=== PATIENT | female | born 1990 | race Hispanic/Latino ===

== ENCOUNTER 2020-06-07 07:26 | Emergency (ER) | payer BC ==
[2020-06-07 08:43] LABS: Urine Blood Trace-intact (Negative); Urine Glucose Negative (Negative); Urine Protein 1+ (Negative); Urine Specific Gravity >=1.030 (1.005-1.030)
[2020-06-07] MEDS ORDERED: FAMOTIDINE 20 MG/2 ML VIAL IV ONE (08:53)
[2020-06-07] MEDS ORDERED: NA CHLORIDE 0.9% 1,000 ML ONE (08:53)
[2020-06-07 08:54] LABS: Absolute Lymphocytes (CBC) 1.7 K/uL (0.7-4.9); Basophils % 1.3 % (0-1.3); Hematocrit 36.7 % (36.0-45.0); RBC Red Blood Cell Count 4.32 M/uL (3.86-4.86)
[2020-06-07 09:00] LABS: ALT/SGPT 22 U/L (12-78); AST/SGOT 16 U/L (15-37); Albumin 3.8 g/dL (3.4-5.0); Alkaline Phosphatase 95 U/L (45-117); BUN Blood Urea Nitrogen 11 mg/dL (7-18); Bicarbonate 26 mmol/L (21-32); Bilirubin Direct 0.1 mg/dL (0-0.2); Bilirubin Total 0.5 mg/dL (0.2-1.0); Glucose Level 87 mg/dL (74-106); Lipase 97 U/L (73-393); Potassium 3.6 mmol/L (3.5-5.1); Protein, Total 8.9 g/dL (6.4-8.2); Sodium Level 137 mmol/L (136-145)
[2020-06-07] MEDS ORDERED: KETOROLAC 30 MG/ML INJ ONE (10:02)
[2020-06-07] MEDS ORDERED: ONDANSETRON 4 MG/2 ML VIAL ONE (10:02)
[2020-06-07 10:23] LABS: Urine Specific Gravity/Preg >1.030 (1.005-1.030)
--- NOTE | 2020-06-07 10:24 | RAD REPORT ---
EXAM DESCRIPTION: CT - Abdomen Pelvis W Contrast - 06/07/2020 9:34 am CLINICAL HISTORY: Abd pain;GI bleed COMPARISON: Abdomen Pelvis W Contrast dated 03/01/2017; Abdomen Pelvis W Contrast dated 02/26/2017; Transvaginal Study Probe dated 02/28/2017 TECHNIQUE: Biphasic, helical CT imaging of the abdomen and pelvis was performed following 100 ml non -ionic IV contrast. No oral contrast administered. All CT scans are performed using dose optimization technique as appropriate and may include automated exposure control or mA/KV adjustment according to patient size. FINDINGS: No suspicious findings in the lung bases. The liver, spleen, and pancreas show no suspicious findings. Gallbladder and biliary tree are also wi thout suspicious finding. Symmetric renal function is seen with no hydronephrosis or suspicious renal mass. No pyelonephritis o r acute parenchymal process. No bladder abnormalities. No adrenal abnormalities. No gastric dilatation or gastric wall thickening. No dilated small bowel loops. The appendix is not w ell defined. A primary appendix process is not suspected. No colon wall thickening or mass identifiab le. Mild to moderate stool volume is present in the rectum. Perianal region of the rectum is less wel l visualized on this study but without a clearly definable mass. No uterine abnormality seen. There is been a significant change in the patient's complex ovarian cyst ic masses since prior imaging. Patient now has multiple bilateral ovarian cystic and solid mass compo nents. The largest cystic mass component on the left is 6 cm with a solid enhancing mass component of at least 5 cm. Calcifications are present. Right ovarian solid and cystic mass complex is collective ly 7-8 cm in size. Multiple small cystic and solid masses are present as well indistinguishable as to whether these are part of either ovary or adjacent masses. Patient also has nodularity, enhancement and mineralization of the omentum. Small amount of free intraperitoneal fluid is present. No free air or pneumatosis. No bulky lymphadenopathy. No suspicious bony findings. IMPRESSION: Multiple enlarged, enhancing and partially mineralized solid and cystic ovarian masses. These represent a substantial change from the 2018 imaging. Minimal amount of free intraperitoneal fluid is present along with nodularity, enhancement and scatte red mineralization of the omentum. Ovarian and peritoneal findings are suspicious for ovarian malignancy and carcinomatosis. No abnormality that would explain the patient's rectal bleeding pain. Ovarian complex masses are not seen as invasive into the colon.
[2020-06-07] MEDS ORDERED: MORPHINE 4 MG/ML SYR ONE ×3 (10:53→19:19)
--- NOTE | 2020-06-07 14:35 | RAD REPORT ---
EXAM DESCRIPTION: US - Pelvis Complete - 06/07/2020 2:21 pm CLINICAL HISTORY: Abdominal pain COMPARISON: June 07, 2020 cat scan FINDINGS: 8 centimeter mass is present within the right adnexa. It contains cystic and solid element s. Portions are calcified. A 9 centimeter mass is present within the left adnexae containing cystic and solid elements as well c alcification. Blood flow seen within the solid elements Small amount of ascites The uterus was not imaged on this examination. CT scan on the same date demonstrates the uterus to be present. The patient declined vaginal ultrasound due to severe pain IMPRESSION: Bilateral adnexal masses probably ovarian carcinomas
[2020-06-07] MEDS ORDERED: NA CHLORIDE 0.9% 100 ML ONE (15:10)
[2020-06-07] MEDS ORDERED: METOCLOPRAMIDE 10 MG/2mL INJ ONE (15:10)
--- NOTE | 2020-06-07 17:42 | ER ---
Nurse's Notes [facility] Name: Thea Briceño Age: 30 yrs Sex: Female : 1990 Arrival Date: 06/07/2020 Time: 07:33 Bed 14 Private MD: Diagnosis: Ovarian Carcinomas Presentation: 06/07 07:47 Chief complaint: Patient states: rectal bleeding for 3 weeks, described as bright red em and coffee ground, pt also reports abdominal/pelvic pain. Coronavirus screen: Client denies travel out of the [place] in the last 14 days. Ebola Screen: Patient negative for fever greater than or equal to 101.5 degrees Fahrenheit, and additional compatible Ebola Virus Disease symptoms Patient denies exposure to infectious person. Patient denies travel to an Ebola-affected area in the 21 days before illness onset. No symptoms or risks identified at this time. Initial Sepsis Screen: Does the patient meet any 2 criteria? HR > 90 bpm. No. Patient's initial sepsis screen is negative. Does the patient have a suspected source of infection? No. Patient's initial sepsis screen is negative. Risk Assessment: Do you want to hurt yourself or someone else? Patient reports no desire to harm self or others. Onset of symptoms was June 07, 2020. 07:47 Method Of Arrival: Ambulatory em 07:47 Acuity: YUMIKO 3 em Triage Assessment: 18:56 General: Appears in no apparent distress. uncomfortable, Behavior is cooperative, bw appropriate for age, anxious. 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 - Social history:: Smoking status: Patient denies any tobacco usage or history of. Screenin:16 Abuse screen: Denies threats or abuse. Nutritional screening: No deficits noted. bw Tuberculosis screening: No symptoms or risk factors identified. Fall Risk None identified. Assessment: 08:16 Pain: Complains of pain in abdomen. Neuro: No deficits noted. Cardiovascular: No bw deficits noted. Respiratory: No deficits noted. GI: Reports lower abdominal pain, rectal bleeding, bloody stool, nausea. 08:39 Reassessment: Patient appears in no apparent distress at this time. Patient and/or bw family updated on plan of care and expected duration. Pain level reassessed. Patient is alert, oriented x 3, equal unlabored respirations, skin warm/dry/pink. 09:40 Reassessment: Patient appears in no apparent distress at this time. Patient and/or bw family updated on plan of care and expected duration. Pain level reassessed. Patient is alert, oriented x 3, equal unlabored respirations, skin warm/dry/pink. 10:42 Reassessment: Patient appears in no apparent distress at this time. Patient and/or bw family updated on plan of care and expected duration. Pain level reassessed. Patient is alert, oriented x 3, equal unlabored respirations, skin warm/dry/pink. 11:48 Reassessment: Patient appears in no apparent distress at this time. Patient and/or bw family updated on plan of care and expected duration. Pain level reassessed. Patient is alert, oriented x 3, equal unlabored respirations, skin warm/dry/pink. 12:52 Reassessment: Patient appears in no apparent distress at this time. Patient and/or bw family updated on plan of care and expected duration. Pain level reassessed. Patient is alert, oriented x 3, equal unlabored respirations, skin warm/dry/pink. 13:18 Reassessment: Dr. Ortega consulting with Dr. Church over the phone at this time. ss 14:01 Reassessment: Patient appears in no apparent distress at this time. Patient and/or bw family updated on plan of care and expected duration. Pain level reassessed. Patient is alert, oriented x 3, equal unlabored respirations, skin warm/dry/pink. 15:04 Reassessment: Patient appears in no apparent distress at this time. Patient and/or bw family updated on plan of care and expected duration. Pain level reassessed. Patient is alert, oriented x 3, equal unlabored respirations, skin warm/dry/pink. 18:34 Reassessment: Report called to CHANDAN Li at [facility]. Awaiting EMS transportation.ss 18:56 Reassessment: Patient appears in no apparent distress at this time. Patient and/or bw family updated on plan of care and expected duration. Pain level reassessed. Patient is alert, oriented x 3, equal unlabored respirations, skin warm/dry/pink. Vital Signs: 07:47 BP 126 / 78; Pulse 92; Resp 18; Temp 97.8; Pulse Ox 99% on R/A; Weight 86.18 kg; Height em 4 ft. 11 in. (149.86 cm); Pain 6/10; 08:39 BP 120 / 79; Pulse 84; Resp 20; Pulse Ox 98% on R/A; bw 09:40 BP 122 / 87; Pulse 87; Resp 20; Pulse Ox 98% on R/A; bw 10:42 BP 124 / 87; Pulse 78; Resp 18; Pulse Ox 100% ; bw 11:48 BP 115 / 74; Pulse 74; Resp 18; Pulse Ox 100% ; bw 12:52 BP 104 / 56; Pulse 83; Resp 18; Pulse Ox 99% on R/A; bw 13:58 BP 113 / 56; Pulse 87; Resp 17; Pulse Ox 100% on R/A; mh5 15:07 BP 110 / 80; Pulse 87; Resp 17; Temp 98.0(O); Pulse Ox 100% on R/A; mh5 16:01 BP 100 / 69; Pulse 90; Resp 17; Pulse Ox 100% on R/A; mh5 17:37 BP 115 / 91; Pulse 91; Resp 16; Temp 98.4(TE); Pulse Ox 100% on R/A; mh5 07:47 Body Mass Index 38.37 (86.18 kg, 149.86 cm) em ED Course: 07:33 Patient arrived in ED. mr 07:40 Rory Ortega MD is Attending Physician. kdr 07:52 Triage completed. em 07:52 Arm band placed on. em 08:00 Tiara Sky, CHANDAN is Primary Nurse. bw 08:16 Patient has correct armband on for positive identification. bw 09:34 CT Abd/Pelvis - IV Contrast Only In Process Unspecified. EDMS 14:59 COVID swab sent to lab. 5 17:00 Assist provider with pelvic exam: Set up pelvic tray. Performed by Rory Ortega MD ss Patient tolerated well. 17:56 initiated transfer to [facility] pt accepted by dr Dickinson, admin approval given bd by Jamal Garibay. 18:34 Patient transferred, IV remains in place. ss Administered Medications: 08:40 Drug: Pepcid (famotidine) 20 mg Route: IVP; Site: left antecubital; bw 15:56 Follow up: Response: No adverse reaction bw 08:41 Drug: NS 0.9% 1000 ml Route: IV; Rate: 1 bolus; Site: left antecubital; bw 09:48 Drug: Zofran (Ondansetron) 4 mg Route: IVP; Site: left antecubital; bw 15:57 Follow up: Response: No adverse reaction bw 09:49 Drug: TORadol - (ketorolac) 15 mg Route: IVP; Site: left antecubital; bw 15:57 Follow up: Response: No adverse reaction bw 10:40 Drug: morphine 4 mg Route: IVP; Site: left antecubital; bw 15:57 Follow up: Response: No adverse reaction bw 13:54 Drug: morphine 4 mg Route: IVP; Site: left antecubital; bw 15:57 Follow up: Response: No adverse reaction bw 14:56 Drug: Reglan (metoCLOPramide) 10 mg Route: IVP; Site: right antecubital; ca1 15:57 Follow up: Response: No adverse reaction bw 18:03 Drug: Phenergan 12.5 mg Route: IVP; Site: left antecubital; bw 19:04 Follow up: Response: No adverse reaction bw 19:07 Drug: morphine 4 mg Route: IVP; Site: left antecubital; bw 19:07 Follow up: Response: No adverse reaction bw Point of Care Testing: Guaiac: 16:35 Stool Guaiac: Positive; Stool Hemoccult Control: Pass; bw Outcome: 17:41 ER care complete, transfer ordered by . kdr 18:34 Instructed on the need for transfer. ss 18:57 Transferred by ground EMS to [facility]. bw 18:57 Condition: stable 19:08 Patient left the ED. bw Signatures: Dispatcher [employer] Hannah Izaguirre Kevin, MD MD kdr Rivera, Mary mr MillerRambo, RN Jovana Carlisle RN RN Rosanna Doan [facility] Lena Mcintyre RN RN [facility] Tiara Sky RN RN
--- NOTE | 2020-06-07 17:42 | EDPHYS ---
Physician Documentation [facility] Name: Thea Briceño Age: 30 yrs Sex: Female : 1990 Arrival Date: 06/07/2020 Time: 07:33 Bed 14 Private MD: ED Physician Rory Ortega HPI: 06/07 17:42 This 30 yrs old Female presents to ER via Ambulatory with complaints of Rectal kdr Bleeding. 17:42 The patient presents to the emergency department with bleeding from the rectum/anus, kdr that is mild. Onset: The symptoms/episode began/occurred yesterday. Context: the patient has a known history of hemorrhoids. Modifying factors: The symptoms are alleviated by nothing, The symptoms are aggravated by bowel movement. Associate signs and symptoms: Pertinent positives: abdominal pain in the suprapubic area, right lower quadrant and left lower quadrant, lower GI bleeding. The patient has not experienced similar symptoms in the past. The patient has not recently seen a physician. 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 - Social history:: Smoking status: Patient denies any tobacco usage or history of. ROS: 17:42 Constitutional: Negative for fever, chills, and weight loss, Eyes: Negative for injury, kdr pain, redness, and discharge, ENT: Negative for injury, pain, and discharge, Neck: Negative for injury, pain, and swelling, Cardiovascular: Negative for chest pain, palpitations, and edema, Respiratory: Negative for shortness of breath, cough, wheezing, and pleuritic chest pain, Back: Negative for injury and pain, : Negative for injury, bleeding, discharge, and swelling, MS/Extremity: Negative for injury and deformity, Skin: Negative for injury, rash, and discoloration, Neuro: Negative for headache, weakness, numbness, tingling, and seizure activity. Psych: Negative for depression, anxiety, suicide ideation, homicidal ideation, and hallucinations, Allergy/Immunology: Negative for hives, rash, and allergies, Endocrine: Negative for neck swelling, polydipsia, polyuria, polyphagia, and marked weight changes, Hematologic/Lymphatic: Negative for swollen nodes, abnormal bleeding, and unusual bruising. 17:42 Abdomen/GI: Positive for abdominal pain, nausea, rectal bleeding, Expressed a large clot this morning. Exam: 17:42 Constitutional: This is a well developed, well nourished patient who is awake, alert, kdr and in no acute distress. Head/Face: Normocephalic, atraumatic. Eyes: Pupils equal round and reactive to light, extra-ocular motions intact. Lids and lashes normal. Conjunctiva and sclera are non-icteric and not injected. Cornea within normal limits. Periorbital areas with no swelling, redness, or edema. Neck: Trachea midline, no thyromegaly or masses palpated, and no cervical lymphadenopathy. Supple, full range of motion without nuchal rigidity, or vertebral point tenderness. No Meningismus. Chest/axilla: Normal chest wall appearance and motion. Nontender with no deformity. No lesions are appreciated. Cardiovascular: Regular rate and rhythm with a normal S1 and S2. No gallops, murmurs, or rubs. Normal PMI, no JVD. No pulse deficits. Respiratory: Lungs have equal breath sounds bilaterally, clear to auscultation and percussion. No rales, rhonchi or wheezes noted. No increased work of breathing, no retractions or nasal flaring. Back: No spinal tenderness. No costovertebral tenderness. Full range of motion. Skin: Warm, dry with normal turgor. Normal color with no rashes, no lesions, and no evidence of cellulitis. MS/ Extremity: Pulses equal, no cyanosis. Neurovascular intact. Full, normal range of motion. Neuro: Awake and alert, GCS 15, oriented to person, place, time, and situation. Cranial nerves II-XII grossly intact. Motor strength 5/5 in all extremities. Sensory grossly intact. Cerebellar exam normal. Normal gait. Psych: Awake, alert, with orientation to person, place and time. Behavior, mood, and affect are within normal limits. 17:42 Abdomen/GI: Inspection: abdomen appears normal, Bowel sounds: active, Palpation: soft, moderate abdominal tenderness, in the suprapubic area, right lower quadrant and left lower quadrant, mass, is not appreciated, rebound tenderness, is not appreciated, Rectal exam: rectal tone normal, Stool: normal. 17:42 : Pelvic Exam: External exam: is normal, Speculum exam: normal findings, no bleeding is noted, discharge, is not appreciated, a female etl architect was present for the exam. Vital Signs: 07:47 BP 126 / 78; Pulse 92; Resp 18; Temp 97.8; Pulse Ox 99% on R/A; Weight 86.18 kg; Height em 4 ft. 11 in. (149.86 cm); Pain 6/10; 08:39 BP 120 / 79; Pulse 84; Resp 20; Pulse Ox 98% on R/A; bw 09:40 BP 122 / 87; Pulse 87; Resp 20; Pulse Ox 98% on R/A; bw 10:42 BP 124 / 87; Pulse 78; Resp 18; Pulse Ox 100% ; bw 11:48 BP 115 / 74; Pulse 74; Resp 18; Pulse Ox 100% ; bw 12:52 BP 104 / 56; Pulse 83; Resp 18; Pulse Ox 99% on R/A; bw 13:58 BP 113 / 56; Pulse 87; Resp 17; Pulse Ox 100% on R/A; mh5 15:07 BP 110 / 80; Pulse 87; Resp 17; Temp 98.0(O); Pulse Ox 100% on R/A; mh5 16:01 BP 100 / 69; Pulse 90; Resp 17; Pulse Ox 100% on R/A; mh5 17:37 BP 115 / 91; Pulse 91; Resp 16; Temp 98.4(TE); Pulse Ox 100% on R/A; mh5 07:47 Body Mass Index 38.37 (86.18 kg, 149.86 cm) em MDM: 17:41 Patient medically screened. kdr 17:42 Data reviewed: vital signs, nurses notes, lab test result(s), radiologic studies. kdr Counseling: I had a detailed discussion with the patient and/or guardian regarding: the historical points, exam findings, and any diagnostic results supporting the discharge/admit diagnosis, lab results, radiology results, the need for outpatient follow up. Physician consultation: Mya Church MD was called at 10:46, was contacted at 12:00, regarding consult, patient's condition, and will see patient in ED, after a discussion of the case, a recommendation for transfer for higher level of care is made. 06/07 07:40 Order name: Basic Metabolic Panel; Complete Time: 09:38 kdr 06/07 07:40 Order name: CBC with Diff; Complete Time: 09:38 kdr 06/07 07:40 Order name: Hepatic Function; Complete Time: 09:38 kdr 06/07 07:40 Order name: Lipase; Complete Time: 09:38 kdr 06/07 07:40 Order name: Type And Screen; Complete Time: 10:31 kdr 06/07 08:42 Order name: Urine Dipstick-Ancillary; Complete Time: 09:38 EDMS 06/07 08:07 Order name: CT Abd/Pelvis - IV Contrast Only; Complete Time: 10:31 kdr 06/07 08:47 Order name: Urine --Ancillary (enter results); Complete Time: 10:31 bd 06/07 10:14 Order name: ABO/RH no charge; Complete Time: 10:31 EDMS 06/07 14:35 Order name: US; Complete Time: 14:51 EDMS 06/07 17:17 Order name: SARS-COV-2 RT PCR; Complete Time: 17:22 EDMS 06/07 17:35 Order name: Occult Blood--Ancillary bd 06/07 07:40 Order name: IV Saline Lock; Complete Time: 08:26 kdr 06/07 07:40 Order name: Labs collected and sent; Complete Time: 08:26 kdr 06/07 08:40 Order name: Labs - recollect needed: recollect t\T\s, reband pt.; Complete Time: 09:13 bd Administered Medications: 08:40 Drug: Pepcid (famotidine) 20 mg Route: IVP; Site: left antecubital; bw 15:56 Follow up: Response: No adverse reaction bw 08:41 Drug: NS 0.9% 1000 ml Route: IV; Rate: 1 bolus; Site: left antecubital; bw 09:48 Drug: Zofran (Ondansetron) 4 mg Route: IVP; Site: left antecubital; bw 15:57 Follow up: Response: No adverse reaction bw 09:49 Drug: TORadol - (ketorolac) 15 mg Route: IVP; Site: left antecubital; bw 15:57 Follow up: Response: No adverse reaction bw 10:40 Drug: morphine 4 mg Route: IVP; Site: left antecubital; bw 15:57 Follow up: Response: No adverse reaction bw 13:54 Drug: morphine 4 mg Route: IVP; Site: left antecubital; bw 15:57 Follow up: Response: No adverse reaction bw 14:56 Drug: Reglan (metoCLOPramide) 10 mg Route: IVP; Site: right antecubital; ca1 15:57 Follow up: Response: No adverse reaction bw 18:03 Drug: Phenergan 12.5 mg Route: IVP; Site: left antecubital; bw 19:04 Follow up: Response: No adverse reaction bw 19:07 Drug: morphine 4 mg Route: IVP; Site: left antecubital; bw 19:07 Follow up: Response: No adverse reaction bw Point of Care Testing: Guaiac: 16:35 Stool Guaiac: Positive; Stool Hemoccult Control: Pass; bw Disposition: 06/07/20 17:41 Transfer ordered to [facility]. Diagnosis is Ovarian Carcinomas. - Reason for transfer: Higher level of care. - Accepting physician is Ibe. Alcantar (SUPA), Kylah (Inspector Of Dredging/Onc). - Condition is Fair. - Problem is new. - Symptoms have improved. Signatures: Dispatcher [employer] EDMS Hannah Ontiveros Kevin, MD MD kdr Rambo Miller, CHANDAN HAWLEY em Lena Mcintyre RN RN [facility] Tiara Sky RN RN Corrections: (The following items were deleted from the chart) 17:03 13:59 Transvaginal Study (Probe)+[id number].RAD.BRZ ordered. EDNH EDMS 19:08 17:41 06/07/2020 17:41 Transfer ordered to [facility]. bw Diagnosis is Ovarian Carcinomas. Reason for transfer: Higher level of care. Accepting physician is Ibe. Alcantar (HM), Kylah (Inspector Of Dredging/Onc). Condition is Fair. Problem is new. Symptoms have improved. kdr
[2020-06-07] MEDS ORDERED: PROMETHAZINE INJ 25 MG/ML AMP ONE (18:08)
[2020-06-07 19:45] VITALS: O2SAT 100
[2020-06-07 19:50] VITALS: BP 115/91; TEMP 98.4
--- NOTE | 2020-06-08 21:20 | P.CNS ---
Date of Consult: 06/07/20 Reason for Consult: Pelvic Pain Requesting Physician: Rory Ortega Chief Complaint: Pelvic Pain History of Present Illness: 30 year old female patient, , (4 SAB), reported to ED with complaints of chronic and worsening pelvic pain with recent onset rectal bleeding. She denies any constipation, hard stool, straining, or use of laxatives. Menarche age 11 and history of irregular periods since then. She used COCs as a teenager, then stopped these in her early 20s. She reports a long history of very irregular, heavy and painful periods. In 2018 she reported to the ED with pelvic pain and heavy menstrual bleeding. A CT scan was done at that time, was found to have cystic adnexal mass, and was referred to founder and chief technical officer in [place]. She was seen at that time by a provider in [place] (name unknown) and recommended to have fertility work up to include HSG. She was unable to complete the recommended testing since she was without insurance, and did not return for follow up. She has had no consistent gynecology care since that time. Allergies Doxycycline Allergy (Uncoded 02/26/17 01:34) Unknown Home medications list reviewed: Yes - Past Medical/Surgical History Diabetic: No Past Medical History: Reviewed- Non-Contributory Review of Systems Respiratory: Unremarkable Cardiovascular: Unremarkable Gastrointestinal: Abdominal Pain, Hematochezia Genitourinary: As per HPI, Unremarkable Musculoskeletal: Unremarkable Physical Examination Temp Pulse Resp BP Pulse Ox 98.4 F 91 H 16 115/91 H 06/07/20 17:37 06/07/20 17:37 06/07/20 17:37 06/07/20 17:37 General: Mild distress HEENT: Atraumatic, PERRLA, Mucous membr. moist/pink, EOMI, Sclerae nonicteric Respiratory: Clear to auscultation bilaterally, Normal air movement Gastrointestinal: Non-distended, No ascites, Tenderness External genitalia: Deferred Rectal: Deferred - Problems (1) Pelvic pain Status: Acute Plan: Continue current pain management, improved but not resolved on Morphine IV. PO pain management if tolerated. Needs surgical evaluation of adnexal mass. (2) Intra-abdominal and pelvic swelling, mass and lump, unspecified site Status: Acute Plan: Recommend TVUS now and CA 125. If pain well controlled on PO medication, recommend discharge and f/u in office for surgical management outpatient. If pain unable to be controlled, then recommend surgical management now rather than as outpatient. Dr Church to view US images then make surgical plan. Ovarian carcinoma with metastasis vs endometriosis vs teratoma/dermoid as DD. CT scan w/o free fluid or ascites. Conclusions/Impression: DD to include bilateral teratoma or dermoid, severe endometriosis/endometrioma, ovarian torsion, ovarian carcinoma with metastasis. Needs TVUS and CA 125 pain management. If pain uncontrolled needs immediate surgical management and diagnos is. If pain can be improved then recommend outpatient management. Critical Care: No Time Spent Managing Pts care (In Minutes): 30
== END 2020-06-07 19:08 | disposition short-term general hospital (02) ==
LOC: ER 07:26
DX: C56.9 Malignant neoplasm of unspecified ovary (principal); K62.5 Hemorrhage of anus and rectum; Z20.822 Contact with and (suspected) exposure to COVID-19; Z88.1 Allergy status to other antibiotic agents
CPT/HCPCS: 85025; 80048; 36415; 86900; 86850; 81025; 86901; 80076; 81003; 83690; 74177; 76856; U0003; Q9967; J2765; J2550; J7030; J2405; 99285

== ENCOUNTER 2020-08-16 17:32 | Emergency (ER) | payer BC ==
--- OUTSIDE RECORDS SUMMARY | 2020-08-16 17:35 | XMS REPORT | Continuity of Care Document ---
:1990 Author Organization [facility] t Address [address] [place] [address] Care Team Providers Name Role Phone Pcp MD Primary Care Physician Unavailable Almaz Ghotra MD Attending Clinician ALMAZ GHOTRA Attending Clinician Unavailable Anurag MARTELL Attending Clinician Rossi ORDONEZ Attending Clinician Jane Dickinson MD Attending Clinician Maggie Soto MD Attending Clinician Letty MARTELL Attending Clinician Hernan Galarza MD Attending Clinician Unavailable Matheus Hawley MD Attending Clinician JANE DICKINSON Attending Clinician Unavailable ALMAZ GHOTRA Admitting Clinician Unavailable MAGGIE SOTO Admitting Clinician Unavailable Payers Payer Name Policy Type Policy Effective Date Expiration Date Sour ce Number BLUE CROSS/BLUE [id number] [address] [facility] SHIELDBCBS ADV 00:00:00 - [facility] [id number] 2020-Tammy [id number], [place] [address] Problems Condition Condition Condition Status Onset Resolution Last Treating Co mments Source Name Details Category Date Date Treatment Clinician Date Adnexal Adnexal Disease Active [facility] - 00:[facility]: Medical 00 Center At risk At risk Disease Active [facility] - fertility fertility 00:00: [facility] angelica problems problems 00 Center Elevated Elevated Disease Active [facility] tumor tumor 07[facility]18 [facility] - markers markers 00:00: Medical 00 [place] Pelvic Pelvic Disease Active [facility] pain pain -25 [facility] - 00:00: Medical 00 [place] Ovarian Ovarian Disease Active [facility] 4[facility]14 [facility] - 00:00: Medical 00 [place] Generalize Generalize Disease Active [facility] 4-14 [facility] - abdominal abdominal 00:00: Medi [place] pain pain 00 Center Allergies, Adverse Reactions, Alerts Allergy Allergy Status Severity Reaction(s) Onset Inactive Treating Comm ents Source Name Type Date Date Clinician Doxycycl Drug Active Nausea And [facility] ine Allergy Vomiting 03-18 [facility] - 00:00: Medical 00 [place] Social History Social Habit Start Date Stop Date Quantity Comments Source Sex Assigned At [facility] Exposure to Not sure [facility] - SARS-CoV-2 (event) [facility] Cigarettes smoked 2020-08-11 2020-08-11 [facility] - current (pack per 00:00:00 00:00:00 [facility] day) - Reported Tobacco use and 2020-08-11 2020-08-11 Never used [facility] - exposure 00:00:00 00:00:00 [facility] Alcohol intake 2020-08-11 2020-08-11 Ex-drinker [facility] 00:00:00 00:00:00 (finding) [facility] Smoking Status Start Date Stop Date Source Current some day smoker 2020-08-11 00:00:00 [facility] Medications Ordered Filled Start Stop Current Ordering Indication Dosage Frequency Signature Comments Components Source Medication Medication Date Date Medication? Clinician (SIG) Name Name acetaminoph Yes 1{tbl} Take [address] en-codeine 5-26 tablet by John aMrcelo (TYLENOL 18:18: mouth Medical #3) 300-30 47 every 4 Center mg per (four) tablet hours as needed for Pain. HYDROcodone Yes 1{tbl} Take [address] -acetaminop 5-26 tablet by Archana cheatham (NORCO 18:18: mouth Medica l 5-325) 47 every 6 Center 5-325 mg (six) per tablet hours as needed for Pain. lamoTRIgine Yes 25mg QD Take [address] (LaMICtal) 5-26 by mouth [facility] - 25 MG 18:18: daily. Medical tablet 47 Center sertraline 2021- Yes 25mg QD Take [address] (ZOLOFT) 25 06-10-17 tablet (25 L ukes - MG tablet 00:00: 23:59 mg total) Me dical 00 :00 by mouth Center daily. acetaminoph No 650mg Take [address] en 06-10-26 tablets [facility] - (TYLENOL) 00:00: 00:00 (650 mg Medi angelica 325 MG 00 :00 total) by Center tablet mouth every 6 (six) hours as needed for up to 360 days. HYDROcodone No 1{tbl} Take [address] -acetaminop 06-10 tablet by Sherri cheatham (NORCO 00:00: 23:59 mouth Medic al 5-325) 00 :00 every 6 Center 5-325 mg (six) per tablet hours as needed for up to 10 days. Max Daily Amount: 4 tablets ondansetron No 4mg Take [address] (ZOFRAN-ODT 06-1024 tablet (4 Sherri kes - ) 4 MG 00:00: 23:59 mg total) Medic al disintegrat 00 :00 by mouth Cent er ing tablet every 8 (eight) hours as needed for Nausea for up to 7 days. polyethylen No 17g Take [address] e glycol - 04-20 by mouth [facility]ukes - (GLYCOLAX) 00:00: 23:59 daily as Me dical 17 gram 00 :00 needed Center packet (Constipat ion) for up to 3 days. Vital Signs Vital Name Observation Time Observation Value Comments Source Systolic blood 2020-08-11 11:30:00 119 mm[Hg] [facility] pressure Medical Center Diastolic blood 2020-08-11 11:30:00 81 mm[Hg] [facility] pressure [facility] Heart rate 2020-08-11 11:30:00 87 /min [facility] Body temperature 2020-08-11 11:30:00 36.67 Julianne [facility] Respiratory rate 2020-08-11 11:30:00 18 /min [facility] Oxygen saturation in 2020-08-11 11:30:00 100 /min [facility] - Arterial blood by Medical Ce nter Pulse oximetry Body height 2020-07-18 07:00:00 149.9 cm [facility] Body weight 2020-07-18 07:00:00 86.7 kg [facility] BMI 2020-07-18 07:00:00 38.61 kg/m2 [facility] Procedures Procedure Date / Time Performing Clinician Source Performed IR CV ACCESS FLUORO 2020-08-11 09:54:00 Zay Ghotra [facility] CBC W/PLT COUNT & AUTO 2020-08-11 07:03:00 Dinorah [facility] PROTHROMBIN TIME/INR 2020-08-11 07:03:00 [facility] 2020-08-11 07:03:[address] [facility] VENOUS DOPPLER LEGS 2020-07-19 12:50:00 Shaye Reno [facility] CT CHEST WITH IV CONTRAST 2020-07-19 06:50:00 Zay Ghotra I [facility] PROTHROMBIN TIME/INR 2020-07-19 04:22:00 Shaye Reno [facility] COMPREHENSIVE METABOLIC 2020-07-19 04:22:00 Shaye Reno [facility] CBC (HEMOGRAM ONLY) 2020-07-19 04:22:00 Shaye Reno [facility] APTT 2020-07-19 04:22:00 Shaye Reno [facility] CBC W/PLT COUNT & AUTO 2020-07-18 17:06:00 Shaye Reno [facility] TISSUE EXAM 2020-07-18 12:15:46 [facility] 2020-07-18 11:41:09 [facility] CYTOLOGY 2020-07-18 11:41:00 Ghotra [facility] LAPAROSCOPY,CYSTECTOMY/SALP 2020-07-18 10:18:00 [facility] enter POCT , URINE 2020-07-18 08:21:00 [facility] HEMOGLOBIN 2020-07-18 07:57:00 [facility] TYPE AND SCREEN, AUTOMATED 2020-07-18 07:56:00 Zay Ghotra [facility] CBC (HEMOGRAM ONLY) 2020-06-10 03:06:00 [facility] BASIC METABOLIC PANEL (7) 2020-06-10 03:06:00 [facility] PHOSPHORUS 2020-06-10 03:06:00 [facility] MAGNESIUM 2020-06-10 03:06:00 [facility] MR PELVIS WITH & WITHOUT IV 2020-06-09 18:04:00 Ada Fairchild [facility] REPORT OF PROCEDURE - 2020-06-09 09:39:[address] [facility] COLONOSCOPY 2020-06-09 09:10:00 Shayla Galarza [facility] CBC (HEMOGRAM ONLY) 2020-06-09 04:23:00 [facility] BASIC METABOLIC PANEL (7) 2020-06-09 04:23:00 [facility] 2020-06-09 04:23:00 Charles [facility] MAGNESIUM 2020-06-09 04:23[facility] FET[facility] (AFP), 2020-06-08 15:41:00 Ada Fairchild [facility] TUMOR MARKER [facility] HCG, QUANTITATIVE, 2020-06-08 15:41:00 Ada Fairchild [facility] FERRITIN 2020-06-08 15:41:00 Guido Brauns [facility] IRON, TIBC, % SAT. (WITHOUT 2020-06-08 15:41:00 Lora Villagomez [facility] - FERRITIN) [facility] HEMOGLOBIN AND HEMATOCRIT 2020-06-08 15:26:00 Magnolia Saenz [facility] CBC (HEMOGRAM ONLY) 2020-06-08 04:22:00 Davilla [facility] BASIC METABOLIC PANEL (7) 2020-06-08 04:22:00 Malia Soto [facility] PHOSPHORUS 2020-06-08 04:22:[address] [facility] MAGNESIUM 2020-06-08 04:22:00 Charles [facility] PROTHROMBIN TIME/INR 2020-06-08 04:22:00 Charles Malia [facility] S t [facility] LACTATE DEHYDROGENASE (LDH) 2020-06-08 04:22:00 Ada Fairchild [facility] ABORH, MANUAL 2020-06-08 04:22:00 Anna Kwan [facility] CANCER ANTIGEN 125 (CA 125) 2020-06-07 20:59:00 Peyton Soto [facility] COMPREHENSIVE METABOLIC 2020-06-07 20:59:00 [facility]ia [facility]oto [facility] PANEL [facility] CBC W/PLT COUNT & AUTO 2020-06-07 20:59:00 Malia Soto [facility] - DIFFERENTIAL [facility] MAGNESIUM 2020-06-07 20:59:[address] [facility] PHOSPHORUS 2020-06-07 20:59:[address] [facility] PROTHROMBIN TIME/INR 2020-06-07 20:59:00 CharlesMalia [facility] S t [facility] TYPE AND SCREEN, AUTOMATED 2020-06-07 20:59:00 DavillaMalia [facility] CARCINOEMBRYONIC ANTIGEN 2020-06-07 20:59:00 Malia Soto [facility] (CEA) [facility] CARBOHYDRATE ANTIGEN 19-9 2020-06-07 20:59:00 DavillaMalia [facility] (CA 19-9) [facility] Plan of Care Planned Activity Planned Date Details Comments Source Future Scheduled 2020-10-[address] [facility] - Test 00:00:00 (Season Ended) [code = [facility] INFLUENZA VACCINE (Season Ended)] Future Scheduled 2020-02-[address] [facility] - Test 00:00:00 (12+) [code = [facility] DEPRESSION SCREENING (12+)] Future Scheduled [address] [facility] es - Test 00:00:00 [facility] cervix (procedure) [code = 719454842] Future Scheduled [address] [facility] - Test 00:00:00 (procedure) [code = Medical Center 77826956] Future Scheduled 2008 DTAP/TDAP/TD VACCINES [facility] - Test 00:00:00 (1 - Tdap) [code = Medical C enter DTAP/TDAP/TD VACCINES (1 - Tdap)] Future Scheduled 2007-05-02 HEPATITIS C SCREENING [facility] - Test 00:00:00 [code = HEPATITIS C Medical Center SCREENING] Future Scheduled 2001 COVID-19 VACCINE (1) [facility] - Test 00:00:00 [code = COVID-[address] VACCINE (1)] Future Scheduled 1995-05-02 PNEUMOCOCCAL VACCINE [facility] - Test 00:00:00 0-64 YRS (1 of 1 - Medical C enter PPSV23) [code = PNEUMOCOCCAL VACCINE 0-64 YRS (1 of 1 - PPSV23)] Results Test Description Test Time Test Comments Results Result Sourc e Comments ANG, CV ACCESS, 2020-08-11 Reason for FLUORO 15:02:00 Exam:->MALIGNA NT [facility] 1990 Sex: F FINAL REPORT Right internal jugular chest port insertion History: MALIGNANT NEOPLASM OF BOTH OVARIES Modality: Sonography and fluoroscopy. Sedation: Moderate sedation was administered. 2 mg of Versed and 100 mcg of fentanyl IV was used for moderate sedation monitored under my direction. Total intra-service time of sedation was 45 minutes. The patient's vital signs were monitored throughout the procedure and recorded in the patient's medical record by the nurse. Nurse Assistant: Jorge A Ryder MD Social Services: None. Approach: Right internal jugular vein Estimated blood loss: < 5 cc. Specimen: None. Fluoroscopy Time: 0.5 min.Reference Air Kerma (Ka, r): 3.8 mGy. Technique: Informed written consent was obtained. Discussion of risks, benefits, and alternatives were made with the patient. The patient expressed understanding and agreed to proceed. A universal timeout was performed prior to starting the procedure. All elements maximal sterile barrier technique was utilized for this procedure, including utilization of sterile scrub solution for skin prep, a large sterile sheet to cover the areas of the patient that were not prepped, and hand hygiene, mask, head covering, and sterile gown for performing radiologist and scrub technologist. The skin was anesthetized with 2% lidocaine. Ultrasound evaluation showed a patent and compressible right internal jugular vein, which was punctured under direct real-time ultrasound guidance with a micropuncture needle. An ultrasound image was saved to PACS. A 0.018 inch wire was placed through the needle into the right atrium. A 4 Belarusian micropuncture sheath was placed and a 0.035 wire was advanced into the IVC. A subcutaneous tunnel and pocket were created in the right anterior chest wall by blunt dissection. The pocket was flushed with saline. A 6F Deltech port was placed within the pocket and the catheter brought through the tunnel. The catheter was trimmed to length. A peel-away sheath was placed in the right IJ vein and the catheter was advanced through the sheath, with its distal tip terminating in the cavoatrial junction. The peel-away sheath was removed. The port was flushed and aspirated easily following placement. The skin incision was closed with 3-0 Monocryl and Dermabond. The small jugular incision site was closed using Dermabond. The patient tolerated the procedure well and left the department in the same condition. Results: Spot radiograph of the chest demonstrates the new right IJ Port-A-Cath to lie in the expected position with its tip overlying the cavoatrial junction. Small redundancy in the catheter tubing overlying the clavicle is noted and is intentional as the port will migrate inferiorly when patient is standing. Impression: Successful, uncomplicated placement of a right internal jugular chest port using sonographic and fluoroscopic guidance and conscious sedation. The port is ready for immediate use. Signed: Jorge A Ryder MDReport Verified Date/Time: 08/11/2020 15:02:41 Reading Location: [facility] B1 P048 Angio Body Reading Room CV Access 2020-08-11 Interface, External [facility] Fluoro 15:02:00 Ris In - 08/11/2020 - Med ical 3:04 PM CDTFINAL Center REPORT Right internal jugular chest port insertion History: MALIGNANT NEOPLASM OF BOTH OVARIES Modality: Sonography and fluoroscopy. Sedation: Moderate sedation was administered. 2 mg of Versed and 100 mcg of fentanyl IV was used for moderate sedation monitored under my direction. Total intra-service time of sedation was 45 minutes. The patient's vital signs were monitored throughout the procedure and recorded in the patient's medical record by the nurse. Nurse Assistant: Jorge A Ryder MD Social Services: None. Approach: Right internal jugular vein Estimated blood loss: < 5 cc. Specimen: None. Fluoroscopy Time: 0.5 min.Reference Air Kerma (Ka, r): 3.8 mGy. Technique: Informed written consent was obtained. Discussion of risks, benefits, and alternatives were made with the patient. The patient expressed understanding and agreed to proceed. A universal timeout was performed prior to starting the procedure. All elements maximal sterile barrier technique was utilized for this procedure, including utilization of sterile scrub solution for skin prep, a large sterile sheet to cover the areas of the patient that were not prepped, and hand hygiene, mask, head covering, and sterile gown for performing radiologist and scrub technologist. The skin was anesthetized with 2% lidocaine. Ultrasound evaluation showed a patent and compressible right internal jugular vein, which was punctured under direct real-time ultrasound guidance with a micropuncture needle. An ultrasound image was saved to PACS. A 0.018 inch wire was placed through the needle into the right atrium. A 4 Belarusian micropuncture sheath was placed and a 0.035 wire was advanced into the IVC. A subcutaneous tunnel and pocket were created in the right anterior chest wall by blunt dissection. The pocket was flushed with saline. A 6F Deltech port was placed within the pocket and the catheter brought through the tunnel. The catheter was trimmed to length. A peel-away sheath was placed in the right IJ vein and the catheter was advanced through the sheath, with its distal tip terminating in the cavoatrial junction. The peel-away sheath was removed. The port was flushed and aspirated easily following placement. The skin incision was closed with 3-0 Monocryl and Dermabond. The small jugular incision site was closed using Dermabond. The patient tolerated the procedure well and left the department in the same condition. Results: Spot radiograph of the chest demonstrates the new right IJ Port-A-Cath to lie in the expected position with its tip overlying the cavoatrial junction. Small redundancy in the catheter tubing overlying the clavicle is noted and is intentional as the port will migrate inferiorly when patient is standing. Impression: Successful, uncomplicated placement of a right internal jugular chest port using sonographic and fluoroscopic guidance and conscious sedation. The port is ready for immediate use. Signed: Jorge A Ryder MDReport Verified Date/Time: 08/11/2020 15:02:41 Reading Location: [facility] P048 Angio Body Reading Room Prothrombin time/INR 2020-08-11 07:31:00 Test Item Value Reference Range Interpretation Comme nts Protime (test code = 13.4 See_Comment [Autom ated message] The 5902-2) system which [employer] nerated this result tra nsmitted reference range : 11.9 - 14.2 seconds. T he reference range was not used to interpr et this result as normal/abnormal . INR (test code = 1.03 See_Comment [Automated message] The 6301-6) system which [employer] nerated this result tra nsmitted reference range : <=5.90. The reference r gregory was not used to int erpret this result as normal/abnormal . JOHNNA (test code = JOHNNA) RECOMMENDED COUMADIN/WARFARIN INR THERAPY RANGESSTANDARD DOSE: 2.0 - 3.0 Includes: PROPHYLAXIS for venous thrombosis, systemic embolization; TREATMENT for venous thrombosis and/or pulmonary embolus.HIGH RISK: Target INR is 2.5-3.5 for patients with mechanical heart valves. Lab Interpretation Normal (test code = 70257-1) [facility] Test Item Value Reference Range Interpretation Comments PTT (test code = 48305-4) 31.3 See_Comment [ Automated message] The system [employer] generated this result transmitted ref erence range: 22.5 - 3 6.0 seconds. The re ference range was not u sed to interpret this result as normal/abnor mal. Lab Interpretation (test Normal code = 00273-3) [id number] 07:31:00 Test Item Value Reference Range Interpretation Comments PROTIME (BEAKER) 13.4 seconds 11.9-14.2 (test code = 759) INR (BEAKER) (test 1.03 See_Comment [Automat ed message] code = 370) The system [employer] generated this result transmitted ref erence range: <=5.90. The reference range was not used to int erpret this result as normal/abnormal . RECOMMENDED COUMADIN/WARFARIN INR THERAPY RANGESSTANDARD DOSE: 2.0 - 3.0 Includes: PROPHYLAXIS forvenous thrombosis, systemic embolization; TREATMENT for venous thrombosis and/or pulmonary embolus.HIGH RISK: Target INR is 2.5-3.5 for patients with mechanical heart valves.[id number] 07:31:00 Test Item Value Reference Range Interpretation Comments PARTIAL THROMBOPLASTIN TIME 31.3 seconds 22.5-36.0 (BEAKER) (test code = 760) CBC with platelet count + automated [id number] 07:13:00 Test Item Value Reference Range Interpretation Comments WBC (test code = 6690-2) 7.9 See_Comment [A utomated message] The system [employer] generated this result transmitted ref erence range: 3.5 - 10 .5 K/L. The refe rence range was not u sed to interpret this result as normal/abnor mal. RBC (test code = 789-8) 4.22 See_Comment [Au tomated message] The system [employer] generated this result transmitted ref erence range: 3.93 - 5 .22 M/L. The refe rence range was not u sed to interpret this result as normal/abnor mal. MCHC (test code = 786-4) 31.1 See_Comment L [A utomated message] The system [employer] generated this result transmitted ref erence range: 32.2 - 3 5.5 GM/DL. The refe rence range was not u sed to interpret this result as normal/abnor mal. Hematocrit (test code = 37.9 % 34.1-44.9 4544-3) MCV (test code = 787-2) 89.8 fL 79.4-94.8 MCH (test code = 785-6) 28.0 pg 25.6-32.2 RDW (test code = 788-0) 13.6 % 11.7-14.4 Platelets (test code = 409 See_Comment [Aut omated message] 677-3) The system [employer] generated this result transmitted ref erence range: 150 - 45 0 K/CU MM. The referen ce range was not u sed to interpret this result as normal/abnor mal. MPV (test code = 9.1 fL 9.4-12.3 L 03248-6) nRBC (test code = 413) 0 See_Comment [Aut omated message] The system [employer] generated this result transmitted ref erence range: 0 - 0 /1 00 WBC. The refere nce range was not u sed to interpret this result as normal/abnor mal. % Neutros (test code = 64 % 429) % Lymphs (test code = 25 % 430) % Monos (test code = 7 % 431) % Eos (test code = 432) 3 % % Baso (test code = 437) 0 % # Neutros (test code = 5.11 See_Comment [Aut omated message] 670) The system [employer] generated this result transmitted ref erence range: 1.56 - 6 .13 K/L. The refe rence range was not u sed to interpret this result as normal/abnor mal. # Lymphs (test code = 1.98 See_Comment [Auto mated message] 414) The system [employer] generated this result transmitted ref erence range: 1.18 - 3 .74 K/L. The refe rence range was not u sed to interpret this result as normal/abnor mal. # Monos (test code = 0.53 See_Comment H [Autom ated message] 415) The system [employer] generated this result transmitted ref erence range: 0.24 - 0 .36 K/L. The refe rence range was not u sed to interpret this result as normal/abnor mal. # Eos (test code = 416) 0.26 See_Comment [Au tomated message] The system [employer] generated this result transmitted ref erence range: 0.04 - 0 .36 K/L. The refe rence range was not u sed to interpret this result as normal/abnor mal. # Baso (test code = 417) 0.03 See_Comment [A utomated message] The system [employer] generated this result transmitted ref erence range: 0.01 - 0 .08 K/L. The refe rence range was not u sed to interpret this result as normal/abnor mal. Immature 0 % 0-1 Granulocytes-Relative (test code = 2801) Lab Interpretation (test Abnormal code = 44904-8) [facility] W/PLT COUNT & AUTO [id number] 07:13:00 Test Item Value Reference Range Interpretation Comments WHITE BLOOD CELL COUNT (BEAKER) 7.9 K/ L 3.5-10.5 (test code = 775) RED BLOOD CELL COUNT (BEAKER) 4.22 M/ L 3.93-5.22 (test code = 761) HEMOGLOBIN (BEAKER) (test code = 11.8 GM/DL 11.2-15.7 410) HEMATOCRIT (BEAKER) (test code = 37.9 % 34.1-44.9 411) MEAN CORPUSCULAR VOLUME (BEAKER) 89.8 fL 79.4-94.8 (test code = 753) MEAN CORPUSCULAR HEMOGLOBIN 28.0 pg 25.6-32.2 (BEAKER) (test code = 751) MEAN CORPUSCULAR HEMOGLOBIN CONC 31.1 GM/DL 32.2-35.5 L (BEAKER) (test code = 752) RED CELL DISTRIBUTION WIDTH 13.6 % 11.7-14.4 (BEAKER) (test code = 412) PLATELET COUNT (BEAKER) (test 409 K/CU MM 150-450 code = 756) MEAN PLATELET VOLUME (BEAKER) 9.1 fL 9.4-12.3 L (test code = 754) NUCLEATED RED BLOOD CELLS 0 /100 WBC 0-0 (BEAKER) (test code = 413) NEUTROPHILS RELATIVE PERCENT 64 % (BEAKER) (test code = 429) LYMPHOCYTES RELATIVE PERCENT 25 % (BEAKER) (test code = 430) MONOCYTES RELATIVE PERCENT 7 % (BEAKER) (test code = 431) EOSINOPHILS RELATIVE PERCENT 3 % (BEAKER) (test code = 432) BASOPHILS RELATIVE PERCENT 0 % (BEAKER) (test code = 437) NEUTROPHILS ABSOLUTE COUNT 5.11 K/ L 1.56-6.13 (BEAKER) (test code = 670) LYMPHOCYTES ABSOLUTE COUNT 1.98 K/ L 1.18-3.74 (BEAKER) (test code = 414) MONOCYTES ABSOLUTE COUNT (BEAKER) 0.53 K/ L 0.24-0.36 H (test code = 415) EOSINOPHILS ABSOLUTE COUNT 0.26 K/ L 0.04-0.36 (BEAKER) (test code = 416) BASOPHILS ABSOLUTE COUNT (BEAKER) 0.03 K/ L 0.01-0.08 (test code = 417) IMMATURE GRANULOCYTES-RELATIVE 0 % 0-1 PERCENT (BEAKER) (test code = 2801) Grnkuzik4600-22-45 13:47:00 Test Item Value Reference Range Interpretation Comments Case Report (test code Medical Cytology Report = 104) Case: [id number] Authorizing Provider: Zay Ghotra, Collected: 07/18/2020 11:41 AM Ordering Location: [facility] Received: 07/18/2020 03:26 PM SERVICES Pathologist: Marcella Galeas MD Specimen: Peritoneal Fluid DIAGNOSIS (test code = b7rrjYEqVRCvk4kgWXFswPG 3220) uZzEwMzNcZnRuYmpcdWMxIH tccnRmMVxlcGljOTIwMlxhb bKeMSYbeIWdQ1QtiaqnJChh VW8gCH4axYnpsNCqjVOyDPI vUtIof0xhx433tCJgo7ecIB DZxvqegTn8jLlkF90cp8V8V iryT44mzZZaDTycyTWxifai bgNlFOFTNcpMI38LZGzsWds NDHPvRTFTSP6USZbOKoFNNb AgF2IYIJXEGS6MFoa3OKjwp yHwDFCzLBGBK8HKICeGYSZY Y0SyTXBMRBrGEW3BAItiCOX uQROpEDEQD1ocC4VCFXFdX8 CJE1FEGUKVOgEGOw8DCYIkM 4KTXQYOSY9YLgTuGRRptx96 NJB5JyBnn2U0GTY5MEJfIOL mx9seIRNgcJDuPoYrEaOkAa UjXtcusOVgCBDxKzZuv9rpn 107hNIvj3kpLYPgBeW1jCOe BWZvoUCjL182LLOcAAabf8h vi9GiAORzlHBgj2C3TFZBfx rysDd3hZqoJ97qf7W4SshrT 3zuFVHqUFAbT2RzUB7tUHCu Bdd0TQD2SGP9DNAoRCNuF8M sOT7uAWFvnTKbLXj0v3xjsW yeRKHqCFV2g5jbKIeyvpNsP A4xsk7sbHe0m2ttweRcBUXd MNUwyKCZQFLdL2DoiXfjZc9 emSy7eGglYbfxTOQ9Oiq2JJ 1zzl85yen5dLbqFUOejbjcL eG3DMfkYZNgkqayHNg5NChc APQlyDK4BCPogZYxZ0XdZXC lSJ8dnrn5NQD3WSqjMBXiIp S5DEHdwFCvYZYlcIsrYXuhb 163RVT3CkJkMO0gD5Rrl6O4 xE7kmXExSNFqsQGrUbScRLO ubz1eyFMrZOshh6OrGOQ7hp T1wZWlnZTrRHZyUaD0ROduR Z8jvf73RVZrFFD1gd5uyWTg hOvbmmBdgHVgYMbqP3QgTEA ce574TKVjH7ZxOOFkm3H0hf BrBwGeIAGjqZK8xfT8RWIoI Z4wxlwwa1saDUzjKDfeEHYn syM1igP8SJXddKAgB4LokG8 oDMAlIQ5liqort3lwGIT6NU zvTQTlCVP3KiYvKDRpb9Vrj ji0OoNqx6YaeVEbAXzhR20l t403BOYpucHlK2iypQTolta mrFKlblpvETubgbP9TOPfID cicolyXFIvDHdhA4alEzKhG BCqyTpsZOsur6RwRYPkXMFf LoZxeKTdDAKxXze1VSEvqWC fYZVtLaUzD2kvgayfTxVYSY Egy9gnP6asrVTJtXVdK5YuQ GhvbmUgTGluZTogODMyLTM1 AV64XVA7XxrcCRQ9iB== COMMENT (test code = z3ybrLAuMWAbjOS2OtWvPTX 3359) dc4ubd8NyxWHbnTLaPMamuB HofyHhyc73dBZ9sY55GE6wC EEoFfO5YUTsrwY9Eyx6WQPx UMDfnABgM659l8fls2neigT kaBO6qZgeNUVnEDQbYSesYZ YiIfIlOGbvKSS0cQ2jLFPrt OzgNTH3MBokFVUwu1s0cZQt IGZvciBQQVgtODsgRVIsIFB WZQPeQYRRGH0sHiVLfUMdtX 2owLqifV3tyNKmgoNnfV5la F2tuTKsXjpuDZLmcFCvw7W7 XEAlRHPyjGTguk5oiPOcy8G xtL75NKstCJCrCLApiw94to OkHUJnsQ0kcMVfNZsmGRV6 CPT Code(s) (test code c0hdcNRfEMAqzGN8NlIjYBI = 3357) vk1sgw6ChoKFufAByRHuwiC PereGivy05fYN1gF24IR2yV ZJjTfT3UJJqegM8Vfx1BMDh KBUuuSIuD370r1uir6etlbY ndTX1wUeqZDKiKELbQEniJZ DtQmGjBWlbQIyvDOf4JzU4T gO5UJX2TxmgAMlaGFPsiCQx XHBhcn0= CLINICAL DATA (test x5pmzWKtUFExuLZ0FhJyWMJ code = 3355) tm8bcx3CscMSynKMyVMenhI HiewYyzc75wFT9fL94PN3cA QTiYgQ9ZVRmgzF8Hfz1LBUr HBKeqMLnR271d0bbi8mluuZ neML6bLxrATDhTKMvICxfQF JxUzBtWULvcZYukdgvd0Svh POdLXAsu2KvbPDxMFFfg6Xm cCbeLWASWWYui22jY1OMQSl pdGggbXVsdGlwbGUsIGJpbG Q5ZNHveGXhkxDrhIVqTJG9l 3AdOnIvigBwy46oxSJmuNRs l8GqSAZgCSEmSLW6KUu+NmN wBE6pRDtiCnOrRJ0qTHybZZ GadIJawnSrxYdoiFniz2c4c CEtIMvmmHBaK1J4qA9hHVnb EXldmoI5qPGcTM9jAB82sJ3 azs7ukOcprwk3bDWhnlKst9 6jiLyjKV4xmX61UP6hZPalh HJhcGVyaXRvbmVhbCBmbHVp LN7hcrslRMW9 SPECIMEN SOURCE (test h0sumECjOBPktNG0JoVrWFT code = 3377) az3mws6TmbYZycZWgWMifwF NmqdUilz96sOH7wY59XN9iY JSpZkH9MYOhckG5Ayz9NVBf XSBlkGFvP712t4mcd7ufscT qoPK0qKgkXPNsVYNvQIfhZS ZzMjAgUEVSSVRPTkVBTCBGT FVJRCBccGFyfQ== GROSS DESCRIPTION w9wlrLLfAKGvhBQ4IvMpHQH (test code = 3366) gp0etp0YdxSPbzKNcNBsdiQ CkkoQmuh41qZK5nB20SW9uR ERsMcO5ISGmtuG8Alo7FNDv QJLjlSEqX916l5rht9ezcuM zjWL5hAfyZSMyBEOuMNkfEW FfZoUeAyDsBGz1FQTtXGBas WxzIGFtYmVyIGZsdWlkOyBw gyDdABMwESF8PLX8tR0abBm vsdQvolFgK5YgeAPpsT9zyy bZZjtySLSno5WneRfePDNyp HmgEsreZ3ttp0DekDEsFKFy mWLqnfbbbHLjEASrYgr6WWW yncYmgU3fkYgdLEH4qBKwwx DwDMWrg37fFRKffRjaTGJsP XOyxOJ3JFSxGjh4MEBbuI7r Mg4kzKYmoD0wRDXqMEX4XRe jTN4hs39tGSCiJjCyHbFxtG FyXHBhcn0= MICROSCOPIC x1psdUNiDWHhwKO7PdNkXHT DESCRIPTION (test code ov9qyw1YlmVKhhXLrRHjzkB = 3371) VhwnPveu78lYY8hF44KX0nS RFpJoW5LVKjqiV9Zrz1XCVj UWVhrTYkH997a2jah4gbesQ wsJH1eWzaZNGjDLWfRTmsWS UwQvYhODKiTn9vfWOmMyUmt GFyfQ== STATEMENT OF ADEQUACY Satisfactory (test code = 2757) SPECIAL STUDIES (test y0tgiMSpAJZxdZA5McEuXHC code = 3376) pv9vfy3RfqPJyoHWdSLewcY IeebBxqj09rGR7bH71PJ7jP YQpOpA8VGMpdwV7Uou2XLBi DALapXKmN185UWEvXFZpgXp zxmr2wF69HTUumP4oaXApME d5OCVntlUinGwsuZ6iIhGnR zXoJgNEoBYrcZ82GIXagqR1 TGBlb95xb9IdbNuzgfQhTEG lSPssK1w2HXIgNKTeUHA3c4 Zpw4TzuM0ifM9rcCqiqL9gl RCheIM9awgoe2Edx9NbY4vc bCBzdGFpbnMuXHBhciBQQVg vKMrqxDB1GeLzGPAfIY2vTI tGZBSxjFOsNKOcnzAfq5krP 2phJBUgIUC7CE3doqJsBdIm XZ3zwI51n3Hhq89wk47ayY8 heSIzjhMyP20xjFJfqAMam3 IbWECcslRtxDR1DXZdPZnqg yvdo0b2vEN6uBBztIAyyQF3 dXKewTSnQIOGpUJtVNIyo26 8wj6jHJRilXBaveWkxO1eUP vvfnbwlLUlVH4cKFZeZXFxF NTvUI99kmWvFL5vsBRrd1xq joDltVMtg5GqlSY1SUUbbQD xfgnkIn2jUC65MVXnRPsmoD 1jrMCbjuQnSF7uTK3gD7A1g PDfNXEfyuRlv1zoLVtkNY8b YXZhaWxhYmxlIGFyZSBldmF jpNI4VRZcrJHoYNTfyPNrQH zrgOZlq3lqb9UaO9ohhMqfm LU8XXVoU2zpdXIqjEH9DAE7 jK4oFZdegmBlWNXtl7IvORC jITDpWyN9sZ3oTKV3YoPSzB biMEL3QnX9OIiuCWDtKW4uB OdsVZmlF5VsqCQcUEPYUHWb w3heV8lyQFXnu1HyyP1dfAE 6sNBbQHRczFE0YKFgABG8MQ xvcGVkIGFuZCBpdHMgcGVyZ l6ljDSpW8NtQ7bsimVsoJRg vJP0gCYiQBebpyNhFGD8JRU ktT6sJF5tECHbcNTwXH3jhU TgKPMsDAKkOJLkEQZfq3BaX DViyg40TAPcJgbfpGddHJEx Zd5iHo0yLANovjLmLUM2OnS SNG0fxdfkwGMblWvnnf6sSX lcJEIUIBQjGPQsTQA1JBEei I8mMLW2mCC0FZH5Q4jgW9ge UIXygfQmHO0gKVEwsLAqcsL iCYxjMA2rdZYzQUJoz3Oeps rsOBHcSIR2GTA4NXuaURDlD LVnXr8kTAQorB2kW5KiSWQ9 eiRyy6BpYbMHiFIugW33sKG skk49SHTyJCZoT9VcRUFkLJ HdJDlknpIihXozBYGxi47we FFlfeUzz0SqsrDqRMIoM3na VFGjkAIzaUIed9TibT6lfRZ yzkAoBMN1jGMtSGMetE7lIR QabTlnKIHhyD8fH1OzCHjnD a9eXNHajqypBL7ztn24TN3s ffEmWI1iluRvWD89tjAvAqN vDRw7PQaOZItYJDh7GGUxac AjpPVgaBLfFVIpxC3aiCJyT q1lhZIiwNxeQROcjJIxJHdf pGokU2getpauSYfioBVdu4N sbC0ehRC6PBJ9tF0rHzwdPP J9 Gross assessment was [facility] performed at ([facility], code = 2777) Department of Pathology, [address] [place] [address], Technical component [facility] was performed at ([facility], code = 2778) Department of Pathology, [address] [place], [place] [id number], Professional component [facility] ke's was performed at ([facility], code = 2779) Department of Pathology, [address] [place] [address], [facility] 13:47:00Medical Cytology Report Case: [id number] Aut horizing Provider: Zay Ghotra, Collected: 07/18/2020 11:41 AM OrderingLocation: [facility] Received: 07/18/2020 03:26 PM SERVICES Pathologist: Marcella Galeas MD Specimen: Peritoneal Fluid PERITONEAL FLUID (CYTOSPINS AND CELL BLOCK): - POSITIVE FOR MALIGNANCY - LOW GRADE SEROUS CARCINOMA (SEE COMMENT) Signing Pathologist Direct Phone Line: [phone] signed by Marcella Galeas MD on 07/25/2020 at 1:47 PMThe tumor cells stain positive for PAX-8; ER, FL and WT-1. 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 47773, 69251; 44961; 27555 x 3Ascites, status post laparoscopy, CT from OS with multiple, bilateral ovarian cystic and solid masses, largest 6cm on left and 7-8 cm on right, with calcification ; also with omentum nodularity and small amount of intraperitoneal fluid. PERITONEAL FLUID Received 40 mls pavel fluid; prepared 4 cytospins and cell block(A2) - for the cell block we used cytorich red fixative to lyse the red blood cells and it was fixed in formalin at 10:18 am on 07/19/20Performed. SatisfactoryThe interpretation of this case included the use of immunohistochemistry or special stains.PAX-8; p16; p53 and WT-1Control Slides Examined: In-house known positive controls were evaluated along with the test tissue. These control slides run alongside of the patients sample show appropriate staining. Internal positive and negative controls when available are evaluated Immunohistochemistry technical testing was performed at [facility], Pathology Laboratory where it was developed and its performance characteristics were determined. It has not been cleared or approved by the U.S. Food and Drug Administration. The FDA has determined that such clearance or approval is not necessary. The test is used for clinical purposes. It should not be regarded as investigational or for research. This laboratory is certified under the Clinical Laboratory Improvement Amendments of 1988 (CLIA-88) as qualified to perform high complexity clinical laboratory testing.[facility], Department of Pathology, [address] [place] [address], [facility], [facility] of [facility], [address] [place] [address], [facility], Department of Pathology, [address] [place] [address], Kdlmnn Dxtv2625-22-96 12:45:00 Test Item Value Reference Range Interpretation Comments Case Report (test code Surgical Pathology = 104) Report Case: [id number] Authorizing Provider: Zay Ghotra, Collected: 07/18/2020 12:15 PM Ordering Location: [facility] Received: 07/18/2020 12:30 PM SERVICES Pathologist: Leighann Mathias MD Specimens: A) - Omentum B) - Omentum, Omentum C) - Soft Tissue, Other, Right Adnexa D) - Soft Tissue, Other, Left Adnexa DIAGNOSIS (test code = [id number] 3220) FuZzEwMzNcZnRuYmpcdWMx IHtccnRmMVxlcGljOTIwMl ogwbSeKPWbmAHsS8Wtziio QUpgYK4lME8gtGltaXEekA FyIQAsKeZlh3dnf405oWJv i5ydJBNJfzodgRy7bQmhF6 3ra4X8HimcI03onYDiVIsj bZMheewcblAfSTAaJR3OXC 4KQY0wCROJBhHNRSwvX93U UnPLC2BDPSg0UPXhfyw5PV RtZZREL4ibF7MKSMSkR7GZ K7YQUYLGXaJYOf5INZugBJ DcmWOnYCCmNV4QOT5RSD8o VU5GNU8MGEXRK27LHunyNB KdpDBaEH9sJG0QKIhRNXYK KAMJIf7WVrFBYVZSLG9EYM FccGFyXHBhciBDLiBPVkFS OLDTPoLdClAYNV3SEPGREJ RJOjBjLAVKM7bDIBIAUQPZ DczWXC5OYHzUGkGCVP2YQG nsTDBzpBKeRL3CFUJOUQJp gbc9UQTviDYyAT4sYM4JSU cILJXYSWPUZx0ZMlLKWUKJ HY9NWGMcaADyKGTuRrf1AD BqvUVaWL8BXD1TGnQSNSwZ VuE7GHsxQdUSKFEiVRrvYK IamZQpEKIgXof6OMNiZYRR CsKDZ5NfP2SFO1JWQXyiLX QezYJhLXCjJxq8QDXoWNPK VLBBGQAINFvNHt9COuBWHG 5UIFBSRVNFTlRccGFyXHRh LbMFQCzOQ3MBLV9wTAZRGJ xwYXJcdGFiXHRhYiAtIFRV CT5PMRHJDFPBXYGpQJ0sGT EPSQgaG4DZW8KTTShtWKZw ICAgICAgICAgICAgICAgIC AgICAgICAgICAtIEFESEVT HX2NNkFibYSbTRLolbNJFx EOQrUYAATIJeFbGuOLCO8A SUFOIFRVQkUsIExFRlQgU0 ZBDFyZL09sS30TMQ9DJYEO X73KKLTuryq6UWXsY5PPAi mhkPKaTPSwKzq2FMMiEPWC C3eyB2RMOGBzO9NKE0SQCO SGElXQQl8CZImwHZSrzLSq JNMbPsc5GCAbLNIXSG7KEV RZPmM9MUSdHVM8KMgcYx04 EVWxuqs6ZVExpAHqZUJlIj AtIElOVEFDVCBDQVBTVUxF TFAkwqg9CNDcrLPcWLPcHd CsJLMYNwSVQ9QiFT3RF4aN GP2OKhEtMQYPE6CUBARobL KvXDRbKpGUCOeLH8TAXA8v VFVCRVxwYXJcdGFiXHRhYi DeGEGMJZ6PDLZKMIPCNWJq LP7qWZBEJXlfP6TZW7NGBJ xwYXIgICAgICAgICAgICAg ICAgICAgICAgICAgICAtIE YULSRMEO6BLuSnsEMqZAId tk97EUQ3CbUwg9M4BZE2QO LnHQWue7esAMLirPPhYfNk MzNcZnRuYmpcdWMxXGRlZm Get9drs074rNQgc5quBJMd NwG9uIFyTXAjqUXuV784ON IxYCjuy0zgb0BbEBZrpTVn w7S7QARRcbrcnKv9fFyhC2 9hk7D8VhwpL4abUWEoYPOo T9QsFQ9gGPSfSsl4IEU8BA K3JOMpYSMnW6TwVP8kCRTr lXYcWQy8l6jzsDxzBELyFA E6g7hlPDtwavKgFT7vcw6s qXg2s0oqmmSxOCVuIMIbyI YYEHLoV5UbqJyeNb0haEp7 oRwtRqepGWF8Hup4GZ0kfp 57ova3xAwaXZNscqhkIoK2 DJvyZMBpmotdJZn0VWxjRN MhpWD5YVBuwPEmW7TcLLNc LS8kaou8RDZ0ONbrITCaXb J1LFXpmPQkNYDbvVrfGRce x343AWB2BpUcZW8nQ5Qoa4 P7oI0rzKRpZENyfWQwGiCb ZVQcqp4sfQXuBYweu7CuVC A1ybP7hMJteUZuOELrZmS8 KMjjHZ6nwq91PQNlHKG7zu 5ybGNccGdicmRyaGVhZFxw U4CpKZWlk451BOFhY0NhZD Rxw0D2mbLxFvCjXYAomKE2 sgK6CDPsGA7sgdnxz2geUC lmHDddURIfzfW8lgE8SILg gXOkA7HmxO6sSBSvDV6obc ena0ctFMA6SZsnBHKxLQK9 AeCdUUBbx3Ohdse8EcBsk6 CzmUQhQUfvZ35eq844CJHd zpUvY5wtlCJvvvnvlOPcmo qfUFmxiuE7CCLyQOgkirhq ZPBgZHudK8fqUiYrNJDyyI fzBEhij3GvTWHwFZJuRpQs wWSbEYAmHkr1QNCoeCMsSE MrPaWfD2sygkmwGcMLIGCb j1zbV9pkxGJHbJYlX3PoEK hvbmUgTGluZTogODMyLTM1 EE93VuM4TOHbjp69 SYNOPTIC REPORT (test OVARY or FALLOPIAN code = 71) TUBE or PRIMARY PERITONEUM (OVARY OR FALLOPIAN TUBE OR PRIMARY PERITONEUM - All Specimens) 8th Edition - Protocol posted: 04/21/2019 SPECIMEN Procedure: Bilateral salpingo-oophorectomy Procedure: Omentectomy Specimen Integrity of Right Ovary: Capsule intact Specimen Integrity of Left Ovary: Capsule intact TUMOR Tumor Site: Bilateral ovaries Histologic Type: Serous carcinoma Histologic Grade: Low grade Tumor Size: Cannot be determined: Multifocal Ovarian Surface Involvement: Present Laterality: Bilateral Fallopian Tube Surface Involvement: Present Laterality: Bilatera;l Other Tissue / Organ Involvement: Omentum Largest Extrapelvic Peritoneal Focus: Macroscopic (greater than 2 cm) Peritoneal / Ascitic Fluid: Not submitted / unknown Pleural Fluid: Not submitted / unknown LYMPH NODES Regional Lymph Nodes: No lymph nodes submitted or found PATHOLOGIC STAGE CLASSIFICATION (pTNM, AJCC 8th Edition) Primary Tumor (pT): pT3c Regional Lymph Nodes (pN): pNX FIGO STAGE FIGO Stage: IIIC CPT Code(s) (test code n6ywzCQtJEHfeHB1GbSuLC = 3357) Mso8qxl0EksTEwcQCyHOyv eGRjvoHwvp33oML3rY45PU 4wPEBeTsT2HQGoduZ8Kwz0 ZNWjTPNfpJKkL700j4efu1 abznVchHW3oPavJSYeTUKk KBdlJMUpVaZbZJ5oENidLW fzQSk7BwCzEAXnsgCVMuB2 FZRwH9nsKSYcIt1pBLleQL odmFObGPVaZOy6UxX8ALSr cn0= CLINICAL HISTORY (test e0uyyYHzJDIfcPY7NjRkVU code = 3356) Dvt0mtu9VscODqwNDoXXxe gOAypjEmlu97oFZ1wW49RV 8lNGYxZaA4SWPlvjE0Asy0 ZFUkSLNkdPTvV205j2rak0 qdhcIdaAQ6vZviCEXhQBEu YWluXGZzMjAgQmlsYXRlcm NfQKYeddU3QYpgxUWeu3Md XOZpCWl0cGTywMHmfhjjZE gqqrN1MNAumFGqn1OrjIXb e8ErveSjaFTjsVRwGKTncd KfPEU0dQdxgFxicFFmLxpv kSEpXSEvgr0oiMIqoDO3CN Bhcn0= SPECIMEN SOURCE (test n5hyoIIlOXWwdKM9IqMkDB code = 3377) Sce2hyd2BggYGmbLOnMOil dBCkkeZffp32wCF6iK27PM 6eCGBeXjY7LUVeeuC4Unf9 NUMmKXLlrAEvQ173l6odh2 qtgqZvyLS8nKzoSEMaOOOp GVlfFJUtUiTsP45wieZ8lU xwYXJ9 GROSS DESCRIPTION (test b6pknOGgBGAxyGG0IsLcKU code = 3366) Tzr9uhn7DrnZZfoOOkRNcy jJTgncOnts72uZW0qJ04UW 9uDEFaGnY3RJXvllG3Exu6 SCPpFAMzsFTbG813m6sib9 lnclRzkXX3vSfmGMYoZOMc NGcnKPZnPxWtAG4bQiZjZL h0YTLwXfGtt3eqIb4hGRqe jHXnr4ZwczY0yMFxFVTiw7 glyxPsr61gvIh9IUAgx97e LAygR89qn5qiZQbgTbUsIC Yln9s9jANhMEAyNI75L8Jy bmFtZSwgbWVkaWNhbCByZW NvcmQgbnVtYmVyIGFuZCBc aLGpLFAyN8Cyp6izrbFkyF 3uBQLaLg9mOI43sP2wMGcf UQOdj0ykB3gsWTLuivF3WR nim9tdsE2hlAReZJWofput WTDvhk2gvB5py80pvCJyx6 U9qZW8FJHoOuicbi8bYYJb kL7aGLZ1xDTghLYjPRcvaS O0CPlbLoJalRbmNZHkP7Jn e37vhuqudsE3GQKbwrU2HM 1ylYhcryFphFQiw0IjUU2z c4EqIABliZCdNRllPT57PE AzPO3zAZ93C7ziuDQquNKp aXMgbWFkZSBhbmQgcmVwcm CvSI37PMKwolZhmZdsi6My UZzcEPG3Ur2dzYAjZBUsii SEG8LaPslePCWrrFOlUHOo M0Rzc46zR35lZXvevIIpLA ECYFZ1FKXngEEdn3PsoYH5 aXZlLCBtYXNzXHBhciBBMi 7WITdsOPKzvAEld41auVZw XILyOSMfczVfcNb8AJmsfL Myo7rfCSDbcEBzLMQcNUMV WWEhrKPsLTGupyNms0VfSD xpbiBsYWJlbGVkIHdpdGgg mIV6qUFujYtaKL3gaIZlPT 6hBVcgAYspjqAbe9QmWV83 bWJlciBhbmQgYWNjZXNzaW 2yRY08zTMswcbiFw1dHK86 uY1hGXXkWPLhdRs5nSDpDU L5HZ6taBJsnP93TNmwYgIp YXRlZCBmaXJtIHRvIHNvZn FqkXqpU8WyIW5sUOMmTxUe AKWdpE4zROR0bEYsqHKsCV M9UStkMZX4JWDuYQEhpHOo F8sxNUrhdUUiNnJnDNCqzV lwbGUgdGFuLXllbGxvdyB0 weW1WS7vnLudbaFtsNReSA 0xZHSxWFFcupWpN3jhWrIq uq2zGGGkyY5zNRUwoQGilo EnwsFvfGOggZLfrK7uaqYb a32qTBIfIJQasRCctICmAW feMIBmAWRjVKnnk4EiLXPi j3V9MK1zMSKqlhnchOQxGY Q9gU3nxhPaPMIrUWxwkBCv AJckjCChTVBqFYCkhw41IN ybu9qrO1O8HYL8txMoQ2Xe NF4nASIuS6AqZGTuTOVjKy MkYnBjbhQjTK42IMNtmwBe z7RlyIpazrLxDXBlQKH0Uj 0nrIVbLPFqveNxMOFjJJC2 EHBPID4QGd0oAKUtyagdQM WbXa9qXYNhD5CfsgHqGTby XKXlye2mvOpsXZxsVrJjME Yxq6k1wOLoLFGxCK77Q3Dg bmFtZSwgbWVkaWNhbCByZW NvcmQgbnVtYmVyIGFuZCBh J3Mus0Kbe69jdiZtRlMyBA AicmlnaHQgYWRuZXhhIiBp dqFyTTBceofsYPC3OU9vrV jdqzD5hzW0OU1mXmEuh91i qX0paSxdzXXtDDUajQAgOS RvIHNvZnQgbWFzcyAoOCB4 OVshMGK8HXGxS81wIHkwdL blbu2cL9Krc7RbbXQgJZEs qUoikIEsxTXfa6Winjiij2 MaYeHtqI9toOFeFEB1MhWb MHIJuXXnb7QvT1ivKU6hrJ MvrP9iTTZqLlgrK1xkv33k pUzxOY01vVZwYVK4pyPwJ2 OeBX1rFSBwxkncaHq4NIWt I2Ehr74cESP9cbGjSTAaPK risGTzeTtib6S8yWJrSCIp sf17OXwkz6pkbC4ksOTbRL Fjlzhzk4lxcLGxVFQiRHTd SNAdXFToMBSdEBS8US3gKQ XiJATnxgV6BKeeQmT4OMGz UPMygI9tSXQccR2no8qsgI GiJfLwkG8edBMkUDN0XpJg aXMgaWRlbnRpZmllZCBvbi Nfgp6ilj9kADB1qR5romY5 ySUzQAGjdhOldDHvr9BdHG 5jACZuzcMiiV50TWm8cZFd TzAkZR8ea0vfvLAhL5Zmg0 Tps8LybGbtapYfn1UyaHcu PU67FKX7VDhcCBvtQY39iA ZpZWQgZGlzcGxheWluZyB0 NI3cnEomaq82BB8pZE2eXJ mrbC8nsieiQ3cmSMXdJIVm EBs9FTyxTm8rVYftEkHpcQ ltOCTBmIh2vX9nMWHtYSZo ePLzKKcpSLsybHHxz7XhWA XiIQWjlQ2vLJd4VTOizTP4 vM5cUCFeSTDkqNNuxyCcgW IaFQIyEE0gBQWwWMCrzpLw gPsxc8Y6xY61mwTixyDftJ ZxkDTjfWAyQsD5nTXen9Gt nwotgZVtrp46EKylIG50wK ZpZWQuICBSZXByZXNlbnRh iVj8BMTwPIW9sY0rlfCpyr Xtq6KbsOr2fFYhSBmbNFRd d4WkoSQlhwIUYO2LUCUvRI SlrzcvJFEiCV1qTPKeH9Mz cyMhYOjfASXjhh9gkDqaWR ywYbFtNZBxj6m6oSIpRPUz KZ70Z4OmqrNfZIrbtZYurP NhbCByZWNvcmQgbnVtYmVy SRPtPGTiS6Drx0Xog08lru AgOiXwRZAspHXrmWSeAP9a aWIrROvbIYLlOANwkJF6RF zrHwSczAWai0O1iDS5ONKx aRSfVXGttzpdSnywuRB4cc Ltw4S1HZ9kg4Dpz8t5hPTs joDahh9cm3f7UCivBN91zL ZpYWJsZSBvdmFyeSBvciBm OAwua9ZpIZ5fhTJvTM6dNS KmVYXguBKnkR8gbxTtvaIy bmtlZCBibGFjayBhbmQgc2 ZclDLqeCxqc6ClcQflniMd KGPyQBYwrlCzlFJgzEh5bW 5vZHVsYXIgdGFuLXllbGxv sbS9tvU8XY4awRgrurUflm QyibvctYzaOGiesmjjh5Vq hr9inPfaNOzdDUIarKI8KG jqMu11WXWoMsBcTQMgfZ0r z2hdgAZmA2Ioi8Pee0DwaR lvbiBvZiBvdmFyeSBpcyBp ZGVudGlmaWVkLCBkaXNwbG N7mD0aAZNfM5yggWTtcDie QGIed8f7aAR0zEMvCZqptV 6almftA2uoXXEreSwdHTe3 QUDjJUyhYUrrZKX7TPN3GJ YutCLqj7raqgwtTLTQhDo7 kE1lFDMeOMThnXWnNVeiPF veqDMce4IyUDQtSLCfKJQw QYWhqFM0uN2uFZFhXSWtmC G3zRPzj0ExnrjlHU0xLR9m erymkPXldL84r5f0QB0xbd Igj8DbkWytYB43VCW2FImk PZfsSZ62sSCyZKRlFUYAz3 XqbDZjYJUiZGybg1MmXD8i dHViZSBpcyBpZGVudGlmaW PzUL4nAVSst5VlUIOrB7Sb r72xp7i1uHR3HW7xtXIqe6 LbSRVbRLFllW2tm9pnrCYi pZ2bla9sNNIpjINzn2SkwK Y5qXLbGHTiM0Exz00mNVOf QQWhuMGkbKS9THIhpQ5bG0 Uic7V8gOKmMHPdFKSjRgyv YXJccGFyXHBhciBTaGFqaW RgRN7aVCEkBXTDWQgxSAH9 INTRAOPERATIVE g2xmmHYwHFHznEI2GbRsMI CONSULTATION (test code Qrr9ijd3TojTFcmNDvEBtk = 3369) tTQaokOtut43iYO0tB26TF 3iCUUrFvM1FADqvuE7Lkj1 VQIgNURfgZEqQ624y0qfg8 qljwSrbUI0eYmwLVTcVNHg YWluXGZzMjAgRlNBMTogT0 5GYgZZEDknSEhWLTAMQ810 GCPnruw5XUWqVPXHJ6LBZH vZXSVDH7GiA1KQX7oBI68R WBIGBg2DFKCUFRLHUHKQVQ PdV2IHH6mAB79NHNJektwb JFQaCuAxu9Z8EQSmCsbjRP VqAVSlmZgsEK9kNV5hFW6k vYMvKAXaIQYuTCQ2KOVuPx C1XTDEBJHeRY6CCcXyrWCq fQ== MICROSCOPIC DESCRIPTION l7zfcHJoDEOglJW2TbOoTA (test code = 3371) Jdr3sym8NjqEOcgKEaUPye qOVvibAllz86gEE8yY64PO 3eVYMtRrP8UYXdimX0Thy9 HIRqOGZscSEiT052z9lpj1 nqfjZhnNQ7xEbcXZZaKPMd BXihWDQxSqZoNPNpIe5brS VkLlxwYXJ9 [facility] [id number] 12:45:00Surgical Pathology Report Case: [id number] Authorizing Provider: Zay Ghotra, Collected: 07/18/2020 12:15 PM [facility]ing[facility] Received: 07/18/2020 12:30 PM SERVICES Pathologist: Leighann Mathias MD Specimens: A) - Omentum B) - Omentum, Omentum C) - Soft Tissue, Other, Right Adnexa D) - Soft Tissue, Other, Left Adnexa A. OMENTUM, PARTIAL OMENTECTOMY: - LOW GRADE SEROUS CARCINOMAB. OMENTUM, OMENTECTOMY: - LOW GRADE SEROUS CARCINOMAC. OVARY AND FALLOPIAN TUBE, RIGHT SALPINGO-OOPHORECTOMY OVARY - LOW GRADE SEROUS CARCINOMA -TUMOR SIZE: 4 X 3 X 2.9 - INTACT CAPSULE - SURFACE INVOLVEMENT PRESENT FALLOPIAN TUBE - TUMOR EXTENDS TO TUBAL SEROSA - ADHESIONS D. OVARY AND FALLOPIAN TUBE, LEFT SALPINGO- OOPHORECTOMY OVARY- LOW GRADE SEROUS CARCINOMA -TUMOR SIZE: 5 X 5 X 3.5 - INTACT CAPSULE - SURFACE INVOLVEMENT PRESENT FALLOPIAN TUBE - TUMOR EXTENDS TO TUBAL SEROSA - ADHESIONS Signing Pathologist Direct Phone Line: [phone] signed by Leighann Mathias MD on 07/25/2020 at 12:44 PMOVARY or FALLOPIAN TUBE or PRIMARY PERITONEUM (OVARY OR FALLOPIAN TUBE OR PRIMARY PERITONEUM - All Specimens)8th Edition - Protocol posted: 04/21/2019SPECIMEN Procedure: Bilateral salpingo-oophorectomy Procedure: Omentectomy Specimen Integrity of Right Ovary: Capsule intact Specimen Integrity of Left Ovary: Capsule intact TUMOR Tumor Site: Bilateral ovaries Histologic Type: Serous carcinoma Histologic Grade: Low grade Tumor Size: Cannot be determined: Multifocal Ovarian Surface Involvement: Present Laterality: Bilateral Fallopian Tube Surface Involvement: Present Laterality: Bilatera;l Other Tissue / Organ Involvement: Omentum Largest Extrapelvic Peritoneal Focus: Macroscopic (greater than 2 cm) Peritoneal /Ascitic Fluid: Not submitted / unknown Pleural Fluid: Not submitted / unknown LYMPH NODES Regional Lymph Nodes: No lymph nodes submitted or found PATHOLOGIC STAGE CLASSIFICATION (pTNM, AJCC 8t h Edition) Primary Tumor (pT): pT3c Regional Lymph Nodes (pN): pNX FIGO STAGE FIGO Stage: IIIC A. 87411, 81047Z. 45790B. 80632V. [id number] adnexal masses, pelvic pain, elevated tumor markers at risk for fertility problems, abnormalityOmentumA. Received fresh for intraoperative frozen con sultation diagnosis labeled with patient's name, medical record number and accession number "omentum" is a single brock yellow to brock pink, firm to soft lobulated fibro-adipose tissue (8 x 4 x 2 cm), sectioning reveals brock pink fibrous mass (6 x 3 x 1.4 cm). Touch preps is made and community health representative tissueis submitted in FSA1.Section code:FSA1: [employer], massA2-A4: additional community health representative, massB. Received in formalin labeled with patient's name, medical record number and accession number, "omentum" are multiple brock-yellow lobulated firm to soft pieces of fibroadipose tissue (15 x 8 x 2.5 cm aggregate). Multiple brock-yellow to brock-pink firm nodules ranging from 1 to 4 cm in greatest dimension are palpated in the adipose tissue. Serial sections reveal brock-white to brock-yellow cut surface and focal areas. [employer] sections are submitted in cassette B1-B6. C. Received in formalin labeled with patient's name, medical record number and accession number, "right adnexa" is a single brock-pink to brock-brown lobulated, firm to soft mass (8 x 7.5 x 4 cm) with no grossly identifiable ovary or fallopian tube. The specimen is inked black on the outer surface and serially sectioned to reveal multinodular brock-yellow to zrz-cnwk-ejvfk areas, the largest nodule is 4 x 3 x 2.9 cm. A possible fallopi an tube is identified on cross-sections with brock mucosa and pinpoint lumen. Possible cross sectionsof the ovary is identified displaying brock pink-brock and hemorrhagic areas (4 x 2.3 x 2 cm). Multinodular brock-granados masses are closely abutting the outer surface of the ovary, obvious involvement of the ovary is not identified. [employer] sections are submitted in cassettes C1-C10.D. Received in formalin labeled with patient's name, medical record number and accession number, "left adnexa" is a 10 x 8 x 3 cm lobulated brock-pink firm to soft mass with no grossly identifiable ovary or fallopian tube. The specimen is inked black and serially sectioned to reveal multinodular brock-yellow to brock-pink areas, the largest nodule is 5 x 5 x 3.5 cm. A possible cross-section of ovary is identified, displaying a cyst filled with with hemorrhagic fluid (4 cm in greatest dimension). Multinodular brock-granados masses are seen abutting the cystic ovary, no obvious involvement of the ovary is identified. Possible fallopian tube is identified on cross-section with brock mucosa and pinpoint lumen. [employer] sections are submitted in cassette D1-D10.SOPHIA AnandA1: OMENTUM, EXCISION: - POSITIVE FOR CARCINOMA, PROBABLY SEROUS CARCINOMAReported by Dr. Rodas on Jul 18 2020 at 12:45 PM to [id number], CHEST, WITH [id number] 10:38:00Unlisted Reason for Exam - Click Yes and Enter Reason Below->NoCHI [facility] CENTERName: JEANA JOHNSTON : 1990 Sex: FFINAL REPORT TECHNIQUE: CT of the chest WITH intravenous contrast. Dose modulation, iterative reconstruction, and/or weight-based adjustment of the mA/kV was utilized to reduce the radiation dose to as low as reasonably achievable. INDICATION: Neoplasm, pelvis. COMPARISON: None. FINDINGS: LINES/TUBES: None. LUNGS AND AIRWAYS: Central airways are patent. There is b ilateral lower lobe atelectasis.. 0.5 cm calcified nodule in the right lower lobe. (Axial image 32).There is an additional calcified nodules on the right lower lobe measuring 0.3 cm. (Axial image 21).There are no noncalcified nodules. PLEURA: Trace bilateral pleural effusions.. HEART AND MEDIASTINUM: The visualized thyroid gland is normal. No significant mediastinal, hilar, or axillary lymphadenopathy. The heart and pericardium are within normal limits. SOFT TISSUES AND BONES: Unremarkable. UPPER ABDOMEN: Multiple subcentimeter nodular densities within the peritoneum in the left upper quadrant ofthe abdomen. (Axial image 48). IMPRESSION:Trace bilateral pleural effusions with lower lobe atelectasis. Otherwise no definite intrathoracic metastatic disease. Multiple clustered irregular nodules inthe left upper quadrant of the abdomen concerning for peritoneal metastatic disease.. Signed: Minh Oneil MDReport Verified Date/Time: 07/20/2020 10:38:03 Reading Location: [address] Consult Reading Room [facility] chest with IV [id number] 10:38:00Interface, External Ris In - 07/20/2020 10:40 AM CDTFINAL REPORT TECHNIQUE: CT of the chest WITH intravenous contrast. Dose modulation, iterative reconstruction, and/or weight-based adjustment of the mA/kV was utilized to reduce the radiation dose to as low as reasonably achievable. INDICATION: Neoplasm, pelvis. COMPARISON: None. FINDINGS: LINES/TUBES: None. LUNGS AND AIRWAYS: Central airways are patent. There is bilateral lower lobe atelectasis.. 0.5 cm calcified nodule in the right lower lobe. (Axial image 32). There is an additional calcified nodules on the right lower lobe measuring 0.3 cm. (Axial image 21). There are no noncalcified nodules. PLEURA: Trace bilateral pleural effusions.. HEART AND MEDIASTINUM: The visualized thyroid gland is normal. No significant mediastinal, hilar, or axillary lymphadenopathy. The heart and pericardium are within normal limits. SOFT TISSUES AND BONES: Unremarkable. UPPER ABDOMEN: Multiple subcentimeter nodular densities within the peritoneum in the left upper quadrant of the abdomen. (Axial image 48). IMPRESSION:Trace bilateral pleural effusions with lower lobe atelectasis. Otherwise no definite intrathoracic metastatic disease. Multiple clustered irregular nodules in the left upper quadrant of the abdomen concerning for peritoneal metastatic disease.. Signed: Minh Oneil MDReport Verified Date/Time: 07/20/2020 10:38:03 Reading Location: [address] Ortho [facility] [id number] 19:27:50Ejection FractionSLE ECHO HEARTLAB MKCKESSON CPACSRight Impression1. There is no deep venous obstruction in the common femoral, profundafemoral, femoral, popliteal, posterior tibial or peroneal veins.2. There is no superficial venous obstruction in the great saphenous vein.Left Impression1. There is no deep venous obstruction in the common femoral, profundafemoral, femoral, popliteal, posterior tibial or peroneal veins.2. There is no superficial venous obstruction in the great saphenous vein. Conclusions Summary Signature Velocities are measured in cm/s ; Diameters are measured in cm Interface, External Ris In - 07/19/2020 7:28 PM CDTPV LAB - Lower Extremities DVT Study Demographics Patient Name JEANA JOHNSTON Date of Study 07/19/2020 UTE Age 30 Visit Number [id number] Gender Female Accession Number [id number] Date of 1990 Referring Almaz Ghotra Room Number 1654 Physician Direct Support Professional Caregiver Scot Ray Interpreting Princess Miller MD RVT Physician ProcedureType of Study: Veins: Lower Extremities DVT Study, VENOUS DOPPLER LEG, BILATERAL. Indications for Study:Calf Tenderness .Patient Status:STAT.Study Location:Portable.Technical Quality:Adequate visualization.Risk FactorsHistory of Disease+---------+----+ --+!Diagnosis!Date!Comments !+---------+----+ +!Other ! !Bilateral adnexal masses, !! ! !COLONOSCOPY N/A 06/09/2020 !! ! !LAPAROSCOPY,CYSTECTOMY/SALPINGECTOMY/OOPHORECTOMY 07/18/2020!! ! !Obesity !+---------+----+ +ImpressionsRight Impression1. There is no deep venous obstruction in the common femoral, profundafemoral, femoral, popliteal, posterior tibial or peroneal veins.2. There is nosuperficial venous obstruction in the great saphenous vein.Left Impression1. There is no deep venousobstruction in the common femoral, profundafemoral, femoral, popliteal, posterior tibial or peronealveins.2. There is no superficial venous obstruction in the great saphenous vein. Conclusions Summary Signature Velocities are measured in cm/s ; Diameters are [facility] 2020-[facility] 07:19:00 Test Item Value Reference Range Interpretation Comments PARTIAL THROMBOPLASTIN TIME 34.0 seconds 22.5-36.0 (BEAKER) (test code = 760) Comprehensive metabolic [id number] 05:22:00 Test Item Value Reference Range Interpretation Comments Protein, Total (test 6.7 See_Comment [Autom ated code = 2885-2) message] The system which generated this result transmit dougie reference range : 6.0 - 8.3 gm/dL . The reference range was not u sed to interpret th is result as normal/abnormal . Albumin (test code = 3.8 g/dL 3.5-5 71973-0) Alkaline Phosphatase 60 U/L 40-150 (test code = 6768-6) Total Bilirubin (test 0.5 mg/dL 0.2-1.2 code = 1975-2) Sodium (test code = 135 meq/L 136-145 L 2951-2) Potassium (test code 3.9 meq/L 3.5-5.1 = 2823-3) Chloride (test code = 104 meq/L 98-107 2075-0) CO2 (test code = 24 meq/L 22-29 2028-9) BUN (test code = 5 mg/dL 7-21 L 3094-0) Creatinine (test code 0.64 mg/dL 0.57-1.25 = 2160-0) Glucose (test code = 104 mg/dL 70-105 2345-7) Calcium (test code = 8.2 mg/dL 8.4-10.2 L 60124-6) AST (test code = 21 U/L 5-34 1920-8) ALT (test code = 11 U/L 6-55 1742-6) EGFR (test code = 108 mL/min/1.73 [place] [address]-2) NOT ACCURATE CREATININE CLEARANCE IN PREDICTING GLOMERULAR FILTRATION RATE . ESTIMATED GFR I S NOT APPLICABLE FOR DIALYSIS PATIEN TSParvin JOHNNA (test code = JOHNNA) Derrick Boat Operator ID - LEANNA Willard Lab Interpretation Abnormal (test code = 52247-9) [facility] [id number] 05:22:00 Test Item Value Reference Range Interpretation Comments TOTAL PROTEIN 6.7 gm/dL 6.0-8.3 (BEAKER) (test code = 770) ALBUMIN (BEAKER) 3.8 g/dL 3.5-5.0 (test code = 1145) ALKALINE PHOSPHATASE 60 U/L 40-150 (BEAKER) (test code = 346) BILIRUBIN TOTAL 0.5 mg/dL 0.2-1.2 (BEAKER) (test code = 377) SODIUM (BEAKER) (test 135 meq/L 136-145 L code = 381) POTASSIUM (BEAKER) 3.9 meq/L 3.5-5.1 (test code = 379) CHLORIDE (BEAKER) 104 meq/L 98-107 (test code = 382) CO2 (BEAKER) (test 24 meq/L 22-29 code = 355) BLOOD UREA NITROGEN 5 mg/dL 7-21 L (BEAKER) (test code = 354) CREATININE (BEAKER) 0.64 mg/dL 0.57-1.25 (test code = 358) GLUCOSE RANDOM 104 mg/dL 70-105 (BEAKER) (test code = 652) CALCIUM (BEAKER) 8.2 mg/dL 8.4-10.2 L (test code = 697) AST (SGOT) (BEAKER) 21 U/L 5-34 (test code = 353) ALT (SGPT) (BEAKER) 11 U/L 6-55 (test code = 347) EGFR (BEAKER) (test 108 ESTIMATE D GFR IS code = 1092) mL/min/1.73 sq NOT ACCURA TE m CREATININE CLEARANCE IN PREDICTING GLOMERULAR FILTRATION RATE . ESTIMATED GFR I S NOT APPLICABLE FOR DIALYSIS PATIEN TS. Derrick Boat Operator ID - LEANNA WPROTHROMBIN TIME/[id number] 05:03:00 Test Item Value Reference Range Interpretation Comments PROTIME (BEAKER) 15.3 seconds 11.9-14.2 H (test code = 759) INR (BEAKER) (test 1.25 See_Comment [Automat ed message] code = 370) The system Stopango generated this result transmitted ref erence range: <=5.90. The reference range was not used to int erpret this result as normal/abnormal . RECOMMENDED COUMADIN/WARFARIN INR THERAPY RANGESSTANDARD DOSE: 2.0 - 3.0 Includes: PROPHYLAXIS forvenous thrombosis, systemic embolization; TREATMENT for venous thrombosis and/or pulmonary embolus.HIGH RISK: Target INR is 2.5-3.5 for patients with mechanical heart valves.CBC (Hemogram only)2020-07-19 04:53:00 Test Item Value Reference Range Interpretation Comments WBC (test code = 6690-2) 7.8 See_Comment [A utomated message] The system [employer]ango generated this result transmitted ref erence range: 3.5 - 10 .5 K/L. The refe rence range was not u sed to interpret this result as normal/abnor mal. RBC (test code = 789-8) 3.41 See_Comment L [Au tomated message] The system [employer]ango generated this result transmitted ref erence range: 3.93 - 5 .22 M/L. The refe rence range was not u sed to interpret this result as normal/abnor mal. MCHC (test code = 786-4) 32.0 See_Comment L [A utomated message] The system [employer]ango generated this result transmitted ref erence range: 32.2 - 3 5.5 GM/DL. The refe rence range was not u sed to interpret this result as normal/abnor mal. Hematocrit (test code = 29.7 % 34.1-44.9 L 4544-3) MCV (test code = 787-2) 87.1 fL 79.4-94.8 MCH (test code = 785-6) 27.9 pg 25.6-32.2 RDW (test code = 788-0) 13.7 % 11.7-14.4 Platelets (test code = 314 See_Comment [Aut omated message] 777-3) The system [employer]ango generated this result transmitted ref erence range: 150 - 45 0 K/CU MM. The referen ce range was not u sed to interpret this result as normal/abnor mal. MPV (test code = 9.3 fL 9.4-12.3 L 16001-0) nRBC (test code = 413) 0 See_Comment [Aut omated message] The system [employer]ango generated this result transmitted ref erence range: 0 - 0 /1 00 WBC. The refere nce range was not u sed to interpret this result as normal/abnor mal. Lab Interpretation (test Abnormal code = 48393-9) [facility] (HEMOGRAM ONLY)2020-07-19 04:53:00 Test Item Value Reference Range Interpretation Comments WHITE BLOOD CELL COUNT (BEAKER) 7.8 K/ L 3.5-10.5 (test code = 775) RED BLOOD CELL COUNT (BEAKER) 3.41 M/ L 3.93-5.22 L (test code = 761) HEMOGLOBIN (BEAKER) (test code = 9.5 GM/DL 11.2-15.7 L 410) HEMATOCRIT (BEAKER) (test code = 29.7 % 34.1-44.9 L 411) MEAN CORPUSCULAR VOLUME (BEAKER) 87.1 fL 79.4-94.8 (test code = 753) MEAN CORPUSCULAR HEMOGLOBIN 27.9 pg 25.6-32.2 (BEAKER) (test code = 751) MEAN CORPUSCULAR HEMOGLOBIN CONC 32.0 GM/DL 32.2-35.5 L (BEAKER) (test code = 752) RED CELL DISTRIBUTION WIDTH 13.7 % 11.7-14.4 (BEAKER) (test code = 412) PLATELET COUNT (BEAKER) (test 314 K/CU MM 150-450 code = 756) MEAN PLATELET VOLUME (BEAKER) 9.3 fL 9.4-12.3 L (test code = 754) NUCLEATED RED BLOOD CELLS 0 /100 WBC 0-0 (BEAKER) (test code = 413) CBC W/PLT COUNT & AUTO [id number] 18:49:00 Test Item Value Reference Range Interpretation Comments WHITE BLOOD CELL COUNT (BEAKER) 11.4 K/ L 3.5-10.5 H (test code = 775) RED BLOOD CELL COUNT (BEAKER) 3.69 M/ L 3.93-5.22 L (test code = 761) HEMOGLOBIN (BEAKER) (test code = 10.4 GM/DL 11.2-15.7 L 410) HEMATOCRIT (BEAKER) (test code = 32.8 % 34.1-44.9 L 411) MEAN CORPUSCULAR VOLUME (BEAKER) 88.9 fL 79.4-94.8 (test code = 753) MEAN CORPUSCULAR HEMOGLOBIN 28.2 pg 25.6-32.2 (BEAKER) (test code = 751) MEAN CORPUSCULAR HEMOGLOBIN CONC 31.7 GM/DL 32.2-35.5 L (BEAKER) (test code = 752) RED CELL DISTRIBUTION WIDTH 13.5 % 11.7-14.4 (BEAKER) (test code = 412) PLATELET COUNT (BEAKER) (test 327 K/CU MM 150-450 code = 756) MEAN PLATELET VOLUME (BEAKER) 9.9 fL 9.4-12.3 (test code = 754) NUCLEATED RED BLOOD CELLS 0 /100 WBC 0-0 (BEAKER) (test code = 413) NEUTROPHILS RELATIVE PERCENT 90 % (BEAKER) (test code = 429) LYMPHOCYTES RELATIVE PERCENT 6 % (BEAKER) (test code = 430) MONOCYTES RELATIVE PERCENT 4 % (BEAKER) (test code = 431) EOSINOPHILS RELATIVE PERCENT 0 % (BEAKER) (test code = 432) BASOPHILS RELATIVE PERCENT 0 % (BEAKER) (test code = 437) NEUTROPHILS ABSOLUTE COUNT 10.19 K/ L 1.56-6.13 H (BEAKER) (test code = 670) LYMPHOCYTES ABSOLUTE COUNT 0.69 K/ L 1.18-3.74 L (BEAKER) (test code = 414) MONOCYTES ABSOLUTE COUNT (BEAKER) 0.41 K/ L 0.24-0.36 H (test code = 415) EOSINOPHILS ABSOLUTE COUNT 0.01 K/ L 0.04-0.36 L (BEAKER) (test code = 416) BASOPHILS ABSOLUTE COUNT (BEAKER) 0.02 K/ L 0.01-0.08 (test code = 417) IMMATURE GRANULOCYTES-RELATIVE 0 % 0-1 PERCENT (BEAKER) (test code = 2801) CYTOLOGY [id number] 17:00:00 Test Item Value Reference Range Interpretation Comments Cytology (test code = See Separate Report 7512) [facility] [id number] 17:00:00 Test Item Value Reference Range Interpretation Comments CYTOLOGY RESULT POINTER See Separate Report (BEAKER) (test code = 9249) Type and screen, [id number] 09:09:00 Test Item Value Reference Range Interpretation Comments ABO/RH AUTOMATED (BEAKER) (test O POSITIVE code = 2260) Ab Scrn (test code = 890-4) NEGATIVE [facility]ano[facility]emoglobin2021-05-25 08:31:00 Test Item Value Reference Range Interpretation Comments Hemoglobin (test code 12.1 See_Comment [Auto mated = 786-4) message] The system which generated this result transmit dougie reference range : 11.2 - 15.7 GM/ DL. The reference range was not u sed to interpret th is result as normal/abnormal . JOHNNA (test code = JOHNNA) Derrick Boat Operator ID - [id number] Lab Interpretation Normal (test code = 22105-2) [facility]MOGLOBIN2021-05-25 08:31:00 Test Item Value Reference Range Interpretation Comments HEMOGLOBIN (BEAKER) (test code = 12.1 GM/DL 11.2-15.7 410) Derrick Boat Operator ID - [id number] , [id number] 08:21:00 Test Item Value Reference Range Interpretation Comments Test Urine, POC (test code Negative = 6325211) Control line present?, POC (test Yes code = 2536034) Background clear?, POC (test code = Yes 9524386) UPT Cassette Lot #, POC (test code = 80816 6551214) UPT Cassette Expiration Date, POC 1250477 (test code = 3874786) [facility]ano[facility]cer Antigen 125 (CA 125)2020-06-11 11:48:00 Test Item Value Reference Interpretation Comments Range CA 125 (test code = 748 U/mL <[address] was ) performed using the Vasiliy Deejay Chemiluminescen t method.Values obtained from different assay methods cannot be used interchangeably .CA 125 levels, regardless of v alue, should not be interpreted as absoluteevidenc e of the presence or absence of dise ase. JOHNNA (test code = Performing Lab JOHNNA) [employer] [place] [address] [place] [address] Giovanny Keane MD, PhD, ED Lab Interpretation Abnormal (test code = 24714-6) [facility]ano[facility]bohydrate antigen 19-9 (CA 19-9)2020-06-10 19:36:00 Test Item Value Reference Interpretation Comments Range CA 19-9 (test code 36 U/mL <34 H This sherrell t was = 61841-9) performed using the Siemens Chemiluminescen t method.Values obtained from different assay methods cannot be used interchangeably .CA19- 9 levels, regar dless of value, shoul d not be interpreted as absoluteevidenc e of the presence or absence of dise ase. JOHNNA (test code = Performing Lab JOHNNA) [employer] [place] [address] [place] [address] Giovanny Keane MD, PhD, ED Lab Interpretation Abnormal (test code = 79442-6) [facility] Metabolic [id number] 05:14:00 Test Item Value Reference Range Interpretation Comments Sodium (test code = 140 meq/L 121-475 2810-2) Potassium (test code = 3.5 meq/L 3.5-5.1 2823-3) Chloride (test code = 106 meq/L 98-107 2075-0) CO2 (test code = 26 meq/L 22-29 2028-9) BUN (test code = 10 mg/dL 7-21 3094-0) Creatinine (test code 0.69 mg/dL 0.57-1.25 = 2160-0) Glucose (test code = 106 mg/dL 70-105 H 2345-7) Calcium (test code = 8.4 mg/dL 8.4-10.2 17997-9) EGFR (test code = 99 mL/min/1.73 [place] [address]-2) NOT ACCURATE CREATININE CLEARANCE IN PREDICTING GLOMERULAR FILTRATION RATE . ESTIMATED GFR I S NOT APPLICABLE FOR DIALYSIS PATIENTS. JOHNNA (test code = JOHNNA) Derrick Boat Operator ID - EDASI Lab Interpretation Abnormal (test code = 00095-3) [facility]ano[facility]esium2021-04-17 05:14:00 Test Item Value Reference Range Interpretation Comments Magnesium (test code = 2.1 mg/dL 1.6-2.6 89533-9) JOHNNA (test code = JOHNNA) Derrick Boat Operator ID - EDASI Lab Interpretation (test Normal code = 05130-9) [facility]ano[facility]osphorus2021-04-17 05:14:00 Test Item Value Reference Range Interpretation Comments Phosphorus (test code = 3.7 mg/dL 2.3-4.7 2777-1) JOHNNA (test code = JOHNNA) Derrick Boat Operator ID - EDASI Lab Interpretation (test Normal code = 24730-6) [facility]anoBASIC METABOLIC [id number] 05:14:00 Test Item Value Reference Range Interpretation Comments SODIUM (BEAKER) 140 meq/L 136-145 (test code = 381) POTASSIUM (BEAKER) 3.5 meq/L 3.5-5.1 (test code = 379) CHLORIDE (BEAKER) 106 meq/L 98-107 (test code = 382) CO2 (BEAKER) (test 26 meq/L 22-29 code = 355) BLOOD UREA NITROGEN 10 mg/dL 7-21 (BEAKER) (test code = 354) CREATININE (BEAKER) 0.69 mg/dL 0.57-1.25 (test code = 358) GLUCOSE RANDOM 106 mg/dL 70-105 H (BEAKER) (test code = 652) CALCIUM (BEAKER) 8.4 mg/dL 8.4-10.2 (test code = 697) EGFR (BEAKER) (test 99 mL/min/1.73 ESTIMA DOUGIE GFR IS code = 1092) sq m NOT ACCURATE CREATININE CLEARANCE IN PREDICTING GLOMERULAR FILTRATION RATE . ESTIMATED GFR I S NOT APPLICABLE FOR DIALYSIS PATIEN TS. Derrick Boat Operator ID - [id number] 05:14:00 Test Item Value Reference Range Interpretation Comments MAGNESIUM (BEAKER) (test code = 2.1 mg/dL 1.6-2.6 627) Derrick Boat Operator ID - [id number] 05:14:00 Test Item Value Reference Range Interpretation Comments PHOSPHORUS (BEAKER) (test code = 3.7 mg/dL 2.3-4.7 604) Derrick Boat Operator ID - EDASICBC (HEMOGRAM ONLY)2020-06-10 04:54:00 Test Item Value Reference Range Interpretation Comments WHITE BLOOD CELL COUNT (BEAKER) 6.6 K/ L 3.5-10.5 (test code = 775) RED BLOOD CELL COUNT (BEAKER) 3.92 M/ L 3.93-5.22 L (test code = 761) HEMOGLOBIN (BEAKER) (test code = 11.0 GM/DL 11.2-15.7 L 410) HEMATOCRIT (BEAKER) (test code = 34.2 % 34.1-44.9 411) MEAN CORPUSCULAR VOLUME (BEAKER) 87.2 fL 79.4-94.8 (test code = 753) MEAN CORPUSCULAR HEMOGLOBIN 28.1 pg 25.6-32.2 (BEAKER) (test code = 751) MEAN CORPUSCULAR HEMOGLOBIN CONC 32.2 GM/DL 32.2-35.5 (BEAKER) (test code = 752) RED CELL DISTRIBUTION WIDTH 13.8 % 11.7-14.4 (BEAKER) (test code = 412) PLATELET COUNT (BEAKER) (test 391 K/CU MM 150-450 code = 756) MEAN PLATELET VOLUME (BEAKER) 9.7 fL 9.4-12.3 (test code = 754) NUCLEATED RED BLOOD CELLS 0 /100 WBC 0-0 (BEAKER) (test code = 413) MR, PELVIS, [id number] 18:35:00Unlisted Reason for Exam - Click Yes and Enter Reason Below->No [facility] CENTERName: JEANA JOHNSTON : 1990 Sex: FFINAL REPORT MRI of the pelvis dated June 09, 2020 Comment: Multin iplanar T1 and T2-weighted images of the pelvis, postcontrast axial, coronal, and sagittal T1-weighted images of the pelvis were obtained. Uterus is normal in size measuring approximately 6.3 x 4.1 x 4.2 cm. Endometrium and junctional zone are unremarkable. Both ovaries are not enlarged. The left ovary measures at least 9.3 x 7.2 x 11.7 cm. The right ovary measures at least 3.6 x 7.5 x 9.3 cm. Hemorrhage, cystic, and solid components are seen in the left ovary. The largest cystic component in the left ovary measures approximately 7.4 x 5 x 6.9 cm. The hemorrhagic component in the left ovary measures approximately 2.9 x 3 x 2.9 cm. The solid component in the left ovary measures 23.5 x 3.5 cm. Cystic and solid components are seen in the right ovary. The largest solid component in the right ovary measures at least 2.3 x 5.7 cm. There is postcontrast enhancement involving the solid components in bilateral ovaries. Trace amount of free fluid is seen in the pelvis. The visualized small and large bowel are unremarkable. IMPRESSION: Complex bilateral ovarian masses suspicious for ovarian neoplasm. Recommend surgical consultation. Signed: Jose Stoddard Verified Date/Time: 06/09/2020 18:35:16 Reading Location: [facility] B1 C013[facility] CT Body Reading Room Electronically signed by: JOSE STODDARD M.D.on 06/09/2020 06:35 PMMR pelvis without & with IV [id number] 18:35:00Interface, External Ris In - 06/09/2020 6:37 PM CDTFINAL REPORT MRI of the pe lvis dated June 09, 2020 Comment: Multiplanar T1 and T2-weighted images of the pelvis, postcontrastaxial, coronal, and sagittal T1-weighted images of the pelvis were obtained. Uterus is normal in size measuring approximately 6.3 x 4.1 x 4.2 cm. Endometrium and junctional zone are unremarkable. Both ovaries are not enlarged. The left ovary measures at least 9.3 x 7.2 x 11.7 cm. The right ovary measures at least 3.6 x 7.5 x 9.3 cm. Hemorrhage, cystic, and solid components are seen in the left ovary.The largest cystic component in the left ovary measures approximately 7.4 x 5 x 6.9 cm. The hemorrhagic component in the left ovary measures approximately 2.9 x 3 x 2.9 cm. The solid component in the left ovary measures 23.5 x 3.5 cm. Cystic and solid components are seen in the right ovary. The largest solid component in the right ovary measures at least 2.3 x 5.7 cm. There is postcontrast enhancement involving the solid components in bilateral ovaries. Trace amount of free fluid is seen in the pelvis. The visualized small and large bowel are unremarkable. IMPRESSION: Complex bilateral ovarian masses suspicious for ovarian neoplasm. Recommend surgical consultation. Signed: Jose Stoddardort Verified Date/Time: 06/09/2020 18:35:16 Reading Location: [facility] B1 C013Y CT Body Reading [facility] [id number] 05:43:00 Test Item Value Reference Range Interpretation Comments SODIUM (BEAKER) 140 meq/L 136-145 (test code = 381) POTASSIUM (BEAKER) 3.6 meq/L 3.5-5.1 (test code = 379) CHLORIDE (BEAKER) 107 meq/L 98-107 (test code = 382) CO2 (BEAKER) (test 25 meq/L 22-29 code = 355) BLOOD UREA NITROGEN 5 mg/dL 7-21 L (BEAKER) (test code = 354) CREATININE (BEAKER) 0.67 mg/dL 0.57-1.25 (test code = 358) GLUCOSE RANDOM 80 mg/dL 70-105 (BEAKER) (test code = 652) CALCIUM (BEAKER) 8.2 mg/dL 8.4-10.2 L (test code = 697) EGFR (BEAKER) (test 103 mL/min/1.73 ESTIM ATED GFR IS code = 1092) sq m NOT ACCURATE CREATININE CLEARANCE IN PREDICTING GLOMERULAR FILTRATION RATE . ESTIMATED GFR I S NOT APPLICABLE FOR DIALYSIS PATIEN TS. Derrick Boat Operator ID - [id number] 05:43:00 Test Item Value Reference Range Interpretation Comments MAGNESIUM (BEAKER) (test code = 2.0 mg/dL 1.6-2.6 627) Derrick Boat Operator ID - [id number] 05:43:00 Test Item Value Reference Range Interpretation Comments PHOSPHORUS (BEAKER) (test code = 3.4 mg/dL 2.3-4.7 604) Derrick Boat Operator ID - EDASICBC (HEMOGRAM ONLY)2020-06-09 05:22:00 Test Item Value Reference Range Interpretation Comments WHITE BLOOD CELL COUNT (BEAKER) 6.7 K/ L 3.5-10.5 (test code = 775) RED BLOOD CELL COUNT (BEAKER) 3.99 M/ L 3.93-5.22 (test code = 761) HEMOGLOBIN (BEAKER) (test code = 11.2 GM/DL 11.2-15.7 410) HEMATOCRIT (BEAKER) (test code = 34.7 % 34.1-44.9 411) MEAN CORPUSCULAR VOLUME (BEAKER) 87.0 fL 79.4-94.8 (test code = 753) MEAN CORPUSCULAR HEMOGLOBIN 28.1 pg 25.6-32.2 (BEAKER) (test code = 751) MEAN CORPUSCULAR HEMOGLOBIN CONC 32.3 GM/DL 32.2-35.5 (BEAKER) (test code = 752) RED CELL DISTRIBUTION WIDTH 13.7 % 11.7-14.4 (BEAKER) (test code = 412) PLATELET COUNT (BEAKER) (test 370 K/CU MM 150-450 code = 756) MEAN PLATELET VOLUME (BEAKER) 9.3 fL 9.4-12.3 L (test code = 754) NUCLEATED RED BLOOD CELLS 0 /100 WBC 0-0 (BEAKER) (test code = 413) Alpha fetoprotein (AFP), tumor [id number] 17:48:00 Test Item Value Reference Range Interpretation Comments Alpha-Fetoprotein (test code 4.0 ng/mL <10.0 = 1834-1) JOHNNA (test code = JOHNNA) Derrick Boat Operator ID - DB Lab Interpretation (test Normal code = 73020-4) [facility] FET[facility]OTE[facility] (AFP), TUMOR [id number] 17:48:00 Test Item Value Reference Range Interpretation Comments ALPHA-FETOPROTEIN (BEAKER) (test 4.0 ng/mL <10.0 code = 1094) Derrick Boat Operator ID - DBhCG, quantitative, [id number] 16:38:00 Test Item Value Reference Range Interpretation Comments hCG Quant (test code <1 See_Comment [Autom ated = 77718-6) message] The system which generated this result transmitted reference range : 0 - 10 mIU/mL. The reference range was not used to interpr et this result as normal/abnormal . JOHNNA (test code = JOHNNA) Non- Females: <10 mIU/mL Females: Gestation Age Reference Range(mIU/mL) 0.2-1 Week 5-50 1-2 Weeks 50-500 2-3 Weeks 100-5,000 3-4 Weeks 500-10,000 4-5 Weeks 1,000-50,000 5-6 Weeks 10,000-100,000 6-8 Weeks 15,000-200,000 2-3 Months 10,000-100,000 Derrick Boat Operator ID - DB Lab Interpretation Normal (test code = 64699-5) [facility]anoHCG, QUANTITATIVE, [id number] 16:38:00 Test Item Value Reference Range Interpretation Comments GONADOTROPIN, CHORIONIC (HCG) QUANT < mIU/mL 0-10 (BEAKER) (test code = 649) Non- Females: <10 mIU/mL Females: Gestation Age Reference Range(mIU/mL) 0.2-1 Week 5-50 1-2 Weeks 50-500 2-3 Weeks 100-5,000 3-4Weeks 500-10,000 4-5 Weeks 1,000-50,000 5-6 Weeks 10,000-100,000 6-8 Weeks 15,000-200,000 2-3 Months 10,000-100,000 Derrick Boat Operator ID - DBFerritin 2020-06-08 16:32:00 Test Item Value Reference Range Interpretation Comments Ferritin (test code = 345.19 ng/mL 5-275 H 2276-4) JOHNNA (test code = JOHNNA) Derrick Boat Operator ID - DB Lab Interpretation (test Abnormal code = 69300-2) [facility] 16:[facility]00 Test Item Value Reference Range Interpretation Comments FERRITIN (BEAKER) (test code = 345.19 ng/mL 5.00-275.00 H 361) Derrick Boat Operator ID - DBIron, TIBC, % sat. (without ferritin)2020-06-08 16:11:00 Test Item Value Reference Range Interpretation Comments Iron (test code = 2498-4) 35.0 ug/dL 40-160 L TIBC (test code = 2500-7) 308 ug/dL 250-450 Iron % Saturation (test code 11 % 20-55 L = 2502-3) JOHNNA (test code = JOHNNA) Derrick Boat Operator ID - DB Lab Interpretation (test Abnormal code = 65415-4) [facility], [facility]BC, % SAT. (WITHOUT FERRITIN)2020-06-08 16:11:00 Test Item Value Reference Range Interpretation Comments IRON (BEAKER) (test code = 547) 35.0 ug/dL 40.0-160.0 L TOTAL IRON BINDING CAPACITY 308 ug/dL 250-450 (BEAKER) (test code = 769) IRON % SATURATION (2) (BEAKER) 11 % 20-55 L (test code = 2590) Derrick [employer] Operator ID - DBHemoglobin and [id number] 15:33:00 Test Item Value Reference Range Interpretation Comments Hemoglobin (test code 11.5 See_Comment [Auto mated = 786-4) message] The system which generated this result transmit dougie reference range : 11.2 - 15.7 GM/ DL. The reference range was not u sed to interpret th is result as normal/abnormal . Hematocrit (test code 35.0 % 34.1-44.9 = 4544-3) JOHNNA (test code = JOHNNA) Derrick Boat Operator ID - [id number] Lab Interpretation Normal (test code = 99878-3) [facility]MO[facility] AND [id number] 15:33:00 Test Item Value Reference Range Interpretation Comments HEMOGLOBIN (BEAKER) (test code = 11.5 GM/DL 11.2-15.7 410) HEMATOCRIT (BEAKER) (test code = 35.0 % 34.1-44.9 411) Derrick Boat Operator ID - [id number] dehydrogenase (LDH)2020-06-08 14:22:00 Test Item Value Reference Range Interpretation Comments LDH (test code = 2532-0) 236 U/L 125-220 H JOHNNA (test code = JOHNNA) Derrick [employer] Operator ID - LILIYA Lab Interpretation (test Abnormal code = 44439-8) [facility]DR[facility]SE (LDH)2020-06-08 14:22:00 Test Item Value Reference Range Interpretation Comments LACTATE DEHYDROGENASE (BEAKER) (test 236 U/L 125-220 H code = 635) Derrick Boat Operator ID - EMERSONBASIC METABOLIC [id number] 07:55:00 Test Item Value Reference Range Interpretation Comments SODIUM (BEAKER) 137 meq/L 136-145 (test code = 381) POTASSIUM (BEAKER) 3.6 meq/L 3.5-5.1 (test code = 379) CHLORIDE (BEAKER) 107 meq/L 98-107 (test code = 382) CO2 (BEAKER) (test 21 meq/L 22-29 L code = 355) BLOOD UREA NITROGEN 10 mg/dL 7-21 (BEAKER) (test code = 354) CREATININE (BEAKER) 0.63 mg/dL 0.57-1.25 (test code = 358) GLUCOSE RANDOM 76 mg/dL 70-105 (BEAKER) (test code = 652) CALCIUM (BEAKER) 8.0 mg/dL 8.4-10.2 L (test code = 697) EGFR (BEAKER) (test 110 mL/min/1.73 ESTIM ATED GFR IS code = 1092) sq m NOT ACCURATE CREATININE CLEARANCE IN PREDICTING GLOMERULAR FILTRATION RATE . ESTIMATED GFR I S NOT APPLICABLE FOR DIALYSIS PATIEN TS. Derrick Boat Operator ID - [id number] 07:55:00 Test Item Value Reference Range Interpretation Comments MAGNESIUM (BEAKER) (test code = 2.1 mg/dL 1.6-2.6 627) Derrick Boat Operator ID - [id number] 07:55:00 Test Item Value Reference Range Interpretation Comments PHOSPHORUS (BEAKER) (test code = 3.4 mg/dL 2.3-4.7 604) Derrick Boat Operator ID - LILIYAABORH, [id number] 05:18:00 Test Item Value Reference Range Interpretation Comments ABO Grouping (test code = 2588) O Rh Factor (test code = 2589) POS [facility] (HEMOGRAM ONLY)2020-06-08 05:03:00 Test Item Value Reference Range Interpretation Comments WHITE BLOOD CELL COUNT (BEAKER) 7.0 K/ L 3.5-10.5 (test code = 775) RED BLOOD CELL COUNT (BEAKER) 3.89 M/ L 3.93-5.22 L (test code = 761) HEMOGLOBIN (BEAKER) (test code = 11.0 GM/DL 11.2-15.7 L 410) HEMATOCRIT (BEAKER) (test code = 33.8 % 34.1-44.9 L 411) MEAN CORPUSCULAR VOLUME (BEAKER) 86.9 fL 79.4-94.8 (test code = 753) MEAN CORPUSCULAR HEMOGLOBIN 28.3 pg 25.6-32.2 (BEAKER) (test code = 751) MEAN CORPUSCULAR HEMOGLOBIN CONC 32.5 GM/DL 32.2-35.5 (BEAKER) (test code = 752) RED CELL DISTRIBUTION WIDTH 13.8 % 11.7-14.4 (BEAKER) (test code = 412) PLATELET COUNT (BEAKER) (test 370 K/CU MM 150-450 code = 756) MEAN PLATELET VOLUME (BEAKER) 9.2 fL 9.4-12.3 L (test code = 754) NUCLEATED RED BLOOD CELLS 0 /100 WBC 0-0 (BEAKER) (test code = 413) PROTHROMBIN [id number] 04:56:00 Test Item Value Reference Range Interpretation Comments PROTIME (BEAKER) 14.3 seconds 11.9-14.2 H (test code = 759) INR (BEAKER) (test 1.14 See_Comment [Automat ed message] code = 370) The system [employer] generated this result transmitted ref erence range: <=5.90. The reference range was not used to int erpret this result as normal/abnormal . Effective 07/22/2018: PT Reference Range ChangeNew: 11.9-14.2 Previous: 11.7- 14.7RECOMMENDED COUMADIN/WARFARIN INR THERAPY RANGESSTANDARD DOSE: 2.0-3.0 Includes: PROPHYLAXIS for venous thrombosis, systemic embolization; TREATMENT for venous thrombosis and/or pulmonary embolus.HIGH RISK: Target INR is2.5-3.5 for patients wiht mechanical heart valves.PROTHROMBIN [id number] 22:05:00 Test Item Value Reference Range Interpretation Comments PROTIME (BEAKER) 13.5 seconds 11.9-14.2 (test code = 759) INR (BEAKER) (test 1.06 See_Comment [Automat ed message] code = 370) The system [employer] generated this result transmitted ref erence range: <=5.90. The reference range was not used to int erpret this result as normal/abnormal . Effective 07/22/2018: PT Reference Range ChangeNew: 11.9-14.2 Previous: 11.7- 14.7RECOMMENDED COUMADIN/WARFARIN INR THERAPY RANGESSTANDARD DOSE: 2.0-3.0 Includes: PROPHYLAXIS for venous thrombosis, systemic embolization; TREATMENT for venous thrombosis and/or pulmonary embolus.HIGH RISK: Target INR is2.5-3.5 for patients wiht mechanical heart valves.Carcinoembryonic Antigen (CEA) 2020-06-07 21:41:00 Test Item Value Reference Range Interpretation Comments CEA, SERUM (test code = 1.0 ng/mL 0-2038-07) JOHNNA (test code = JOHNNA) Derrick Boat Operator ID - BS Lab Interpretation (test Normal code = 31476-9) [facility] (CEA)2020-06-07 21:41:00 Test Item Value Reference Range Interpretation Comments CARCINOEMBRYONIC ANTIGEN (BEAKER) 1.0 ng/mL 0.0-5.0 (test code = 685) Derrick Boat Operator ID - BSCOMPREHENSIVE METABOLIC [id number] 21:27:00 Test Item Value Reference Range Interpretation Comments TOTAL PROTEIN 8.0 gm/dL 6.0-8.3 (BEAKER) (test code = 770) ALBUMIN (BEAKER) 4.0 g/dL 3.5-5.0 (test code = 1145) ALKALINE PHOSPHATASE 88 U/L 40-150 (BEAKER) (test code = 346) BILIRUBIN TOTAL 0.5 mg/dL 0.2-1.2 (BEAKER) (test code = 377) SODIUM (BEAKER) (test 137 meq/L 136-145 code = 381) POTASSIUM (BEAKER) 3.6 meq/L 3.5-5.1 (test code = 379) CHLORIDE (BEAKER) 105 meq/L 98-107 (test code = 382) CO2 (BEAKER) (test 23 meq/L 22-29 code = 355) BLOOD UREA NITROGEN 9 mg/dL 7-21 (BEAKER) (test code = 354) CREATININE (BEAKER) 0.69 mg/dL 0.57-1.25 (test code = 358) GLUCOSE RANDOM 80 mg/dL 70-105 (BEAKER) (test code = 652) CALCIUM (BEAKER) 8.5 mg/dL 8.4-10.2 (test code = 697) AST (SGOT) (BEAKER) 19 U/L 5-34 (test code = 353) ALT (SGPT) (BEAKER) 16 U/L 6-55 (test code = 347) EGFR (BEAKER) (test 99 mL/min/1.73 ESTIMA DOUGIE GFR IS code = 1092) sq m NOT ACCURATE CREATININE CLEARANCE IN PREDICTING GLOMERULAR FILTRATION RATE . ESTIMATED GFR I S NOT APPLICABLE FOR DIALYSIS PATIEN TS. Derrick Boat Operator ID - [id number] 21:27:00 Test Item Value Reference Range Interpretation Comments MAGNESIUM (BEAKER) (test code = 2.2 mg/dL 1.6-2.6 627) Derrick Boat Operator ID - [id number] 21:27:00 Test Item Value Reference Range Interpretation Comments PHOSPHORUS (BEAKER) (test code = 3.3 mg/dL 2.3-4.7 604) Derrick Boat Operator ID - BSCBC W/PLT COUNT & AUTO [id number] 21:10:00 Test Item Value Reference Range Interpretation Comments WHITE BLOOD CELL COUNT (BEAKER) 8.4 K/ L 3.5-10.5 (test code = 775) RED BLOOD CELL COUNT (BEAKER) 4.19 M/ L 3.93-5.22 (test code = 761) HEMOGLOBIN (BEAKER) (test code = 11.8 GM/DL 11.2-15.7 410) HEMATOCRIT (BEAKER) (test code = 36.7 % 34.1-44.9 411) MEAN CORPUSCULAR VOLUME (BEAKER) 87.6 fL 79.4-94.8 (test code = 753) MEAN CORPUSCULAR HEMOGLOBIN 28.2 pg 25.6-32.2 (BEAKER) (test code = 751) MEAN CORPUSCULAR HEMOGLOBIN CONC 32.2 GM/DL 32.2-35.5 (BEAKER) (test code = 752) RED CELL DISTRIBUTION WIDTH 13.9 % 11.7-14.4 (BEAKER) (test code = 412) PLATELET COUNT (BEAKER) (test 389 K/CU MM 150-450 code = 756) MEAN PLATELET VOLUME (BEAKER) 9.1 fL 9.4-12.3 L (test code = 754) NUCLEATED RED BLOOD CELLS 0 /100 WBC 0-0 (BEAKER) (test code = 413) NEUTROPHILS RELATIVE PERCENT 66 % (BEAKER) (test code = 429) LYMPHOCYTES RELATIVE PERCENT 24 % (BEAKER) (test code = 430) MONOCYTES RELATIVE PERCENT 5 % (BEAKER) (test code = 431) EOSINOPHILS RELATIVE PERCENT 5 % (BEAKER) (test code = 432) BASOPHILS RELATIVE PERCENT 0 % (BEAKER) (test code = 437) NEUTROPHILS ABSOLUTE COUNT 5.58 K/ L 1.56-6.13 (BEAKER) (test code = 670) LYMPHOCYTES ABSOLUTE COUNT 2.01 K/ L 1.18-3.74 (BEAKER) (test code = 414) MONOCYTES ABSOLUTE COUNT (BEAKER) 0.40 K/ L 0.24-0.36 H (test code = 415) EOSINOPHILS ABSOLUTE COUNT 0.38 K/ L 0.04-0.36 H (BEAKER) (test code = 416) BASOPHILS ABSOLUTE COUNT (BEAKER) 0.03 K/ L 0.01-0.08 (test code = 417) IMMATURE GRANULOCYTES-RELATIVE 0 % 0-1 PERCENT (BEAKER) (test code = 2802)
[2020-08-16] MEDS ORDERED: Ringers Lactate 1,000 ML IV ONE (19:34)
[2020-08-16] MEDS ORDERED: ONDANSETRON 4 MG/2 ML VIAL ONE (19:34)
[2020-08-16] MEDS ORDERED: MORPHINE 4 MG/ML SYR ONE (19:34)
[2020-08-16 19:37] LABS: Absolute Lymphocytes (CBC) 2.6 K/uL (0.7-4.9); Basophils % 1.3 % (0-1.3); Lymphocytes % 40.8 % (15.3-44.8); MPV 8.3 fL (7.6-11.3); RBC Red Blood Cell Count 4.14 M/uL (3.86-4.86)
[2020-08-16 19:44] LABS: Urine Blood 2+ (Negative); Urine Glucose Negative (Negative); Urine Protein Negative (Negative); Urine Specific Gravity <=1.005 (1.005-1.030); Urine pH 6.5 (5.0-7.0)
[2020-08-16 19:53] LABS: ALT/SGPT 28 U/L (12-78); AST/SGOT 22 U/L (15-37); Albumin 3.7 g/dL (3.4-5.0); Alkaline Phosphatase 75 U/L (45-117); BUN Blood Urea Nitrogen 12 mg/dL (7-18); Bicarbonate 28 mmol/L (21-32); Bilirubin Direct < 0.1 mg/dL (0-0.2); Bilirubin Total 0.3 mg/dL (0.2-1.0); Glucose Level 101 mg/dL (74-106); Potassium 4.1 mmol/L (3.5-5.1); Protein, Total 8.1 g/dL (6.4-8.2); Sodium Level 137 mmol/L (136-145)
[2020-08-16 20:03] LABS: Urine Bacteria <20 /HPF (<20); Urine RBC <5 /HPF (NONE SEEN)
[2020-08-16 20:22] LABS: Urine Specific Gravity/Preg <1.005 (1.005-1.030)
--- NOTE | 2020-08-16 21:12 | RAD REPORT ---
EXAM DESCRIPTION: CT - Abdomen Pelvis W Contrast - 08/16/2020 8:42 pm CLINICAL HISTORY: Abdominal pain COMPARISON: May 2020 TECHNIQUE: Computed axial tomography of the abdomen pelvis was obtained. 100 cc Isovue-300 was admin istered intravenously. Oral contrast was not requested which limits evaluation of bowel. All CT scans are performed using dose optimization technique as appropriate and may include automated exposure control or mA/KV adjustment according to patient size. FINDINGS: The left adnexal mass has decreased in size currently measuring 3 x 1.8 centimeters. The r ight adnexal mass measures 2.7 x 1 centimeter. Loculated cystic mass posterior to the uterus measures 5 x 1 centimeter. The peritoneal carcinomatosis has diminished. Liver, spleen, pancreas, adrenals and kidneys unremarkable There is no evidence of diverticulitis. IMPRESSION: The adnexal masses have decreased in size status post chemotherapy Peritoneal carcinomatosis has diminished
[2020-08-16] MEDS ORDERED: HYDROMORPHONE HCL 1 MG/ML INJ ONE (21:43)
--- NOTE | 2020-08-16 22:18 | ER ---
Nurse's Notes [facility] Name: Thea Briceño Age: 30 yrs Sex: Female : 1990 Arrival Date: 08/16/2020 Time: 17:32 Bed 20 Private MD: Diagnosis: Abdominal and pelvic pain Presentation: 08/16 17:41 Chief complaint: Patient states: i started chemo therapy Friday. today i have had a lot tw2 of abdominal pain all day. i talked to the chemo doctor and she said to come get checked. i am also having vaginal bleeding. ovarian cancer, stage 3C. Coronavirus screen: At this time, the client does not indicate any symptoms associated with coronavirus-19. Ebola Screen: Patient denies travel to an Ebola-affected area in the 21 days before illness onset. Initial Sepsis Screen: Does the patient meet any 2 criteria? No. Patient's initial sepsis screen is negative. Does the patient have a suspected source of infection? No. Patient's initial sepsis screen is negative. Risk Assessment: Do you want to hurt yourself or someone else? Patient reports no desire to harm self or others. Onset of symptoms was August 16, 2020. 17:41 Method Of Arrival: Ambulatory tw2 17:41 Acuity: YUMIKO 3 tw2 Triage Assessment: 17:44 General: Appears in no apparent distress. Behavior is calm, cooperative, appropriate tw2 for age. Pain: Complains of pain in suprapubic area, right lower quadrant, left lower quadrant and pelvis. GI: Reports cramping, nausea. Historical: - Allergies: 17:44 Doxycycline; tw2 - PMHx: 17:44 Ovarian cyst; ovarian cancer, stage 3C; tw2 - PSHx: 17:44 Hysterectomy; tw2 17:44 port a cath; tw2 - Immunization history:: Adult Immunizations. - Social history:: Smoking status: . Screenin:02 Abuse screen: Denies threats or abuse. Denies injuries from another. Nutritional ak2 screening: No deficits noted. Tuberculosis screening: No symptoms or risk factors identified. Fall Risk None identified. Assessment: 21:27 Reassessment: Patient and/or family updated on plan of care and expected duration. Pain ak2 level reassessed. Vital Signs: 17:41 BP 122 / 75; Pulse 94; Resp 17; Temp 97.9(TE); Pulse Ox 100% on R/A; Weight 86.18 kg tw2 (R); Height 4 ft. 11 in. (149.86 cm); Pain 8/10; 20:01 BP 115 / 71; Pulse 81; Resp 18; Pulse Ox 100% on R/A; ak2 17:41 Body Mass Index 38.37 (86.18 kg, 149.86 cm) tw2 ED Course: 17:32 Patient arrived in ED. ds1 17:43 Triage completed. tw2 17:44 Arm band placed on. tw2 18:41 Stanton Love PA is PHCP. jr8 18:41 Krishna Guadalupe MD is Attending Physician. jr8 19:10 Kal Jackson is Primary Nurse. ak2 20:02 Patient has correct armband on for positive identification. ak2 20:02 No provider procedures requiring assistance completed. Inserted saline lock: 20 gauge ak2 in left antecubital area, using aseptic technique. 22:42 IV discontinued. ak2 Administered Medications: 19:21 Drug: Ringers - Lactated Ringers Solution 1000 ml Route: IV; Rate: bolus; Site: left ak2 antecubital; 19:22 Drug: morphine 4 mg Route: IVP; Site: left antecubital; ak2 19:22 Drug: Zofran (Ondansetron) 2 mg Route: IVP; Site: left antecubital; ak2 21:23 Drug: Dilaudid (HYDROmorphone) 1 mg Route: IVP; Site: left antecubital; ak2 Outcome: 22:18 Discharge ordered by . jr8 22:41 Discharged to home ambulatory. ak2 22:41 Condition: good 22:41 Discharge instructions given to patient. 22:42 Patient left the ED. ak2 Signatures: Niharika Smith ds1 Stanton Love PA PA jr8 Ida Silva RN RN tw2 Kal Jackson ak2
--- NOTE | 2020-08-16 22:18 | EDPHYS ---
Physician Documentation [facility] Name: Thea Briceño Age: 30 yrs Sex: Female : 1990 Arrival Date: 08/16/2020 Time: 17:32 Bed 20 Private MD: ED Physician Krishna Guadalupe HPI: 08/16 21:01 This 30 yrs old Female presents to ER via Ambulatory with complaints of jr8 Abdominal Pain - Chemo PT. 21:01 The patient presents with abdominal pain in the lower abdomen. Onset: The jr8 symptoms/episode began/occurred acutely, today. The symptoms radiate to back. Associated signs and symptoms: Pertinent positives: nausea and vomiting. The symptoms are described as stabbing. Modifying factors: The symptoms are alleviated by nothing, the symptoms are aggravated by nothing. Severity of pain: At its worst the pain was moderate in the emergency department the pain is unchanged. The patient has not experienced similar symptoms in the past. The patient has been recently seen by a physician:. Patient had hysterectomy and oophorectomy last month for ovarian cancer. Started on chemotherapy. Had treatment last week and now having lower abdominal pain that is not going away. Historical: - Allergies: 17:44 Doxycycline; tw2 - PMHx: 17:44 Ovarian cyst; ovarian cancer, stage 3C; tw2 - PSHx: 17:44 Hysterectomy; tw2 17:44 port a cath; tw2 - Immunization history:: Adult Immunizations. - Social history:: Smoking status: . ROS: 21:01 Eyes: Negative for injury, pain, redness, and discharge, ENT: Negative for injury, jr8 pain, and discharge, Neck: Negative for injury, pain, and swelling, Cardiovascular: Negative for chest pain, palpitations, and edema, Respiratory: Negative for shortness of breath, cough, wheezing, and pleuritic chest pain, Back: Negative for injury and pain, MS/Extremity: Negative for injury and deformity, Skin: Negative for injury, rash, and discoloration, Neuro: Negative for headache, weakness, numbness, tingling, and seizure. 21:01 Abdomen/GI: Positive for abdominal pain, nausea and vomiting, Negative for diarrhea, constipation, abdominal cramps, abdominal distension. Exam: 21:01 Cardiovascular: Regular rate and rhythm with a normal S1 and S2. No gallops, murmurs, jr8 or rubs. Normal PMI, no JVD. No pulse deficits. Respiratory: Lungs have equal breath sounds bilaterally, clear to auscultation and percussion. No rales, rhonchi or wheezes noted. No increased work of breathing, no retractions or nasal flaring. Back: No spinal tenderness. No costovertebral tenderness. Full range of motion. Skin: Warm, dry with normal turgor. Normal color with no rashes, no lesions, and no evidence of cellulitis. MS/ Extremity: Pulses equal, no cyanosis. Neurovascular intact. Full, normal range of motion. Neuro: Awake and alert, GCS 15, oriented to person, place, time, and situation. Cranial nerves II-XII grossly intact. Motor strength 5/5 in all extremities. Sensory grossly intact. Cerebellar exam normal. Normal gait. 21:01 Constitutional: The patient appears alert, awake, uncomfortable. 21:01 Abdomen/GI: Inspection: abdomen appears normal, Bowel sounds: active, all quadrants, Palpation: soft, in all quadrants, moderate abdominal tenderness, in the suprapubic area, right lower quadrant and left lower quadrant, mass, is not appreciated, rebound tenderness, is not appreciated, voluntary guarding, is not appreciated, involuntary guarding, is not appreciated, no appreciated organomegaly, Indicators: McBurney's point is not tender, Velez's sign is negative, Rovsing's sign is negative, Liver: tenderness, is not appreciated. Vital Signs: 17:41 BP 122 / 75; Pulse 94; Resp 17; Temp 97.9(TE); Pulse Ox 100% on R/A; Weight 86.18 kg tw2 (R); Height 4 ft. 11 in. (149.86 cm); Pain 8/10; 20:01 BP 115 / 71; Pulse 81; Resp 18; Pulse Ox 100% on R/A; ak2 17:41 Body Mass Index 38.37 (86.18 kg, 149.86 cm) tw2 MDM: 18:41 Patient medically screened. jr8 22:15 Data reviewed: vital signs, nurses notes, lab test result(s), radiologic studies, CT jr8 scan, and as a result, I will discharge patient. Data interpreted: Pulse oximetry: on room air is 100 %. Interpretation: normal. Counseling: I had a detailed discussion with the patient and/or guardian regarding: the historical points, exam findings, and any diagnostic results supporting the discharge/admit diagnosis, lab results, radiology results, the need for outpatient follow up, oncologist, to return to the emergency department if symptoms worsen or persist or if there are any questions or concerns that arise at home. Response to treatment: the patient's symptoms have markedly improved after treatment. Special discussion: Based on the patient's Hx, exam, and Dx evaluation, there is no indication for emergent surgery or inpatient Tx. It is understood by the patient/guardian that if the Sx's persist or worsen they need to return immediately for re-evaluation. 08/16 18:56 Order name: Basic Metabolic Panel [facility] 08/16 18:56 Order name: CBC with Diff [facility] 08/16 18:56 Order name: Hepatic Function [facility] 08/16 18:58 Order name: Urine Microscopic Only [facility] 08/16 19:42 Order name: CBC with Automated Diff; Complete Time: 19:45 [facility] 08/16 19:45 Order name: Urine Dipstick-Ancillary; Complete Time: 19:45 [facility] 08/16 19:50 Order name: Urine --Ancillary (enter results) [facility] 08/16 19:53 Order name: Basic Metabolic Panel; Complete Time: 20:12 [facility] 08/16 19:53 Order name: Liver (Hepatic) Function; Complete Time: 20:12 [facility] 08/16 20:03 Order name: Urine Microscopic Only; Complete Time: 20:12 [facility] 08/16 20:22 Order name: Urine --Ancillary; Complete Time: 20:29 [facility] 08/16 20:30 Order name: CT Abd/Pelvis - IV Contrast Only [facility] 08/16 21:14 Order name: CT; Complete Time: 21:14 [facility] 08/16 18:56 Order name: IV Saline Lock [facility] 08/16 18:56 Order name: Labs collected and sent [facility] 08/16 18:58 Order name: Urine Dipstick-Ancillary (obtain specimen) [facility] Administered Medications: 19:21 Drug: Ringers - Lactated Ringers Solution 1000 ml Route: IV; Rate: bolus; Site: left ak2 antecubital; 19:22 Drug: morphine 4 mg Route: IVP; Site: left antecubital; ak2 19:22 Drug: Zofran (Ondansetron) 2 mg Route: IVP; Site: left antecubital; ak2 21:23 Drug: Dilaudid (HYDROmorphone) 1 mg Route: IVP; Site: left antecubital; ak2 Disposition: 08/16/20 22:18 Discharged to Home. Impression: Abdominal and pelvic pain. - Condition is Stable. - Discharge Instructions: Abdominal Pain, Adult. - Medication Reconciliation Form, Thank You Letter, Antibiotic Education, Prescription Opioid Use form. - Follow up: Private Physician; When: 2 - 3 days; Reason: Recheck today's complaints, Continuance of care, Re-evaluation by your physician. - Problem is new. - Symptoms have improved. Signatures: Dispatcher [employer] EDMS Stanton Love PA PA jr8 Ida Silva RN RN tw2 Kal Jackson2 Corrections: (The following items were deleted from the chart) 22:42 22:18 08/16/2020 22:18 Discharged to Home. Impression: Abdominal and pelvic pain. ak2 Condition is Stable. Forms are Medication Reconciliation Form, Thank You Letter, Antibiotic Education, Prescription Opioid Use. Follow up: Private Physician; When: 2 - 3 days; Reason: Recheck today's complaints, Continuance of care, Re-evaluation by your physician. Problem is new. Symptoms have improved. jr8
[2020-08-16 22:50] VITALS: TEMP 97.9; O2SAT 100
[2020-08-16 22:52] VITALS: BP 115/71
== END 2020-08-16 22:42 | disposition home or self-care (01) ==
LOC: ER 17:32
DX: R10.2 Pelvic and perineal pain (principal); C56.9 Malignant neoplasm of unspecified ovary; Z88.1 Allergy status to other antibiotic agents
CPT/HCPCS: 85025; 80048; 36415; 81025; 80076; 74177; Q9967; J1170; J7120; J2405; 81003; 81015

== ENCOUNTER 2021-06-17 18:35 | Emergency (ER) | payer BC ==
--- OUTSIDE RECORDS SUMMARY | 2021-06-17 18:38 | XMS REPORT | Clinical Summary ---
:1990 Author Organization [facility] Address [address] [place] [address] Care Team Providers Name Role Phone Mariel FarrisP Unavailable Allergies Not on File Medications Not on file Active Problems Not on file Encounters Date Type Specialty Care Team Description 09/06/2020 Travel after 06/17/2020 Social History Tobacco Use Types Packs/Day Years Used Date Never Assessed Sex Assigned at Date Recorded Not on file Last Filed Vital Signs Not on file Plan of Treatment Not on file Results Not on fileafter 06/17/2020 Insurance Payer Benefit Plan / Subscriber ID Effective Dates Phone Addre ss Type Group [employer] [id number] Effective for all [address] [place] [address] [phone] 1 Thea Briceño Personal/Family Self 1990 [address] [place], [place] [address] Care Teams French Comber Relationship Specialty Start Date End Date Mariel Farris, FUMIGATOR AND STERILIZER PCP - External Primary Care 09/06/[address] Provider [address] [place] [address]
--- OUTSIDE RECORDS SUMMARY | 2021-06-17 18:39 | XMS REPORT | Continuity of Care Document ---
:1990 Author Organization [facility] t Address [address] [place] [address] Care Team Providers Name Role Phone Lilly Farris Primary Care Physician REBECA GHOTRA Attending Clinician Unavailable ELIO ESCOBEDO Attending Clinician Unavailable REBECA GHOTRA Attending Clinician Unavailable VERONICA Attending Clinician Unavailable GRAY Attending Clinician Unavailable REBECA GHOTRA Admitting Clinician Unavailable ELIO ESCOBEDO Admitting Clinician Unavailable VERONICA Admitting Clinician Unavailable MAGGIE HENRIQUEZ Admitting Clinician Unavailable Payers Payer Name Policy Type Policy Effective Date Expiration Date Sour ce Number BCBS [facility] [id number] 2021 BLUE/ESSENTIALS 2 00:00:00 ROSINAR - SUPERIOR [id number] 2021 HEALTH 00:00:00 BLUE ADVANTAGE [id number] [facility] 2 AMBETTER SUPERIOR [id number] 2020 00:00:00 LINCOLN [id number] MD Golden [id number] ective for all datesPO [address] [place] [address] [id number] Problems Condition Condition Condition Status Onset Resolution Last Treating Co mments Source Name Details Category Date Date Treatment Clinician Date Malignant Malignant Disease Active [place] samira neoplasm neoplasm 07-30 [facility] of both of both 00:00: of ovaries ovaries 00 Medicin e Adnexal Adnexal Disease Active [facility] mass mass 06-12 College 00:00: of Medicin e Pelvic Pelvic Disease Active [facility] pain pain 06-12 College 00:00: of 00 Medicin e Allergies, Adverse Reactions, Alerts Allergy Allergy Status Severity Reaction(s) Onset Inactive Treating Comm ents Source Name Type Date Date Clinician DOXYCYCL Allergy Active N\\T\\V [facility] Doxycycl Propensi Active Nausea And [facility] in[facility] ty to Vomiting 03-18 College adverse 00:00: of reaction 00 Medicin s to e drug Social History Social Habit Start Date Stop Date Quantity Comments Source Alcohol intake 2021-06-13 2021-06-13 Ex-drinker [facility] Col lege 00:00:00 00:00:00 (finding) of Medicine Exposure to 2021-06-01 2021-06-11 Not sure [facility] Kerri isbell SARS-CoV-2 00:00:00 15:18:00 of Medicine (event) Tobacco use and 2020-07-31 2020-07-31 Smokeless tobacco [employer] [facility] [employer] exposure 00:00:00 00:00:00 non-user of Medicine Sex Assigned At [birth year] MD Lai on 00:00:00 00:00:00 Smoking Status Start Date Stop Date Source Never smoked tobacco [facility] Britni ege of Medicine Medications Ordered Filled Start Stop Current Ordering Indication Dosage Frequency Signature Comments Components Source Medication Medication Date Date Medication? Clinician (SIG) Name Name acetaminoph Yes 1{tbl} Take 1 [facility] en-codeine 4-20 Tablet by Britni ege (TYLENOL 08:58: mouth of #3) 300-30 23 every 4 Medici n MG per hours as e tablet needed. hydrocodone Yes 1{tbl} Take 1 [facility] -acetaminop 4-20 Tablet by Col lucero cheatham (NORCO) 08:58: mouth of 5-325 mg 23 every 6 Medicin tablet hours as e needed. lamotrigine 2020-02 Yes 25mg Take 25 mg Michael (LAMICTAL) 2-08 by mouth Wandy carrasco 25 MG 09:49: daily. of tablet 42 Medicin e acetaminoph 2020-02 Yes 1{tbl} Take 1 [facility] en-codeine 2-08 Tablet by Britni castellano (TYLENOL 09:49: mouth of #3) 300-30 42 every 4 Medici n MG per hours as e tablet needed. lamotrigine 2020-02 Yes 25mg Take 25 mg [facility] (LAMICTAL) 2-08 by mouth Colle ge 25 MG 09:49: daily. of tablet 42 Medicin e hydrocodone 2020-02 Yes 1{tbl} Take 1 [facility] -acetaminop 2-08 Tablet by Col lucero che[facility] (NORCO) 09:49: mouth of 5-325 mg 42 every 6 Medicin tablet hours as e needed. Letrozole 2020-02 Yes 2.5mg Take 2.5 [place] samira 2.5 MG TABS 1-08 mg by [place] 00:00: mouth of 00 daily. Medicin e Letrozole 2020-02 Yes 2.5mg Take 2.5 [place] samira 2.5 MG TABS 1-08 mg by [place] 00:00: mouth of 00 daily. Medicin e ibuprofen 2020-02 Yes [id number] 600mg Take 1 [facility] (MOTRIN) 0-06 Tablet by Kerri e 600 MG 00:00: mouth of tablet 00 every 6 Medicin hours as e needed for Pain. ondansetron 2020-02 Yes 8mg Take 1 [facility] (ZOFRAN) 8 0-06 Tablet by Britni castellano mg tablet 00:00: mouth of 00 every 8 Medicin hours as e needed (post chemothera py nausea). prochlorper 2020-02 Yes 10mg Take 1 [facility] or azine 0-06 Tablet by [place] (COMPAZINE) 00:00: mouth of 10 MG 00 every 6 Medicin tablet hours as e needed (post chemothera py nausea). polyethylen 2020-02 Yes 17g Take 17 g [facility] e glycol 0-06 by mouth [place] (MIRALAX) 00:00: daily. of 17 GM/SCOOP 00 Medicin powder e ibuprofen 2020-02 Yes [id number] 600mg Take 1 [facility] (MOTRIN) 0-06 Tablet by Kerri e 600 MG 00:00: mouth of tablet 00 every 6 Medicin hours as e needed for Pain. ondansetron 2020-02 Yes 8mg Take 1 [facility] (ZOFRAN) 8 0-06 Tablet by Britni ege mg tablet 00:00: mouth of 00 every 8 Medicin hours as e needed (post chemothera py nausea). prochlorper 2020-02 Yes 10mg Take 1 [facility] azine 0-06 Tablet by [place] (COMPAZINE) 00:00: mouth of 10 MG 00 every 6 Medicin tablet hours as e needed (post chemothera py nausea). polyethylen 2020-02 Yes 17g Take 17 g B [facility]or e glycol 0-06 by mouth [place] (MIRALAX) 00:00: daily. of 17 GM/SCOOP 00 Medicin powder e clonazepam Yes 1{tbl} Take 1 [place] samira (KLONOPIN) 9-08 Tablet by Britni ege 0.5 MG 00:00: mouth of tablet 00 daily. Medicin e clonazepam Yes 1{tbl} Take 1 [place] sam[facility] (KLONOPIN) 9-08 Tablet by Britni ege 0.5 MG 00:00: mouth of tablet 00 daily. Medicin e fluoxetine Yes Michael (PROZAC) 10 7-28 College MG capsule 00:00: of 00 Medicin e fluoxetine Yes [facility] (PROZAC) 10 7-28 [place] MG capsule 00:00: of 00 Medicin e tramadol Yes [id number] 1{tbl} Take 1 [facility] (ULTRAM) 50 6-21 Tablet by Col lege MG tablet 00:00: mouth of 00 every 6 Medicin hours as e needed for Pain (cancer related pain). hydrocodone Yes [id number] 1{tbl} Take 1 Michael -acetaminop 6-21 Tablet by Col lege hen (NORCO) 00:00: mouth of 5-325 mg 00 every 4 Medicin tablet hours as e needed for Pain (cancer related pain). tramadol Yes [id number] 1{tbl} Take 1 [facility] (ULTRAM) 50 6-21 Tablet by Col lege MG tablet 00:00: mouth of 00 every 6 Medicin hours as e needed for Pain (cancer related pain). hydrocodone Yes [id number] 1{tbl} Take 1 [facility] -acetaminop 6-21 Tablet by Col lege hen (NORCO) 00:00: mouth of 5-325 mg 00 every 4 Medicin tablet hours as e needed for Pain (cancer related pain). clonazepam Yes TAKE 1/2 [place] sam[facility] (KLONOPIN) 6-10 TO 1 College 0.5 MG 00:00: TABLET BY of tablet 00 MOUTH Medicin TWICE e DAILY NEEDED clonazepam Yes TAKE 1/2 [place] sam[facility] (KLONOPIN) 6-10 TO 1 College 0.5 MG 00:00: TABLET BY of tablet 00 MOUTH Medicin TWICE e DAILY NEEDED sertraline 2021- No 25mg Take 25 mg Michael (ZOLOFT) 25 4-17 04-18 by mouth Col [facility] MG tablet 00:00: 04:59 daily. of 00 :00 Medicin e Immunizations Ordered Immunization Filled Immunization Date Status Commen ts Source Name Name Pfizer SARS-CoV-2 2021-03-13 Completed [facility] Vaccination 00:00:00 of Medicine Pfizer SARS-CoV-2 2021-03-13 Completed [facility] Vaccination 00:00:00 of Medicine Pfizer SARS-CoV-2 2021-01-31 Completed [facility] Vaccination 00:00:00 of Medicine Pfizer SARS-CoV-2 2021-01-31 Completed [facility] Vaccination 00:00:00 of Medicine Vital Signs Vital Name Observation Time Observation Value Comments Source HEIGHT 2020-07-18 07:00:00 149.9 cm WEIGHT 2020-07-18 07:00:00 86.7 kg HEIGHT 2020-06-27 15:40:00 149.9 cm WEIGHT 2020-06-27 15:40:00 81.647 kg Systolic blood 2021-06-13 13:56:00 104 mm[Hg] [facility] pressure Medicine Diastolic blood 2021-06-13 13:56:00 70 mm[Hg] [facility] of pressure Medicine Heart rate 2021-06-13 13:56:00 87 /min [facility] Body temperature 2021-06-13 13:56:00 36.67 [facility] Body height 2021-06-13 13:56:00 149.9 cm [facility] Body weight 2021-06-13 13:56:00 96.163 kg [facility] BMI 2021-06-13 13:56:00 42.82 kg/m2 [facility] Systolic blood 2021-05-07 15:57:00 125 mm[Hg] [facility] pressure Medicine Diastolic blood 2021-05-07 15:57:00 86 mm[Hg] [facility] Medicine Heart rate 2021-05-07 15:57:00 75 /min [facility] temperature 2021-05-07 15:57:00 36.56 [facility] Body height 2021-05-07 15:57:00 149.9 cm [facility] Body weight 2021-05-07 15:57:00 98.703 kg [facility] BMI 2021-05-07 15:57:00 43.95 kg/m2 [facility] HEIGHT 2020-07-18 07:00:00 149.9 cm WEIGHT 2020-07-18 07:00:00 86.7 kg HEIGHT 2020-06-27 15:40:00 149.9 cm WEIGHT 2020-06-27 15:40:00 81.647 kg Procedures This patient has no known procedures. Plan of Care Planned Activity Planned Date Details Comments Source Future Scheduled 2021-06-13 TETANUS SHOT (ADULT) [facility] Test 09:51:30 [code = TETANUS SHOT of Medi cine (ADULT)] Future Scheduled 2021-06-13 BMI FOLLOW UP PLAN [facility] Test 09:51:30 [code = BMI FOLLOW UP of Med icine PLAN] Future Scheduled 2021-06-13 Hepatitis C screening [facility] Test 09:51:30 (procedure) [code = of Medic ine 300578184] Future Scheduled 2021-06-13 Human immunodeficiency B [facility] Test 09:51:30 virus screening of Medicine (procedure) [code = 629671208] Future Scheduled 2021-06-13 Screening for malignant [facility] Test 09:51:30 neoplasm of cervix of Medici ne (procedure) [code = 433000199] Future Scheduled 2021-06-13 COVID-19 Vaccine (3 - [facility] Test 09:51:30 Booster for Pfizer of Medici ne series) [code = COVID-19 Vaccine (3 - Booster for Pfizer series)] Future Scheduled 2021-06-13 FLU VACCINE > 6 MONTHS B [facility] Test 09:51:30 [code = FLU VACCINE > 6 of M edicine MONTHS] Future Scheduled 2021-05-07 URINALYSIS, COMPLETE Ordered: [facility] Test 11:15:27 W/REFLEX TO CULTURE 05/07/2021 of Medic ine [code = 12578-4] Future Scheduled 2021-05-07 COMPREHENSIVE METABOLIC Ordered: [facility] Test 11:09:56 PANEL [code = 67881-8] 05/07/2021 of Me dicine Future Scheduled 2021-05-07 CBC W/AUTO DIFF WITH Ordered: [facility] Test 11:09:56 PLATELETS [code = 05/07/2021 of Medicin e 91764-4] Future Scheduled 2021-05-07 FSH [code = 57980-0] Ordered: [facility] College Test 11:09:56 05/07/2021 of Medicine Future Scheduled 2021-05-07 LUTEINIZING HORMONE Ordered: [facility] or College Test 11:09:56 [code = 56107-3] 05/07/2021 of Medicine Future Scheduled 2021-05-07 CANCER ANTIGEN 125 Ordered: [facility] r College Test 11:09:56 [code = 38170-5] 05/07/2021 of Medicine Future Scheduled 2021-05-07 CT ABDOMEN PELVIS W 1 Occurrences [facility] College Test 11:09:56 CONTRAST [code = starting of Medicine 01500-8] 05/07/2021 until 05/07/2022 Future Scheduled 2021-05-07 TETANUS SHOT (ADULT) [facility] College Test 10:57:06 [code = TETANUS SHOT of Medi cine (ADULT)] Future Scheduled 2021-05-[address] UP PLAN [facility] r College Test 10:57:06 [code = BMI FOLLOW UP of Med icine PLAN] Future Scheduled 2021-05-07 Hepatitis C screening [facility] Test 10:57:06 (procedure) [code = of Medic ine 045804249] Future Scheduled 2021-05-07 Human immunodeficiency B [facility] Test 10:57:06 virus screening of Medicine (procedure) [code = 158926910] Future Scheduled 2021-05-07 Screening for malignant [facility] Test 10:57:06 neoplasm of cervix of Medici ne (procedure) [code = 604817136] Future Scheduled 2021-05-07 FLU VACCINE > 6 MONTHS B [facility] Test 10:57:06 [code = FLU VACCINE > 6 of M edicine MONTHS] Future Scheduled 2021-05-07 COVID-19 Vaccine (3 - [facility] Test 10:57:06 Booster for Pfizer of Medici ne series) [code = COVID-19 Vaccine (3 - Booster for Pfizer series)] Encounters Start End Encounter Admission Attending Care Care Encounter Source Date/Time Date/Time Type Type Clinicians Facility Department ID 2021-06-14 Outpatient [facility] Surgery [id number] [facility] 10:46:27 TRACILYN 2020-12-02 Outpatient [facility] Surgery [id number] [facility] 14:44:23 TRACILYN 2020-06-07 Inpatient ER FANNY, [facility] [place]ider [id number] [facility] 20:16:00 CHIMKATX Oncology 2021-06-13 2021-06-13 Office [facility] [id number] [facility] 08:55:08 11:30:57 Visit TRACILYN Tyler [id number] C ollege [id number] of [id number] [facility] diane 520 e 2021-06-07 2021-06-12 Outpatient [facility] [id number] [facility] 12:20:39 19:39:42 Colleg e of Medicin e 2021-05-07 2021-05-07 Office [facility] [id number] [facility] 10:46:25 14:20:08 Visit TRACILYN Tyler [id number] C ollege [id number] of [id number] Medi diane 520 e 2021-03-13 2021-03-13 Outpatient [facility] [id number] [facility] 14:04:26 14:13:38 Colleg e of Medicin e 2021-01-31 2021-01-31 Outpatient [facility] [id number] [facility] 10:31:53 15:33:07 Colleg e of Medicin e 2021-01-31 2021-01-31 Outpatient GHOTRA, [facility] [id number] [facility] 09:35:56 13:46:11 TRACILYN Colle ge of Medicin e 2021-01-26 2021-01-26 Outpatient [facility] [id number] [place] 05:01:00 05:01:00 SSA 1203 da [facility] 2021-01-01 2021-01-01 Outpatient GHOTRA, [facility] [id number] [facility] 07:47:15 15:01:34 TRACILYN Colle ge of Medicin e 2020-12-22 2020-12-22 Outpatient [facility] [id number] [facility] 09:17:45 23:59:00 TRACILYN 2020-12-22 2020-12-22 Outpatient [facility] [id number] [facility] 09:17:38 23:59:00 TRACILYN 2020-12-11 2020-12-11 Outpatient [facility] [id number] [facility] 08:42:09 23:59:00 Colleg e of Medicin e 2020-12-11 2020-12-11 Outpatient GHOTRA, [facility] [id number] [facility] 08:04:13 12:38:05 TRACILYN Colle ge of Medicin e 2020-11-20 2020-11-20 Outpatient [facility] [id number] [facility] 08:48:22 23:59:00 Colleg e of Medicin e 2020-11-20 2020-11-20 Outpatient GHOTRA, [facility] [id number] [facility] 08:20:58 10:56:26 TRACILYN Colle ge of Medicin e 2020-10-16 2020-10-16 Outpatient [facility] [id number] [facility] 08:59:17 23:59:00 Colleg e of Medicin e 2020-10-16 2020-10-16 Outpatient GHOTRA, [facility] [id number] [facility] 08:01:26 10:00:52 TRACILYN Colle ge of Medicin e 2020-10-10 2020-10-10 Outpatient [facility] [id number] [facility] 00:00:00 00:00:00 TRACILYN 2020-09-25 2020-09-25 Outpatient [facility] [id number] [facility] 08:31:16 23:59:00 Colleg e of Medicin e 2020-09-25 2020-09-25 Outpatient GHOTRA, [facility] [id number] [facility] 07:51:26 11:18:44 TRACILYN Colle ge of Medicin e 2020-09-04 2020-09-04 Outpatient [facility] [id number] [facility] 08:53:16 23:59:00 Colleg e of Medicin e 2020-09-04 2020-09-04 Outpatient [place], [facility] [id number] [facility] 07:57:24 11:32:06 TRACILYN Colle ge of Medicin e 2020-08-17 2020-08-17 Outpatient CASTELLANO, [facility] [id number] [facility] 09:07:54 09:44:26 VERN Ryder ege of Medicin e 2020-08-14 2020-08-14 Outpatient GHOTRA, [facility] [id number] [facility] 07:28:11 14:07:18 TRACILYN Colle ge of Medicin e 2020-08-11 2020-08-11 Outpatient [facility] [id number] SLE 00:00:00 00:00:00 TRACILYN 2020-07-31 2020-07-31 Outpatient [place], [facility] [id number] [facility] 12:36:12 15:27:41 TRACILYN Colle ge of Medicin e 2020-06-27 2020-06-27 Outpatient [facility] [id number] [facility] 00:00:00 00:00:00 Results Test Description Test Time Test Comments Results Result Sour e Comments CT, ABDOMEN 2020-12-22 Unlisted Reason 10:21:00 for Exam - Click Yes and Enter Reason [facility] - Below->[facility] dougie Reason for JEANA JOHNSTON Exam->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 Multiplanar images are reconstructed and reviewed when indicated. This CT examination is performed using one or more of the following dose reduction techniques: Automated exposure control, adjustment of the mA and /or kV according to patient size, and/or use of iterative reconstruction technique. Findings:No mediastinal or hilar lymphadenopathy. Normal size heart. No pericardial effusion. No thoracic aortic aneurysm or dissection. No central pulmonary arterial filling defect. A right-sided Port-A-Cath terminates in the superior vena cava. Patent central airways. No pleural effusion or pneumothorax. Uniformly calcified right lower lobe pulmonary nodules are visualized on axial images 52 and 71. The lungs are otherwise clear. The previous small calcified nodules within the gastrohepatic ligament and omentum show no significant interval change. There are punctate areas of calcification within the pelvis, which are also stable. Unremarkable appearance of pancreas and spleen. Mild diffuse fatty infiltration of the liver is noted. The liver and gallbladder are otherwise unremarkable. Unremarkable appearance of adrenal glands, kidneys, ureters, and urinary bladder. The previous fluid collections within the pelvis have essentially resolved.. No small or large bowel obstruction. No apparent bowel wall thickening. No findings to indicate acute appendicitis. No free fluid or lymphadenopathy. No abdominal aortic aneurysm. No aggressive osseous lesion. Impression: 1. No evidence of progressive disease.2. Stable calcified implants within the omentum, gastrohepatic ligament, and pelvis.3. Previous fluid collections within the pelvis have essentially resolved.4. Mild diffuse fatty infiltration of the liver.5. Uniformly calcified right lower lobe pulmonary nodules are most suggestive of calcified granulomas related to previous granulomatous disease. No significant change from prior study. No definite metastatic disease in the chest. Signed: Madi Samuels MDReport Verified Date/Time: 12/22/2020 10:21:39 Reading Location: [facility] B1 C013X Ortho Consult Reading Room , CHEST, WITH IV 2020-12-22 Unlisted Reason CONTRAST 10:21:00 for Exam - Click Yes and Enter Reason [facility] Reason for VICKIEJEANA Exam->Malignant UTE : neoplasm of 1989 both ovaries Sex: (C56.3) F *FINAL REPORT CT Chest, abdomen, and pelvis with contrast History:Malignant neoplasm of both ovaries Comparison:10/10/2020 CT abdomen and pelvis; CT chest 07/19/2020 Technique: serial axial imaging was performed following up to 100cc of non ionic iodinated intravenous contrast as per departmental protocol. Multiplanar images are reconstructed and reviewed when indicated. This CT examination is performed using one or more of the following dose reduction techniques: Automated exposure control, adjustment of the mA and /or kV according to patient size, and/or use of iterative reconstruction technique. Findings:No mediastinal or hilar lymphadenopathy. Normal size heart. No pericardial effusion. No thoracic aortic aneurysm or dissection. No central pulmonary arterial filling defect. A right-sided Port-A-Cath terminates in the superior vena cava. Patent central airways. No pleural effusion or pneumothorax. Uniformly calcified right lower lobe pulmonary nodules are visualized on axial images 52 and 71. The lungs are otherwise clear. The previous small calcified nodules within the gastrohepatic ligament and omentum show no significant interval change. There are punctate areas of calcification within the pelvis, which are also stable. Unremarkable appearance of pancreas and spleen. Mild diffuse fatty infiltration of the liver is noted. The liver and gallbladder are otherwise unremarkable. Unremarkable appearance of adrenal glands, kidneys, ureters, and urinary bladder. The previous fluid collections within the pelvis have essentially resolved.. No small or large bowel obstruction. No apparent bowel wall thickening. No findings to indicate acute appendicitis. No free fluid or lymphadenopathy. No abdominal aortic aneurysm. No aggressive osseous lesion. Impression: 1. No evidence of progressive disease.2. Stable calcified implants within the omentum, gastrohepatic ligament, and pelvis.3. Previous fluid collections within the pelvis have essentially resolved.4. Mild diffuse fatty infiltration of the liver.5. Uniformly calcified right lower lobe pulmonary nodules are most suggestive of calcified granulomas related to previous granulomatous disease. No significant change from prior study. No definite metastatic disease in the chest. Signed: Madi Samuels [facility] Verified Date/Time: 12/22/2020 10:21:39 Reading Location: [facility] B1 C013X Ortho Consult Reading Room , ABDOMEN 2020-10-11 Unlisted Reason 09:00:00 for Exam - Click Yes and Enter Reason [facility] Reason for JOHNSTONJEANA Exam->malignant UTE : neoplasm of 1989 both ovaries, Sex: hx of chemoWill F this procedure require oral contrast?->NoAn *FINAL REPORT esthesia:->None CT of the abdomen and pelvis, with contrast Clinical History: Unlisted Reason for Exammalignant neoplasm of both ovaries, hx of chemo Technique: CT of the abdomen and pelvis is performed with intravenous contrast administration. This exam was performed according to our departmental dose optimization program which includes automated exposure control, adjustment of the mA and/or kV according to patient's size and/or use of iterative reconstructive technique. Comparison Film: Pelvic MRI dated June 09, 2020 Discussion: Visualized lower thorax is unremarkable. No liver mass is identified. No biliary ductal dilatation, gallbladder is normal. The spleen, pancreas, adrenal glands are normal. Kidneys demonstrate no mass, hydronephrosis or radiopaque stone. In the pelvis, patient is status post bilateral oophorectomy. There is a small amount of fluid outside loculated around the uterus, containing containing tiny calcified nodules. Bladder appears normal. Patient is also status post omentectomy. There is a cluster of irregularly shaped nodules in the left upper quadrant, a few are calcified. Additional nodules are noted in the gastrohepatic ligament, and right upper quadrant, compatible with carcinomatosis. No evidence of bowel obstruction, or abnormal bowel wall thickening. Normal appendix. No suspicious bony lesion is identified. Impression: Status post bilateral oophorectomy. There is a small amount of loculated fluid in the pelvis, associated with tiny calcified nodules. Additionally, there are multiple nodules in the upper abdomen and gastrohepatic ligament region, some are calcified, compatible with carcinomatosis. Signed: Angie Gomes MDReport Verified Date/Time: 10/11/2020 09:00:55 Reading Location: [address] Consult Reading Room LL WANG, 2020-08-11 Reason for FLUORO 15:02:00 Exam:->MALIGNAN T NEOPLASM OF BOTH OVARIES [facility] JEANASULEIMAN UNGER : 1990 Sex: F *FINAL REPORT Right internal jugular chest port insertion [...] the patient's medical record by the nurse. Dumpcart Driver: Jorge A Ryder MD Coat Checker: None. Approach: Right internal jugular vein Estimated [...] needle into the right atrium. A 4 [place] Islander micropuncture sheath was placed and a 0.035 [...] MDReport Verified Date/Time: 08/11/2020 15:02:41 Reading Location: [place] [address] Angio Body Reading Room HROMBIN TIME/INR 2020-08-11 07:31:00 Test Item Value Reference Range Interpretation Comme nts PROTIME (BEAKER) (test code 13.4 seconds 11.9-14.2 = 759) INR (BEAKER) (test code = 1.03 See_Comment [ Automated message] The [employer] Mobile system which ge nerated this result transmit dougie reference range: <=5.90. The reference range was not u sed to interpret this result as normal/abnormal . RECOMMENDED COUMADIN/WARFARIN INR THERAPY RANGESSTANDARD DOSE: 2.0 - 3.0 Includes: PROPHYLAXIS forvenous thrombosis, systemic embolization; TREATMENT for venous thrombosis and/or pulmonary embolus.HIGH RISK: Target INR is 2.5-3.5 for patients with mechanical heart valves.[id number] 07:31:00 Test Item Value Reference Range Interpretation Comments PARTIAL THROMBOPLASTIN TIME 31.3 seconds 22.5-36.0 (BEAKER) (test code = 760) CBC W/PLT COUNT & AUTO [id number] 07:13:00 Test Item Value Reference Range Interpretation [...] 0-1 PERCENT (BEAKER) (test code = 2801) [id number] 13:47:00Medical Cytology Report Case: [id number] Authorizing Provider: Zay Ghotra, Collected: 07/18/2020 11:41 AM Ordering Location: [facility] Received: 07/18/2020 03:26 PM SERVICES Pathologist: Marcella Galeas MD Specimen: Peritoneal Fluid PERITONEAL FLUID (CYTOSPINS AND CELL BLOCK): - POSITIVE FOR MALIGNANCY - LOW GRADE SEROUS CARCINOMA (SEE COMMENT) Signing Pathologist Direct Phone Line: [phone] signed by Marcella Galeas MD on 07/25/2020 at 1:47 PMThe tumor cells stain positive for PAX-8; ER, OR and WT-1. 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 96796, 99858; 71384; 88871 x 3Ascites, status post laparoscopy, CT from OSH with multiple, bilateral ovarian cystic and solid [...] evaluated Immunohistochemistry technical testing was performed at [facility], Pathology Laboratory where it was developed and [...] qualified to perform high complexity clinical laboratory testing.[facility], Department of Pathology, [address] [place] [address], [facility], Department of Pathology, [address] [place] [address], [facility], [facility], [address] [place] [address], CQBYFH [id number] 12:45:00Surgical Pathology Report Case: [id number] Authorizing Provider: Zay Ghotra, Collected: 07/18/2020 12:15 PM [facility]ingLocation[facility] Received: 07/18/2020 12:30 PM SERVICES Pathologist: Leighann Mathias MD Specimens: A) -Omentum B) - Omentum, Omentum C) - Soft [...] ADHESIONS D. OVARY AND FALLOPIAN TUBE, LEFT SALPINGO-OOPHORECTOMY OVARY- LOW GRADE SEROUS CARCINOMA - TUMOR SIZE: 5 X 5 X 3.5 - INTACT CAPSULE - SURFACE INVOLVEMENT PRESENT FALLOPIAN TUBE - TUMOR EXTENDS TO TUBAL SEROSA - ADHESIONS Signing Pathologist Direct Phone Line: [phone] signed by Leighann Mathias MD on 07/25/2020 [...] pNX FIGO STAGE FIGO Stage: IIIC A. 16818, 15841F. 94020I. 47111K. 74223Gaichzimt adnexal masses, pelvic pain, elevated tumor markers [...] 1.4 cm). Touch preps is made and enrollment representative tissueis submitted in FSA1.Section code:FSA1: Upper Doubler, massA2-A4: additional enrollment representative, massB. Received in formalin labeled with [...] to brock-yellow cut surface and focal areas. Upper Doubler sections are submitted in cassette B1-B6. C. [...] serially sectioned to reveal multinodular brock-yellow to kws-head-dfgxc areas, the largest nodule is 4 x [...] involvement of the ovary is not identified. Upper Doubler sections are submitted in cassettes C1-C10.D. Received [...] cross-section with brock mucosa and pinpoint lumen. Upper Doubler sections are submitted in cassette D1-D10.SOPHIA AnandA1: OMENTUM, EXCISION: - POSITIVE FOR CARCINOMA, PROBABLY SEROUS CARCINOMAReported by Dr. Rodas on Jul 18 2020 at 12:45 PM to [email or web address].CT, CHEST, WITH [id number] 10:38:00Unlisted Reason for Exam - Click Yes and Enter Reason Below->[facility] : 1990 Sex: FFINAL [...] MDReport Verified Date/Time: 07/20/2020 10:38:03 Reading Location: [facility] C013[facility] Consult Reading Room [id number] 07:19:00 Test Item Value Reference Range Interpretation Comments PARTIAL THROMBOPLASTIN TIME 34.0 seconds 22.5-36.0 (BEAKER) (test code = 760) COMPREHENSIVE METABOLIC [id number] 05:22:00 Test Item Value Reference Range Interpretation [...] S NOT APPLICABLE FOR DIALYSIS PATIEN TS. Mission Assessment Specialist ID - LEANNA WPROTHROMBIN [id number] 05:03:00 Test Item Value Reference Range Interpretation Comments PROTIME (BEAKER) 15.3 seconds 11.9-14.2 H (test code = 759) INR (BEAKER) (test 1.25 See_Comment [Automat ed message] code = 370) The system NextWidgets generated this result transmitted ref erence range: <=5.90. The reference range was not used to int erpret this result as normal/abnormal . RECOMMENDED COUMADIN/WARFARIN INR THERAPY RANGESSTANDARD DOSE: 2.0 - 3.0 Includes: PROPHYLAXIS forvenous thrombosis, systemic embolization; TREATMENT for venous thrombosis and/or pulmonary embolus.HIGH RISK: Target INR is 2.5-3.5 for patients with mechanical heart valves.CBC (HEMOGRAM ONLY)2020-07-19 04:53:00 Test Item Value Reference [...] = 413) CBC W/PLT COUNT & AUTO [id number] 18:49:00 Test Item Value Reference Range Interpretation [...] PERCENT (BEAKER) (test code = 2801) CYTOLOGY [id number] 17:00:00 Test Item Value Reference Range Interpretation Comments CYTOLOGY RESULT POINTER See Separate Report (BEAKER) (test code = 2629) [id number] 08:31:00 Test Item Value Reference Range Interpretation Comments HEMOGLOBIN (BEAKER) (test code = 12.1 GM/DL 11.2-15.7 410) Mission Assessment Specialist ID - [id number] 05:14:00 Test Item Value Reference Range Interpretation Comments PHOSPHORUS (BEAKER) (test code = 3.7 mg/dL 2.3-4.7 604) Mission Assessment Specialist ID - EDASIBASIC METABOLIC [id number] 05:14:00 Test Item Value Reference Range Interpretation [...] S NOT APPLICABLE FOR DIALYSIS PATIEN TS. Mission Assessment Specialist ID - [id number] 05:14:00 Test Item Value Reference Range Interpretation Comments MAGNESIUM (BEAKER) (test code = 2.1 mg/dL 1.6-2.6 627) Mission Assessment Specialist ID - EDASICBC (HEMOGRAM ONLY)2020-06-10 04:54:00 Test [...] (BEAKER) (test code = 413) MR, PELVIS, [id number] 18:35:00Unlisted Reason for Exam - Click Yes and Enter Reason Below->No [facility] : 1990 Sex: FFINAL REPORT MRI of the pelvis dated June 09, 2020 Comment: Mult iplanar T1 and T2-weighted images of the [...] neoplasm. Recommend surgical consultation. Signed: Jose Stoddard MDReport Verified Date/Time: 06/09/2020 18:35:16 Reading Location: [facility] B1 C013Y CT Body Reading Room Electronically signed by: JOSE STODDARD M.D.on 06/09/2020 06:35 PM BASIC METABOLIC [id number] 05:43:00 Test Item Value Reference Range Interpretation [...] S NOT APPLICABLE FOR DIALYSIS PATIEN TS. Mission Assessment Specialist ID - [id number] 05:43:00 Test Item Value Reference Range Interpretation Comments MAGNESIUM (BEAKER) (test code = 2.0 mg/dL 1.6-2.6 627) Mission Assessment Specialist ID - [id number] 05:43:00 Test Item Value Reference Range Interpretation Comments PHOSPHORUS (BEAKER) (test code = 3.4 mg/dL 2.3-4.7 604) Mission Assessment Specialist ID - EDASICBC (HEMOGRAM ONLY)2020-06-09 05:22:00 Test [...] WBC 0-0 (BEAKER) (test code = 413) ALPHA FETOPROTEIN (AFP), TUMOR [id number] 17:48:00 Test Item Value Reference Range Interpretation Comments ALPHA-FETOPROTEIN (BEAKER) (test 4.0 ng/mL <10.0 code = 1094) Mission Assessment Specialist ID - DBHCG, QUANTITATIVE, [id number] 16:38:00 Test Item Value Reference Range Interpretation Comments GONADOTROPIN, CHORIONIC (HCG) QUANT < mIU/mL 0-10 (BEAKER) (test code = 649) Non- Females: <10 mIU/mL Females: Gestation Age Reference Range(mIU/mL) 0.2-1 Week 5-50 1-2 Weeks 50-500 2-3 Weeks 100-5,000 3-4Weeks 500-10,000 4-5 Weeks 1,000-50,000 5-6 Weeks 10,000-100,000 6-8 Weeks 15,000-200,000 2-3 Months 10,000-100,000 Mission Assessment Specialist ID - DBFERRITIN 2020-06-08 16:32:00 Test Item Value Reference Range Interpretation Comments FERRITIN (BEAKER) (test code = 345.19 ng/mL 5.00-275.00 H 361) Mission Assessment Specialist ID - DBIRON, TIBC, % SAT. (WITHOUT FERRITIN)2020-06-08 16:11:00 Test Item Value Reference Range Interpretation Comments IRON (BEAKER) (test code = 547) 35.0 ug/dL 40.0-160.0 L TOTAL IRON BINDING CAPACITY 308 ug/dL 250-450 (BEAKER) (test code = 769) IRON % SATURATION (2) (BEAKER) 11 % 20-55 L (test code = 2590) Mission Assessment Specialist ID - DBHEMOGLOBIN AND [id number] 15:33:00 Test Item Value Reference Range Interpretation Comments HEMOGLOBIN (BEAKER) (test code = 11.5 GM/DL 11.2-15.7 410) HEMATOCRIT (BEAKER) (test code = 35.0 % 34.1-44.9 411) Mission Assessment Specialist ID - [id number] DEHYDROGENASE (LDH)2020-06-08 14:22:00 Test Item Value Reference Range Interpretation Comments LACTATE DEHYDROGENASE (BEAKER) (test 236 U/L 125-220 H code = 635) Mission Assessment Specialist ID - ERROLSONBASIC METABOLIC [id number] 07:55:00 Test Item Value Reference Range Interpretation [...] S NOT APPLICABLE FOR DIALYSIS PATIEN TS. Mission Assessment Specialist ID - [id number] 07:55:00 Test Item Value Reference Range Interpretation Comments MAGNESIUM (BEAKER) (test code = 2.1 mg/dL 1.6-2.6 627) Mission Assessment Specialist ID - [id number] 07:55:00 Test Item Value Reference Range Interpretation Comments PHOSPHORUS (BEAKER) (test code = 3.4 mg/dL 2.3-4.7 604) Mission Assessment Specialist ID - EMERSONCBC (HEMOGRAM ONLY)2020-06-08 05:03:00 Test Item Value Reference [...] 0-0 (BEAKER) (test code = 413) PROTHROMBIN [id number] 04:56:00 Test Item Value Reference Range Interpretation Comments PROTIME (BEAKER) 14.3 seconds 11.9-14.2 H (test code = 759) INR (BEAKER) (test 1.14 See_Comment [Automat ed message] code = 370) The system NextWidgets generated this result transmitted ref erence range: <=5.90. The reference range was not used to int erpret this result as normal/abnormal . Effective 07/22/2018: PT Reference Range ChangeNew: 11.9-14.2 Previous: 11.7- 14.7RECOMMENDED COUMADIN/WARFARIN INR THERAPY RANGESSTANDARD DOSE: 2.0-3.0 Includes: PROPHYLAXIS for venous thrombosis, systemic embolization; TREATMENT for venous thrombosis and/or pulmonary embolus.HIGH RISK: Target INR is2.5-3.5 for patients wiht mechanical heart valves.PROTHROMBIN [id number] 22:05:00 Test Item Value Reference Range Interpretation Comments PROTIME (BEAKER) 13.5 seconds 11.9-14.2 (test code = 759) INR (BEAKER) (test 1.06 See_Comment [Automat ed message] code = 370) The system NextWidgets generated this result transmitted ref erence range: <=5.90. The reference range was not used to int erpret this result as normal/abnormal . Effective 07/22/2018: PT Reference Range ChangeNew: 11.9-14.2 Previous: 11.7- 14.7RECOMMENDED COUMADIN/WARFARIN INR THERAPY RANGESSTANDARD DOSE: 2.0-3.0 Includes: PROPHYLAXIS for venous thrombosis, systemic embolization; TREATMENT for venous thrombosis and/or pulmonary embolus.HIGH RISK: Target INR is2.5-3.5 for patients wiht mechanical heart valves.CARCINOEMBRYONIC ANTIGEN (CEA) 2020-06-07 21:41:00 Test Item Value Reference Range Interpretation Comments CARCINOEMBRYONIC ANTIGEN (BEAKER) 1.0 ng/mL 0.0-5.0 (test code = 685) Mission Assessment Specialist ID - BSCOMPREHENSIVE METABOLIC [id number] 21:27:00 Test Item Value Reference Range Interpretation [...] S NOT APPLICABLE FOR DIALYSIS PATIEN TS. Mission Assessment Specialist ID - [id number] 21:27:00 Test Item Value Reference Range Interpretation Comments MAGNESIUM (BEAKER) (test code = 2.2 mg/dL 1.6-2.6 627) Mission Assessment Specialist ID - [id number] 21:27:00 Test Item Value Reference Range Interpretation Comments PHOSPHORUS (BEAKER) (test code = 3.3 mg/dL 2.3-4.7 604) Mission Assessment Specialist ID - BSCBC W/PLT COUNT & AUTO [id number] 21:10:00 Test Item Value Reference Range Interpretation [...] % 0-1 PERCENT (BEAKER) (test code = 9080)
[2021-06-17] MEDS ORDERED: ONDANSETRON 4 MG/2 ML VIAL ONE (19:44)
[2021-06-17] MEDS ORDERED: METOCLOPRAMIDE 10 MG/2mL INJ ONE (19:44)
[2021-06-17] MEDS ORDERED: MECLIZINE HCL 12.5 MG TAB ONE (19:44)
[2021-06-17] MEDS ORDERED: DIPHENHYDRAMINE 50 MG/ML VIAL ONE (19:44)
--- NOTE | 2021-06-17 19:55 | RAD REPORT ---
EXAM DESCRIPTION: CT - CTHCSPWOC - 06/17/2021 7:46 pm CLINICAL HISTORY: fall, headache, vomiting COMPARISON: No comparisons TECHNIQUE: Axial 5 mm thick images of the head were obtained. Axial 2 mm thick images of the cervic al spine were obtained with sagittal and coronal reconstruction images generated and reviewed. All CT scans are performed using dose optimization technique as appropriate and may include automated exposure control or mA/KV adjustment according to patient size. FINDINGS: No intracranial hemorrhage, mass, edema or acute intracranial finding. No suspicion for ac sheldon infarction. No extra-axial fluid collections. Mastoid air cells and paranasal sinuses are clear. No globe or orbit abnormality seen. No scalp hematoma or significant soft tissue abnormality identifi ed. Cervical body height and alignment are normal. No disk space narrowing. No fracture or acute bony abn ormality. Central canal detail is inherently limited. No paraspinal mass or hematoma. IMPRESSION: Negative CT head examination for acute or significant finding. Negative CT cervical spine examination for acute or significant finding.
[2021-06-17 20:18] LABS: Absolute Lymphocytes (CBC) 1.7 K/uL (0.7-4.9); Hematocrit 40.6 % (36.0-45.0); Lymphocytes % 24.3 % (15.3-44.8); MPV 7.9 fL (7.6-11.3); RBC Red Blood Cell Count 4.65 M/uL (3.86-4.86)
[2021-06-17] MEDS ORDERED: dexAMETHasone 10 MG/ML VIAL ONE (20:23)
[2021-06-17] MEDS ORDERED: KETOROLAC 30 MG/ML INJ ONE (20:23)
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
[2021-06-17 22:02] VITALS: TEMP 97.9; O2SAT 100
[2021-06-17 22:08] VITALS: BP 114/72
== END 2021-06-17 21:58 | disposition home or self-care (01) ==
LOC: ER 18:35
DX: S06.0X9A Concussion with loss of consciousness of unspecified duration, initial encounter (principal); W51.XXXA Accidental striking against or bumped into by another person, initial encounter; Z85.43 Personal history of malignant neoplasm of ovary; Z88.1 Allergy status to other antibiotic agents
CPT/HCPCS: 85025; 80048; 36415; 70450; 72125; 96375; 96374; 99284; J2765; J1200; J8597; J1100; J2405

== ENCOUNTER 2021-12-13 07:54 | Emergency (ER) | payer BC ==
--- OUTSIDE RECORDS SUMMARY | 2021-12-13 07:57 | XMS REPORT | Clinical Summary ---
:1990 Author Organization [facility] Address [address] [place] [address] Care Team Providers Name Role Phone Mariel FarrisP Unavailable Allergies Not on File Medications Not on file Active Problems Not on file Social History Tobacco Use Types Packs/Day Years Used Date Never Assessed Sex Assigned at Date Recorded Not on file Last Filed Vital Signs Not on file Plan of Treatment Not on file Results Not on fileafter 12/13/2020 Insurance Payer Benefit Plan / Subscriber ID Effective Dates Phone Addre ss Type Group [employer] [id number] Effective for all [address] [place] [id number] 1 Thea Briceño Personal/Family Self 1990 [address] ([address] [place], [place] [address] Care Teams Shipping 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 [place] [address] [place] [address]
--- OUTSIDE RECORDS SUMMARY | 2021-12-13 07:59 | XMS REPORT | Continuity of Care Document ---
:1990 Author Organization [facility] t Address [address] [place] [address] Care Team Providers Name Role Phone Mariel Farris Primary Care Physician HUNTER GHOTRA Attending Clinician Unavailable CRISTELA ESCOBEDO Attending Clinician Unavailable Hunter Ghotra MD Attending Clinician [phone] HUNTER GHOTRA Attending Clinician Unavailable Shelby MARTELL, Ulises Ewing Attending Clinician Tere Weber MD Attending Clinician [phone] Attending Clinician Unavailable VERONICA Attending Clinician Unavailable VERN CASTELLANO Attending Clinician Unavailable HUNTER GHOTRA Admitting Clinician Unavailable CRISTELA ESCOBEDO Admitting Clinician Unavailable VERONICA Admitting Clinician Unavailable SYL HENRIQUEZ Admitting Clinician Unavailable Payers Payer Name Policy Type Policy Number Effective Date Expiration Date S micheal BCBS [facility] [id number] 2020 EXCHANGE 00:00:[id number] [facility] [place] [facility] [id number] [address] [facility] 00:00:00 SAADIA BOSLER [id number] 2020 00:00:00 Problems Condition Condition Condition Status Onset Resolution Last Treating Co mments Source Name Details Category Date Date Treatment Clinician Date Ovarian Ovarian Disease Active [facility] 00 [place] Abnormal Abnormal Disease [facility] bleeding bleeding 00:00: Medica l (AUB) (AUB) 00 [place] Malignant Malignant Disease Active [facility] neoplasm neoplasm 06 [facility] e of both of both 00:00: of ovaries ovaries 00 Medicin e Adnexal Adnexal Disease Active [facility] mass mass 5-25 [facility] 00:[facility]: [facility] 00 [place] At risk At risk Disease Active [facility] for [facility]25 [facility] fertility fertility 00:00: Medi angelica problems problems 00 [place] Elevated Elevated Disease [facility] markers markers 00:00: Medical 00 [place] Pelvic Pelvic Disease Active [facility] pain pain 5-25 [facility] 00:[facility]: [facility] 00 [place] Adnexal Adnexal Disease Active [facility] mass mass 4-19 College 00:00: of 00 Medicin e Pelvic Pelvic Disease Active [facility] pain pain 4-19 College 00:00: of 00 Medicin e Ovarian Ovarian Disease Active [facility] mass mass 4-14 [facility] 00:[facility] 00 [place] Generalize Generalize Disease Active [facility] 4[facility]14 [facility] abdominal abdominal 00:00: [facility] angelica pain pain 00 [place] Allergies, Adverse Reactions, Alerts Allergy Allergy Status Severity Reaction(s) Onset Inactive Treating Comm ents Source Name Type Date Date Clinician Doxycycl Propensi Active Nausea [facility] in[facility] ty to Vomiting -23 College adverse 00:00: of reaction 00 Medicin s to e drug Doxycycl Drug Active Nausea [facility] Allergy Vomiting 1-23 [facility] 00 [place] DOXYCYCL Allergy Active High N\\T\\V [facility] INE 1-23 [facility] 00:[facility] 00 [place] Social History Social Habit Start Date Stop Date Quantity Comments Source Exposure to 2021-11-02 2021-11-12 Not sure [facility] Colleg e SARS-CoV-2 (event) 00:00:00 09:23:00 of Med icine Alcohol intake 2021-07-17 2021-07-17 Ex-drinker ANNE Mccarthyk es 00:00:00 00:00:00 (finding) [facility] Cigarettes smoked 2021-07-13 2021-07-[address] [facility] current (pack per 00:00:00 [facility]:00 [facility] day[facility] - Reported Tobacco use and 2021-07-13 2021-07-[address] [facility] exposure 00:00:00 00:00:00 [facility] Tobacco Comment 2021-07-13 2021-07-13 quit- [address] [facility] kes 00:00:00 00:00:00 [facility] Cigarette 2020-07-31 2020-07-31 [facility] pack-years 00:00:00 00:00:00 of Medicine Sex [birth year] At [birth year] ANNE Iglesias 00:00:00 00:00:00 [facility] Smoking Status Start Date Stop Date Source Former smoker 2021-07-13 00:00:00 2021-07-13 00:00:[address] [facility] Never smoked tobacco [facility] Britni ege of Medicine Medications Ordered Filled Start Stop Current Ordering Indication Dosage Frequency Signature Comments Components Source Medication Medication Date Date Medication? Clinician (SIG) Name Name lamotrigine 25mg Take 25 mg [facility] (LAMICTAL) 7-25 07-25 by mouth [facility] 25 MG 08:24: 00:00 daily. of tablet 21 :00 Medicin e oxcarbazepi Yes 1{tbl} Take 1 [facility] ne 7-11 Tablet by [place] (TRILEPTAL) 00:00: mouth of 300 MG 00 daily. Medicin tablet e olanzapine Yes 1{tbl} Take 1 [facility] (ZYPREXA) 7-11 Tablet by [facility] ge 10 MG 00:00: mouth of tablet 00 daily. Medicin e fluoxetine Yes 1{capsu 1 capsule [facility] (PROZAC) 40 7-11 le} daily. Colleg e MG capsule 00:00: of 00 Medicin e oxcarbazepi Yes 1{tbl} Take 1 [facility] ne 7-11 Tablet by [place] (TRILEPTAL) 00:00: mouth of 300 MG 00 daily. Medicin tablet e olanzapine Yes 1{tbl} Take 1 [facility] (ZYPREXA) 7-11 Tablet by [facility] ge 10 MG 00:00: mouth of tablet 00 daily. Medicin e fluoxetine 0 Yes 1{capsu 1 capsule [facility] (PROZAC) 40 7-11 le} daily. Kerri e MG capsule 00:00: of 00 Medicin e Letrozole 0 Yes 2.5mg Take 2.5 [facility]ira 2.5 MG TABS 6-08 mg by [place] 00:00: mouth of 00 daily. Medicin e Letrozole Yes 2.5mg Take 2.5 [facility] sam[facility] 2.5 MG TABS 6-08 mg by [place] 00:00: mouth of 00 daily. Medicin e Letrozole Yes 2.5mg Take 2.5 [facility] samira 2.5 MG TABS 6-08 mg by [place] 00:00: mouth of 00 daily. Medicin e acetaminoph Yes 1{tbl} Take [address] en-codeine 5-24 tablet by John blount (TYLENOL 15:59: mouth Medical #3) 300-30 38 every 4 Center mg per (four) tablet hours as needed for Pain. HYDROcodone 0 Yes 1{tbl} Take [address] -acetaminop 5-24 tablet by Archana cheatham (NORCO 15:59: mouth Medica l 5-325) 38 every 6 Center 5-325 mg (six) per tablet hours as needed for Pain. lamoTRIgine 0 Yes 25mg QD Take [address] [facility] (LaMICtal) 5-24 by mouth [facility] 25 MG 15:59: daily. Medical tablet 38 Center tramadol 0 Yes 1{tbl} Take 1 [facility] (ULTRAM) 50 5-23 Tablet by Col lege MG tablet 00:00: mouth of 00 every 6 Medicin hours as e needed for Pain. ibuprofen 0 Yes 600mg Take 1 [facility] (MOTRIN) 5-23 Tablet by Kerri e 600 MG 00:00: mouth of tablet 00 every 6 Medicin hours as e needed for Pain. docusate 2022-0 Yes 100mg Take 1 [facility] sodium 5-23 capsule by [place] (COLACE) 00:00: mouth in of 100 MG 00 the Medicin capsule morning e and 1 capsule in the evening. tramadol 2021-0 Yes 1{tbl} Take 1 [facility] (ULTRAM) 50 5-23 Tablet by Col lege MG tablet 00:00: mouth of 00 every 6 Medicin hours as e needed for Pain. ibuprofen 2021-0 Yes 600mg Take 1 [facility] (MOTRIN) 5-23 Tablet by Colleg e 600 MG 00:00: mouth of tablet 00 every 6 Medicin hours as e needed for Pain. docusate 2021-0 Yes 100mg Take 1 [facility] sodium 5-23 capsule by [place] (COLACE) 00:00: mouth in of 100 MG 00 the Medicin capsule morning e and 1 capsule in the evening. tramadol 2021-0 Yes 1{tbl} Take 1 [facility] (ULTRAM) 50 5-23 Tablet by Col lege MG tablet 00:00: mouth of 00 every 6 Medicin hours as e needed for Pain. ibuprofen 0 Yes 600mg Take 1 [facility] (MOTRIN) 5-23 Tablet by Colleg e 600 MG 00:00: mouth of tablet 00 every 6 Medicin hours as e needed for Pain. docusate 2021-0 Yes 100mg Take 1 [facility] sodium 5-23 capsule by [place] (COLACE) 00:00: mouth in of 100 MG 00 the Medicin capsule morning e and 1 capsule in the evening. eszopiclone 2021-0 Yes 1{tbl} Take 1 [facility] (LUNESTA) 3 5-13 Tablet by Col lege MG TABS 00:00: mouth of 00 daily. Medicin e eszopiclone 2021-0 Yes 1{tbl} Take 1 [facility] (LUNESTA) 3 5-13 Tablet by Col lege MG TABS 00:00: mouth of 00 daily. Medicin e acetaminoph 2021-0 Yes 1{tbl} Take 1 [facility] en-codeine 4-20 Tablet by Britni castellano (TYLENOL 08:58: mouth of #3) 300-30 23 every 4 Medici n MG per hours as e tablet needed. hydrocodone 2021-0 Yes 1{tbl} Take 1 [facility] -acetaminop 4-20 Tablet by Col lege hen ([employer]) 08:58: mouth of 5-325 mg 23 every 6 Medicin tablet hours as e needed. acetaminoph 2021-0 Yes 1{tbl} Take 1 [facility] en-codeine 4-20 Tablet by [facility] (TYLENOL 08:58: mouth of #3) 300-30 23 every 4 Medici n MG per hours as e tablet needed. hydrocodone 2021-0 Yes 1{tbl} Take 1 [facility] -acetaminop 4-20 Tablet by Col lege hen ([employer]) 08:58: mouth of 5-325 mg 23 every 6 Medicin tablet hours as e needed. acetaminoph 2021-0 Yes 1{tbl} Take 1 [facility] en-codeine 4-20 Tablet by [facility] (TYLENOL 08:58: mouth of #3) 300-30 23 every 4 Medici n MG per hours as e tablet needed. hydrocodone 2021-0 Yes 1{tbl} Take 1 [facility] -acetaminop 4-20 Tablet by Col lege hen ([employer]) 08:58: mouth of 5-325 mg 23 every 6 Medicin tablet hours as e needed. acetaminoph 2021-0 Yes 1{tbl} Take 1 [facility] en-codeine 4-20 Tablet by [facility] (TYLENOL 08:58: mouth of #3) 300-30 23 every 4 Medici n MG per hours as e tablet needed. hydrocodone 2021-0 Yes 1{tbl} Take 1 [facility] -acetaminop 4-20 Tablet by Col lege hen ([employer]) 08:58: mouth of 5-325 mg 23 every 6 Medicin tablet hours as e needed. lamotrigine 2020- Yes 25mg Take 25 mg [facility] (LAMICTAL) 2-08 by mouth Colle ge 25 MG 09:49: daily. of tablet 42 Medicin e lamotrigine 2020-02 Yes 25mg Take 25 mg [facility] (LAMICTAL) 2-08 by mouth Colle ge 25 MG 09:49: daily. of tablet 42 Medicin e acetaminoph 2020-02 Yes 1{tbl} Take 1 [facility] en-codeine 2-08 Tablet by [facility] (TYLENOL 09:49: mouth of #3) 300-30 42 every 4 Medici n MG per hours as e tablet needed. lamotrigine 2020-02 Yes 25mg Take 25 mg [facility] (LAMICTAL) 2-08 by mouth Colle ge 25 MG 09:49: daily. of tablet 42 Medicin e hydrocodone 2020-02 Yes 1{tbl} Take 1 [facility] -acetaminop 2-08 Tablet by Col lucero cheatham (NORCO) 09:49: mouth of 5-325 mg 42 every 6 Medicin tablet hours as e needed. Letrozole 2020-02 Yes 2.5mg Take 2.5 [facility] 2.5 MG TABS 1-08 mg by College 00:00: mouth of 00 daily. Medicin e Letrozole 2020-02 Yes 2.5mg Take 2.5 [facility] sam[facility] 2.5 MG TABS 1-08 mg by [place] 00:00: mouth of 00 daily. Medicin e Letrozole 2020-02- No 2.5mg Take 2.5 [facility] 2.5 MG TABS 1-08 06-08 mg by Colleg e 00:00: 00:00 mouth of 00 :00 daily. Medicin e ondansetron 2020-02 Yes 8mg Take 1 [facility] (ZOFRAN) 8 0-06 Tablet by [facility] mg tablet 00:00: mouth of 00 every 8 Medicin hours as e needed (post chemothera py nausea). prochlorper 2020-02 Yes 10mg Take 1 [facility] azine 0-06 Tablet by [place] (COMPAZINE) 00:00: mouth of 10 MG 00 every 6 Medicin tablet hours as e needed (post chemothera py nausea). polyethylen 2020-02 Yes 17g Take 17 g B aylor e glycol 0-06 by mouth [place] (MIRALAX) 00:00: daily. of 17 GM/SCOOP 00 Medicin powder e ondansetron 2020-02 Yes 8mg Take 1 [facility] (ZOFRAN) 8 0-06 Tablet by Britni [facility] mg tablet 00:00: mouth of 00 every 8 Medicin hours as e needed (post chemothera py nausea). prochlorper 2020-02 Yes 10mg Take 1 [facility] azine 0-06 Tablet by [place] (COMPAZINE) 00:00: mouth of 10 MG 00 every 6 Medicin tablet hours as e needed (post chemothera py nausea). polyethylen 2020-02 Yes 17g Take 17 g B a[facility]or e glycol 0-06 by mouth [place] (MIRALAX) 00:00: daily. of 17 GM/SCOOP 00 Medicin powder e ondansetron 2020-02 Yes 8mg Take 1 [facility] (ZOFRAN) 8 0-06 Tablet by Britni [facility]ge mg tablet 00:00: mouth of 00 every 8 Medicin hours as e needed (post chemothera py nausea). prochlorper 2020-02 Yes 10mg Take 1 [facility] azine 0-06 Tablet by [place] (COMPAZINE) 00:00: mouth of 10 MG 00 every 6 Medicin tablet hours as e needed (post chemothera py nausea). polyethylen 2020-02 Yes 17g Take 17 g B aylor e glycol 0-06 by mouth [place] (MIRALAX) 00:00: daily. of 17 GM/SCOOP 00 Medicin powder e ibuprofen 2020-02 Yes [id number] 600mg Take 1 [facility] (MOTRIN) 0-06 Tablet by Colleg e 600 MG 00:00: mouth of tablet 00 every 6 Medicin hours as e needed for Pain. ondansetron 2020-02 Yes 8mg Take 1 [facility] (ZOFRAN) 8 0-06 Tablet by Britni [facility] mg tablet 00:00: mouth of 00 every 8 Medicin hours as e needed (post chemothera py nausea). prochlorper 2020-02 Yes 10mg Take 1 [facility] azine 0-06 Tablet by [place] (COMPAZINE) 00:00: mouth of 10 MG 00 every 6 Medicin tablet hours as e needed (post chemothera py nausea). polyethylen 2020-02 Yes 17g Take 17 g B aylor e glycol 0-06 by mouth [place] (MIRALAX) 00:00: daily. of 17 GM/SCOOP 00 Medicin powder e ibuprofen 2020-02 Yes [id number] 600mg Take 1 [facility] (MOTRIN) 0-06 Tablet by Colleg e 600 MG 00:00: mouth of tablet 00 every 6 Medicin hours as e needed for Pain. ondansetron 2020-02 Yes 8mg Take 1 [facility] (ZOFRAN) 8 0-06 Tablet by Britni ege mg tablet 00:00: mouth of 00 every 8 Medicin hours as e needed (post chemothera py nausea). prochlorper 2020-02 Yes 10mg Take 1 [facility] azine 0-06 Tablet by [place] (COMPAZINE) 00:00: mouth of 10 MG 00 every 6 Medicin tablet hours as e needed (post chemothera py nausea). polyethylen 2020-02 Yes 17g Take 17 g B aylor e glycol 0-06 by mouth [place] (MIRALAX) 00:00: daily. of 17 GM/SCOOP 00 Medicin powder e clonazepam Yes 1{tbl} Take 1 [facility] (KLONOPIN) 9-08 Tablet by Britni e[facility] 0.5 MG 00:00: mouth of tablet 00 daily. Medicin e clonazepam Yes 1{tbl} Take 1 [facility] (KLONOPIN) 9-08 Tablet by [facility] 0.5 MG 00:00: mouth of tablet 00 daily. Medicin e clonazepam Yes 1{tbl} Take 1 [facility] (KLONOPIN) 9-08 Tablet by [facility] 0.5 MG 00:00: mouth of tablet 00 daily. Medicin e clonazepam Yes 1{tbl} Take 1 [facility] (KLONOPIN) 9-08 Tablet by [facility] 0.5 MG 00:00: mouth of tablet 00 daily. Medicin e clonazepam Yes 1{tbl} Take 1 [facility] (KLONOPIN) 9-08 Tablet by [facility] 0.5 MG 00:00: mouth of tablet 00 daily. Medicin e fluoxetine Yes [facility] (PROZAC) 10 7-28 College MG capsule 00:00: of 00 Medicin e fluoxetine Yes [facility] (PROZAC) 10 7-28 College MG capsule 00:00: of 00 Medicin e fluoxetine Yes [facility] (PROZAC) 10 7-28 College MG capsule 00:00: of 00 Medicin e fluoxetine 2022- No [facility] (PROZAC) 10 7-28 07-25 College MG capsule 00:00: 00:00 of 00 :00 Medicin e hydrocodone Yes [id number] 1{tbl} Take 1 [facility] -acetaminop 6-21 Tablet by Col lege hen (NORCO) 00:00: mouth of 5-325 mg 00 every 4 Medicin tablet hours as e needed for Pain (cancer related pain). hydrocodone Yes [id number] 1{tbl} Take 1 [facility] -acetaminop 6-21 Tablet by Col lege hen (NORCO) 00:00: mouth of 5-325 mg 00 every 4 Medicin tablet hours as e needed for Pain (cancer related pain). hydrocodone Yes [id number] 1{tbl} Take 1 [facility] -acetaminop 6-21 Tablet by Col lege hen (NORCO) 00:00: mouth of 5-325 mg 00 every 4 Medicin tablet hours as e needed for Pain (cancer related pain). tramadol Yes [id number] 1{tbl} Take 1 [facility] (ULTRAM) 50 6-21 Tablet by Col lege MG tablet 00:00: mouth of 00 every 6 Medicin hours as e needed for Pain (cancer related pain). hydrocodone Yes [id number] 1{tbl} Take 1 [facility] -acetaminop 6-21 Tablet by Col lege hen (NORCO) 00:00: mouth of 5-325 mg 00 every 4 Medicin tablet hours as e needed for Pain (cancer related pain). tramadol Yes [id number] 1{tbl} Take 1 [facility] (ULTRAM) 50 6-21 Tablet by Col lege MG tablet 00:00: mouth of 00 every 6 Medicin hours as e needed for Pain (cancer related pain). hydrocodone Yes [id number] 1{tbl} Take 1 [facility] -acetaminop 6-21 Tablet by Col lege hen (NORCO) 00:00: mouth of 5-325 mg 00 every 4 Medicin tablet hours as e needed for Pain (cancer related pain). clonazepam Yes TAKE 1/2 [facility] (KLONOPIN) 6-10 TO 1 College 0.5 MG 00:00: TABLET BY of tablet 00 MOUTH Medicin TWICE e DAILY NEEDED clonazepam 2021-0 Yes TAKE 1/2 [facility] (KLONOPIN) 6-10 TO 1 College 0.5 MG 00:00: TABLET BY of tablet 00 MOUTH Medicin TWICE e DAILY NEEDED clonazepam 2020-0 Yes TAKE 1/2 [facility] (KLONOPIN) 6-10 TO 1 College 0.5 MG 00:00: TABLET BY of tablet 00 MOUTH Medicin TWICE e DAILY NEEDED clonazepam 2020-0 Yes TAKE 1/2 [facility] (KLONOPIN) 6-10 TO 1 College 0.5 MG 00:00: TABLET BY of tablet 00 MOUTH Medicin TWICE e DAILY NEEDED clonazepam 2020-0 Yes TAKE 1/2 [facility] (KLONOPIN) 6-10 TO 1 College 0.5 MG 00:00: TABLET BY of tablet 00 MOUTH Medicin TWICE e DAILY NEEDED sertraline 2021- No 25mg Take 25 mg [facility] (ZOLOFT) 25 4-17 04-18 by mouth Col lege MG tablet 00:00: 04:59 daily. of 00 :00 Medicin e sertraline 2021- No 25mg QD Take [address] [facility] (ZOLOFT) 25 4-17 04-17 tablet (25 L ukes MG tablet 00:00: 23:59 mg total) Me dical 00 :00 by mouth Center daily. Immunizations Ordered Immunization Filled Immunization Date Status Commen ts Source Name Name Pfizer SARS-CoV-2 2021-03-13 Completed [facility] Vaccination 00:00:00 of Medicine Pfizer SARS-CoV-2 2021-03-13 Completed [facility] Vaccination 00:00:00 of Medicine Pfizer SARS-CoV-2 2021-03-13 Completed [facility] Vaccination 00:00:00 of Medicine Pfizer SARS-CoV-2 2021-03-13 Completed [facility] Vaccination 00:00:00 of Medicine Pfizer SARS-CoV-2 2021-03-13 Completed [facility] Vaccination 00:00:00 of Medicine Pfizer SARS-CoV-2 2021-01-31 Completed [facility] Vaccination 00:00:00 of Medicine Pfizer SARS-CoV-2 2021-01-31 Completed [facility] Vaccination 00:00:00 of Medicine Pfizer SARS-CoV-2 2021-01-31 Completed [facility] Vaccination 00:00:00 of Medicine Pfizer SARS-CoV-2 2021-01-31 Completed [facility] Vaccination 00:00:00 of Medicine Pfizer SARS-CoV-2 2021-01-31 Completed [facility] Vaccination 00:00:00 of Medicine Vital Signs Vital Name Observation Time Observation Value Comments Source HEIGHT 2020-07-18 07:00:00 149.9 cm WEIGHT 2020-07-18 07:00:00 86.7 kg HEIGHT 2020-06-27 15:40:00 149.9 cm WEIGHT 2020-06-27 15:40:00 81.647 kg Systolic blood 2021-11-12 14:29:00 120 mm[Hg] [facility] Medicine Diastolic blood 2021-11-12 14:29:00 79 mm[Hg] [facility] Medicine Heart rate 2021-11-12 14:29:00 83 /min [facility] ollege [facility] Body temperature 2021-11-12 14:29:00 36.17 Julianne [facility] Body height 2021-11-12 14:29:00 149.9 cm [facility] Body weight 2021-11-12 14:29:00 94.439 kg [facility] BMI 2021-11-12 14:29:00 42.05 kg/m2 [facility] of Medicine Systolic blood 2021-09-17 13:20:00 114 mm[Hg] [facility] Medicine Diastolic blood 2021-09-17 13:20:00 79 mm[Hg] [facility] Medicine Heart rate 2021-09-17 13:20:00 74 /min [facility] Body temperature 2021-09-17 13:20:00 36.11 Julianne [facility] Body height 2021-09-17 13:20:00 149.9 cm [facility] of [facility] Body weight 2021-09-17 13:20:00 97.342 kg [facility] of Medicine BMI 2021-09-17 13:20:00 43.34 kg/m2 [facility] of Medicine Systolic blood 2021-08-01 14:46:00 108 mm[Hg] [facility] pressure Medicine Diastolic blood 2021-08-01 14:46:00 72 mm[Hg] [facility] pressure Medicine Heart rate 2021-08-01 14:46:00 86 /min [facility] of Medicine Body temperature 2021-08-01 14:46:00 37.28 Julianne [facility] Body height 2021-08-01 14:46:00 149.9 cm [facility] of [facility] Body weight 2021-08-01 14:46:00 94.439 kg [facility] BMI 2021-08-01 14:46:00 42.05 kg/m2 [facility] HEIGHT 2021-07-17 05:40:00 149.9 cm WEIGHT 2021-07-17 05:40:00 96.8 kg HEIGHT 2021-07-13 13:57:00 149.9 cm WEIGHT 2021-07-13 13:57:00 92.534 kg HEIGHT 2021-07-17 05:40:00 149.9 cm WEIGHT 2021-07-17 05:40:00 96.8 kg HEIGHT 2021-07-13 13:57:00 149.9 cm WEIGHT 2021-07-13 13:57:00 92.534 kg HEIGHT 2021-07-17 05:40:00 149.9 cm WEIGHT 2021-07-17 05:40:00 96.8 kg HEIGHT 2021-07-13 13:57:00 149.9 cm WEIGHT 2021-07-13 13:57:00 92.534 kg Systolic blood 2021-06-13 13:56:00 104 mm[Hg] [facility] pressure Medicine Diastolic blood 2021-06-13 13:56:00 70 mm[Hg] [facility] of pressure Medicine Heart rate 2021-06-13 13:56:00 87 /min [facility] of Medicine Body temperature 2021-06-13 13:56:00 36.67 Julianne [facility] Body height 2021-06-13 13:56:00 149.9 cm [facility] of Medicine Body weight 2021-06-13 13:56:00 96.163 kg [facility] of Medicine BMI 2021-06-13 13:56:00 42.82 [facility] Systolic blood 2021-05-07 15:57:00 125 mm[Hg] [facility] Medicine Diastolic blood 2021-05-07 15:57:00 86 mm[Hg] [facility] Heart rate 2021-05-07 15:57:00 75 /min [facility] Body temperature 2021-05-07 15:57:00 36.56 Julianne [facility] Body height 2021-05-07 15:57:00 149.9 cm [facility] Body weight 2021-05-07 15:57:00 98.703 kg [facility] BMI 2021-05-07 15:57:00 43.95 kg/m2 [facility] HEIGHT 2020-07-18 07:00:00 149.9 cm WEIGHT 2020-07-18 07:00:00 86.7 kg HEIGHT 2020-06-27 15:40:00 149.9 cm WEIGHT 2020-06-27 15:40:00 81.647 kg Systolic blood 2021-07-17 14:15:00 113 mm[Hg] [facility] Diastolic blood 2021-07-17 14:15:00 56 mm[Hg] [facility] Heart rate 2021-07-17 14:15:00 110 /min [facility] Body temperature 2021-07-17 14:15:00 35.83 Julianne [facility] Respiratory rate 2021-07-17 14:15:00 12 /min [facility] Oxygen saturation in 2021-07-17 14:15:00 95 /min [facility] Arterial blood by Medical Ce nter Pulse oximetry Body height 2021-07-17 05:40:00 149.9 cm [facility] Body weight 2021-07-17 05:40:00 96.8 kg [facility] BMI 2021-07-17 05:40:00 43.10 kg/m2 [facility] Procedures Procedure Date / Time Performed Performing Clinician Sourc e SURESWAB(R) BACTERIAL 2021-09-17 09:27:00 [facility] VAGINOSIS DNA, QN, PCR Medicine SURESWAB(R), JORDEN 2021-09-17 09:27:00 [facility] ALBICANS DNA Medicine GC AND CHLAMYDIA BY 2021-09-17 09:27:00 [facility] C ollege of PCR, SWAB Medicine TRICHOMONAS VAGINALIS 2021-09-17 09:27:00 [facility] DNA PROBE Medicine HEPATITIS B SURFACE 2021-09-17 08:52:00 [facility] C ollege of ANTIGEN Medicine HEPATITIS C ANTIBODY 2021-09-17 08:52:00 [facility] HIV AB/AG 4TH GEN W 2021-09-17 08:52:00 [facility] C ollege of RFLX Medicine RPR NON-REFLEX 2021-09-17 08:52:00 [facility] of QUALITATIVE Medicine GC AND CHLAMYDIA BY 2021-09-17 08:50:13 [facility] C ollege of PCR, SWAB Medicine HEPATITIS B SURFACE 2021-09-17 08:50:13 [facility] C ollege of ANTIGEN Medicine HEPATITIS C ANTIBODY 2021-09-17 08:50:13 [facility] HIV AB/AG 4TH GEN W 2021-09-17 08:50:13 [facility] C ollege of RFLX Medicine RPR NON-REFLEX 2021-09-17 08:50:13 [facility] of QUALITATIVE Medicine TRICHOMONAS VAGINALIS 2021-09-17 08:50:13 [facility] DNA PROBE Medicine SURESWAB(R) BACTERIAL 2021-09-17 08:39:08 [facility] of VAGINOSIS DNA, QN, PCR Medicine SURESWAB(R), JORDEN 2021-09-17 08:39:08 [facility] DNA Medicine GC AND CHLAMYDIA BY 2021-08-01 10:28:32 [facility] C ollege of PCR, SWAB Medicine SURESWAB(R) BACTERIAL 2021-08-01 10:28:32 [facility] of VAGINOSIS DNA, QN, PCR Medicine SURESWAB(R), JORDEN 2021-08-01 10:28:32 [facility] ALBICANS DNA Medicine TRICHOMONAS VAGINALIS 2021-08-01 10:28:32 [facility] DNA PROBE Medicine TISSUE EXAM 2021-07-17 09:17:[address] [facility] HYSTERECTOMY, TOTAL, 2021-07-17 07:14:00 [facility] CYSTOSCOPY 2021-07-17 07:14:00 Brandin [facility] POCT , URINE 2021-07-17 06:02:00 Court Figueroa [facility] BASIC METABOLIC PANEL 2021-07-17 05:55:00 Court Figueroa [facility] SARS-COV2/RT-PCR ([facility] 2021-07-13 11:37:00 Brandin [facility] & REF LABS) [facility] HEMOGLOBIN 2021-07-13 11:37:00 Shelby [facility] TYPE AND SCREEN, 2021-07-13 11:37:00 Ulises [facility] CT ABDOMEN/PELVIS WITH 2020-12-22 09:55:00 [facility] IV CONTRAST [facility] CT CHEST WITH IV 2020-12-22 09:55:00 [facility] Plan of Care Planned Activity Planned Date Details Comments Source Future Scheduled 2021-11-12 TETANUS SHOT (ADULT) [facility] [employer] Test 09:48:02 [code = TETANUS SHOT of Medi cine (ADULT)] Future Scheduled 2021-11-12 BMI FOLLOW UP PLAN [facility] r [facility] Test 09:48:02 [code = BMI FOLLOW UP of Med icine PLAN] Future Scheduled 2021-11-12 Screening for malignant [employer] Test 09:48:02 neoplasm of cervix of Medici ne (procedure) [code = 151192494] Future Scheduled 2021-11-12 COVID-19 Vaccine (3 - [employer] [facility] 09:48:02 Booster for Pfizer of Medici ne series) [code = COVID-19 Vaccine (3 - Booster for Pfizer series)] Future Scheduled 2021-11-12 FLU VACCINE > 6 MONTHS [employer] Test 09:48:02 [code = FLU VACCINE > 6 of M edicine MONTHS] Future Scheduled 2021-11-12 US PELVIS COMPLETE 1 Occurrences [employer] Test 09:47:03 [code = 04309-5] starting of Medicine 11/12/2021 until 11/12/2022 Future Scheduled 2021-11-12 US TRANSVAGINAL/PELVIS 1 Occurrences [facility] Test 09:47:03 [code = 54780-6] starting of Medicine 11/12/2021 until 11/12/2022 Future Scheduled 2021-10-25 INFLUENZA VACCINE (#1) [facility] 00:00:00 [code = INFLUENZA Medical Ce nter VACCINE (#1)] Future Scheduled 2021-09-17 Hepatitis C screening [facility] Test 08:53:20 (procedure) [code = of Medic ine 484139510] Future Scheduled 2021-09-17 GC AND CHLAMYDIA BY Ordered: [facility] or [place] Test 08:50:13 PCR, SWAB [code = 09/17/2021 of Medicin e NOCPT] Future Scheduled 2021-09-17 HEPATITIS B SURFACE Ordered: [facility] or [place] Test 08:50:13 ANTIGEN [code = 5196-1] 09/17/2021 of M edicine Future Scheduled 2021-09-17 HEPATITIS C ANTIBODY Ordered: [facility] Test 08:50:13 [code = 82604-8] 09/17/2021 of Medicine Future Scheduled 2021-09-17 HIV AB/AG 4TH GEN W Ordered: [facility] or [place] Test 08:50:13 RFLX [code = 42168-1] 09/17/2021 of Med icine Future Scheduled 2021-09-17 RPR NON-REFLEX Ordered: [facility] [employer] Test 08:50:13 QUALITATIVE [code = 09/17/2021 of Medic ine 25906-0] Future Scheduled 2021-09-17 TRICHOMONAS VAGINALIS Ordered: [facility] Test 08:50:13 DNA PROBE [code = 09/17/2021 of Medicin e NOCPT] Future Scheduled 2021-09-17 SURESWAB(R) BACTERIAL Ordered: [facility] Test 08:39:08 VAGINOSIS DNA, QN, PCR 09/17/2021 of Me dicine [code = NOCPT] Future Scheduled 2021-09-17 SURESWAB(R), JORDEN Ordered: [facility] Test 08:39:08 ALBICANS DNA [code = 09/17/2021 of Medi cine NOCPT] Future Scheduled 2021-09-17 TETANUS SHOT (ADULT) [employer] Test 08:21:37 [code = TETANUS SHOT of Medi cine (ADULT)] Future Scheduled 2021-09-17 BMI FOLLOW UP PLAN [employer] Test 08:21:37 [code = BMI FOLLOW UP of Med icine PLAN] Future Scheduled 2021-09-17 Human immunodeficiency [facility] [employer] Test 08:21:37 virus screening of Medicine (procedure) [code = 621991700] Future Scheduled 2021-09-17 Screening for malignant [facility] [employer] Test 08:21:37 neoplasm of cervix of Medici ne (procedure) [code = 395659218] Future Scheduled 2021-09-17 COVID-19 Vaccine (3 - [employer] [facility] 08:21:37 Booster for Pfizer of Medici ne series) [code = COVID-19 Vaccine (3 - Booster for Pfizer series)] Future Scheduled 2021-09-17 FLU VACCINE > 6 MONTHS [employer] Test 08:21:37 [code = FLU VACCINE > 6 of M edicine MONTHS] Future Scheduled 2021-08-11 COVID-19 VACCINE (3 - [facility] Test 00:00:00 Booster for Pfizer Medical C enter series) [code = COVID-19 VACCINE (3 - Booster for Pfizer series)] Future Scheduled 2021-08-01 TETANUS SHOT (ADULT) [employer] Test 10:46:59 [code = TETANUS SHOT of Medi cine (ADULT)] Future Scheduled 2021-08-01 BMI FOLLOW UP PLAN [employer] Test 10:46:59 [code = BMI FOLLOW UP of Med icine PLAN] Future Scheduled 2021-08-01 Hepatitis C screening [employer] Test 10:46:59 (procedure) [code = of Medic ine 120288557] Future Scheduled 2021-08-01 Human immunodeficiency [facility] [employer] Test 10:46:59 virus screening of Medicine (procedure) [code = 242691045] Future Scheduled 2021-08-01 Screening for malignant [facility] Test 10:46:59 neoplasm of cervix of Medici ne (procedure) [code = 090193624] Future Scheduled 2021-08-01 COVID-19 Vaccine (3 - [employer] [facility] 10:46:59 Booster for Pfizer of Medici ne series) [code = COVID-19 Vaccine (3 - Booster for Pfizer series)] Future Scheduled 2021-08-01 FLU VACCINE > 6 MONTHS B [facility] [employer] Test 10:46:59 [code = FLU VACCINE > 6 of M edicine MONTHS] Future Scheduled 2021-08-01 GC AND CHLAMYDIA BY Ordered: [facility] Test 10:28:32 PCR, SWAB [code = 08/01/2021 of Medicin e NOCPT] Future Scheduled 2021-08-01 SURESWAB(R) BACTERIAL Ordered: [facility] Test 10:28:32 VAGINOSIS DNA, QN, PCR 08/01/2021 of Me dicine [code = NOCPT] Future Scheduled 2021-08-01 SURESWAB(R), JORDEN Ordered: [employer] [facility] [employer] Test 10:28:32 ALBICANS DNA [code = 08/01/2021 of Medi cine NOCPT] Future Scheduled 2021-08-01 TRICHOMONAS VAGINALIS Ordered: [facility] Test 10:28:32 DNA PROBE [code = 08/01/2021 of Medicin e NOCPT] Future Scheduled 2021-06-13 TETANUS SHOT (ADULT) [facility] Test 09:51:30 [code = TETANUS SHOT of Medi cine (ADULT)] Future Scheduled 2021-06-13 BMI FOLLOW UP PLAN [facility] r [employer] Test 09:51:30 [code = BMI FOLLOW UP of Med icine PLAN] Future Scheduled 2021-06-13 Hepatitis C screening [facility] Test 09:51:30 (procedure) [code = of Medic ine 268713662] Future Scheduled 2021-06-13 Human immunodeficiency B [facility] [employer] Test 09:51:30 virus screening of Medicine (procedure) [code = 048582394] Future Scheduled 2021-06-13 Screening for malignant [facility] Test 09:51:30 neoplasm of cervix of Medici ne (procedure) [code = 921696442] Future Scheduled 2021-06-13 COVID-19 Vaccine (3 - [facility] [employer] Test 09:51:30 Booster for Pfizer of Medici ne series) [code = COVID-19 Vaccine (3 - Booster for Pfizer series)] Future Scheduled 2021-06-13 FLU VACCINE > 6 MONTHS B [facility] [employer] Test 09:51:30 [code = FLU VACCINE > 6 of M edicine MONTHS] Future Scheduled 2021-05-07 URINALYSIS, COMPLETE Ordered: [employer] Test 11:15:27 W/REFLEX TO CULTURE 05/07/2021 of Medic ine [code = 61099-8] Future Scheduled 2021-05-07 COMPREHENSIVE METABOLIC Ordered: [facility] [employer] Test 11:09:56 PANEL [code = 91452-6] 05/07/2021 of Me dicine Future Scheduled 2021-05-07 CBC W/AUTO DIFF WITH Ordered: [employer] Test 11:09:56 PLATELETS [code = 05/07/2021 of Medicin e 70676-3] Future Scheduled 2021-05-07 FSH [code = 94508-1] Ordered: [employer] Test 11:09:56 05/07/2021 of Medicine Future Scheduled 2021-05-07 LUTEINIZING HORMONE Ordered: [facility] or [facility] Test 11:09:56 [code = 13664-9] 05/07/2021 of Medicine Future Scheduled 2021-05-07 CANCER ANTIGEN 125 Ordered: [facility] [employer] Test 11:09:56 [code = 26269-7] 05/07/2021 of Medicine Future Scheduled 2021-05-07 CT ABDOMEN PELVIS W 1 Occurrences [employer] [facility] [employer] Test 11:09:56 CONTRAST [code = starting of Medicine 35980-5] 05/07/2021 until 05/07/2022 Future Scheduled 2021-05-07 TETANUS SHOT (ADULT) [facility] Test 10:57:06 [code = TETANUS SHOT of Medi cine (ADULT)] Future Scheduled 2021-05-07 BMI FOLLOW UP PLAN [employer] [facility] 10:57:06 [code = BMI FOLLOW UP of Med icine PLAN] Future Scheduled 2021-05-07 Hepatitis C screening [employer] Test 10:57:06 (procedure) [code = of Medic ine 207596141] Future Scheduled 2021-05-07 Human immunodeficiency [facility] Test 10:57:06 virus screening of Medicine (procedure) [code = 797177666] Future Scheduled 2021-05-07 Screening for malignant [facility] [employer] Test 10:57:06 neoplasm of cervix of Medici ne (procedure) [code = 116254738] Future Scheduled 2021-05-07 FLU VACCINE > 6 MONTHS [facility] Test 10:57:06 [code = FLU VACCINE > 6 of M edicine MONTHS] Future Scheduled 2021-05-07 COVID-19 Vaccine (3 - [employer] [facility] 10:57:06 Booster for Pfizer of Medici ne series) [code = COVID-19 Vaccine (3 - Booster for Pfizer series)] Future Scheduled 2021-02-[address] [facility] Test 00:00:00 (12+) [code = Medical Center DEPRESSION SCREENING (12+)] Future Scheduled 2010 Screening for malignant [facility] Test 00:00:00 neoplasm of cervix Medical C enter (procedure) [code = 089141716] Future Scheduled 2009 Lipid panel (procedure) [facility] Test 00:00:00 [code = 63803474] Medical Ce nter Future Scheduled 2008 DTAP/TDAP/TD VACCINES [facility] Test 00:00:00 (1 - Tdap) [code = Medical C enter DTAP/TDAP/TD VACCINES (1 - Tdap)] Future Scheduled 2007-05-02 HEPATITIS C SCREENING [facility] 00:00:00 [code = HEPATITIS C Medical Center SCREENING] Encounters Start End Encounter Admission Attending Care Care Encounter Source Date/Time Date/Time Type Type Clinicians Facility Department ID 2020-12-02 Outpatient [facility] Surgery [id number] [facility] 14:44:23 HUNTER 2020-06-07 [facility]fer Abr[employer] Tender [id number] [facility] 20:16:00 CHIMKANC Oncology 2021-11-26 2021-11-26 [facility] [id number] 13:00:00 13:00:00 Encounter Hunter Magaña [facility] 2021-11-26 2021-11-26 Outpatient [facility] [id number] [facility] 00:00:00 00:00:00 TRAVEGA 2021-11-12 2021-11-12 Outpatient [facility] [id number] [facility] 10:12:08 23:59:00 Kerri francis of [place] 2021-11-12 2021-11-12 [facility] [id number] [facility] 09:23:17 11:22:35 Visit HUNTER Scott 350.1.13.21 [place] 0.2.7.2.686 of [id number] [facility] diane 520 e 2021-11-12 2021-11-12 Outside [facility] [id number] 00:00:00 00:00:00 Orders [facility] 2021-09-17 2021-09-17 Office [facility] [id number] [facility] 08:14:46 14:35:12 Visit TRACILYN Tyler 350.1.13.21 C ollege 0.2.7.2.686 of [id number] [facility] diane 520 e 2021-08-01 2021-08-01 Office [place], [facility] [id number] [facility] 09:27:47 13:24:21 Visit TRACILYN Tyler 350.1.13.21 C ollege 0.2.7.2.686 of [id number] [facility] diane 520 e 2021-07-17 2021-07-17 Outpatient [facility] [id number] [facility] 00:00:00 23:59:00 Colleg e of Medicin e 2021-07-17 2021-07-17 [facility] [id number] 05:07:00 14:29:00 Encounter [facility] 2021-07-17 2021-07-17 Outpatient [facility] Surgery [id number] [facility] 05:07:00 14:29:00 [facility] 2021-07-17 2021-07-17 [facility] [id number] 07:30:00 11:00:00 [facility] 2021-07-17 2021-07-17 Anesthesia Ulises Ryan [facility] [id number] 07:29:00 10:03:37 Event Tere Weber [facility] 2021-07-13 2021-07-13 Outpatient [facility] [id number] [facility] 14:12:43 23:59:00 2021-07-13 2021-07-13 [facility] [id number] 13:30:00 23:59:00 Encounter [facility] 2021-07-13 2021-07-13 [facility] [place], [facility] [id number] 11:14:00 13:29:00 Encounter Hunter Archana [facility] 2021-07-13 2021-07-13 Outpatient BRANDIN [facility] [id number] [facility] 11:14:00 13:29:00 TRACILYN 2021-07-13 2021-07-13 Outpatient [facility] [id number] [facility] 00:00:00 00:00:00 2021-07-13 2021-07-13 Travel [facility] [id number] [facility] 00:00:00 00:00:00 [facility] 2021-06-13 2021-06-13 Office [place], [facility] 1.2.840.114 [id number] [facility] 08:55:08 11:30:57 Visit TRACILYN Tyler 350.1.13.21 C ollege 0.2.7.2.686 of [id number] Medi diane 520 e 2021-06-07 2021-06-12 [facility] [id number] [facility] 12:20:39 19:39:42 Colleg e [facility] Medicin e 2021-05-07 2021-05-07 Office [facility] 1.2.840.114 [id number] [facility] 10:46:25 14:20:08 Visit TRACILYN Tyler 350.1.13.21 C ollege 0.2.7.2.686 of [id number] Medi diane 520 e 2021-03-21 2021-03-21 [facility] [id number] 00:00:00 00:00:00 [facility] 2021-03-19 2021-03-19 Documentat [facility] [id number] 00:00:00 00:00:00 [facility] 2021-03-13 2021-03-13 Outpatient BCM BCM [id number] [facility] 14:04:26 14:13:38 Colleg e [facility] Medicin e 2021-01-31 2021-01-31 Outpatient [facility] [id number] [facility] 10:31:53 15:33:07 Colleg e [facility] Medicin e 2021-01-31 2021-01-31 Outpatient [place], [facility] [id number] [facility] 09:35:56 13:46:11 TRACILYN Colle ge of Medicin e 2021-01-26 2021-01-26 Outpatient GIA VITALE [facility] 748 [place] 05:01:00 05:01:00 SSA 1203 da [facility] [place] 2021-01-01 2021-01-01 Outpatient [place], [facility] [id number] [facility] 07:47:15 15:01:34 TRACILYN Colle ge of Medicin e 2020-12-22 2020-12-22 Outpatient [facility] [id number] [facility] 09:17:45 23:59:00 TRACILYN 2020-12-22 2020-12-22 [facility] [id number] 09:17:45 23:59:00 Encounter Tracilyn [facility] 2020-12-22 2020-12-22 [facility] [id number] 09:17:39 23:59:00 Encounter Tracilyn [facility] 2020-12-22 2020-12-22 Outpatient [facility] [id number] [facility] 09:17:38 23:59:00 TRACILYN 2020-12-11 2020-12-11 Outpatient [facility] [id number] [facility] 08:42:09 23:59:00 Colleg e of Medicin e 2020-12-11 2020-12-11 Outpatient [place], [facility] [id number] [facility] 08:04:13 12:38:05 TRACILYN Colle ge of Medicin e 2020-11-20 2020-11-20 Outpatient [facility] [id number] [facility] 08:48:22 23:59:00 Colleg e of Medicin e 2020-11-20 2020-11-20 Outpatient GHOTRA, [facility] [id number] [facility] 08:20:58 10:56:26 TRACILYN Colle [facility] Medicin e 2020-10-16 2020-10-16 Outpatient [facility] [id number] [facility] 08:59:17 23:59:00 Colleg e [facility] Medicin e 2020-10-16 2020-10-16 Outpatient GHOTRA, [facility] [id number] [facility] 08:01:26 10:00:52 TRACILYN Colle ge of Medicin e 2020-10-10 2020-10-10 Outpatient [facility], [facility] [id number] [facility] 00:00:00 00:00:00 TRACILYN 2020-09-25 2020-09-25 Outpatient [facility] [id number] [facility] 08:31:16 23:59:00 Colleg [facility] Medicin e 2020-09-25 2020-09-25 Outpatient GHOTRA, [facility] [id number] [facility] 07:51:26 11:18:44 TRACILYN Colle ge of Medicin e 2020-09-04 2020-09-04 Outpatient [facility] [id number] [facility] 08:53:16 23:59:00 Colleg e [facility] Medicin e 2020-09-04 2020-09-04 Outpatient GHOTRA, [facility] [id number] [facility] 07:57:24 11:32:06 TRACILYN Colle ge of Medicin e 2020-08-17 2020-08-17 Outpatient [facility], [facility] [id number] [facility] 09:07:54 09:44:26 GEORGIANN Britni ege of Medicin e 2020-08-14 2020-08-14 Outpatient GHOTRA, [facility] [id number] [facility] 07:28:11 14:07:18 TRACILYN Colle ge of Medicin e 2020-08-11 2020-08-11 Outpatient [facility], [facility] [id number] [facility] 00:00:00 00:00:00 TRACILYN 2020-07-31 2020-07-31 Outpatient GHOTRA, [facility] [id number] [facility] 12:36:12 15:27:41 HUNTER [facility] of Medicin e 2020-06-27 2020-06-27 Outpatient [facility] [id number] [facility] 00:00:00 00:00:00 Results Test Description Test Time Test Comments Results Result Comments Source Tissue Exam 2021-07-18 10:37:50 Test Item Value Reference Range Interpretation Comme nts Case Report (test code = 104) Surgical Pathology Report Case: [id number] Authorizing Provider: Hunter Ghotra, Collected: 07/17/2021 09:17 AM Ordering Location: [facility] PERIOPERATIVE Received: 07/17/2021 12:10 PM SERVICES Pathologist: Fredi Dimas MD Specimens: A) - Uterus w/Cervix B) - Cyst, PELVIC CYST DIAGNOSIS (test code = 3220) k7lhjYYlADRrd6mdRASczINrJxSmOwEyTpLfZi pc dWMxIHtccnRmMVxlcGljOTYwMlxhbnNpXHNwbHRw Z9BltnrdCBedGV7jLI6myDobaXJqyECoWSIfZoGp k2clo178tLVhs4oeBMSEzevfoOx5dHuzF90tw4G4 NfppY46uoUQfHDM6MFGfDXFqyERmOYXdRWE8KALy eSHbF7wjZZCfOV1twoauDSitZJrkTZHaqWB5QEDy gSYfI7CaDAPnRQozTHPehxe0PyRzWw2oiXKyvKnh RPhrGUWrEEEkGUxiWEOfYlXsZA2aEADALcQWWRpV LMyrG5LYIgrNJWADMMKOFVIMZ3NVVHc8GJMafwn9 MDPyDPKAYXEUIA6FVODAUv2XVMKDDBPBFCFNE3YH EWzPIq3KVkYVNVTAWMCNTJGpF8EAU3hGF27EWNnt DTWcaYTaLBVpHKDJUU8YDDWJZ2CXYFLQZPCWQpsP QERJL14dHIDZJQ8JKByKQL7PKI4DVFYzQITQRNMk xDUoJEQnXfLuFXKzVWtFKW6PFDJKAMKIWTRXFH6A CfVnuOKkQNVpIHp7OGYlCEEOWXORDSQNCfnpYE5f TZ4UU1WSMoNmIE7ZG87DYTRVIF0vBKUcpzf5OEOb XEFOWFNFJwPUBR7HLRHVAQYNHIbJIGwfPFUGMY3X GHIJJ2MMYDFMILRLSinDXLSPV23kmBRuWXLhCvAy XESSMwOAASMKYXGBPYXCWKHWKG9VRPKSFgOATZDn gMKsLJUdyeHFVzCoQXUDBssCCECSJ1PoEETBHWVG X3pSZwifxENgRYDdElGuKV3CBZJDHW7kIPKQAR5U HEfVYWRXTVEDTFvWHC6UNwoCO2gHRGMTQcAXNsMR TAKSTA0mD9rVSZDuEXGbwdTdWTXuox56PFW8MzQi e1B6SET0QERoHKPsm7plWGSobDNsImSpSdDoXuFj DimuiDQcGXHiUlUha2zrk527aXYhv2vcAAKlWbK1 wUVcEJZktWCqP004TRNeDTrio5mml1IaTZQzqGVb g3Z8GSOOsayrsSx8wOpeJ31iu8N2YhpkL0ksYUSb YDOmJ3UbSS0cAMVyGsa5ZKR4OFP0SPWyGBLsA9Jh VD4kUARqsVMwSIi3t1nneMjqIKLxFEF5z8kcMUfd wbJaSL0ymw0aaOg9x3zariJiBIZkVPObkXDSWIAq C7JexEocZj1ufXi6sZimOdcrKUZ3Zxv6EI1tfh80 sli5iPzsNWUzhegdFoC2LXotGBEkypxqQGd8MGhb LYKekOX4XLPrvMPsM5AmUBEeQY4ehea5KOW4QBxo VZSnCjQ0ELJyjALqPEWtlXjxIRfym097RZR2TwTm AS7rD3Tni8H8cZ8otRGmTKYsdQQdMnBrXPCwfb0t pUGzLOzql0RuWVY0ouY0dBFcwCNgNSUtXxR9BWvm CH1lxk93UZDjQKQ9qj9unUYpyOzrjqBfvTMvLRdv C3WgULRtm431KGKfP8EdXOZft5U6icFzAkYxXIVf hZT9mgL8LIOcUG5nyipjp3laVKcrGXowJONucbK4 auP3LUIdjRQeR8DjiS9qYXAcQP2xcvobw9rmEHG0 SOfpZDEbLWK0LcHlJAZqo9Jziea5XaWnd0NwyXRa COokZ80mw327CSVbcsIwQ0gwaCUgkmpysINadmmi TNqahoI7KVJiRWodywtpWJVzESkmM8wqDoJjFVGd rBmlVByph7BaHPFaJQDeYiMeoLUtFSMrTik4MJLy oOYzGDChTyOoW2sjqemgHgURYMQnm9myA9pwuLDS rYXpZ3PdDTepqcQyULhbXJmwTuLyWMh3PR00UcWw QBPnxj23 COMMENT (test code = 3359) f4gxqVEyEAMliNP8VdGjNKCsb3wwc9BydFYbuNJb DCzydWDjsvAoes03zCJ9dD55IV9tMHHnGiC2CFSo zwZ1Qyh9TFMgIANfvLJtN117n6jyk8usgvKqlEF1 TUMpNINkQ2WkMO7bPBLddEJjF73zmFEyKVC7SCCr QLRjzFFaEDAlFWU4OEMyqRDpB2oiFTDyXB9bqfdh AIthSXysXREdlUE8MTVwvGQaX9UtTSVvOFalZVBa iel4VqAuVc2ikXOxbTsfZUomKVRxZPLzTYsrRFCf TfBmD4VfYBWsPBBgJJRoJA77C9RepXzcyT1shZSo DkQsxgXrkCMwDVwkii7nedFfKNCgEENwvRBwD4Cu G4jpx25kOQmxOM5mjCHlEnLhrMLgdG== CPT Code(s) (test code = 3357) f2ygdOLiXLRljVB8AxVfOAHhq9qwv4LppSJb cGFy KKbghBYcriLjch79sZI2gO03JT5bCLOzZhF4UHVm kwN0Yfg2PGNmIFFcaIZwJ479e9peu0qbgwZigJX4 zHscYHOdhydvKjK6YUlxWPJuvpxnOEv3IEioAWFm pRK8CQIvvAZaS8BcKFCtOA9srya6QQM5BImrKERy EeU5ZYLefJKiOZGfcQnnEIimi631ZIH3GxFkAYDp pdBjvTgkjO5aLsCeGHSJPdP8TWYgLBiyTSKlVq8v ODgzMDRccGFyfQ== GROSS DESCRIPTION (test code = [id number]xyVUf cGFy [id number]) [file] EO5zlGxyIKLaM2ZdC3SzdnC5WVIzur6= MICROSCOPIC DESCRIPTION (test code = d3tpkSReJMIutQY3QaVkIXXha3qbb8 BsdHBncGFy 3371) OTwchGHelfBdnc31nTF8fM10RU5nNWSgIjU0EECz adK1Fia0TDMaJYHunZJvH305y1sro9zibtNqpRA7 wMahPOSjwqzlWkV9HDqqNDGhtjczRIc3YMaiYOCy kBL9NBEluMEgR8EwHXZjMH7wpaz9EOE7DDtxDHDz UgJ5CJYwfLHwWLMxdBuaOLlea911PLF7RxUaLMZx ifQrsIneiS8hJuWxGIXCCTYyj1GfLHDeNUNqwwky YXJkXHBhcn0= [facility] [id number] 10:37:50Surgical Pathology Report Case: [id number] Authorizing Provider: Hunter Ghotra, Collected: 07/17/2021 09:17 AM Ordering Location: [facility] Received: 07/17/2021 12:10 PM SERVICESPathologist: Fredi Dimas MD Specimens: A) - Uterus w/Cervix B) - Cyst, PELVIC CYST A. UTERUS WITH CERVIX, HYSTERECTOMY: - UTERINE SEROSA WITH FOCAL LOW-GRADE SEROUS CARCINOMA, PSAMMOMATOUS CALCIFICATION, ENDOSALPINGIOSIS, AND EXTENSIVE ADHESIONS - SECRETORY TO INACTIVE ENDOMETRIUM - OUTER MYOMETRIUM WITH PSAMMOMATOUS CALCIFICATION - UNREMARKABLE UTERINE CERVIX B. 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 A. 74207Y. 15900B. Uterus w/Cervix.Received in formalin labeled with the patient's information and "uterus with cervix" is a 74 g, 7.5 superior to inferior, 5.5 lateral to lateral and 4.0 cm anterior to posterior intact uterus with an attached 3.5 x 3.0 cm brock-pink cervix (1.0 x 0.3 cm cervical os). +The surface is brock-pinkwith cautery over the lower uterine segment and lateral surfaces. There are numerous brock-white to brock-yellow excrescences on the surface ranging in greatest dimension from 0.1 to 0.4 cm (gross photographs taken). The specimen is inked as below and bivalved to reveal 6.5 x 1.4 cm uterine cavity with smooth endometrium. Serial sectioning reveals a 0.2 cm thick endometrium with a 1.8 cm thick myometrium. No masses are identified. [employer] sections are submitted as below.Ink Code:Blue - AnteriorBlack - PosteriorSection Code:A1-4 - Anterior longitudinal full thickness section, cervix to fundusA5-8- Posterior longitudinal full thickness section, cervix to fundus (excrescences in A7-8)A9-11 - Remainder of anterior endometrium (not full thickness)A12-14 - Remainder of posterior endometrium (not full thickness)B. Cyst.Received in formalin labeled with the patient's information and "pelvic cyst" fawn 2.5 x 1.0 x 0.5 cm brock-pink irregularly shaped piece of soft tissue. The specimen is bisected and submitted entirely in cassettes B1-2.NRWPerformed.BASIC METABOLIC [id number] 06:58:15 Test Item Value Reference Range Interpretation Comments SODIUM (BEAKER) 138 meq/L 136-145 (test code = 381) POTASSIUM (BEAKER) 3.6 meq/L 3.5-5.1 Specimen slightly (test code = 379) hemolyzed CHLORIDE (BEAKER) 106 meq/L 98-107 (test code = 382) CO2 (BEAKER) (test 24 meq/L 22-29 code = 355) BLOOD UREA NITROGEN 9 mg/dL 7-21 (BEAKER) (test code = 354) CREATININE (BEAKER) 0.74 mg/dL 0.57-1.25 Specimen slightly (test code = 358) hemolyzed GLUCOSE RANDOM 116 mg/dL 70-105 H (BEAKER) (test code = 652) CALCIUM (BEAKER) 8.8 mg/dL 8.4-10.2 (test code = 697) EGFR (BEAKER) (test 91 mL/min/1.73 ESTIMA DOUGIE GFR IS code = 1092) sq m NOT ACCURATE CREATININE CLEARANCE IN PREDICTING GLOMERULAR FILTRATION RATE . ESTIMATED GFR I S NOT APPLICABLE FOR DIALYSIS PATIEN TS. 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 - PIAYA LPOCT , [id number] 06:02:00 Test Item Value Reference Range Interpretation Comments Test Urine, POC (test Negative code = 7325168) Control line present?, POC (test Yes code = 4561534) Background clear?, POC (test code Yes = 1669776) UPT Cassette Lot #, POC (test code 3385735 = [id number]) UPT Cassette Expiration Date, POC 11/23/2022 (test code = 6852775) [facility]-14 02:12:36 Test Item Value Reference Range Interpretation Comments SARS-COV2/RT-PCR (test Negative Negative code = 92473-1) JOHNNA (test code = JOHNNA) Negative result for this test determines that SARS-CoV-2 RNA was not present in the specimen above the Limit of Detection (LOD). However, Negative results do not preclude SARS-CoV-2 infection and should not be used as the sole basis for treatment or patient management decisions. Negative results must be combined with clinical observations, patient history, and epidemiological information. A false negative result may occur if a specimen is improperly collected, transported, or handled. A false negative result should be considered if patient's recent exposures or clinical presentation indicate that COVID-19 (SARS-CoV-2) is likely and diagnostic tests for other causes of illness are negative. Re-testing should be considered in cases of suspected false negatives. The limit of detection for this assay is 100 copies/mL. This SARS-CoV-2 test is a real-time RT_PCR test intended for the qualitative detection of nucleic acid from SARS-CoV-2 in a nasopharyngeal swab specimen collected from individuals suspected of COVID-19 by their healthcare provider. This test has not been Food and Drug Administration (FDA) cleared or approved. This is a modified version of an approved Emergency Use Authorization (EUA) and is in the process of review by the FDA. Once authorized by the FDA, the issued EUA will be effective until the declaration that circumstances exist justifying the authorization of the emergency use of in vitro diagnostic tests for detection and/or diagnosis of COVID-19 is terminated under Section 564(b)(2) of the Act or the EUA is revoked under Section 564(g) of the Act. Testing was performed using the Tolbert SARS-CoV-2 assay. Fact Sheet for Healthcare Providers:https://www.eleazar rogeltolbert/jose roberto/RT SARS-CoV-2 HCP Fact Sheet 51-564111.pdf Fact Sheet for Healthcare Patients:https://www.macie jarrettDefinition 6/jose roberto/RT SARS-CoV-2 Patient Fact Sheet EN 51-909268I5.pdf Lab Interpretation Normal (test code = 74295-2) [facility]2021-07-14 02:12:36 Test Item Value Reference Range Interpretation Comments SARS-COV2/RT-PCR (test code = Negative Negative 2246164) Negative result for this test determines that SARS-CoV-2 RNA was not present in the specimen above the Limit of Detection (LOD). However, Negative results do not preclude SARS-CoV-2 infection and should not be used as the sole basis for treatment or patient management decisions. Negative results must be combined with clinical observations, patient history, and epidemiological information. A false negative result may occur if a specimen is improperly collected, transported, or handled. A false negative result should be considered if patient's recent exposures or clinical presentation indicate that COVID-19 (SARS-CoV-2) is likely and diagnostic tests for other causes of illness are negative. Re-testing should be considered in cases of suspected false negatives.The limit of detection for this assay is 100 copies/mL.This SARS-CoV-2 test is a real-time RT_PCR test intended for the qualitative detection of nucleic acid from SARS-CoV-2 in a nasopharyngeal swab specimen collected from individuals suspected of COVID-19 by their healthcare provider.This test has not been Food and Drug Administration (FDA) cleared or approved. This is a modified version of an approved Emergency Use Authorization (EUA) and is in the process of review by the FDA. Once authorized by the FDA, the issued EUA will be effective until the declaration that circumstances exist justifying the authorization of the emergency use of in vitro diagnostic tests for detection and/or diagnosis of COVID-19 is terminated under Section 564(b)(2) of the Act or the EUA is revoked under Section 564(g) of the Act.Testing was performed using SunnyBump SARS-CoV-2 assay.Fact Sheet for Healthcare Providers:https://www.[employer]/jose roberto/RT SARS-CoV-2 HCP Fact Sheet 51- 060601.pdfFact Sheet for Healthcare Patients:https://www.[employer]/jose roberto/RT SARS-CoV-2 Patient Fact Sheet EN 51-268998N0.tcwXKCMXOHPBP7770-11-64 11:51:33 Test Item Value Reference Range Interpretation Comments HEMOGLOBIN (BEAKER) (test code = 13.0 GM/DL 11.2-15.7 410) 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 - [id number], [id number] 10:21:00Unlisted Reason for Exam - Click Yes and Enter Reason Below->YesUnlisted Reason for Exam->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 Multiplanar images are reconstructed and reviewed when indicated. This CT examination is performed using one or more of the following dose reduction techniques: Automated exposurecontrol, adjustment of the mA and /or kV according to patient size, and/or use of iterative reconstruction technique. Findings:No mediastinal or hilar lymphadenopathy. Normal size heart. No pericardialeffusion. No thoracic aortic aneurysm or dissection. No central pulmonary arterial filling defect. Aright-sided Port-A-Cath terminates in the superior vena cava. [...] glands, kidneys, ureters, and urinary bladder. The previousfluid collections within the pelvis have essentially resolved.. No small or large bowel obstruction.No apparent bowel wall thickening. No findings to indicate acute appendicitis. No free fluid or lymphadenopathy. No abdominal aortic aneurysm. No aggressive osseous lesion. Impression: 1. No evidence of progressive disease.2. Stable calcified implants within the omentum, gastrohepatic ligament, and pelvis.3. Previous fluid collections within the pelvis have essentially resolved.4. Mild diffuse fatty i nfiltration of the liver.5. Uniformly calcified right lower lobe pulmonary nodules are most suggestive of calcified granulomas related to previous granulomatous disease. No significant change from prior study. No definite metastatic disease in the chest. 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 Multiplanar images are reconstructed and reviewed when indicated. This CT examination is performed using one or more of the following dose reduction techniques: Automated exposurecontrol, adjustment of the mA and /or kV according to patient size, and/or use of iterative reconstruction technique. Findings:No mediastinal or hilar lymphadenopathy. Normal size heart. No pericardialeffusion. No thoracic aortic aneurysm or dissection. No central pulmonary arterial filling defect. Aright-sided Port-A-Cath terminates in the superior vena cava. [...] the chest. Signed: Madi Samuels MDReport Verified Date/ Time: 12/22/2020 10:21:39 Reading Location: [address] Ortho Consult Reading Room CT, [id number] 09:00:00Unlisted Reason for Exam - Click Yes and Enter Reason Below->YesUnlisted Reason for Exam->malignant neoplasm of both ovaries, hx of chemoWill this procedure require oral contrast?->NoAnesthesia:->None [facility] : 1990 Sex: FFINAL REPORT CT of the abdomen and pelvis, with contrast Clinical History: Unlisted Reason for Exammalignant neoplasm of both ovaries, hx of chemo Technique: CT of the abdomen and pelvis is performed with intravenous contrast administration. This exam was performed according to ourdepartmental dose optimization program which includes automated exposure control, adjustment of the mA and/or kV according to patient's size and/or use of iterative reconstructive technique. ComparisonFilm: Pelvic MRI dated June 09, 2020 Discussion: [...] calcified nodules. Bladder appears normal. Patient is alsostatus post omentectomy. There is a cluster of irregularly shaped nodules in the left upper quadrant, a few are calcified. Additional nodules are noted in the gastrohepatic ligament, and right upper quadrant, compatible with carcinomatosis. No evidence of bowel obstruction, or abnormal bowel wall thick ening. Normal appendix. No suspicious bony lesion is identified. Impression: Status post bilateral oophorectomy. There is a small amount of loculated fluid in the pelvis, associated with tiny calcifiednodules. Additionally, there are multiple nodules in the upper abdomen and gastrohepatic ligament region, some are calcified, compatible with carcinomatosis. Signed: Angie Gomesort Verified Date/Time: 10/11/2020 09:00:55 Reading Location: [facility] C013X Ortho Consult Reading Room LL MCGRAW, [id number] 15:02:00Reason for Exam:->MALIGNANT NEOPLASM OF BOTH OVARIES [facility] : 1990 Sex: FFINAL REPORT Right internal jugular chest port insertion [...] the patient's medical record by the nurse. Chemistry Research Assistant: Jorge A Ryder MD Supervisor Food Checkers And Cashiers: None. Approach: Right internal jugular vein Estimated blood loss: <5 cc. Specimen: None. Fluoroscopy Time: 0.5 min.Reference Air Kerma (Ka, r): 3.8 mGy. Technique: Info rmed written consent was obtained. Discussion of risks, [...] needle into the right atrium. A 4 Uzbek micropuncture sheath was placed and a 0.035 wire was advanced into the IVC. A subcutaneous tunnel and pocket were created in the right anterior chest wall by blunt dissection. The pocket was flushed with saline. A 6F Deltech port was placed within the pocket and the catheter brought through the tunnel.The catheter was trimmed to length. A peel-away sheath was placed in the right IJ vein and the catheter was advanced through the sheath, with its distal tip terminating in the cavoatrial junction. The peel-away sheath was removed. The port was flushed and aspirated easily following placement. The skinincision was closed with 3-0 Monocryl and Dermabond. The small jugular incision site was closed using Dermabond. The patient tolerated the procedure well and left the department in the same condition.Results: Spot radiograph of the chest demonstrates the new right IJ Port-A-Cath to lie in the expected position with its tip overlying the cavoatrial junction. Small redundancy in the catheter tubing overlying the clavicle is noted and is intentional as the port will migrate inferiorly when patient isstanding. Impression: Successful, uncomplicated placement of a right internal jugular chest port using sonographic and fluoroscopic guidance and conscious sedation. The port is ready for immediate use. Signed: Jorge A Ryder MDReport Verified Date/Time: 08/11/2020 15:02:41 Reading Location: [facility] P048 Angio Body Reading Room PROTHROMBIN [id number] 07:31:00 Test Item Value Reference Range Interpretation Comments PROTIME (BEAKER) 13.4 seconds 11.9-14.2 (test code = 759) INR (BEAKER) (test 1.03 See_Comment [Automat ed message] code = 370) The system [employer] generated this result transmitted ref erence range: <=5.90. The reference range was not used to int erpret this result as normal/abnormal . RECOMMENDED COUMADIN/WARFARIN INR THERAPY RANGESSTANDARD DOSE: 2.0 - 3.0 Includes: PROPHYLAXIS for venous thrombosis, systemic embolization; TREATMENT for venous thrombosis and/or pulmonary embolus.HIGH RISK: Target INR is 2.5-3.5 for patients with mechanical heart valves.[id number] 07:31:00 Test Item Value Reference Range Interpretation Comments PARTIAL THROMBOPLASTIN TIME 31.3 seconds 22.5-36.0 (BEAKER) (test code = 760) CBC W/PLT COUNT & AUTO [id number] 07:13:00 Test Item Value Reference Range Interpretation [...] 0-1 PERCENT (BEAKER) (test code = 2801) [id number] 13:47:00Medical Cytology Report Case: [id number] Authorizing Provider: Hunter Ghotra, Collected: 07/18/2020 11:41 AM Ordering Location: [facility] PERIOPERATIVE Received: 07/18/2020 03:26 PM SERVICES P athologist: Marcella Galeas MD Specimen: Peritoneal Fluid PERITONEAL FLUID (CYTOSPINS ANDCELL BLOCK): - POSITIVE FOR MALIGNANCY - LOW GRADE SEROUS CARCINOMA (SEE COMMENT) Signing Pathologist Direct Phone Line: [phone] signed by Marcella Galeas MD on 07/25/2020 at 1:47 PMThe tumor cells stain positive for PAX-8; ER, AK and WT-1. 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 64259, 60904; 67217; 95338 x 3Ascites, status post laparoscopy, CT from [...] evaluated Immunohistochemistry technical testing was performed at [facility], Pathology Laboratory where it was [...] qualified to perform high complexity clinical laboratory testing.[facility], Department of Pathology, [address] [place] [address], [facility], [address] [place] [address], [facility], [facility], [address] [place] [address], XKXGMA [id number] 12:45:00Surgical Pathology Report Case: [id number] Authorizing Provider: Hunter Ghotra, Collected: 07/18/2020 12:15 PM Ordering Location: [facility] PERIOPERATIVE Received: 07/18/2020 12:30 PM SERVICES Pathologist: Leighann Mathias MD Specimens: A) - Omentum B) - Omentum, Omentum C) - Soft Tissue, Other, Right Adnexa D) - Soft Tissue, Other, Left Adnexa A. OMENTUM, PARTIAL OMENTECTOMY: - LOWGRADE SEROUS CARCINOMAB. OMENTUM, OMENTECTOMY: - LOW GRADE SEROUS CARCINOMAC. OVARY AND FALLOPIAN TUBE, RIGHT SALPINGO-OOPHORECTOMY OVARY - LOW GRADE SEROUS CARCINOMA -TUMOR SIZE: 4 X 3 X 2.9 - INTACT CAPSULE - SURFACE INVOLVEMENT PRESENT FALLOPIAN TUBE - TUMOR EXTENDS TO TUBAL SEROSA - ADHESIONS D. OVARY AND FALLOPIAN TUBE, LEFT SALPINGO-OOPHORECTOMY OVARY - LOW GRADE SEROUS CARCINOMA - TUMOR SIZE: 5X 5 X 3.5 - INTACT CAPSULE - SURFACE INVOLVEMENT PRESENT FALLOPIAN TUBE - TUMOR EXTENDS TO TUBAL SEROSA - ADHESIONS Signing Pathologist Direct Phone Line: [phone] signed by Leighann Mathias MD on 07/25/2020 [...] Low grade Tumor Size: Cannot be determined: MultifocalOvarian Surface Involvement: Present Laterality: Bilateral Fallopian Tube [...] pNX FIGO STAGE FIGO Stage: IIIC A. 88495, 66533N. 16656Q. 13577G. 15221Ftgwdjnva adnexal masses, pelvic pain, elevated tumor markers at risk for fertility problems, abnormalityOmentumA. Received freshfor intraoperative frozen consultation diagnosis labeled with patient's name, medical record number and accession number "omentum" is a single brock yellow to brock pink, firm to soft lobulated fibro-adipose tissue (8 x 4 x 2 cm), sectioning reveals brock pink fibrous mass (6 x 3 x 1.4 cm). Touch preps is made and automobile sales representative tissue is submitted in FSA1.Section code:FSA1: Salesforce Consultant, massA2-A4: additional automobile sales representative, massB. Received in formalin labeled with [...] to brock-yellow cut surface and focal areas. Salesforce Consultant sections are submitted in cassette B1-B6. C. [...] serially sectioned to reveal multinodular brock-yellow to qrr-rkqo-jpymc areas, the largest nodule is 4 x 3 x 2.9cm. A possible fallopian tube is identified on cross- sections with brock mucosa and pinpoint lumen. Possible cross sections of the ovary is identified displaying brock pink-brock and hemorrhagic areas (4 x 2.3 x 2 cm). Multinodular brock-granados masses are closely abutting the outer surface of the ovary, obviousinvolvement of the ovary is not identified. Salesforce Consultant sections are submitted in cassettes C1-C10.D. Received [...] cross-section with brock mucosa and pinpoint lumen. Salesforce Consultant sections are submitted in cassette D1-D10.SOPHIA AnandA1: OMENTUM, EXCISION: - POSITIVE FOR CARCINOMA, PROBABLY SEROUS CARCINOMAReported by Dr. Rodas on Jul 18 2020 at 12:45 PM to [email or web address], CHEST, WITH [id number] 10:38:00Unlisted Reason for Exam - Click Yes and Enter Reason Below->No [facility] : 1990 Sex: FFINAL REPORT [...] mediastinal, hilar, or axillary lymphadenopathy. The heart andpericardium are within normal limits. SOFT TISSUES AND [...] MDReport Verified Date/Time: 07/20/2020 10:38:03 Reading Location: [facility] B1 C013X Ortho Consult Reading Room [id number] 07:19:00 Test Item Value Reference Range Interpretation Comments PARTIAL THROMBOPLASTIN TIME 34.0 seconds 22.5-36.0 (BEAKER) (test code = 760) COMPREHENSIVE METABOLIC [id number] 05:22:00 Test Item Value Reference Range Interpretation [...] S NOT APPLICABLE FOR DIALYSIS PATIEN TS. 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 - LEANNA WPROTHROMBIN TIME/[id number] 05:03:00 Test Item Value Reference Range Interpretation Comments PROTIME (BEAKER) 15.3 seconds 11.9-14.2 H (test code = 759) INR (BEAKER) (test 1.25 See_Comment [Automat ed message] code = 370) The system [employer] generated this result transmitted ref erence range: [...] = 413) CBC W/PLT COUNT & AUTO [id number] 18:49:00 Test Item Value Reference Range Interpretation [...] PERCENT (BEAKER) (test code = 2801) CYTOLOGY [id number] 17:00:00 Test Item Value Reference Range Interpretation Comments CYTOLOGY RESULT POINTER See Separate Report (BEAKER) (test code = 2629) [id number] 08:31:00 Test Item Value Reference Range Interpretation Comments HEMOGLOBIN (BEAKER) (test code = 12.1 GM/DL 11.2-15.7 410) 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 - [id number] METABOLIC [id number] 05:14:00 Test Item Value Reference Range Interpretation [...] S NOT APPLICABLE FOR DIALYSIS PATIEN TS. 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 - [id number] 05:14:00 Test Item Value Reference Range Interpretation Comments MAGNESIUM (BEAKER) (test code = 2.1 mg/dL 1.6-2.6 627) 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 - [id number] 05:14:00 Test Item Value Reference Range Interpretation Comments PHOSPHORUS (BEAKER) (test code = 3.7 mg/dL 2.3-4.7 604) 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 - EDASICBC (HEMOGRAM ONLY)2020-06-10 04:54:00 Test [...] (BEAKER) (test code = 413) MR, PELVIS, [id number] 18:35:00Unlisted Reason for Exam - Click Yes and Enter Reason Below->No [facility] : 1990 Sex: FFINAL REPORT MRI of the pelvis dated June 09, 2020 Comment: Multiplanar T1 and T2-weighted images of the pelvis, postcontrast axial, coronal, and sagittal T1-weighted images of thepelvis were obtained. Uterus is normal in size [...] MDReport Verified Date/Time: 06/09/2020 18:35:16 Reading Location: [facility] C013Y CT Body Reading Room BASI METABOLIC [id number] 05:43:00 Test Item Value Reference Range Interpretation [...] S NOT APPLICABLE FOR DIALYSIS PATIEN TS. 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 - [id number] 05:43:00 Test Item Value Reference Range Interpretation Comments MAGNESIUM (BEAKER) (test code = 2.0 mg/dL 1.6-2.6 627) 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 - [id number] 05:43:00 Test Item Value Reference Range Interpretation Comments PHOSPHORUS (BEAKER) (test code = 3.4 mg/dL 2.3-4.7 604) 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 - EDASICBC (HEMOGRAM ONLY)2020-06-09 05:22:00 Test [...] code = 413) ALPHA FETOPROTEIN (AFP), TUMOR [id number] 17:48:00 Test Item Value Reference Range Interpretation Comments ALPHA-FETOPROTEIN (BEAKER) (test 4.0 ng/mL <10.0 code = 1094) 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 - DBHCG, QUANTITATIVE, [id number] 16:38:00 Test Item Value Reference Range Interpretation Comments GONADOTROPIN, CHORIONIC (HCG) QUANT < mIU/mL 0-10 (BEAKER) (test code = 649) Non- Females: <10 mIU/mL Females: Gestation Age Reference Range(mIU/mL) 0.2-1 Week 5-50 1-2 Weeks 50-500 2-3 Weeks 100-5,000 3-4 Weeks 500-10,000 4-5 Weeks 1,000-50,000 5-6 Weeks 10,000-100,000 6-8 Weeks 15,000- 200,000 2-3 Months 10,000-100,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 - [id number] 16:32:00 Test Item Value Reference Range Interpretation Comments FERRITIN (BEAKER) (test code = 345.19 ng/mL 5.00-275.00 H 361) 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 - DBIRON, TIBC, % SAT. (WITHOUT FERRITIN)2020-06-08 16:11:00 Test Item Value Reference Range Interpretation Comments IRON (BEAKER) (test code = 547) 35.0 ug/dL 40.0-160.0 L TOTAL IRON BINDING CAPACITY 308 ug/dL 250-450 (BEAKER) (test code = 769) IRON % SATURATION (2) (BEAKER) 11 % 20-55 L (test code = 2590) 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 - DBHEMOGLOBIN AND [id number] 15:33:00 Test Item Value Reference Range Interpretation Comments HEMOGLOBIN (BEAKER) (test code = 11.5 GM/DL 11.2-15.7 410) HEMATOCRIT (BEAKER) (test code = 35.0 % 34.1-44.9 411) 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 - [id number] DEHYDROGENASE (LDH)2020-06-08 14:22:00 Test Item Value Reference Range Interpretation Comments LACTATE DEHYDROGENASE (BEAKER) (test 236 U/L 125-220 H code = 635) 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 - EMERSONBASIC METABOLIC [id number] 07:55:00 Test Item Value Reference Range Interpretation [...] S NOT APPLICABLE FOR DIALYSIS PATIEN TS. 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 - [id number] 07:55:00 Test Item Value Reference Range Interpretation Comments MAGNESIUM (BEAKER) (test code = 2.1 mg/dL 1.6-2.6 627) 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 - [id number] 07:55:00 Test Item Value Reference Range Interpretation Comments PHOSPHORUS (BEAKER) (test code = 3.4 mg/dL 2.3-4.7 604) 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 - LILIYACBC (HEMOGRAM ONLY)2020-06-08 05:03:00 Test Item Value Reference [...] 0-0 (BEAKER) (test code = 413) PROTHROMBIN TIME/[id number] 04:56:00 Test Item Value Reference Range Interpretation Comments PROTIME (BEAKER) 14.3 seconds 11.9-14.2 H (test code = 759) INR (BEAKER) (test 1.14 See_Comment [Automat ed message] code = 370) The system [employer] generated this result transmitted ref erence range: <=5.90. The reference range was not used to int erpret this result as normal/abnormal . Effective 07/22/2018: PT Reference Range ChangeNew: 11.9-14.2 Previous: 11.7- 14.7RECOMMENDED COUMADIN/WARFARIN INR THERAPY RANGESSTANDARD DOSE: 2.0-3.0 Includes: PROPHYLAXIS for venous thrombosis, systemic embolization; TREATMENT for venous thrombosis and/or pulmonary embolus.HIGH RISK: Target INR is 2.5-3.5 for patients wiht mechanical heart valves.PROTHROMBIN [id number] 22:05:00 Test Item Value Reference Range Interpretation Comments PROTIME (BEAKER) 13.5 seconds 11.9-14.2 (test code = 759) INR (BEAKER) (test 1.06 See_Comment [Automat ed message] code = 370) The system [employer] generated this result transmitted ref erence range: <=5.90. The reference range was not used to int erpret this result as normal/abnormal . Effective 07/22/2018: PT Reference Range ChangeNew: 11.9-14.2 Previous: 11.7- 14.7RECOMMENDED COUMADIN/WARFARIN INR THERAPY RANGESSTANDARD DOSE: 2.0-3.0 Includes: PROPHYLAXIS for venous thrombosis, systemic embolization; TREATMENT for venous thrombosis and/or pulmonary embolus.HIGH RISK: Target INR is 2.5-3.5 for patients wiht mechanical heart valves.CARCINOEMBRYONIC ANTIGEN (CEA) 2020-06-07 21:41:00 Test Item Value Reference Range Interpretation Comments CARCINOEMBRYONIC ANTIGEN (BEAKER) 1.0 ng/mL 0.0-5.0 (test code = 685) 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 - BSCOMPREHENSIVE METABOLIC [id number] 21:27:00 Test Item Value Reference Range Interpretation [...] S NOT APPLICABLE FOR DIALYSIS PATIEN TS. 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 - [id number] 21:27:00 Test Item Value Reference Range Interpretation Comments MAGNESIUM (BEAKER) (test code = 2.2 mg/dL 1.6-2.6 627) 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 - [id number] 21:27:00 Test Item Value Reference Range Interpretation Comments PHOSPHORUS (BEAKER) (test code = 3.3 mg/dL 2.3-4.7 604) 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 - BSCBC W/PLT COUNT & AUTO [id number] 21:10:00 Test Item Value Reference Range Interpretation [...]
[2021-12-13] MEDS ORDERED: MORPHINE 4 MG/ML SYR ONE (08:38)
[2021-12-13] MEDS ORDERED: ONDANSETRON 4 MG/2 ML VIAL ONE (08:38)
[2021-12-13] MEDS ORDERED: NA CHLORIDE 0.9% 1,000 ML ONE (08:38)
[2021-12-13 08:43] LABS: Absolute Lymphocytes (CBC) 2.5 K/uL (0.7-4.9); Hematocrit 39.7 % (36.0-45.0); MCV 86.9 fL (80-100); MPV 7.7 fL (7.6-11.3); RBC Red Blood Cell Count 4.57 M/uL (3.86-4.86)
[2021-12-13 09:02] LABS: Albumin 3.5 g/dL (3.4-5.0); Bilirubin Total 0.3 mg/dL (0.2-1.0); Potassium 3.6 mmol/L (3.5-5.1); Protein, Total 7.5 g/dL (6.4-8.2)
--- NOTE | 2021-12-13 09:56 | RAD REPORT ---
EXAM DESCRIPTION: US - Abdomen Exam Limited - 12/13/2021 9:50 am CLINICAL HISTORY: PAIN COMPARISON: Abdomen Pelvis W Contrast dated 08/16/2020 FINDINGS: Gallbladder size is normal. There is no wall thickening or pericholecystic fluid. Two punc shi echogenic foci are seen adherent to the gallbladder wall. There is no ring down artifact or post erior acoustic shadowing. Small nonshadowing stones can have this appearance. Small polyps or adheren t tumefactive sludge would be possible as well. No common duct stone or biliary tree dilatation identified. IMPRESSION: Two punctate echogenic foci along the gallbladder wall could be small nonshadowing stone s. Small polyp or adherent tumefactive sludge. No mobile gallstones, wall thickening or pericholecystic fluid. Biliary tree is unremarkable.
[2021-12-13] MEDS ORDERED: FENTANYL CITR 100 MCG/2 ML ONE (10:01)
[2021-12-13 10:10] LABS: Urine Blood Negative (Negative); Urine Glucose Negative (Negative); Urine Protein Negative (Negative)
[2021-12-13 10:20] LABS: Urine Bacteria <20 /HPF (<20); Urine Mucus Slight /HPF (None Seen); Urine RBC <5 /HPF (None Seen)
--- NOTE | 2021-12-13 10:20 | RAD REPORT ---
EXAM DESCRIPTION: CT - Abdomen Pelvis W Contrast - 12/13/2021 9:51 am CLINICAL HISTORY: LLQ abdominal pain, history of ovarian cancer, hysterectomy, chemotherapy COMPARISON: Abdomen Pelvis W Contrast dated 08/16/2020 TECHNIQUE: Biphasic, helical CT imaging of the abdomen and pelvis was performed following 100 ml non -ionic IV contrast. No oral contrast administered. All CT scans are performed using dose optimization technique as appropriate and may include automated exposure control or mA/KV adjustment according to patient size. FINDINGS: No suspicious findings in the lung bases. Normal size liver again shows diffuse fatty infiltration pattern. No focal liver lesions seen. Portal vein is normal. Unremarkable spleen and pancreas noted. Gallbladder and biliary tree are also withou t suspicious finding. Symmetric renal function is seen with no hydronephrosis or suspicious renal mass. No pyelonephritis o r acute parenchymal process. No bladder abnormalities. No adrenal abnormalities. No gastric dilatation or wall thickening. No acute small bowel finding. No appendicitis is present. A n acute or primary colon process is not seen. No free air, free fluid or pneumatosis. No new hernia . Carcinomatosis changes to the omentum has shown further reduction since the July 2020 study. Omental nodularity still persists. Uterus has been removed since the prior examination. Given the ovarian can cer history, oophorectomy is presumed as well. There is a 3.5 cm oval left adnexal mass. This is pote ntially ovarian tissue is oophorectomy was not performed. This is similar or slightly less prominent than the comparison study. Trace amount of free fluid is seen in the right-side of the adnexa. A prog ressive adnexal process is not seen. No suspicious bony findings. IMPRESSION: No appendicitis, obstruction, free air or other surgically emergent CT abdomen or pelvis finding. Uterus has been removed since prior July 2020 exam. Left adnexal fluid and soft tissues could be remn ant ovarian tissue of oophorectomy was not performed. Full surgical history is not known. No progres sive adnexal process identifiable. Carcinomatosis along the omentum has shown further reduction since July 2020. Minimal nodularity aubrie ins in the left upper quadrant. Fatty infiltration of the liver with no focal liver lesion.
[2021-12-13] MEDS ORDERED: HYDROCODONE/APAP 5/325 MG TAB ONE (10:45)
[2021-12-13] MEDS ORDERED: NA CHLORIDE 0.9% 50 ML IV ONE (12:09)
[2021-12-13] MEDS ORDERED: CEFTRIAXONE 1000 MG/VIAL ONE (12:09)
--- NOTE | 2021-12-13 12:37 | EDPHYS ---
Physician Documentation [facility] Name: Thea Briceño Age: 31 yrs Sex: Female : 1990 Arrival Date: 12/13/2021 Time: 07:58 Bed 6 Private MD: ED Physician Madan Ferrer HPI: 12/13 08:05 This 31 yrs old Female presents to ER via Ambulatory with complaints of jh7 Abdominal Pain. 08:05 The patient presents with abdominal pain in the left lower quadrant. Onset: The jh7 symptoms/episode began/occurred 2 week(s) ago, and became worse today. The symptoms radiate to right lower quadrant. Associated signs and symptoms: none. The symptoms are described as achy, sharp. 08:05 Associated signs and symptoms: Pertinent positives: dysuria, Pertinent negatives: jh7 vaginal discharge. 08:05 Denies unprotected sexual activity. . 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 - Social history:: Smoking status: Patient denies any tobacco usage or history of. Patient/guardian denies using alcohol. ROS: 08:05 Constitutional: Negative for fever, chills, and weight loss, Eyes: Negative for injury, jh7 pain, redness, and discharge, ENT: Negative for injury, pain, and discharge, Cardiovascular: Negative for chest pain, palpitations, and edema, Respiratory: Negative for shortness of breath, cough, wheezing, and pleuritic chest pain, Back: Negative for injury and pain, MS/Extremity: Negative for injury and deformity, Skin: Negative for injury, rash, and discoloration, Neuro: Negative for headache, weakness, numbness, tingling, and seizure. 08:05 Abdomen/GI: Positive for abdominal pain, Negative for nausea, vomiting, and diarrhea, black/tarry stool. 08:05 All other systems are negative. 08:05 : Positive for pelvic pain with urination. jh7 Exam: 08:05 Constitutional: This is a well developed, well nourished patient who is awake, alert, jh7 and in no acute distress. Head/Face: Normocephalic, atraumatic. Eyes: Pupils equal round and reactive to light, extra-ocular motions intact. Lids and lashes normal. Conjunctiva and sclera are non-icteric and not injected. Cornea within normal limits. Periorbital areas with no swelling, redness, or edema. ENT: Nares patent. No nasal discharge, no septal abnormalities noted. Oropharynx with no redness, swelling, or masses, exudates, or evidence of obstruction, uvula midline. Mucous membranes moist. Cardiovascular: Regular rate and rhythm with a normal S1 and S2. No gallops, murmurs, or rubs. Normal PMI, no JVD. No pulse deficits. Respiratory: Lungs have equal breath sounds bilaterally, clear to auscultation and percussion. No rales, rhonchi or wheezes noted. No increased work of breathing, no retractions or nasal flaring. Back: No spinal tenderness. No costovertebral tenderness. Full range of motion. Skin: Warm, dry with normal turgor. Normal color with no rashes, no lesions, and no evidence of cellulitis. MS/ Extremity: Pulses equal, no cyanosis. Neurovascular intact. Full, normal range of motion. Neuro: Awake and alert, GCS 15, oriented to person, place, time, and situation. Motor strength 5/5 in all extremities. Sensory grossly intact. Normal gait. 08:05 Abdomen/GI: Inspection: abdomen appears normal, Bowel sounds: normal, Palpation: mild abdominal tenderness, in the left lower quadrant. Vital Signs: 08:05 BP 112 / 76; Pulse 72; Resp 16; Temp 98; Pulse Ox 100% on R/A; Weight 93.44 kg; Height mb9 5 ft. 11 in. (180.34 cm); Pain 7/10; 08:57 BP 102 / 59; Pulse 66; Resp 14; Pulse Ox 97% on R/A; mb9 09:39 BP 97 / 75; Pulse 72; Resp 16; Pulse Ox 98% on R/A; Pain 7/10; mb9 10:50 BP 121 / 60; Pulse 68; Resp 16; Pulse Ox 100% on R/A; Pain 8/10; mb9 12:00 BP 95 / 65; Pulse 63; Resp 16; Pulse Ox 100% on R/A; mb9 12:00 BP 105 / 78; Pulse 72; Resp 18; Pulse Ox 100% on R/A; Pain 0/10; mb9 08:05 Body Mass Index 28.73 (93.44 kg, 180.34 cm) 9 MDM: 08:06 Patient medically screened. [facility] 12:40 Differential diagnosis: Ovarian Torsion, Tubal Ovarian Abcess, urinary tract infection. [facility] 12:40 Data reviewed: vital signs, nurses notes, lab test result(s), radiologic studies, CT [facility] scan, ultrasound. Data interpreted: Pulse oximetry: is 100 %. Interpretation: normal. Counseling: I had a detailed discussion with the patient and/or guardian regarding: the historical points, exam findings, and any diagnostic results supporting the discharge/admit diagnosis, the need for outpatient follow up, an OB/Gyne specialist. Response to treatment: the patient's symptoms have markedly improved after treatment. ED course: Informed patient of nonacute findings noted on the ultrasound and CT. Informed her that radiology did not see any progression of her cancer when comparing to previous imaging. Also discussed 3.5 cm adnexal cyst that may have been present prior to hysterectomy. Informed the patient that we will treat her for UTI due to her symptoms. Pending urine culture. Advised her to follow-up with her INSURANCE UNDERWRITING ASSISTANT, and if she experiences any new unwanted symptoms, she may return to the ER for further eval. The patient understood the plan of care.. 12/13 08:13 Order name: CBC with Diff; Complete Time: : [facility] 12/13 08:13 Order name: CMP; Complete Time: : [facility] 12/13 08:13 Order name: Lipase; Complete Time: : [facility] 12/13 08:13 Order name: Urine Microscopic Only; Complete Time: 10:32 [facility] 12/13 10:10 Order name: Urine Dipstick-Ancillary; Complete Time: 10:19 EDWI 12/13 10:23 Order name: Urine Culture EDMS 12/13 08:13 Order name: CT Abd/Pelvis - IV Contrast Only; Complete Time: 10:32 [facility] 12/13 08:50 Order name: US Abdomen Limited: LLQ pain radiating to RLQ. hx of ovarian CA; Complete [facility] Time: 12:06 12/13 08:13 Order name: IV Saline Lock; Complete Time: 08:47 7 12/13 08:13 Order name: Labs collected and sent; Complete Time: 08:47 7 12/13 08:13 Order name: Urine Dipstick-Ancillary (obtain specimen); Complete Time: 12:35 [facility] Administered Medications: 08:47 Drug: NS 0.9% 1000 ml Route: IV; Rate: 1 bolus; Site: right antecubital; mb9 09:46 Follow up: Response: No adverse reaction; IV Status: Completed infusion mb9 08:47 Drug: Zofran (Ondansetron) 4 mg Route: IVP; Site: right antecubital; mb9 09:46 Follow up: Response: No adverse reaction mb9 08:47 Drug: morphine 4 mg Route: IVP; Infused Over: 4 mins; Site: right antecubital; mb9 09:46 Follow up: Response: No adverse reaction mb9 10:04 Drug: fentaNYL (PF) 25 mcg Route: IVP; Site: right antecubital; mb9 12:40 Follow up: Response: No adverse reaction mb9 10:48 Drug: HYDROcodone-acetaminophen 5 mg-325 mg 1 tabs Route: PO; mb9 11:22 Follow up: Response: No adverse reaction mb9 12:40 Drug: Rocephin (cefTRIAXone) 1 grams Route: IV; Rate: 1 calculated rate; Site: right mb9 antecubital; 13:32 Follow up: Response: No adverse reaction; IV Status: Completed infusion 9 Disposition Summary: 12/13/21 12:36 Discharge Ordered Location: Home [facility] Problem: new [facility] Symptoms: have improved [facility] Condition: Stable [facility] Diagnosis - UTI/ Urinary tract infection, site not specified 7 - Lower abdominal pain, unspecified [facility] Followup: [facility] - With: Private Physician - When: 2 - 3 days - Reason: Recheck today's complaints Discharge Instructions: - Discharge Summary Sheet [facility] - Abdominal Pain, Adult [facility] - Dysuria [facility] - Urinary Tract Infection, Adult [facility] Forms: - Medication Reconciliation Form [facility] - Thank You Letter [facility] - Antibiotic Education [facility] - Work release form 9 Prescriptions: - Pyridium 200 mg Oral Tablet - take 1 tablet by ORAL route every 8 hours for 3 days; 9 tablet; Refills: 0, [facility] Product Selection Permitted - Macrobid 100 mg Oral Capsule - take 1 capsule by ORAL route every 12 hours for 7 days; 14 capsule; Refills: 0, [facility] Product Selection Permitted Addendum: 12/18/2021 03:57 Co-signature as Attending Physician, Madan Ferrer MD I agree with the assessment and c bonds plan of care. Signatures: Dispatcher [employer] EDWI Madan Ferrer MD MD cha Hadash, Jennifer, COMMISSIONER CONSERVATION OF RESOURCES COMMISSIONER CONSERVATION OF RESOURCES [facility] Ania Lentz, RN RN mb9 Corrections: (The following items were deleted from the chart) 12/13 08:15 08:13 Urine Test ordered. [facility] mb9 12:38 08:05 The symptoms radiate to right lower quadrant, [place] [id number] 12:39 08:05 Constitutional: Negative for fever, chills, and weight loss, Eyes: Negative for [facility] injury, pain, redness, and discharge, ENT: Negative for injury, pain, and discharge, Cardiovascular: Negative for chest pain, palpitations, and edema, Respiratory: Negative for shortness of breath, cough, wheezing, and pleuritic chest pain, Back: Negative for injury and pain, MS/Extremity: Negative for injury and deformity, Skin: Negative for injury, rash, and discoloration, Neuro: Negative for headache, weakness, numbness, tingling, and seizure, [facility]
--- NOTE | 2021-12-13 12:37 | ER ---
Nurse's Notes [facility] Name: Thea Briceño Age: 31 yrs Sex: Female : 1990 Arrival Date: 12/13/2021 Time: 07:58 Bed 6 Private MD: Diagnosis: UTI/ Urinary tract infection, site not specified;Lower abdominal pain, unspecified Presentation: 12/13 08:05 Chief complaint: Patient states: abdominal pain on her left and right side has been mb9 getting worse over the past two weeks. Pt states "I have stage 3 ovarian cancer but this pain isn't like any I've had before.". 08:05 Coronavirus screen: Vaccine status: Patient reports receiving the 2nd dose of the covid mb9 vaccine. Ebola Screen: Patient denies travel to an Ebola-affected area in the 21 days before illness onset. Initial Sepsis Screen: Does the patient meet any 2 criteria? No. Patient's initial sepsis screen is negative. Does the patient have a suspected source of infection? No. Patient's initial sepsis screen is negative. Risk Assessment: Do you want to hurt yourself or someone else? Patient reports no desire to harm self or others. Onset of symptoms was November 29, 2021. 08:05 Method Of Arrival: Ambulatory mb9 08:05 Acuity: YUMIKO 3 mb9 Triage Assessment: 08:05 General: Appears uncomfortable, Behavior is cooperative, appropriate for age. Pain: mb9 Complains of pain in LLQ and RLQ Pain currently is 7 out of 10 on a pain scale. Quality of pain is described as aching, pressure, Is continuous, Aggravated by increased activity, repositioning. EENT: No signs and/or symptoms were reported regarding the EENT system. Neuro: Level of Consciousness is awake, alert, obeys commands, Oriented to person, place, time, situation, Appropriate for age Pediatric Psychologist are equal bilaterally Gait is steady, Speech is normal. Cardiovascular: Heart tones S1 S2 present Rhythm is regular. Respiratory: Airway is patent Respiratory effort is even, unlabored, Respiratory pattern is regular, symmetrical, Breath sounds are clear bilaterally. GI: Abdomen is round Bowel sounds present X 4 quads. Abdomen is tender to palpation in right lower quadrant and left lower quadrant Patient currently denies intolerance of food, nausea. : No signs and/or symptoms were reported regarding the genitourinary system. Derm: Skin is pink, warm \\T\\ dry. 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 - Social history:: Smoking status: Patient denies any tobacco usage or history of. Patient/guardian denies using alcohol. Screenin:30 Abuse screen: Denies threats or abuse. Nutritional screening: No deficits noted. mb9 Tuberculosis screening: No symptoms or risk factors identified. Fall Risk None identified. Assessment: 08:10 General: Appears uncomfortable. Pain: Complains of pain in left lower quadrant and mb9 right lower quadrant Pain currently is 7 out of 10 on a pain scale. Quality of pain is described as aching, pressure, Aggravated by increased activity, repositioning. 08:10 Neuro: Level of Consciousness is awake, alert, obeys commands, Oriented to person, mb9 place, time, situation, Appropriate for age Speech is normal. Cardiovascular: Heart tones S1 S2 present Rhythm is regular. Respiratory: Airway is patent Respiratory effort is even, unlabored, Respiratory pattern is regular, symmetrical, Breath sounds are clear bilaterally. GI: Abdomen is flat, Bowel sounds present X 4 quads. Abdomen is tender to palpation in right lower quadrant and left lower quadrant. : No signs and/or symptoms were reported regarding the genitourinary system. EENT: No signs and/or symptoms were reported regarding the EENT system. Derm: Skin is pink, warm \\T\\ dry. Musculoskeletal: Range of motion: intact in all extremities. 09:20 Reassessment: pt states pain is unchanged. Provider notified. mb9 10:48 Reassessment: pt states pain is unchanged. Physician notified. mb9 10:48 General: Appears uncomfortable. Pain: Complains of pain in left lower quadrant Pain mb9 currently is 8 out of 10 on a pain scale. Quality of pain is described as pressure. Neuro: Level of Consciousness is awake, alert, obeys commands, Oriented to person, place, time, situation, Appropriate for age. Cardiovascular: Heart tones S1 S2 present Rhythm is regular. Respiratory: Airway is patent Respiratory effort is even, unlabored, Respiratory pattern is regular, symmetrical. Derm: Skin is pink, warm \\T\\ dry. 12:00 Pain: Denies pain. Neuro: Level of Consciousness is awake, alert, obeys commands, mb9 Oriented to person, place, time, situation, Appropriate for age. Cardiovascular: Heart tones S1 S2 present Rhythm is regular. Respiratory: Airway is patent Respiratory effort is even, unlabored, Respiratory pattern is regular, symmetrical. Derm: Skin is pink, warm \\T\\ dry. 13:28 General: Appears comfortable. Pain: Denies pain. Pain: Denies pain. Neuro: Level of mb9 Consciousness is awake, alert, obeys commands, Oriented to person, place, time, situation, Appropriate for age. Respiratory: Airway is patent Respiratory effort is even, unlabored. Derm: Skin is pink, warm \\T\\ dry. Vital Signs: 08:05 BP 112 / 76; Pulse 72; Resp 16; Temp 98; Pulse Ox 100% on R/A; Weight 93.44 kg; Height mb9 5 ft. 11 in. (180.34 cm); Pain 7/10; 08:57 BP 102 / 59; Pulse 66; Resp 14; Pulse Ox 97% on R/A; mb9 09:39 BP 97 / 75; Pulse 72; Resp 16; Pulse Ox 98% on R/A; Pain 7/10; mb9 10:50 BP 121 / 60; Pulse 68; Resp 16; Pulse Ox 100% on R/A; Pain 8/10; mb9 12:00 BP 95 / 65; Pulse 63; Resp 16; Pulse Ox 100% on R/A; mb9 12:00 BP 105 / 78; Pulse 72; Resp 18; Pulse Ox 100% on R/A; Pain 0/10; mb9 08:05 Body Mass Index 28.73 (93.44 kg, 180.34 cm) mb9 ED Course: 07:58 Patient arrived in ED. mr 08:05 Arm band placed on. mb9 08:05 Placed in gown. Bed in low position. Call light in reach. Side rails up X 1. 9 08:06 Princess Garza FNP is [facility]. jh7 08:06 Madan Ferrer MD is Attending Physician. jh7 08:15 Ania Lentz, CHANDAN is Primary Nurse. mb9 08:18 Triage completed. mb9 08:20 Inserted saline lock: 20 gauge in right antecubital area, using aseptic technique. mb9 Blood collected. 08:48 Lipase Sent. mb9 08:48 CMP Sent. mb9 08:48 No provider procedures requiring assistance completed. mb9 09:20 Madan Ferrer MD is Attending Physician. jh7 09:52 US Abdomen Limited: LLQ pain radiating to RLQ. hx of ovarian CA In Process Unspecified. EDMS 09:53 CT Abd/Pelvis - IV Contrast Only In Process Unspecified. EDMS 10:10 Urine Microscopic Only Sent. mb9 10:48 Urine Culture Sent. mb9 13:29 IV discontinued, intact, bleeding controlled, No redness/swelling at site. Pressure mb9 dressing applied. Administered Medications: 08:47 Drug: NS 0.9% 1000 ml Route: IV; Rate: 1 bolus; Site: right antecubital; mb9 09:46 Follow up: Response: No adverse reaction; IV Status: Completed infusion mb9 08:47 Drug: Zofran (Ondansetron) 4 mg Route: IVP; Site: right antecubital; mb9 09:46 Follow up: Response: No adverse reaction mb9 08:47 Drug: morphine 4 mg Route: IVP; Infused Over: 4 mins; Site: right antecubital; mb9 09:46 Follow up: Response: No adverse reaction mb9 10:04 Drug: fentaNYL (PF) 25 mcg Route: IVP; Site: right antecubital; mb9 12:40 Follow up: Response: No adverse reaction mb9 10:48 Drug: HYDROcodone-acetaminophen 5 mg-325 mg 1 tabs Route: PO; mb9 11:22 Follow up: Response: No adverse reaction mb9 12:40 Drug: Rocephin (cefTRIAXone) 1 grams Route: IV; Rate: 1 calculated rate; Site: right mb9 antecubital; 13:32 Follow up: Response: No adverse reaction; IV Status: Completed infusion mb9 Medication: 08:30 VIS not applicable for this client. mb9 Outcome: 12:36 Discharge ordered by . jh7 13:29 Discharged to home ambulatory. mb9 13:29 Condition: stable 13:29 Discharge instructions given to patient, Instructed on discharge instructions, follow up and referral plans. Demonstrated understanding of instructions, follow-up care, medications. 13:30 Patient left the ED. mb9 Addendum: 12/15/2021 07:04 Addendum: Culture Results: Positive urine culture. No further action required. Bacteria e b sensitive to prescribed antibiotic. Signatures: Dispatcher [employer] EDMI Ania Blanco, Princess Laura, LAWYER CRIMINAL LAWYER CRIMINAL 7 Ania Lentz, RN RN mb9
[2021-12-13 13:49] VITALS: TEMP 98
[2021-12-13 13:57] VITALS: O2SAT 100
[2021-12-13 13:58] VITALS: BP 105/78
== END 2021-12-13 13:30 | disposition home or self-care (01) ==
LOC: ER 07:54
DX: N39.0 Urinary tract infection, site not specified (principal); R10.32 Left lower quadrant pain; Z85.43 Personal history of malignant neoplasm of ovary
CPT/HCPCS: 96365; 96361; 87088; 85025; 87086; 36415; 87077; 87186; 83690; 80053; 74177; 76705; 96375; 99284; Q9967; J3010; J7030; J2405; 81003; 81015

== ENCOUNTER 2022-12-28 03:03 | Emergency (ER) | payer OTHER ==
--- OUTSIDE RECORDS SUMMARY | 2022-12-28 03:06 | XMS REPORT | Clinical Summary ---
:1990 Author Organization [facility] Address [address] [place] [address] Care Team Providers Name Role Phone Mariel Farris Unavailable Allergies Not on File Medications Not on file Active Problems Not on file Social History Tobacco Use Types Packs/Day Years Used Date Smoking Tobacco: Never Assessed Sex and Gender Information Value Date Recorded Sex Assigned at Not on file Gender Identity Not on file Sexual Orientation Not on file Last Filed Vital Signs Not on file Plan of Treatment Not on file Results Not on fileafter 12/28/2021 Insurance Payer Benefit Plan / Subscriber ID Effective Dates Phone Addre ss Type Group AMBETTER AMBETTER [id number] Effective for [address] [place] [address] MEDICARE MEDICARE PART [id number] 2022-Pres [phone] [facility] Medicare A AND B nt 2 SOLUTIONS [address] [place] [id number] Care Teams Floor Covering Layer Relationship Specialty Start Date End Date Mariel Farris FNP PCP - External Primary Care 09/06/20 Provider
--- OUTSIDE RECORDS SUMMARY | 2022-12-28 03:11 | XMS REPORT | Continuity of Care Document ---
:1990 Author Organization [facility] t Address [address] [place] [address] Care Team Providers Name Role Phone No, Pcp [facility] Primary Care Physician Unavailable ZAY GHOTRA Attending Clinician Unavailable CRISTELA ESCOBEDO Attending Clinician Unavailable ASHLEY HERNANDEZ Attending Clinician Unavailable CHRISTIAN GHOTRA Attending Clinician Unavailable Zay Ghotra MD Attending Clinician [phone] Ashley Hernandez Attending Clinician Sherie Mooney LMSW Attending Clinician Unavailable Alex, Surgeon Attending Clinician Unavailable Kade Mendenhall Attending Clinician Unavailable Stringed Instrument Tuner, [facility] Staff Attending Clinician Unavailable Ulises Ryan MD Attending Clinician Tere Weber MD Attending Clinician [phone] Attending Clinician Unavailable VERONICA Attending Clinician Unavailable ZAY GHOTRA Admitting Clinician Unavailable CRISTELA ESCOBEDO Admitting Clinician Unavailable VERONICA Admitting Clinician Unavailable SYL HENRIQUEZ Admitting Clinician Unavailable Payers Payer Name Policy Type Policy Number Effective Date Expiration Date S ourhemanth BCBS ADV HMO [id number] 2020 EXCHANGE 00:00:00 SAADIA MORENO [id number] 2022 00:00:00 Problems Condition Condition Condition Status Onset Resolution Last Treating Co mments Source Name Details Category Date Date Treatment Clinician Date Abnormal Abnormal Disease [facility] bleeding bleeding 00:00: Medica l (AUB) (AUB) 00 Center Ovarian Ovarian Disease Recurre [facility] cancer cancer nce [facility] 00:[facility]: [facility] [place] Adnexal Adnexal Disease Active [facility] mass mass 5-25 [facility] 00:00: [facility] [place] At risk At risk Disease Active [facility] for for 5-25 [facility] fertility fertility 00:00: Medi angel[facility] problems problems 00 [place] Elevated Elevated Disease Active [facility] markers markers 00:00: Medical [place] Pelvic Pelvic Disease Active [facility] pain pain 5-25 [facility] 00:00: Medical [place] Ovarian Ovarian Disease Active [facility] mass mass 4-14 [facility] 00:00: [facility] [place] Generalize Generalize Disease Active [facility] d d 4-14 [facility] abdominal abdominal 00:00: Medi [facility] pain pain 00 Center Allergies, Adverse Reactions, Alerts Allergy Allergy Status Severity Reaction(s) Onset Inactive Treating Comm ents Source Name Type Date Date Clinician CARBOPLA Allergy Active Other [facility] TIN 9-20 [facility] 00:00: Medical 00 Center DOXYCYCL Allergy Active High N\\T\\V [facility] INE 1-23 [facility] 00:00: Medical [place] Doxycycl Drug Active Nausea And [facility] Allergy Vomiting 1-23 [facility] 00:[facility]: Medical [place] Doxycycl Drug Active Nausea And Other [facility] in[facility] Allergy Vomiting 1-03 reaction( Luke s 00:00: s): Medical 00 Unknown Center DOXYCYCL Allergy Active High N\\T\\V [facility] IN[facility] 1-03 [facility] 00:[facility]: Medical 00 [place] Family History Family Member Diagnosis Comments Start Date Stop Date Source Maternal aunt Breast cancer [facility] Maternal grandmother Pancreatic cancer [facility] Paternal grandfather [facility] Social History Social Habit Start Date Stop Date Quantity Comments Source History of tobacco Cigarette Smoker [facility] use [facility] Sexual orientation Mukesh rose [facility] MD Eleazar bañuelos [facility] Exposure to 2022-10-13 2022-10-[address] [facility] SARS-CoV-2 (event) 00:00:00 09:37:00 [facility] Alcohol intake 2022-10-21 2022-10-21 Ex-drinker [facility] 00:00:00 00:00:00 (finding) [facility] Alcohol Comment 2022-09-30 2022-09-[address] [facility] 00:00:00 00:00:00 [facility] Cigarettes smoked 2022-07-29 2022-07-[address] [facility] current (pack per 00:00:00 00:00:00 Medical Center day) - Reported Tobacco use and 2022-07-29 2022-07-[address] [facility] exposure 00:00:00 00:00:00 tobacco non-user [facility] Tobacco Comment 2022-07-29 2022-07-29 quit- [address] [facility] 00:00:00 00:00:00 [facility] Sex [birth year] At [birth year] [facility] 00:[facility] 00:00:00 Kim MARTELL [facility] Smoking Status Start Date Stop Date Source Ex-smoker 2022-07-29 00:00:00 2022-07-29 00:00:00 [facility] Medications Ordered Filled Start Stop Current Ordering Indication Dosage Frequency Signature Comments Components Source Medication Medication Date Date Medication? Clinician (SIG) Name Name ondansetron 2023- Yes History of 8mg Take [address] [facility] (ZOFRAN) 8 10-23 chemotherap tablet (8 [facility] MG tablet 00:00: 23:59 y mg total) Me dical 00 :00 by mouth Center every 12 (twelve) hours as needed for Nausea (chemother apy related nausea). ondansetron 2023- Yes History of 8mg Take [address] [facility] (ZOFRAN) 8 10-23 chemotherap tablet (8 [facility] MG tablet 00:00: 23:59 y mg total) Me dical 00 :00 by mouth Center every 12 (twelve) hours as needed for Nausea (chemother apy related nausea). fentaNYL 2022-2022- Yes Cancer 1{patch Place [address] [facility] (DURAGESIC) 10-23 associated } patch onto [facility] 12 mcg/hr 00:00: 23:59 pain the skin Med ical patch 00 :00 every Center third day for 30 days. Max Daily Amount: 1 patch fentaNYL 2022-0 2022- Yes Cancer 1{patch Place [address] [facility] (DURAGESIC) 10-23 associated } patch onto [facility] 12 mcg/hr 00:00: 23:59 pain the skin Med ical patch 00 :00 every Center third day for 30 days. Max Daily Amount: 1 patch gabapentin 2022-2023- Yes 300mg Q.5D Take [address] [facility] (Neurontin) 10-11- capsule Luke [facility] 300 MG 00:00: 23:59 (300 mg Medical capsule 00 :00 total) by Center mouth 2 (two) times daily. metoclopram 2022-2023- Yes 10mg Take [address] [facility] maría HCl 10-11 tablet (10 [facility] (REGLAN) 10 00:00: 23:59 mg total) Medical MG tablet 00 :00 by mouth 3 Cent er (three) times daily with meals Take 30 minutes before meals. gabapentin 2022-2023- Yes 300mg Q.5D Take [address] [facility] (Neurontin) 10-11- capsule Luke [facility] 300 MG 00:00: 23:59 (300 mg Medical capsule 00 :00 total) by Center mouth 2 (two) times daily. metoclopram 2022-2023- Yes 10mg Take [address] [facility] maría HCl 10-11-17 tablet (10 [facility] (REGLAN) 10 00:00: 23:59 mg total) Medical MG tablet 00 :00 by mouth 3 Cent er (three) times daily with meals Take 30 minutes before meals. morphine 2022-0 2022- Yes Cancer 15mg Take [address] [facility] (MS CONTIN) 10-11 associated tablet (15 [facility] 15 MG 12 hr 00:00: 23:59 pain mg total) Medical tablet 00 :00 by mouth Center every 12 (twelve) hours for 30 days. Max Daily Amount: 30 mg morphine 2022-0 2022- Yes Cancer 15mg Take [address] [facility] (MS CONTIN) 8-18 09-17 associated tablet (15 [facility] 15 MG 12 hr 00:00: 23:59 pain mg total) Medical tablet 00 :00 by mouth Center every 12 (twelve) hours for 30 days. Max Daily Amount: 30 mg acetaminoph 2022-2022- No 1{tbl} Take [address] en-codeine 8-16 08-16 tablet by Archana es (TYLENOL 14:54: 00:00 mouth Medical #3) 300-30 55 :00 every 4 Center mg per (four) tablet hours as needed for Pain. acetaminoph 2022- No 1{tbl} Take [address] en-codeine 8-16 08-16 tablet by Archana es (TYLENOL 14:54: 00:00 mouth Medical #3) 300-30 55 :00 every 4 Center mg per (four) tablet hours as needed for Pain. HYDROcodone 2022-2022- No 1{tbl} Take [address] -acetaminop 8-16 08-16 tablet by Sherri cheatham (NORCO 10:41: 00:00 mouth Medic al 5-325) 52 :00 every 6 Center 5-325 mg (six) per tablet hours as needed for Pain. HYDROcodone 2022-2022- No 1{tbl} Take [address] -acetaminop 8-16 08-16 tablet by Sherri cheatham (NORCO 10:41: 00:00 mouth Medic al 5-325) 52 :00 every 6 Center 5-325 mg (six) per tablet hours as needed for Pain. FLUoxetine 2022-0 Yes 40mg QD Take 1 [facility] (PROzac) 40 8-16 capsule [facility] MG capsule 10:00: (40 mg Medic al 44 total) by Center mouth daily. FLUoxetine 2023-0 Yes 40mg QD Take 1 [facility] (PROzac) 40 8-16 capsule [facility] MG capsule 10:00: (40 mg Medic al 44 total) by Center mouth daily. HYDROcodone 3-0 Yes 1{tbl} Take [address] -acetaminop 8-16 tablet by Archana cheatham (NORCO 00:00: mouth Medica l 5-325) 00 every 6 Center 5-325 mg (six) per tablet hours as needed for Pain (cancer related pain) for up to 60 doses. Max Daily Amount: 4 tablets HYDROcodone 2023-0 Yes 1{tbl} Take [address] -acetaminop 8-16 tablet by Archana es hen (NORCO 00:00: mouth Medica l 5-325) 00 every 6 Center 5-325 mg (six) per tablet hours as needed for Pain (cancer related pain) for up to 60 doses. Max Daily Amount: 4 tablets traMADoL 3-0 Yes 50mg Take [address] [facility] (ULTRAM) 50 7-03 tablet (50 Sherri kes mg tablet 00:00: mg total) Med ical 00 by mouth Center every 6 (six) hours as needed. Max Daily Amount: 200 mg traMADoL 3-0 Yes 50mg Take [address] [facility] (ULTRAM) 50 7-03 tablet (50 Sherri kes mg tablet 00:00: mg total) Med ical 00 by mouth Center every 6 (six) hours as needed. Max Daily Amount: 200 mg acetaminoph 2022-0 Yes 1{tbl} Take [address] en-codeine 1-06 tablet by John s (TYLENOL 13:32: mouth Medical #3) 300-30 34 every 4 Center mg per (four) tablet hours as needed for Pain. HYDROcodone 2022-0 Yes 1{tbl} Take [address] -acetaminop 1-06 tablet by Archana es hen (NORCO 13:32: mouth Medica l 5-325) 34 every 6 Center 5-325 mg (six) per tablet hours as needed for Pain. FLUoxetine 2022-0 Yes 40mg QD Take [address] (PROzac) 40 1-06 by mouth Luke s MG capsule 13:32: daily. Medic al 34 Center acetaminoph 2022-0 Yes 1{tbl} Take [address] en-codeine 1-06 tablet by Luke s (TYLENOL 13:32: mouth Medical #3) 300-30 34 every 4 Center mg per (four) tablet hours as needed for Pain. HYDROcodone 2022-0 Yes 1{tbl} Take [address] -acetaminop 1-06 tablet by Archana es hen (NORCO 13:32: mouth Medica l 5-325) 34 every 6 Center 5-325 mg (six) per tablet hours as needed for Pain. FLUoxetine 2023-0 Yes 40mg QD Take [address] (PROzac) 40 1-06 by mouth Luke s MG capsule 13:32: daily. Medic al 34 [place] acetaminoph 0 Yes 1{tbl} Take [address] en-codeine 1-06 tablet by Luke s (TYLENOL 13:32: mouth Medical #3) 300-30 34 every 4 Center mg per (four) tablet hours as needed for Pain. HYDROcodone 2022-0 Yes 1{tbl} Take [address] -acetaminop 1-06 tablet by Archana es hen (NORCO 13:32: mouth Medica l 5-325) 34 every 6 Center 5-325 mg (six) per tablet hours as needed for Pain. FLUoxetine 0 Yes 40mg QD Take [address] (PROzac) 40 1-06 by mouth Luke s MG capsule 13:32: daily. Medic al 34 [place] acetaminoph 0 Yes 1{tbl} Take [address] en-codeine 1-06 tablet by Luke s (TYLENOL 13:32: mouth Medical #3) 300-30 34 every 4 Center mg per (four) tablet hours as needed for Pain. HYDROcodone 0 Yes 1{tbl} Take [address] -acetaminop 1-06 tablet by Archana es hen (NORCO 13:32: mouth Medica l 5-325) 34 every 6 Center 5-325 mg (six) per tablet hours as needed for Pain. FLUoxetine 0 Yes 40mg QD Take [address] (PROzac) 40 1-06 by mouth Luke s MG capsule 13:32: daily. Medic al 34 [place] FLUoxetine 0 2022- No 20mg QD Take [address] [facility] (PROzac) 20 03-01 by mouth Archana es MG tablet 07:16: 00:00 daily. Medic al 23 :00 [place] FLUoxetine 2022-0 2022- No 20mg QD Take [address] (PROzac) 20 03-01 by mouth Archana es MG tablet 07:16: 00:00 daily. Medic al 23 :00 [place] FLUoxetine 2022-0 2022- No 20mg QD Take [address] [address] (PROzac) 03-01 by mouth Archana es MG tablet 07:16: 00:00 daily. Medic al 23 :00 [place] FLUoxetine 3-0 2023- No 20mg QD Take [address] (PROzac) 20 03-01 by mouth Archana es MG tablet 07:16: 00:00 daily. Medic al 23 :00 [place] FLUoxetine 3-0 2023- No 20mg QD Take [address] (PROzac) 20 03-01 by mouth Archana es MG tablet 07:16: 00:00 daily. Medic al 23 :00 [place] FLUoxetine 2022-0 2023- No 20mg QD Take [address] (PROzac) 20 03-01 by mouth Archana es MG tablet 07:16: 00:00 daily. Medic al 23 :00 [place] lamoTRIgine 3-0 2023- No 25mg QD Take [address] (LaMICtal) 03-01 by mouth Luke s 25 MG 07:16: 00:00 daily. Medical tablet 08 :00 [place] lamoTRIgine 3-0 2023- No 25mg QD Take [address] [address] (LaMICtal) 03-01 by mouth Luke s 25 MG 07:16: 00:00 daily. Medical tablet 08 :00 [place] lamoTRIgine 3-0 2023- No 25mg QD Take [address] [address] (LaMICtal) 03-01 by mouth Luke s 25 MG 07:16: 00:00 daily. Medical tablet 08 :00 [place] lamoTRIgine 2023-0 2023- No 25mg QD Take [address] [address] (LaMICtal) 03-01 by mouth Luke s 25 MG 07:16: 00:00 daily. Medical tablet 08 :00 [place] lamoTRIgine 2023-0 2023- No 25mg QD Take [address] [facility] [address] (LaMICtal) 03-01 by mouth Luke s 25 MG 07:16: 00:00 daily. Medical tablet 08 :00 [place] lamoTRIgine 2023-0 2023- No 25mg QD Take [address] [facility] [address] (LaMICtal) 03-01 by mouth Luke s 25 MG 07:16: 00:00 daily. Medical tablet 08 :00 [place] FLUoxetine 2021 Yes 40mg QD Take [address] (PROzac) 40 1-18 by mouth Luke s MG capsule 14:10: daily. Medic al 33 [place] FLUoxetine 2021-02 Yes 20mg QD Take [address] (PROzac) 20 1-18 by mouth Luke s MG tablet 14:10: daily. Medica l 33 [place] acetaminoph 2021-02 Yes 1{tbl} Take [address] en-codeine 1-17 tablet by John blount (TYLENOL 14:14: mouth Medical #3) 300-30 46 every 4 Center mg per (four) tablet hours as needed for Pain. HYDROcodone 2021-02 Yes 1{tbl} Take [address] -acetaminop 1-17 tablet by Archana cheatham (NORCO 14:14: mouth Medica l 5-325) 46 every 6 Center 5-325 mg (six) per tablet hours as needed for Pain. lamoTRIgine 2021-02 Yes 25mg QD Take [address] [facility] (LaMICtal) 1-17 by mouth [facility] 25 MG 14:14: daily. Medical tablet 46 [place] letrozole Yes 2.5mg Take 2.[address] [facility] (FEMARA) 6-08 mg by [facility] 2.5 mg 00:00: mouth. Medical tablet 00 [place] letrozole Yes 2.5mg Take 2.[address] [facility] [address] (FEMARA) 6-08 mg by [facility] 2.5 mg 00:00: mouth. Medical tablet 00 [place] letrozole Yes 2.5mg Take 2.[address] [facility] [address] (FEMARA) 6-08 mg by [facility] 2.5 mg 00:00: mouth. Medical tablet 00 [place] letrozole Yes 2.5mg Take 2.[address] [facility] (FEMARA) 6-08 mg by [facility] 2.5 mg 00:00: mouth. Medical tablet 00 [place] letrozole 2022- No 2.5mg Take [address] [facility] (FEMARA) 6-08 08-16 tablet [facility] 2.5 mg 00:00: 00:00 (2.5 mg Medical tablet 00 :00 total) by Center mouth. letrozole 2022- No 2.5mg Take [address] [facility] (FEMARA) 6-08 08-16 tablet [facility] 2.5 mg 00:00: 00:00 (2.5 mg Medical tablet 00 :00 total) by Center mouth. acetaminoph 2022-0 Yes 1{tbl} Take [address] en-codeine 5-24 tablet by John s (TYLENOL 15:59: mouth Medical #3) 300-30 38 every 4 Center mg per (four) tablet hours as needed for Pain. HYDROcodone 2022-0 Yes 1{tbl} Take [address] -acetaminop 5-24 tablet by Archana es hen (NORCO 15:59: mouth Medica l 5-325) 38 every 6 Center 5-325 mg (six) per tablet hours as needed for Pain. lamoTRIgine 2022-0 Yes 25mg QD Take [address] [facility] [address] (LaMICtal) 5-24 by mouth [facility] 25 MG 15:59: daily. Medical tablet 38 Center acetaminoph 2-0 Yes 1{tbl} Take [address] en-codeine 5-24 tablet by John s (TYLENOL 15:59: mouth Medical #3) 300-30 38 every 4 Center mg per (four) tablet hours as needed for Pain. HYDROcodone 2022-0 Yes 1{tbl} Take [address] -acetaminop 5-24 tablet by Archana es hen (NORCO 15:59: mouth Medica l 5-325) 38 every 6 Center 5-325 mg (six) per tablet hours as needed for Pain. lamoTRIgine 2022-0 Yes 25mg QD Take [address] [facility] [address] (LaMICtal) 5-24 by mouth [facility] 25 MG 15:59: daily. Medical tablet 38 Center acetaminoph 2-0 Yes 1{tbl} Take [address] en-codeine 5-24 tablet by Luke s (TYLENOL 15:59: mouth Medical #3) 300-30 38 every 4 Center mg per (four) tablet hours as needed for Pain. HYDROcodone 2022-0 Yes 1{tbl} Take [address] -acetaminop 5-24 tablet by Archana es hen (NORCO 15:59: mouth Medica l 5-325) 38 every 6 Center 5-325 mg (six) per tablet hours as needed for Pain. lamoTRIgine 2022-0 Yes 25mg QD Take [address] [facility] [address] (LaMICtal) 5-24 by mouth [facility] 25 MG 15:59: daily. Medical tablet 38 Center acetaminoph 0 Yes 1{tbl} Take [address] en-codeine 5-24 tablet by John s (TYLENOL 15:59: mouth Medical #3) 300-30 38 every 4 Center mg per (four) tablet hours as needed for Pain. HYDROcodone 2021-0 Yes 1{tbl} Take [address] -acetaminop 5-24 tablet by Archana es hen (NORCO 15:59: mouth Medica l 5-325) 38 every 6 Center 5-325 mg (six) per tablet hours as needed for Pain. lamoTRIgine 0 Yes 25mg QD Take [address] [facility] [address] (LaMICtal) 5-24 by mouth [facility] 25 MG 15:59: daily. Medical tablet 38 Center acetaminoph 0 Yes 1{tbl} Take [address] en-codeine 5-24 tablet by John s (TYLENOL 15:59: mouth Medical #3) 300-30 38 every 4 Center mg per (four) tablet hours as needed for Pain. HYDROcodone 0 Yes 1{tbl} Take [address] -acetaminop 5-24 tablet by Archana es hen (NORCO 15:59: mouth Medica l 5-325) 38 every 6 Center 5-325 mg (six) per tablet hours as needed for Pain. lamoTRIgine 0 Yes 25mg QD Take [address] [facility] [address] (LaMICtal) 5-24 by mouth [facility] 25 MG 15:59: daily. Medical tablet 38 Center docusate 0 Yes 100mg QD Take [address] [facility] sodium 5-23 mg by [facility] (COLACE) 00:00: mouth Medical 100 MG 00 daily . Center capsule ibuprofen 0 Yes 1{tbl} Take [address] [facility] (ADVIL,MOTR 5-23 tablet by Archana es IN) 600 MG 00:00: mouth Medica l tablet 00 every 6 Center (six) hours as needed. traMADoL 0 Yes 1{tbl} Take 1 [facility] (ULTRAM) 50 5-23 tablet by Archana es mg tablet 00:00: mouth Medical 00 every 6 Center (six) hours as needed. docusate 2022-0 Yes 100mg QD Take [address] [address] sodium 5-23 mg by [facility] (COLACE) 00:00: mouth Medical 100 MG 00 daily . Center capsule ibuprofen 2-0 Yes 1{tbl} Take [address] [facility] (ADVIL,MOTR 5-23 tablet by Archana es IN) 600 MG 00:00: mouth Medica l tablet 00 every 6 Center (six) hours as needed. traMADoL 2022-0 Yes 1{tbl} Take 1 [facility] (ULTRAM) 50 5-23 tablet by Archana es mg tablet 00:00: mouth Medical 00 every 6 Center (six) hours as needed. docusate 2022-0 Yes 100mg QD Take [address] sodium 5-23 mg by [facility] (COLACE) 00:00: mouth Medical 100 MG 00 daily . Center capsule ibuprofen 2021-0 Yes 1{tbl} Take [address] [facility] (ADVIL,MOTR 5-23 tablet by Archana es IN) 600 MG 00:00: mouth Medica l tablet 00 every 6 Center (six) hours as needed. traMADoL 2-0 Yes 1{tbl} Take 1 [facility] (ULTRAM) 50 5-23 tablet by Archana es mg tablet 00:00: mouth Medical 00 every 6 Center (six) hours as needed. docusate 2022-0 Yes 100mg QD Take [address] sodium 5-23 mg by [facility] (COLACE) 00:00: mouth Medical 100 MG 00 daily . Center capsule ibuprofen 2-0 Yes 1{tbl} Take [address] [facility] (ADVIL,MOTR 5-23 tablet by Archana es IN) 600 MG 00:00: mouth Medica l tablet 00 every 6 Center (six) hours as needed. traMADoL 2-0 Yes 1{tbl} Take 1 [facility] (ULTRAM) 50 5-23 tablet by Archana es mg tablet 00:00: mouth Medical 00 every 6 Center (six) hours as needed. docusate 2022-0 Yes 100mg QD Take [address] [facility] sodium 5-23 capsule [facility] (COLACE) 00:00: (100 mg Medica l 100 MG 00 total) by Center capsule mouth daily. ibuprofen 2022-0 Yes 600mg Take 1 [facility] (ADVIL,MOTR 5-23 tablet [facility] IN) 600 MG 00:00: (600 mg Medi angelica tablet 00 total) by Center mouth every 6 (six) hours as needed. docusate Yes 100mg QD Take [address] [facility] sodium 5-23 capsule [facility] (COLACE) 00:00: (100 mg Medica l 100 MG 00 total) by Center capsule mouth daily. ibuprofen Yes 600mg Take [facility] (ADVIL,MOTR 5-23 tablet [facility] IN) 600 MG 00:00: (600 mg Medi angelica tablet 00 total) by Center mouth every 6 (six) hours as needed. traMADoL 2022- No 50mg Take [address] [facility] (ULTRAM) 50 5-23 07-03 tablet (50 L ukes mg tablet 00:00: 00:00 mg total) Me dical 00 :00 by mouth Center every 6 (six) hours as needed. traMADoL 2022- No 50mg Take [address] [facility] (ULTRAM) 50 5-23 07-03 tablet (50 L ukes mg tablet 00:00: 00:00 mg total) Me dical 00 :00 by mouth Center every 6 (six) hours as needed. eszopiclone Yes 1{tbl} QD Take [address] 3 mg tablet 5-13 tablet by Archana es 00:00: mouth Medical 00 daily. [place] eszopiclone Yes 1{tbl} QD Take [address] 3 mg tablet 5-13 tablet by Archana es 00:00: mouth Medical 00 daily. [place] eszopiclone Yes 1{tbl} QD Take [address] 3 mg tablet 5-13 tablet by Archana es 00:00: mouth Medical 00 daily. [place] eszopiclone Yes 1{tbl} QD Take [address] 3 mg tablet 5-13 tablet by Archana es 00:00: mouth Medical 00 daily. [place] eszopiclone Yes 3mg QD Take [address] [facility] 3 mg tablet 5-13 tablet (3 Archana es 00:00: mg total) Medical 00 by mouth Center daily. eszopiclone Yes 3mg QD Take [address] [facility] 3 mg tablet 5-13 tablet (3 Archana es 00:00: mg total) Medical 00 by mouth Center daily. sertraline 2021- No 25mg QD Take [address] [facility] (ZOLOFT) 25 4-17 04-17 tablet (25 L ukes MG tablet 00:00: 23:59 mg total) Me dical 00 :00 by mouth Center daily. sertraline 2021- No 25mg QD Take [address] [facility] (ZOLOFT) 25 4-17 04-17 tablet (25 L ukes MG tablet 00:00: 23:59 mg total) Me dical 00 :00 by mouth Center daily. sertraline 2021- No 25mg QD Take [address] [facility] (ZOLOFT) 25 4-17 04-17 tablet (25 L ukes MG tablet 00:00: 23:59 mg total) Me dical 00 :00 by mouth Center daily. sertraline 2021- No 25mg QD Take [address] [facility] (ZOLOFT) 25 4-17 04-17 tablet (25 L ukes MG tablet 00:00: 23:59 mg total) Me dical 00 :00 by mouth Center daily. sertraline 2021- No 25mg QD Take [address] [facility] (ZOLOFT) 25 4-17 04-17 tablet (25 L ukes MG tablet 00:00: 23:59 mg total) Me dical 00 :00 by mouth Center daily. sertraline 2021- No 25mg QD Take [address] [facility] (ZOLOFT) 25 4-17 04-17 tablet (25 L ukes MG tablet 00:00: 23:59 mg total) Me dical 00 :00 by mouth Center daily. sertraline 2021- No 25mg QD Take [address] [facility] (ZOLOFT) 25 4-17 04-17 tablet (25 L ukes MG tablet 00:00: 23:59 mg total) Me dical 00 :00 by mouth Center daily. sertraline 2021- No 25mg QD Take [address] [facility] (ZOLOFT) 25 4-17 04-17 tablet (25 L ukes MG tablet 00:00: 23:59 mg total) Me dical 00 :00 by mouth Center daily. sertraline 2021- No 25mg QD Take [address] [facility] (ZOLOFT) 25 4-17 04-17 tablet (25 L ukes MG tablet 00:00: 23:59 mg total) Me dical 00 :00 by mouth Center daily. sertraline 2021- No 25mg QD Take [address] [facility] (ZOLOFT) 25 06-10 tablet (25 L ukes MG tablet 00:00: 23:59 mg total) Me dical 00 :00 by mouth Center daily. Vital Signs Vital Name Observation Time Observation Value Comments Source HEIGHT 2020-07-18 07:00:00 149.9 cm WEIGHT 2020-07-18 07:00:00 86.7 kg HEIGHT 2020-06-27 15:40:00 149.9 cm WEIGHT 2020-06-27 15:40:00 81.647 kg HEIGHT 2022-12-25 10:24:00 149.9 cm WEIGHT 2022-12-25 10:24:00 97.07 kg HEIGHT 2022-12-25 08:56:00 149.9 cm WEIGHT 2022-12-25 08:56:00 97.342 kg HEIGHT 2022-12-04 10:23:00 149.9 cm WEIGHT 2022-12-04 10:23:00 95.754 kg WEIGHT 2022-12-04 09:37:00 95.981 kg HEIGHT 2022-11-13 10:22:00 149.9 cm WEIGHT 2022-11-13 10:22:00 95.528 kg HEIGHT 2022-11-13 09:06:00 149.9 cm WEIGHT 2022-11-13 09:06:00 96.616 kg HEIGHT 2022-11-06 11:29:00 149.9 cm WEIGHT 2022-11-06 11:29:00 95.1 kg HEIGHT 2022-11-06 11:29:00 149.9 cm WEIGHT 2022-11-06 11:29:00 95.1 kg HEIGHT 2022-10-23 09:38:00 149.9 cm WEIGHT 2022-10-23 09:38:00 92.625 kg HEIGHT 2022-10-23 09:38:00 149.9 cm WEIGHT 2022-10-23 09:38:00 92.625 kg HEIGHT 2022-10-11 07:59:00 149.9 cm WEIGHT 2022-10-11 07:59:00 93.985 kg HEIGHT 2022-10-11 07:59:00 149.9 cm WEIGHT 2022-10-11 07:59:00 93.985 kg HEIGHT 2022-10-09 09:59:00 149.9 cm WEIGHT 2022-10-09 09:59:00 93.441 kg HEIGHT 2022-10-09 09:59:00 149.9 cm WEIGHT 2022-10-09 09:59:00 93.441 kg HEIGHT 2022-09-30 09:13:00 149.9 cm WEIGHT 2022-09-30 09:13:00 93.94 kg HEIGHT 2022-09-30 09:13:00 149.9 cm WEIGHT 2022-09-30 09:13:00 93.94 kg HEIGHT 2022-09-19 08:15:00 149.9 cm WEIGHT 2022-09-19 08:15:00 95.255 kg HEIGHT 2022-09-19 08:15:00 149.9 cm WEIGHT 2022-09-19 08:15:00 95.255 kg HEIGHT 2022-08-26 10:50:00 149.9 cm WEIGHT 2022-08-26 10:50:00 95.618 kg HEIGHT 2022-08-26 10:50:00 149.9 cm WEIGHT 2022-08-26 10:50:00 95.618 kg HEIGHT 2022-07-29 10:47:00 149.9 cm WEIGHT 2022-07-29 10:47:00 95.346 kg HEIGHT 2022-07-29 10:47:00 149.9 cm WEIGHT 2022-07-29 10:47:00 95.346 kg HEIGHT 2022-03-01 07:00:00 149.9 cm WEIGHT 2022-03-01 07:00:00 96.026 kg HEIGHT 2022-03-01 07:00:00 149.9 cm WEIGHT 2022-03-01 07:00:00 96.026 kg HEIGHT 2022-01-10 09:00:00 149.9 cm WEIGHT 2022-01-10 09:00:00 90.4 kg HEIGHT 2022-01-10 09:00:00 149.9 cm WEIGHT 2022-01-10 09:00:00 90.4 kg HEIGHT 2021-07-17 05:40:00 149.9 cm WEIGHT 2021-07-17 05:40:00 96.8 kg HEIGHT 2021-07-13 13:57:00 149.9 cm WEIGHT 2021-07-13 13:57:00 92.534 kg HEIGHT 2021-07-17 05:40:00 149.9 cm WEIGHT 2021-07-17 05:40:00 96.8 kg HEIGHT 2021-07-13 13:57:00 149.9 cm WEIGHT 2021-07-13 13:57:00 92.534 kg HEIGHT 2020-07-18 07:00:00 149.9 cm WEIGHT 2020-07-18 07:00:00 86.7 kg HEIGHT 2020-06-27 15:40:00 149.9 cm WEIGHT 2020-06-27 15:40:00 81.647 kg Systolic blood 2022-10-23 15:07:00 103 mm[Hg] [facility] Diastolic blood 2022-10-23 15:07:00 67 mm[Hg] [facility] Heart rate 2022-10-23 15:07:00 88 /min [facility] Body temperature 2022-10-23 15:07:00 36.44 Julianne [facility] Body height 2022-10-23 15:07:00 149.9 cm [facility] Body weight 2022-10-23 15:07:00 92.67 kg [facility] BMI 2022-10-23 15:07:00 41.26 kg/m2 [facility] Oxygen saturation in 2022-10-23 15:07:00 98 /min [facility] Arterial blood by Medical Ce nter Pulse oximetry Respiratory rate 2022-10-23 10:23:00 18 /min [facility] Systolic blood 2022-03-01 11:22:00 109 mm[Hg] [facility] Diastolic blood 2022-03-01 11:22:00 69 mm[Hg] [facility] Heart rate 2022-03-01 11:22:00 82 /min [facility] Respiratory rate 2022-03-01 11:22:00 20 /min [facility] Oxygen saturation in 2022-03-01 11:22:00 96 /min [facility] Arterial blood by Medical Ce nter Pulse oximetry Body temperature 2022-03-01 07:00:00 36.5 Julianne [facility] Body height 2022-03-01 07:00:00 149.9 cm [facility] Body weight 2022-03-01 07:00:00 96.026 kg [facility] BMI 2022-03-01 07:00:00 42.76 kg/m2 [facility] Systolic blood 2022-01-10 13:26:00 100 mm[Hg] [facility] Diastolic blood 2022-01-10 13:26:00 67 mm[Hg] [facility] Heart rate 2022-01-10 13:26:00 63 /min [facility] Respiratory rate 2022-01-10 13:26:00 16 /min [facility] Oxygen saturation in 2022-01-10 13:26:00 99 /min [facility] Arterial blood by Medical Ce nter Pulse oximetry Body temperature 2022-01-10 12:56:00 36.67 Julianne [facility] Body height 2022-01-10 09:00:00 149.9 cm [facility] Body weight 2022-01-10 09:00:00 90.4 kg [facility] BMI 2022-01-10 09:00:00 40.25 kg/m2 [facility] Systolic blood 2021-07-17 14:15:00 113 mm[Hg] [facility] Diastolic blood 2021-07-17 14:15:00 56 mm[Hg] [facility] Heart rate 2021-07-17 14:15:00 110 /min [facility] Body temperature 2021-07-17 14:15:00 35.83 Julianne [facility] Respiratory rate 2021-07-17 14:15:00 12 /min [facility] Oxygen saturation in 2021-07-17 14:15:00 95 /min [facility] Arterial blood by Medical Ce nter Pulse oximetry Body height 2021-07-17 05:40:00 149.9 cm [facility] Body weight 2021-07-17 05:40:00 96.8 kg [facility] BMI 2021-07-17 05:40:00 43.10 kg/m2 [facility] Procedures Procedure Date / Time Performed Performing Clinician Sourc e CBC W/PLT COUNT & AUTO 2022-10-23 09:00:00 [facility] METABOLIC 2022-10-23 09:00:00 Zay Ghotra [facility] PANEL [facility] MAGNESIUM 2022-10-23 09:00:[address] [facility] HEPATITIS B PANEL 2022-10-23 09:00:00 [place] [facility] HEPATITIS C ANTIBODY 2022-10-23 09:00:[address] [facility] BILIRUBIN, DIRECT 2022-10-23 09:00:00 [facility] W/[facility]T COUNT & AUTO 2022-10-23 09:00:00 Zay Ghotra [facility] PROCEDURE, IN 2022-09-30 17:00:00 Virtual, Surgeon ANNE Kothari NON-OPERATING ROOM Medical Cente r SETTING CT 2022-09-30 12:33:00 Zay Ghotra [facility] BIOPSY/ASPIRATION/INJECTI [facility] ON TISSUE EXAM 2022-09-30 12:18:00 Zay Ghotra [facility] CBC W/PLT COUNT & AUTO 2022-09-30 09:39:00 [facility] Brandi [facility] PROTHROMBIN TIME/INR 2022-09-30 09:39:[address] [facility] CBC W/PLT COUNT & AUTO 2022-09-30 09:39:00 [place] [facility] Brandi [facility] CANCER ANTIGEN 125 ([place] 2022-08-26 11:37:00 Zay Ghotra [facility] S [facility] 125) [facility] CBC W/PLT COUNT & AUTO 2022-08-26 11:37:00 Zay Ghotra [facility] DIFFERENTIAL [facility] COMPREHENSIVE METABOLIC 2022-08-26 11:37:00 [facility] PANEL [facility] CBC W/PLT COUNT & AUTO 2022-08-26 11:37:00 [facility] CT ABDOMEN/PELVIS WITH IV 2022-08-15 13:25:00 Zay Ghotra [facility] CONTRAST [facility] IR PORT REMOVAL 2022-03-01 11:10:00 [place] [facility] CBC W/PLT COUNT & AUTO 2022-03-01 07:37:00 Joshua [facility] PROTHROMBIN TIME/INR 2022-03-01 07:37:00 Joshua [facility] CBC W/PLT COUNT & AUTO 2022-03-01 07:37:00 Joshua [facility] BODY FLUID CULTURE + GRAM 2022-01-10 12:07:00 Zay Ghotra I [facility] STAIN [facility] CYTOLOGY 2022-01-10 12:04:[address] [facility] CT BIOPSY ABDOMEN 2022-01-10 12:00:00 [place] [facility] POCT , URINE 2022-01-10 09:40:00 Aleksey [facility] CBC W/PLT COUNT & AUTO 2022-01-10 09:24:00 Aleksey [facility] CBC W/PLT COUNT & AUTO 2022-01-10 09:24:00 Aleksey [facility] BASIC METABOLIC PANEL 2022-01-10 09:23:00 [facility]/INR 2022-01-10 09:23:00 Aleksey [facility] US PELVIS WITH ENDOVAG 2021-11-26 13:30:00 Zay Ghotra [facility] STUDY [facility] TISSUE EXAM 2021-07-17 09:17:00 [facility] HYSTERECTOMY, TOTAL, 2021-07-17 07:14:00 Zay Ghotra [facility] LAPAROSCOPY-ASSISTED [facility] ter CYSTOSCOPY 2021-07-17 07:14:00 [facility] POCT , URINE 2021-07-17 06:02:[address] Figu[address]a [facility] BASIC METABOLIC PANEL 2021-07-17 05:55:00 Court Figueroa [facility] SARS-COV2/RT-PCR ([facility] & 2021-07-13 11:37:00 [place] [facility] REF LABS) [facility] HEMOGLOBIN 2021-07-13 11:37:00 Ulises Ryan [facility] TYPE AND SCREEN, 2021-07-13 11:37:00 Ulises Ryan [facility] CT ABDOMEN/PELVIS WITH IV 2020-12-22 09:55:00 Mel[place] [facility] CONTRAST [facility] CT CHEST WITH IV CONTRAST 2020-12-22 09:55:[address] [facility] Plan of Care Planned Activity Planned Date Details Comments Source Future Scheduled 2023-10-[address] [facility] 00:00:00 Counseling and Screening Med [facility] (12+) [code = Tobacco Cessation Counseling and Screening (12+)] Future Scheduled 2023-10-[address] [facility] 00:00:00 Counseling and Screening Med [facility] (12+) [code = Tobacco Cessation Counseling and Screening (12+)] Future Scheduled 2023-03-[address] [facility] 00:00:00 Counseling and Screening Med [facility] (12+) [code = Tobacco Cessation Counseling and Screening (12+)] Future Scheduled 2023-03-[address] [facility] 00:00:00 Counseling and Screening Med [facility] (12+) [code = Tobacco Cessation Counseling and Screening (12+)] Future Scheduled 2023-03-[address] [facility] 00:00:00 Counseling and Screening Med ical Center (12+) [code = Tobacco Cessation Counseling and Screening (12+)] Future Scheduled 2023-03-[address] [facility] 00:00:00 Counseling and Screening Med ical Center (12+) [code = Tobacco Cessation Counseling and Screening (12+)] Future Scheduled 2023-01-[address] [facility] 00:00:00 Counseling and Screening Med ical Center (12+) [code = Tobacco Cessation Counseling and Screening (12+)] Future Scheduled 2022-10-25 INFLUENZA VACCINE (Season [facility] 00:00:00 Ended) [code = INFLUENZA Med ical Center VACCINE (Season Ended)] Future Scheduled 2022-10-25 Influenza Vaccine (#1) [facility]00 [code = Influenza Vaccine Me dical Center (#1)] Future Scheduled 2022-10-25 Influenza Vaccine (#1) [facility] 00:00:00 [code = Influenza Vaccine Me dical Center (#1)] Future Scheduled 2022-02-[address] [facility] 00:00:00 (12+) [code = DEPRESSION Med ical Center SCREENING (12+)] Future Scheduled 2022-02-[address] [facility] 00:00:00 (12+) [code = DEPRESSION Med ical Center SCREENING (12+)] Future Scheduled 2022-02-[address] [facility] 00:00:00 (12+) [code = DEPRESSION Med ical Center SCREENING (12+)] Future Scheduled 2022-02-[address] [facility] 00:00:00 (12+) [code = DEPRESSION Med ical Center SCREENING (12+)] Future Scheduled 2022-02-[address] [facility] 00:00:00 (12+) [code = DEPRESSION Med ical Center SCREENING (12+)] Future Scheduled 2022-02-[address] [facility] 00:00:00 (12+) [code = DEPRESSION Med ical Center SCREENING (12+)] Future Scheduled 2021-10-25 INFLUENZA VACCINE (#1) [facility] 00:00:00 [code = INFLUENZA VACCINE Me dical Center (#1)] Future Scheduled 2021-10-25 INFLUENZA VACCINE (#1) [facility] 00:00:00 [code = INFLUENZA VACCINE Me dical Center (#1)] Future Scheduled 2021-10-25 INFLUENZA VACCINE (#1) [facility] 00:00:00 [code = INFLUENZA VACCINE Me dical Center (#1)] Future Scheduled 2021-10-25 INFLUENZA VACCINE (#1) [facility] 00:00:00 [code = INFLUENZA VACCINE Me dical Center (#1)] Future Scheduled 2021-10-25 INFLUENZA VACCINE (#1) [facility] 00:00:00 [code = INFLUENZA VACCINE Me dical Center (#1)] Future Scheduled 2021-10-25 INFLUENZA VACCINE (#1) [facility] 00:00:00 [code = INFLUENZA VACCINE Me dical Center (#1)] Future Scheduled 2021-10-25 INFLUENZA VACCINE (#1) [facility] 00:00:00 [code = INFLUENZA VACCINE Me dical Center (#1)] Future Scheduled 2021-10-25 INFLUENZA VACCINE (#1) [facility] 00:00:00 [code = INFLUENZA VACCINE Me dical Center (#1)] Future Scheduled 2021-10-25 INFLUENZA VACCINE (#1) [facility] 00:00:00 [code = INFLUENZA VACCINE Me dical Center (#1)] Future Scheduled 2021-08-11 COVID-19 VACCINE (3 - [facility]:00 Booster for Pfizer Medical C enter series) [code = COVID-19 VACCINE (3 - Booster for Pfizer series)] Future Scheduled 2021-08-11 COVID-19 VACCINE (3 - [facility] 00:00:00 Booster for Pfizer Medical C enter series) [code = COVID-19 VACCINE (3 - Booster for Pfizer series)] Future Scheduled 2021-08-11 COVID-19 VACCINE (3 - [facility] 00:00:00 Booster for Pfizer Medical C enter series) [code = COVID-19 VACCINE (3 - Booster for Pfizer series)] Future Scheduled 2021-08-11 COVID-19 VACCINE (3 - [facility] 00:00:00 Booster for Pfizer Medical C enter series) [code = COVID-19 VACCINE (3 - Booster for Pfizer series)] Future Scheduled 2021-08-11 COVID-19 VACCINE (3 - [facility] 00:00:00 Booster for Pfizer Medical C enter series) [code = COVID-19 VACCINE (3 - Booster for Pfizer series)] Future Scheduled 2021-08-11 COVID-19 VACCINE (3 - [facility] 00:00:00 Booster for Pfizer Medical C enter series) [code = COVID-19 VACCINE (3 - Booster for Pfizer series)] Future Scheduled 2021-08-11 COVID-19 VACCINE (3 - [facility] 00:00:00 Booster for Pfizer Medical C enter series) [code = COVID-19 VACCINE (3 - Booster for Pfizer series)] Future Scheduled 2021-05-08 COVID-19 VACCINE (3 - [facility] 00:00:00 Booster for Pfizer Medical C enter series) [code = COVID-19 VACCINE (3 - Booster for Pfizer series)] Future Scheduled 2021-05-08 COVID-19 VACCINE (3 - [facility] 00:00:00 Booster for Pfizer Medical C enter series) [code = COVID-19 VACCINE (3 - Booster for Pfizer series)] Future Scheduled 2021-05-08 COVID-19 VACCINE (3 - [facility] 00:00:00 Booster for Pfizer Medical C enter series) [code = COVID-19 VACCINE (3 - Booster for Pfizer series)] Future Scheduled 2021-05-08 COVID-19 VACCINE (3 - [facility] 00:00:00 Booster for Pfizer Medical C enter series) [code = COVID-19 VACCINE (3 - Booster for Pfizer series)] Future Scheduled 2021-05-08 COVID-19 VACCINE (3 - [facility] 00:00:00 Booster for Pfizer Medical C enter series) [code = COVID-19 VACCINE (3 - Booster for Pfizer series)] Future Scheduled 2021-02-[address] [facility] 00:00:00 (12+) [code = DEPRESSION [facility] SCREENING (12+)] Future Scheduled 2021-02-[address] [facility] 00:00:00 (12+) [code = DEPRESSION Med ical Center SCREENING (12+)] Future Scheduled 2021-02-[address] [facility] 00:00:00 (12+) [code = DEPRESSION Med ical Center SCREENING (12+)] Future Scheduled 2021-02-[address] [facility] 00:00:00 (12+) [code = DEPRESSION Med ical Center SCREENING (12+)] Future Scheduled 2021-02-[address] [facility] 00:00:00 (12+) [code = DEPRESSION Med ical Center SCREENING (12+)] Future Scheduled 2021-02-[address] [facility] 00:00:00 (12+) [code = DEPRESSION Med ical Center SCREENING (12+)] Future Scheduled 2010 Screening for malignant [facility] 00:00:00 neoplasm of cervix Medical C enter (procedure) [code = 768253411] Future Scheduled 2010 Screening for malignant [facility] 00:00:00 neoplasm of cervix Medical C enter (procedure) [code = 935368302] Future Scheduled 2010 Screening for malignant [facility] 00:00:00 neoplasm of cervix Medical C enter (procedure) [code = 811773056] Future Scheduled 2010 Screening for malignant [facility] 00:00:00 neoplasm of cervix Medical C enter (procedure) [code = 936601382] Future Scheduled 2010 Screening for malignant [facility] 00:00:00 neoplasm of cervix Medical C enter (procedure) [code = 896467663] Future Scheduled 2010 Screening for malignant [facility] 00:00:00 neoplasm of cervix Medical C enter (procedure) [code = 480934886] Future Scheduled 2010 Screening for malignant [facility] 00:00:00 neoplasm of cervix Medical C enter (procedure) [code = 624727357] Future Scheduled 2010 Screening for malignant [facility] 00:00:00 neoplasm of cervix Medical C enter (procedure) [code = 918742152] Future Scheduled 2010 Screening for malignant [facility] 00:00:00 neoplasm of cervix Medical C enter (procedure) [code = 825568270] Future Scheduled 2010 Screening for malignant [facility] 00:00:00 neoplasm of cervix Medical C enter (procedure) [code = 915693664] Future Scheduled 2010 Screening for malignant [facility] 00:00:00 neoplasm of cervix Medical C enter (procedure) [code = 013623124] Future Scheduled 2010 Screening for malignant [facility] 00:00:00 neoplasm of cervix Medical C enter (procedure) [code = 694863146] Future Scheduled 2009 Lipid panel (procedure) [facility] 00:00:00 [code = 80831745] Medical Ce nter Future Scheduled 2009 Lipid panel (procedure) [facility] 00:00:00 [code = 47087043] Medical Ce nter Future Scheduled 2009 Lipid panel (procedure) [facility] 00:00:00 [code = 47167704] Medical Ce nter Future Scheduled 2009 Lipid panel (procedure) [facility] 00:00:00 [code = 95913333] Medical Ce nter Future Scheduled 2009 Lipid panel (procedure) [facility] 00:00:00 [code = 34437139] Medical Ce nter Future Scheduled 2009 Lipid panel (procedure) [facility] 00:00:00 [code = 60161526] Medical Ce nter Future Scheduled 2009 Lipid panel (procedure) [facility] 00:00:00 [code = 21260824] Medical Ce nter Future Scheduled 2009 Lipid panel (procedure) [facility] 00:00:00 [code = 25964827] Medical Ce nter Future Scheduled 2009 Lipid panel (procedure) [facility] 00:00:00 [code = 54198829] Medical Ce nter Future Scheduled 2009 Lipid panel (procedure) [facility] 00:00:00 [code = 93601730] Medical Ce nter Future Scheduled 2009 Lipid panel (procedure) [facility] 00:00:00 [code = 05468076] Medical Ce nter Future Scheduled 2009 Lipid panel (procedure) [facility] 00:00:00 [code = 84849018] Medical Ce nter Future Scheduled 2008 DTAP/TDAP/TD VACCINES ([address] [facility] 00:00:00 - Tdap) [code = Medical Cent er DTAP/TDAP/TD VACCINES (1 - Tdap)] Future Scheduled 2008 DTAP/TDAP/TD VACCINES ([address] [facility] 00:00:00 - Tdap) [code = Medical Cent er DTAP/TDAP/TD VACCINES (1 - Tdap)] Future Scheduled 2008 DTAP/TDAP/TD VACCINES ([address] [facility] 00:00:00 - Tdap) [code = Medical Cent er DTAP/TDAP/TD VACCINES (1 - Tdap)] Future Scheduled 2008 DTAP/TDAP/TD VACCINES ([address] [facility] 00:00:00 - Tdap) [code = Medical Cent er DTAP/TDAP/TD VACCINES (1 - Tdap)] Future Scheduled 2008 DTAP/TDAP/TD VACCINES ([address] [facility] 00:00:00 - Tdap) [code = Medical Cent er DTAP/TDAP/TD VACCINES (1 - Tdap)] Future Scheduled 2008 DTAP/TDAP/TD VACCINES ([address] [facility] 00:00:00 - Tdap) [code = Medical Cent er DTAP/TDAP/TD VACCINES (1 - Tdap)] Future Scheduled 2008 DTAP/TDAP/TD VACCINES ([address] [facility] 00:00:00 - Tdap) [code = Medical Cent er DTAP/TDAP/TD VACCINES (1 - Tdap)] Future Scheduled 2008 DTAP/TDAP/TD VACCINES ([address] [facility] 00:00:00 - Tdap) [code = Medical Cent er DTAP/TDAP/TD VACCINES (1 - Tdap)] Future Scheduled 2008 DTAP/TDAP/TD VACCINES ([address] [facility] 00:00:00 - Tdap) [code = Medical Cent er DTAP/TDAP/TD VACCINES (1 - Tdap)] Future Scheduled 2008 DTAP/TDAP/TD VACCINES ([address] [facility] 00:00:00 - Tdap) [code = Medical Cent er DTAP/TDAP/TD VACCINES (1 - Tdap)] Future Scheduled 2008 DTAP/TDAP/TD VACCINES ([address] [facility] 00:00:00 - Tdap) [code = Medical Cent er DTAP/TDAP/TD VACCINES (1 - Tdap)] Future Scheduled 2008 DTAP/TDAP/TD VACCINES ([address] [facility] 00:00:00 - Tdap) [code = Medical Cent er DTAP/TDAP/TD VACCINES (1 - Tdap)] Future Scheduled 2007-05-02 HEPATITIS C [facility]CRE[facility]ING [facility]:00 [code = HEPATITIS C Medical Center SCREENING] Future Scheduled 2007-05-02 HEPATITIS C [facility]CRE[facility]ING [facility]:00:00 [code = HEPATITIS C Medical Center SCREENING] Future Scheduled 2007-05-02 HEPATITIS C [facility]CRE[facility]ING [facility] 00:00:00 [code = HEPATITIS C Medical Center SCREENING] Future Scheduled 2007-05-02 HEPATITIS C [facility]CRE[facility]ING [facility] 00:00:00 [code = HEPATITIS C Medical Center SCREENING] Future Scheduled 2007-05-02 HEPATITIS C [facility]CRE[facility]ING [facility] 00:00:00 [code = HEPATITIS C Medical Center SCREENING] Future Scheduled 2007-05-02 HEPATITIS C [facility]CRE[facility]ING [facility] 00:00:00 [code = HEPATITIS C Medical Center SCREENING] Future Scheduled 2007-05-02 HEPATITIS C [facility]CRE[facility]ING [facility] 00:00:00 [code = HEPATITIS C Medical Center SCREENING] Future Scheduled 2007-05-02 HEPATITIS C [facility]CRE[facility]ING [facility] 00:00:00 [code = HEPATITIS C Medical Center SCREENING] Future Scheduled 2007-05-02 HEPATITIS C [facility]CRE[facility]ING [facility] 00:00:00 [code = HEPATITIS C Medical Center SCREENING] Future Scheduled 2007-05-02 HEPATITIS C [facility]CRE[facility]ING [facility] 00:00:00 [code = HEPATITIS C Medical Center SCREENING] Future Scheduled [address] Human [address] [facility] 00:00:00 virus screening Medical Cent er (procedure) [code = [id number]] Future Scheduled [address] Human [address] [facility] 00:00:00 virus screening Medical Cent er (procedure) [code = 559631535] Encounters Start End Encounter Admission Attending Care Care Encounter Source Date/Time Date/Time Type Type Clinicians Facility Department ID 2020-12-02 Outpatient ERIN GHOTRA Surgery [id number] [facility] 14:44:23 TRACILYN 2020-06-07 Inpatient ER FANNYERIN [facility] [employer] [id number] [facility] 20:16:00 [place] Oncology 2023-02-05 2023-02-05 [facility] [id number] [facility] 00:00:00 00:00:00 TRACILYN 2023-02-05 2023-02-05 Outpatient ELI HERNANDEZ [facility] [id number] SLE 00:00:00 00:00:00 ASHLEY 2023-01-15 2023-01-15 Outpatient ELI [facility] [id number] SLE 00:00:00 00:00:00 2023-01-15 2023-01-15 [facility] [id number] SLE 00:00:00 00:00:00 TRASHIRLEYYN 2023-01-15 2023-01-15 Outpatient ELI [facility] [id number] SLE 00:00:00 00:00:00 2023-01-15 2023-01-15 Outpatient ELI [facility] [id number] SLE 00:00:00 00:00:00 2023-01-15 2023-01-15 Outpatient ELI [facility] [id number] [facility] 00:00:00 00:00:00 2022-12-25 2022-12-25 Outpatient ELI GHOTRA [facility] [id number] SLE 09:46:48 23:59:00 TRACILYN 2022-12-25 2022-12-25 [facility] [id number] [facility] 08:47:37 11:46:25 ASHLEY 2022-12-25 2022-12-25 [facility] [id number] SLE 09:15:51 10:47:01 TRACILYN 2022-12-25 2022-12-25 [facility] [id number] [facility] 08:29:42 08:29:42 2022-12-25 2022-12-25 Outpatient EL [facility] [id number] [facility] 00:00:00 00:00:00 2022-12-25 2022-12-25 Outpatient EL [facility] [id number] [facility] 00:00:00 00:00:00 2022-12-12 2022-12-12 Outpatient ELI GHOTRA [facility] [id number] [facility] 11:06:00 23:59:00 TRACILYN 2022-12-12 2022-12-12 Outpatient ELI GHOTRA [facility] [id number] [facility] 11:05:40 11:05:40 TRACILYN 2022-12-04 2022-12-04 Outpatient ELI GHOTRA [facility] SLE [id number] [facility] 09:58:47 23:59:00 2022-12-04 2022-12-04 Outpatient EL IZABELLA [facility] [id number] [facility] 11:45:27 13:10:37 ASHLEY 2022-12-04 2022-12-04 Outpatient ELI GHOTRA [facility] [id number] [facility] 09:27:11 10:05:11 TRACILYN 2022-12-04 2022-12-04 Outpatient EL SLE SLE [id number] [facility] 09:15:20 09:15:20 2022-12-04 2022-12-04 Outpatient EL SLE SLE [id number] [facility] 00:00:00 00:00:00 2022-12-04 2022-12-04 Outpatient EL SLE SLE [id number] [facility] 00:00:00 00:00:00 2022-11-13 2022-11-13 Outpatient ELI GHOTRA [facility] [id number] [facility] 09:30:39 23:59:00 TRACILYN 2022-11-13 2022-11-13 Outpatient EL IZABELLA [facility] [id number] [facility] 11:49:10 15:11:22 ASHLEY 2022-11-13 2022-11-13 Outpatient ELI GHOTRA [facility] [id number] [facility] 08:59:11 10:13:06 TRACILYN 2022-11-13 2022-11-13 Outpatient EL [facility] [id number] [facility] 08:26:31 08:26:31 2022-11-06 2022-11-06 Outpatient ELI GHOTRA [facility] [id number] SLE 13:52:05 23:59:00 TRACILYN 2022-11-06 2022-11-06 Outpatient ELI GHOTRA [facility] [id number] [facility] 10:13:00 16:33:00 TRACILYN 2022-10-23 2022-10-23 [facility] [id number] SLE 10:14:08 23:59:00 TRACILYN 2022-10-23 2022-10-23 [facility] [id number] 10:00:00 23:59:[address] [facility] 2022-10-23 2022-10-23 [facility] [id number] SLE 15:05:22 15:56:42 [place] 2022-10-23 2022-10-23 [facility] [id number] 14:30:00 15:56:42 Visit Izabella [facility] 2022-10-23 2022-10-23 Office [place], [facility] [id number] 09:40:00 10:19:16 Visit [facility] 2022-10-23 2022-10-23 [facility] [id number] SLE 09:36:47 10:19:16 [facility] 2022-10-23 2022-10-23 [facility] [id number] SLE 08:59:29 08:59:29 2022-10-23 2022-10-23 Treatment ELI Ghotra, [facility] [id number] 08:40:00 08:55:00 [facility] 2022-10-23 2022-10-23 Travel [facility] [id number] [facility] 00:[facility]00 00:00:00 [facility] 2022-10-21 2022-10-21 [facility] [id number] 00:00:00 00:00:00 Only [facility] 2022-10-11 2022-10-11 Office Izabella [facility] [id number] 08:00:00 09:19:44 Visit [facility] 2022-10-11 2022-10-11 [facility] [id number] [facility] 07:56:36 09:19:44 [place] 2022-10-11 2022-10-11 Telephone Mooney [facility] [id number] 00:00:00 00:00:00 [facility] 2022-10-09 2022-10-09 Outpatient ELI GHOTRA [facility] [id number] SLE 09:46:17 10:42:19 [place] 2022-10-09 2022-10-09 [facility] [id number] 09:40:00 10:42:19 Visit [facility] 2022-09-30 2022-09-30 [facility] [id number] 15:15:00 15:30:00 [facility] 2022-09-30 2022-09-30 Outpatient [facility] [id number] SLE 15:08:09 15:08:09 2022-09-30 2022-09-30 [facility] [id number] 08:59:00 15:00:00 Encounter [facility] 2022-09-30 2022-09-30 [facility] [id number] SLE 08:59:00 15:00:00 TRACILYN 2022-09-30 2022-09-30 [facility] [id number] 09:00:00 09:15:00 Surgeon [facility] 2022-09-302022-09-30 Outpatient MELIDA [facility] [id number] [facility] 08:55:51 08:55:51 [place]ACIL[place] 2022-09-30 2022-09-30 Travel [facility] [id number] [facility] 00:[facility]:00 00:00:00 [facility] 2022-09-24 2022-09-24 [facility], [facility] [id number] 00:00:00 00:00:[address] [facility] 2022-09-23 2022-09-23 Outpatient [facility] SLE [id number] [facility]H 00:00:00 00:00:00 TRACILYN 2022-09-19 2022-09-19 [facility] [id number] 07:25:13 23:59:[address] [facility] 2022-09-19 2022-09-19 Outpatient [facility] [id number] SLE 00:00:00 23:59:00 TRACILYN 2022-09-19 2022-09-19 [facility] [id number] 07:21:00 09:00:[address] [facility] [facility] 2022-09-19 2022-09-19 Outpatient [facility] Surgery [id number] SLE 07:21:00 09:00:00 TRACILYN 2022-09-19 2022-09-19 Surgery [facility], [facility] [id number] 08:00:00 08:15:00 Surgeon [facility] 2022-09-19 2022-09-19 Outpatient [facility] [id number] SLE 00:00:00 00:00:00 TRACILYN 2022-09-19 2022-09-19 Travel [facility] [id number] [facility] 00:00:00 00:00:00 [facility] 2022-09-04 2022-09-04 [facility] [id number] 00:00:00 00:00:00 Orders [facility] 2022-08-26 2022-08-26 Outpatient GHOTRA, [facility] [id number] [facility] 10:49:15 14:05:00 TRACILYN 2022-08-26 2022-08-26 Office [facility] [id number] 10:40:00 14:05:00 Visit [facility] 2022-08-26 2022-08-26 [facility] [id number] 11:30:00 11:45:00 [facility] 2022-08-26 2022-08-26 Outpatient EL [facility] [id number] SLE 11:31:22 11:31:22 2022-08-15 2022-08-15 [facility] [id number] 11:09:32 23:59:[address] [facility] 2022-08-15 2022-08-15 Outpatient MELIDA [facility] [id number] SLE 11:09:32 23:59:00 TRACILYN 2022-07-29 2022-07-29 [facility] [id number] 10:40:00 11:18:11 Visit [facility] 2022-07-29 2022-07-29 Outpatient MELIDA [facility] [id number] SLE 10:30:32 11:18:11 TRACILYN 2022-03-01 2022-03-01 [facility] [id number] 23:59:00 23:59:[address] [facility] 2022-03-01 2022-03-01 Outpatient GHOTRA, SLE SLE [id number] SLE 00:00:00 23:59:00 TRACILYN 2022-03-01 2022-03-01 [facility] [id number] 06:52:00 13:32:[address] [facility] 2022-03-01 2022-03-01 Outpatient UR GHOTRA, [facility] Surgery [id number] SLE 06:52:00 13:32:00 TRACILYN 2022-03-01 2022-03-01 Surgery [facility], [facility] [id number] 06:41:00 07:00:00 Surgeon [facility] 2022-03-01 2022-03-01 Orders [facility] [id number] 00:00:00 00:00:00 Only Kade Conley [facility] 2022-03-01 2022-03-01 Travel [facility] [id number] [facility] 00:00:00 00:00:00 [facility] 2022-02-08 2022-02-[address] [facility] [id number] 00:00:00 00:00:00 Orders [facility] 2022-02-04 2022-02-04 [facility] [id number] 00:00:00 00:00:00 Only [facility] 2022-02-04 2022-02-04 Historical Transcripti [facility] [id number] [facility] 00:00:00 00:00:00 Encounter on, [facility] 2022-02-04 2022-02-[address] [facility] [id number] 00:00:00 00:00:[address] [facility] 2022-01-10 2022-01-10 Outpatient [facility] [id number] SLE 14:22:43 23:59:00 TRACILYN 2022-01-10 2022-01-10 [facility] [id number] 09:00:00 23:59:[address] [facility] 2022-01-10 2022-01-10 Hospital [facility] [id number] 07:17:00 14:10:[address] [facility] 2022-01-10 2022-01-[address] [facility] Surgery [id number] SLE 07:17:00 14:10:00 TRACILYN 2022-01-10 2022-01-10 Surgery [facility] [id number] 10:45:00 11:24:00 Surgeon [facility] 2022-01-10 2022-01-10 Travel [facility] [id number] [facility] 00:00:00 00:00:00 [facility] 2021-12-28 2021-12-[address] [facility] [id number] 00:00:00 00:00:00 Orders [facility] 2021-12-17 2021-12-17 [facility] [id number] 00:00:00 00:00:00 Only [facility] 2021-12-17 2021-12-[address] [facility] [id number] 00:00:00 00:00:[address] [facility] 2022-03-15 2021-11-26 Outpatient MELIDA [facility] [id number] [facility] 13:08:38 23:59:00 TRACILYN 2021-11-26 2021-11-[address] [facility] [id number] 13:00:00 23:59:[address] [facility] 2021-11-12 2021-11-12 Historical Transcripti [facility] [id number] [facility] 00:00:00 00:00:00 Encounter on, [facility] 2021-11-12 2021-11-[address] [facility] [id number] 00:00:00 00:00:[address] [facility] 2021-11-12 2021-11-[address] [facility] [id number] 00:00:00 00:00:00 Orders [facility] 2021-07-17 2021-07-17 [facility] [id number] 05:07:00 14:29:[address] [facility] 2021-07-17 2021-07-17 Outpatient [facility] Surgery [id number] [facility]H 05:07:00 14:29:00 TRACILYN 2021-07-17 2021-07-17 [facility] [id number] 07:30:00 11:00:00 [facility] 2021-07-17 2021-07-17 Anesthesia Ulises Ryan [facility] [id number] 07:29:00 10:03:37 Event Tere Weber [facility] 2021-07-13 2021-07-13 Outpatient SLE SLE [id number] SLEH 14:12:43 23:59:00 2021-07-13 2021-07-13 [facility] [id number] 13:30:00 23:59:00 Encounter [facility] 2021-07-13 2021-07-13 [facility] [id number] 11:14:00 13:29:00 Encounter [facility] 2021-07-13 2021-07-13 Outpatient [facility] SLE [id number] SLE 11:14:00 13:29:00 TRACILYN 2021-07-13 2021-07-13 Outpatient SLE [facility]H [id number] [facility] 00:00:00 00:00:00 2021-07-13 2021-07-13 Travel [facility] [id number] [facility] 00:00:00 00:00:00 [facility] 2021-03-21 2021-03-21 [facility] [id number] 00:00:00 00:00:00 [facility] 2021-03-19 2021-03-19 Documentat Richie, [facility] [id number] 00:00:00 00:00:00 [facility] 2021-01-26 2021-01-26 [facility] [address] [place] 05:01:00 05:01:00 SSA 1203 da [facility] 2020-12-22 2020-12-22 [facility] [id number] 09:17:45 23:59:00 Encounter [facility] 2020-12-22 2020-12-22 Outpatient [facility] [id number] SLE 09:17:45 23:59:00 TRACIL 2020-12-22 2020-12-22 [facility] [id number] 09:17:39 23:59:00 [facility] 2020-12-22 2020-12-22 Outpatient [facility] [id number] SLE 09:17:38 23:59:00 TRACILYN 2020-10-10 2020-10-10 Outpatient [facility] [id number] SLE 00:00:00 00:00:00 TRACILYN 2020-08-11 2020-08-11 Outpatient [facility] [id number] SLE 00:00:00 00:00:00 TRACILYN 2020-06-27 2020-06-27 Outpatient [facility] [id number] SLE 00:00:00 00:00:00 Results Test Description Test Time Test Comments Results Result Comments Source BILIRUBIN, DIRECT 2022-12-25 09:23:04 Test Item Value Reference Range Interpretation Comme nts BILIRUBIN DIRECT (BEAKER) (test code = < mg/dL 0.1-0.5 L Specimen slightly hemolyzed 706) [id number] 09:18:39 Test Item Value Reference Range Interpretation Comments MAGNESIUM (BEAKER) (test code = 2.0 mg/dL 1.6-2.6 627) COMPREHENSIVE METABOLIC [id number] 09:18:39 Test Item Value Reference Range Interpretation Comments TOTAL PROTEIN 8.0 gm/dL 6.0-8.3 Specimen sligh tly (BEAKER) (test hemolyzed code = 770) ALBUMIN (BEAKER) 4.7 g/dL 3.5-5.0 Specimen sl ightly (test code = 1145) hemolyzed ALKALINE 96 U/L 40-150 PHOSPHATASE (BEAKER) (test code = 346) BILIRUBIN TOTAL 0.3 mg/dL 0.2-1.2 Specimen sli ghtly (BEAKER) (test hemolyzed code = 377) SODIUM (BEAKER) 142 meq/L 136-145 (test code = 381) POTASSIUM (BEAKER) 4.1 meq/L 3.5-5.1 Specimen slightly (test code = 379) hemolyzed CHLORIDE (BEAKER) 108 meq/L 98-107 H (test code = 382) CO2 (BEAKER) (test 28 meq/L 22-29 code = 355) BLOOD UREA 10 mg/dL 7-21 NITROGEN (BEAKER) (test code = 354) CREATININE 0.76 mg/dL 0.57-1.25 Specimen slight ly (BEAKER) (test hemolyzed code = 358) GLUCOSE RANDOM 104 mg/dL 70-105 (BEAKER) (test code = 652) CALCIUM (BEAKER) 9.2 mg/dL 8.4-10.2 (test code = 697) AST (SGOT) 27 U/L 5-34 Specimen slight ly (BEAKER) (test hemolyzed code = 353) ALT (SGPT) 36 U/L 6-55 Specimen slight ly (BEAKER) (test hemolyzed code = 347) EGFR (BEAKER) 106 Interpretatio n of eGFR (test code = 1092) mL/min/1.[address] age Description sq m Result G1 Beena l or high >=90 G2 Mildly decreased 60-89 G3a Mildl y to moderately 45-5 9 G3b Moderately to s everely 30-44 G4 Severl y decreased 15-29 G5 Kidney failure <15Reported eGF R is based on the CKD-EPI 2020 equation that d oes not use a race coefficientEsti mated GFR is not as accur ate as Creatinine Denise sal in predicting glom erular filtration rate . Estimated GFR is not appl icable for dialysis patien ts CBC W/PLT COUNT & AUTO [id number] 08:52:47 Test Item Value Reference Range Interpretation Comments WHITE BLOOD CELL COUNT (BEAKER) 5.7 K/ L 3.5-10.5 (test code = 775) RED BLOOD CELL COUNT (BEAKER) 4.50 M/ L 3.93-5.22 (test code = 761) HEMOGLOBIN (BEAKER) (test code = 13.3 GM/DL 11.2-15.7 410) HEMATOCRIT (BEAKER) (test code = 40.7 % 34.1-44.9 411) MEAN CORPUSCULAR VOLUME (BEAKER) 90 fL 79-95 (test code = 753) MEAN CORPUSCULAR HEMOGLOBIN 29.6 pg 25.6-32.2 (BEAKER) (test code = 751) MEAN CORPUSCULAR HEMOGLOBIN CONC 32.7 GM/DL 32.2-35.5 (BEAKER) (test code = 752) RED CELL DISTRIBUTION WIDTH 14.4 % 11.7-14.4 (BEAKER) (test code = 412) PLATELET COUNT (BEAKER) (test 380 K/CU MM 150-450 code = 756) MEAN PLATELET VOLUME (BEAKER) 9.0 fL 9.4-12.3 L (test code = 754) NEUTROPHILS RELATIVE PERCENT 54 % (BEAKER) (test code = 429) LYMPHOCYTES RELATIVE PERCENT 38 % (BEAKER) (test code = 430) MONOCYTES RELATIVE PERCENT 7 % (BEAKER) (test code = 431) EOSINOPHILS RELATIVE PERCENT 1 % (BEAKER) (test code = 432) BASOPHILS RELATIVE PERCENT 0 % (BEAKER) (test code = 437) NEUTROPHILS ABSOLUTE COUNT 3.09 K/ L 1.56-6.13 (BEAKER) (test code = 670) LYMPHOCYTES ABSOLUTE COUNT 2.15 K/ L 1.18-3.74 (BEAKER) (test code = 414) MONOCYTES ABSOLUTE COUNT (BEAKER) 0.37 K/ L 0.24-0.36 H (test code = 415) EOSINOPHILS ABSOLUTE COUNT 0.05 K/ L 0.04-0.36 (BEAKER) (test code = 416) BASOPHILS ABSOLUTE COUNT (BEAKER) 0.02 K/ L 0.01-0.08 (test code = 417) IMMATURE GRANULOCYTES-RELATIVE 0.20 % 0.00-1.00 PERCENT (BEAKER) (test code = 2801) CT ABDOMEN/PELVIS WITH IV [id number] 08:43:47 [facility] CENTERName[facility] THEA BRICE[facility]O : 1990 Sex: FCT of the chest, abdomen and pelvis, with contrastClinical History: Ovarian cancer, assess treatment responseTechnique: CT of the chest, abdomen and pelvis is performed withintravenous contrast administration. This exam was performed accordingto our departmental dose optimization program which includesautomatedexposure control, adjustment of the mA and/or kV according to patient'ssize and/or use of it erative reconstructive technique.Comparison Film: August 15, 2022, December 13, 2021, June 07, 2021,December 22iscussion:There is a right-sided Port-A-Cath. Visualized thyroid gland is normal.No supraclavicular, axillary, mediastinal or hilar lymphadenopathy.Heart and pericardium are unremarkable.T here are a few calcified granulomas in the lung. No new nodule or massis identified. No pleural effusion. Central airways are patent nobronchiectasis or bronchial wall thickening.Liver is fatty. No liver mass is identified. No biliary ductaldilatation, gallbladder is unremarkable.The spleen, pancreas,and adrenal glands are normal.Kidneys demonstrate no mass, hydronephrosis, or radiopaque stone.No evidence of bowel obstruction, or abnormal bowel wall thickening.Normal appendix. No pericolonic or mesenteric edema.In the pelvis, bladder is unremarkable. Uterus is absent. A previouslyseen left adnexalcyst has resolved.There are multiple calcified omental nodules, without significantinterval change. 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 Thereare also a few small mesenteric nodules in the lower abdomen that arepartially calcified, as well as a few small gastrohepatic ligamentnodules, likelyreflecting the same process. No no ascites. No new adenopathy. 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 A few small,partly calcified lower abdomen mesenteric nodules as well asgastrohepatic ligament nodules likely reflect the same process.No metastatic disease is identified in the thorax.Hepatic steatosis.Electronically Signed By: Angie [facility]12/15/2022 08:45 CDTWorkstation Name: [id number] CHEST WITH IV [id number] 08:43:47 [facility] : 1990 Sex: FCT of the chest, abdomen and pelvis, with contrastClinical History: Ovarian cancer, assess treatment responseTechnique: CT of the chest, abdomen and pelvis is performed withintravenous contrast administration. This exam was performed accordingto our departmental dose optimization program which includesautomatedexposure control, adjustment of the mA and/or kV according to patient'ssize and/or use of it erative reconstructive technique.Comparison Film: August 15, 2022, December 13, 2021, June 07, 2021,December 22iscussion:There is a right-sided Port-A-Cath. Visualized thyroid gland is normal.No supraclavicular, axillary, mediastinal or hilar lymphadenopathy.Heart and pericardium are unremarkable.T here are a few calcified granulomas in the lung. No new nodule or massis identified. No pleural effusion. Central airways are patent nobronchiectasis or bronchial wall thickening.Liver is fatty. No liver mass is identified. No biliary ductaldilatation, gallbladder is unremarkable.The spleen, pancreas,and adrenal glands are normal.Kidneys demonstrate no mass, hydronephrosis, or radiopaque stone.No evidence of bowel obstruction, or abnormal bowel wall thickening.Normal appendix. No pericolonic or mesenteric edema.In the pelvis, bladder is unremarkable. Uterus is absent. A previouslyseen left adnexalcyst has resolved.There are multiple calcified omental nodules, without significantinterval change. 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 Thereare also a few small mesenteric nodules in the lower abdomen that arepartially calcified, as well as a few small gastrohepatic ligamentnodules, likelyreflecting the same process. No no ascites. No new adenopathy. 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 A few small,partly calcified lower abdomen mesenteric nodules as well asgastrohepatic ligament nodules likely reflect the same process.No metastatic disease is identified in the thorax.Hepatic steatosis.Electronically Signed By: Angie Gomes12/15/2022 08:45 CDTWorkstation Name: [id number] METABOLIC [id number] 10:07:23 Test Item Value Reference Range Interpretation Comments TOTAL PROTEIN 8.4 gm/dL 6.0-8.3 H (BEAKER) (test code = 770) ALBUMIN (BEAKER) 4.9 g/dL 3.5-5.0 (test code = 1145) ALKALINE 99 U/L 40-150 PHOSPHATASE (BEAKER) (test code = 346) BILIRUBIN TOTAL 0.3 mg/dL 0.2-1.2 (BEAKER) (test code = 377) SODIUM (BEAKER) 140 meq/L 136-145 (test code = 381) POTASSIUM (BEAKER) 4.1 meq/L 3.5-5.1 (test code = 379) CHLORIDE (BEAKER) 104 meq/L 98-107 (test code = 382) CO2 (BEAKER) (test 29 meq/L 22-29 code = 355) BLOOD UREA 12 mg/dL 7-21 NITROGEN (BEAKER) (test code = 354) CREATININE 0.71 mg/dL 0.57-1.25 (BEAKER) (test code = 358) GLUCOSE RANDOM 98 mg/dL 70-105 (BEAKER) (test code = 652) CALCIUM (BEAKER) 10.0 mg/dL 8.4-10.2 (test code = 697) AST (SGOT) 34 U/L 5-34 (BEAKER) (test code = 353) ALT (SGPT) 62 U/L 6-55 H (BEAKER) (test code = 347) EGFR (BEAKER) 115 Interpretatio n of eGFR (test code = 1092) mL/min/1.[address] age Description sq m Result G1 Beena l or high >=90 G2 Mildly decreased 60-89 G3a Mildl y to moderately 45-5 9 G3b Moderately to s everely 30-44 G4 Severl y decreased 15-29 G5 Kidney failure <15Reported eGF R is based on the CKD-EPI 2020 equation that d oes not use a race coefficientEsti mated GFR is not as accur ate as Creatinine Denise sal in predicting glom erular filtration rate . Estimated GFR is not appl icable for dialysis patien ts [id number] 10:07:18 Test Item Value Reference Range Interpretation Comments MAGNESIUM (BEAKER) (test code = 1.9 mg/dL 1.6-2.6 627) CBC W/PLT COUNT & AUTO [id number] 09:55:43 Test Item Value Reference Range Interpretation Comments WHITE BLOOD CELL COUNT (BEAKER) 5.9 K/ L 3.5-10.5 (test code = 775) RED BLOOD CELL COUNT (BEAKER) 4.56 M/ L 3.93-5.22 (test code = 761) HEMOGLOBIN (BEAKER) (test code = 13.4 GM/DL 11.2-15.7 410) HEMATOCRIT (BEAKER) (test code = 40.5 % 34.1-44.9 411) MEAN CORPUSCULAR VOLUME (BEAKER) 89 fL 79-95 (test code = 753) MEAN CORPUSCULAR HEMOGLOBIN 29.4 pg 25.6-32.2 (BEAKER) (test code = 751) MEAN CORPUSCULAR HEMOGLOBIN CONC 33.1 GM/DL 32.2-35.5 (BEAKER) (test code = 752) RED CELL DISTRIBUTION WIDTH 14.5 % 11.7-14.4 H (BEAKER) (test code = 412) PLATELET COUNT (BEAKER) (test 340 K/CU MM 150-450 code = 756) MEAN PLATELET VOLUME (BEAKER) 8.8 fL 9.4-12.3 L (test code = 754) NEUTROPHILS RELATIVE PERCENT 49 % (BEAKER) (test code = 429) LYMPHOCYTES RELATIVE PERCENT 43 % (BEAKER) (test code = 430) MONOCYTES RELATIVE PERCENT 7 % (BEAKER) (test code = 431) EOSINOPHILS RELATIVE PERCENT 1 % (BEAKER) (test code = 432) BASOPHILS RELATIVE PERCENT 1 % (BEAKER) (test code = 437) NEUTROPHILS ABSOLUTE COUNT 2.86 K/ L 1.56-6.13 (BEAKER) (test code = 670) LYMPHOCYTES ABSOLUTE COUNT 2.52 K/ L 1.18-3.74 (BEAKER) (test code = 414) MONOCYTES ABSOLUTE COUNT (BEAKER) 0.41 K/ L 0.24-0.36 H (test code = 415) EOSINOPHILS ABSOLUTE COUNT 0.04 K/ L 0.04-0.36 (BEAKER) (test code = 416) BASOPHILS ABSOLUTE COUNT (BEAKER) 0.03 K/ L 0.01-0.08 (test code = 417) IMMATURE GRANULOCYTES-RELATIVE 0.20 % 0.00-1.00 PERCENT (BEAKER) (test code = 2801) [id number] 08:59:46 Test Item Value Reference Range Interpretation Comments MAGNESIUM (BEAKER) (test code = 1.8 mg/dL 1.6-2.6 627) COMPREHENSIVE METABOLIC [id number] 08:59:46 Test Item Value Reference Range Interpretation Comments TOTAL PROTEIN 7.9 gm/dL 6.0-8.3 (BEAKER) (test code = 770) ALBUMIN (BEAKER) 4.8 g/dL 3.5-5.0 (test code = 1145) ALKALINE 110 U/L 40-150 PHOSPHATASE (BEAKER) (test code = 346) BILIRUBIN TOTAL 0.3 mg/dL 0.2-1.2 (BEAKER) (test code = 377) SODIUM (BEAKER) 140 meq/L 136-145 (test code = 381) POTASSIUM (BEAKER) 4.1 meq/L 3.5-5.1 (test code = 379) CHLORIDE (BEAKER) 104 meq/L 98-107 (test code = 382) CO2 (BEAKER) (test 29 meq/L 22-29 code = 355) BLOOD UREA 13 mg/dL 7-21 NITROGEN (BEAKER) (test code = 354) CREATININE 0.83 mg/dL 0.57-1.25 (BEAKER) (test code = 358) GLUCOSE RANDOM 86 mg/dL 70-105 (BEAKER) (test code = 652) CALCIUM (BEAKER) 9.2 mg/dL 8.4-10.2 (test code = 697) AST (SGOT) 30 U/L 5-34 (BEAKER) (test code = 353) ALT (SGPT) 53 U/L 6-55 (BEAKER) (test code = 347) EGFR (BEAKER) 95 Interpretatio n of eGFR (test code = 1092) mL/min/1.[address] age Description sq m Result G1 Beena l or high >=90 G2 Mildly decreased 60-89 G3a Mildl y to moderately 45-5 9 G3b Moderately to s everely 30-44 G4 Severl y decreased 15-29 G5 Kidney failure <15Reported eGF R is based on the CKD-EPI 2020 equation that d oes not use a race coefficientEsti mated GFR is not as accur ate as Creatinine Denise sal in predicting glom erular filtration rate . Estimated GFR is not appl icable for dialysis patien ts CBC W/PLT COUNT & AUTO [id number] 08:38:45 Test Item Value Reference Range Interpretation Comments WHITE BLOOD CELL COUNT (BEAKER) 6.4 K/ L 3.5-10.5 (test code = 775) RED BLOOD CELL COUNT (BEAKER) 4.68 M/ L 3.93-5.22 (test code = 761) HEMOGLOBIN (BEAKER) (test code = 13.6 GM/DL 11.2-15.7 410) HEMATOCRIT (BEAKER) (test code = 41.6 % 34.1-44.9 411) MEAN CORPUSCULAR VOLUME (BEAKER) 89 fL 79-95 (test code = 753) MEAN CORPUSCULAR HEMOGLOBIN 29.1 pg 25.6-32.2 (BEAKER) (test code = 751) MEAN CORPUSCULAR HEMOGLOBIN CONC 32.7 GM/DL 32.2-35.5 (BEAKER) (test code = 752) RED CELL DISTRIBUTION WIDTH 14.1 % 11.7-14.4 (BEAKER) (test code = 412) PLATELET COUNT (BEAKER) (test 333 K/CU MM 150-450 code = 756) MEAN PLATELET VOLUME (BEAKER) 8.8 fL 9.4-12.3 L (test code = 754) NEUTROPHILS RELATIVE PERCENT 52 % (BEAKER) (test code = 429) LYMPHOCYTES RELATIVE PERCENT 40 % (BEAKER) (test code = 430) MONOCYTES RELATIVE PERCENT 7 % (BEAKER) (test code = 431) EOSINOPHILS RELATIVE PERCENT 1 % (BEAKER) (test code = 432) BASOPHILS RELATIVE PERCENT 0 % (BEAKER) (test code = 437) NEUTROPHILS ABSOLUTE COUNT 3.34 K/ L 1.56-6.13 (BEAKER) (test code = 670) LYMPHOCYTES ABSOLUTE COUNT 2.53 K/ L 1.18-3.74 (BEAKER) (test code = 414) MONOCYTES ABSOLUTE COUNT (BEAKER) 0.42 K/ L 0.24-0.36 H (test code = 415) EOSINOPHILS ABSOLUTE COUNT 0.07 K/ L 0.04-0.36 (BEAKER) (test code = 416) BASOPHILS ABSOLUTE COUNT (BEAKER) 0.02 K/ L 0.01-0.08 (test code = 417) IMMATURE GRANULOCYTES-RELATIVE 0.20 % 0.00-1.00 PERCENT (BEAKER) (test code = 2801) [place]ATH [id number] 11:11:17 [facility] : 1990 Sex: FRight internal jugular chest port insertion History: Ovarian cancer. Modality: Sonography and fluoroscopy. Sedation: Moderate sedation was administered. 2 mg of Versed and 100mcg of fentanyl IV was used for moderate sedation monitored under mydirection. Total intra-service time of sedation was 30 minutes. Thepatient's vital signs were monitored throughout the procedure andrecorded in the patient's medical record by the nurse. [employer] Car Checker: Tao Alfredo MDAssistant: None. Approach: Right internal jugular vein Estimated blood loss: < 5 cc.Specimen: None. Fluoroscopy Time: Due to equipment malfunction, a fluoroscopic time wasnot provided.Reference Air Kerma (Ka, r): Due to equipment malfunction, afluoroscopic dose was not provided.Technique: Informed written consent was obtained. Discussionof risks, benefits,and alternatives were made with the patient. The patient expressedunderstanding and agreed to proceed. A universal timeout was performedprior to starting the procedure. All elements maximal sterile barriertechnique was utilized for this procedure, including utilization ofsterile scrub solution for skin prep, a large sterile sheet to cover theareas of the patient that were not prepped, and hand hygiene, mask, headcovering, and sterile gown for performing radiologist and scrubtechnologist.The skin was anesthetized with 2% lidocaine. Ultrasound evaluationshowed a patent and compressible right internal jugular vein, which waspunctured under direct real- time ultrasound guidance with amicropuncture needle. An ultrasound image was saved to PACS. A 0.018 inch wire was placed through the needle into the right atrium. A4 [place] micropuncture sheath was placed and a 0.035 wire was advance dinto the IVC. A subcutaneous tunnel and pocket were created in the rightanterior chest wall by blunt dissection. The pocket was flushed withantibiotic solution. A 6.6 [place] Ang[employer] single lumenpowerinjectable port was placed within the pocket and the catheter broughtthrough the tunnel. The catheter was cut to appropriate length Apeel-away sheath was placed in the right IJ vein and the catheter wasadvanced through the sheath, with its distal tip terminating in thesuperior right atrium. The peel-away sheath was removed. The port wasflushed and aspirated easily following placement. The skin incision wasclosed with 3-0 Monocryl and Dermabond. The small jugular incision sitewas closed using Dermabond. The patient tolerated the procedure welland left the department in the same condition. Results: Spot radiograph of the chest demonstrates the new right JDAexl-Z-Fhdf to lie in the expected position with its tip overlying thesuperior right atrium. IMPRESSION:Impression: Successful, uncomplicated placement of a right internal jugular chestport using sonographic and fluoroscopic guidance and conscious sedation.The port is ready for immediate use. Electronically Signed By: Tao Alfredo MD11/08/2022 11:13 CDTWorkstation Name: [id number] W/PLT COUNT & AUTO [id number] 13:03:26 Test Item Value Reference Range Interpretation Comments WHITE BLOOD CELL COUNT 4.1 K/ L 3.5-10.5 (BEAKER) (test code = 775) RED BLOOD CELL COUNT 4.61 M/ L 3.93-5.22 (BEAKER) (test code = 761) HEMOGLOBIN (BEAKER) 13.1 GM/DL 11.2-15.7 (test code = 410) HEMATOCRIT (BEAKER) 39.6 % 34.1-44.9 (test code = 411) MEAN CORPUSCULAR 86 fL 79-95 VOLUME (BEAKER) (test code = 753) MEAN CORPUSCULAR 28.4 pg 25.6-32.2 HEMOGLOBIN (BEAKER) (test code = 751) MEAN CORPUSCULAR 33.1 GM/DL 32.2-35.5 HEMOGLOBIN CONC (BEAKER) (test code = 752) RED CELL DISTRIBUTION 14.6 % 11.7-14.4 H WIDTH (BEAKER) (test code = 412) PLATELET COUNT 390 K/CU MM 150-450 (BEAKER) (test code = 756) MEAN PLATELET VOLUME Unable to report due (BEAKER) (test code = to abn ormal Platelet 754) population distribution. NUCLEATED RED BLOOD 0 /100 WBC 0-0 CELLS (BEAKER) (test code = 413) NEUTROPHILS RELATIVE 44 % PERCENT (BEAKER) (test code = 429) LYMPHOCYTES RELATIVE 42 % PERCENT (BEAKER) (test code = 430) MONOCYTES RELATIVE 12 % PERCENT (BEAKER) (test code = 431) EOSINOPHILS RELATIVE 2 % PERCENT (BEAKER) (test code = 432) BASOPHILS RELATIVE 0 % PERCENT (BEAKER) (test code = 437) NEUTROPHILS ABSOLUTE 1.80 K/ L 1.56-6.13 COUNT (BEAKER) (test code = 670) LYMPHOCYTES ABSOLUTE 1.70 K/ L 1.18-3.74 COUNT (BEAKER) (test code = 414) MONOCYTES ABSOLUTE 0.47 K/ L 0.24-0.36 H COUNT (BEAKER) (test code = 415) EOSINOPHILS ABSOLUTE 0.07 K/ L 0.04-0.36 COUNT (BEAKER) (test code = 416) BASOPHILS ABSOLUTE 0.01 K/ L 0.01-0.08 COUNT (BEAKER) (test code = 417) IMMATURE 0.20 % 0.00-1.00 GRANULOCYTES-RELATIVE PERCENT (BEAKER) (test code = 2801) PROTHROMBIN [id number] 12:41:06 Test Item Value Reference Range Interpretation Comments PROTIME (BEAKER) 13.2 seconds 11.9-14.2 (test code = 759) INR (BEAKER) (test 1.07 See_Comment [Automat ed message] code = 370) The system [employer] generated this result transmitted ref erence range: <=5.90. The reference range was not used to int erpret this result as normal/abnormal . RECOMMENDED COUMADIN/WARFARIN INR THERAPY RANGESSTANDARD DOSE: 2.0 - 3.0 Includes: PROPHYLAXIS for venous thrombosis, systemic embolization; TREATMENT for venous thrombosis and/or pulmonary embolus.HIGH RISK: Target INR is 2.5-3.5 for patients with mechanical heart valves.HEPATITIS B [id number] 16:12:13 Test Item Value Reference Range Interpretation Comments HEPATITIS B CORE TOTAL ANTIBODY Nonreactive Nonreactive (BEAKER) (test code = 497) HEPATITIS B SURFACE ANTIBODY < mIU/mL <8.0 (BEAKER) (test code = 647) HEPATITIS B SURFACE ANTIGEN (2) Nonreactive Nonreactive (BEAKER) (test code = 2585) Commercial Agent ID - ADMINOperator ID - ADMINOperator ID - ADMINHEPATITIS C ANTIBODY 2022-10-23 15:19:53 Test Item Value Reference Range Interpretation Comments HEPATITIS C ANTIBODY (BEAKER) Nonreactive Nonreactive (test code = 367) Commercial Agent ID - ADMINCOMPREHENSIVE METABOLIC [id number] 09:53:06 Test Item Value Reference Range Interpretation Comments TOTAL PROTEIN 8.1 gm/dL 6.0-8.3 (BEAKER) (test code = 770) ALBUMIN (BEAKER) 5.0 g/dL 3.5-5.0 (test code = 1145) ALKALINE 87 U/L 40-150 PHOSPHATASE (BEAKER) (test code = 346) BILIRUBIN TOTAL 0.5 mg/dL 0.2-1.2 (BEAKER) (test code = 377) SODIUM (BEAKER) 138 meq/L 136-145 (test code = 381) POTASSIUM (BEAKER) 3.9 meq/L 3.5-5.1 (test code = 379) CHLORIDE (BEAKER) 104 meq/L 98-107 (test code = 382) CO2 (BEAKER) (test 27 meq/L 22-29 code = 355) BLOOD UREA 10 mg/dL 7-21 NITROGEN (BEAKER) (test code = 354) CREATININE 0.84 mg/dL 0.57-1.25 (BEAKER) (test code = 358) GLUCOSE RANDOM 96 mg/dL 70-105 (BEAKER) (test code = 652) CALCIUM (BEAKER) 9.7 mg/dL 8.4-10.2 (test code = 697) AST (SGOT) 25 U/L 5-34 (BEAKER) (test code = 353) ALT (SGPT) 36 U/L 6-55 (BEAKER) (test code = 347) EGFR (BEAKER) 94 Interpretatio n of eGFR (test code = 1092) mL/min/1.[address] age Description sq m Result G1 Beena l or high >=90 G2 Mildly decreased 60-89 G3a Mildl y to moderately 45-5 9 G3b Moderately to s everely 30-44 G4 Severl y decreased 15-29 G5 Kidney failure <15Reported eGF R is based on the CKD-EPI 2020 equation that d oes not use a race coefficientEsti mated GFR is not as accur ate as Creatinine Denise huang in predicting glom erular filtration rate . Estimated GFR is not appl icable for dialysis patien ts BILIRUBIN, [id number] 09:53:06 Test Item Value Reference Range Interpretation Comments BILIRUBIN DIRECT (BEAKER) (test 0.1 mg/dL 0.1-0.5 code = 706) [id number] 09:53:01 Test Item Value Reference Range Interpretation Comments MAGNESIUM (BEAKER) (test code = 2.0 mg/dL 1.6-2.6 627) CBC W/PLT COUNT & AUTO [id number] 09:35:16 Test Item Value Reference Range Interpretation Comments WHITE BLOOD CELL COUNT (BEAKER) 6.8 K/ L 3.5-10.5 (test code = 775) RED BLOOD CELL COUNT (BEAKER) 5.14 M/ L 3.93-5.22 (test code = 761) HEMOGLOBIN (BEAKER) (test code = 14.9 GM/DL 11.2-15.7 410) HEMATOCRIT (BEAKER) (test code = 45.3 % 34.1-44.9 H 411) MEAN CORPUSCULAR VOLUME (BEAKER) 88 fL 79-95 (test code = 753) MEAN CORPUSCULAR HEMOGLOBIN 29.0 pg 25.6-32.2 (BEAKER) (test code = 751) MEAN CORPUSCULAR HEMOGLOBIN CONC 32.9 GM/DL 32.2-35.5 (BEAKER) (test code = 752) RED CELL DISTRIBUTION WIDTH 13.3 % 11.7-14.4 (BEAKER) (test code = 412) PLATELET COUNT (BEAKER) (test 403 K/CU MM 150-450 code = 756) MEAN PLATELET VOLUME (BEAKER) 9.9 fL 9.4-12.3 (test code = 754) NEUTROPHILS RELATIVE PERCENT 58 % (BEAKER) (test code = 429) LYMPHOCYTES RELATIVE PERCENT 33 % (BEAKER) (test code = 430) MONOCYTES RELATIVE PERCENT 7 % (BEAKER) (test code = 431) EOSINOPHILS RELATIVE PERCENT 2 % (BEAKER) (test code = 432) BASOPHILS RELATIVE PERCENT 0 % (BEAKER) (test code = 437) NEUTROPHILS ABSOLUTE COUNT 3.93 K/ L 1.56-6.13 (BEAKER) (test code = 670) LYMPHOCYTES ABSOLUTE COUNT 2.23 K/ L 1.18-3.74 (BEAKER) (test code = 414) MONOCYTES ABSOLUTE COUNT (BEAKER) 0.45 K/ L 0.24-0.36 H (test code = 415) EOSINOPHILS ABSOLUTE COUNT 0.15 K/ L 0.04-0.36 (BEAKER) (test code = 416) BASOPHILS ABSOLUTE COUNT (BEAKER) 0.02 K/ L 0.01-0.08 (test code = 417) IMMATURE GRANULOCYTES-RELATIVE 0.40 % 0.00-1.00 PERCENT (BEAKER) (test code = 2801) Tissue [id number] 12:21:38 Test Item Value Reference Range Interpretation Comments Case Report (test code Surgical Pathology = 104) Report Case: [id number] Authorizing Provider: Zay Ghotra MD Collected: 09/30/2022 12:18 PM Ordering Location: [facility] OT ENDOSCOPY Received: 09/30/2022 04:47 PM SERVICES Pathologist: Reece Vera MD Specimen: Abdomen, Left DIAGNOSIS (test code = [id number] 3220) FuZzEwMzNcZnRuYmpcdWMx IHtccnRmMVxlcGljMTAyMD tzQG8kgNydxKe4dGnyGFIv xuB7bBKyRCvaj1lsJMQ0c9 tmleksLDCkVShuRp6ufITr tXouOfArAKFzYQa4gX73QD LlpD5iqWFyGIn2NRJwnUWm vrIjAkEpMUEooIAzjUF7VU TgSX0gzdcvNMaeQKfsTDWs tzI5ASHocZUqT7VlJMHbMO 8ljnupVJK1OCjfCLMbABJ9 XnGkZKAlb1Wtavb8WzSoqP FyZFxwbGFpblxmczIwIEFC XU6ZRK6yUShBHjOvVNUGI6 BTWTpccGFyXHRhYiAtIExP Pv1HJcAPRAMILJPLYPCqN7 TZE4zYH38PFXWowg97XHM5 MqJui8I1RJV6ZEUjSGJgw2 lcZGVmbGFuZzEwMzNcZnRu OpwwkGVyMSIlGuEsv4ktg0 52fOIsb9cfCRMjLfX2rUEs WTBziPMrF410DRFoIRavi1 udx2QdLSGqzCMbe0C9ISJP azeijId1bYtyI72ky1J8Ca voQ5paTUFnDJRyR6GfUZ6b OTJzPya9KLK7BSS0PWSyBX MgZ7DlCC0lWHLeeIReZCc8 i7nidGnhMDSlGLO0g8fgXJ ayaeOcGA5nmu3haOk0q4cn czEgRGVmYXVsdCBQYXJhZ3 EpxVqfYm1nwDo1yNncYznn BHG4Fzf8UD6uql88aub7kK kiHCNflkgbBlG2CNkgLPCm hpgiQBm5OWfuFWDpvZB9PQ HrdHDoF0AsVXDlVQ3dwwy0 HMY3ODqrBLBkTeW4GSGdxJ SvXRGrxPqoFPfrq084CGV6 BgWqPH9hK1Mfi9N5hB0teL WfIDUarAQyKaOhUUEyhz3r lJXeJSjui2RzIUA0amB0aX LrxHHyLLDpXpM7QQmmEF6t yk26XYOaEMU2ew4taZDzeH htwqOzpDGlVVbyM7TpUYXf o594RGMhX9GcUOFps0O0ke YvEtXoLDSyuFV6vfP1SPTc LN7owzfgx5gmVYguJYspBH YipzW5jdQ3QAQrdGAvK6Jj nR7hDZMdNH9kgwkbr3eaAS F4MBmiELRyBQB7KbVlUZNn a3Gzhev5WhQyo6NguORxRX vpP21sl501KMKfzjXcM8qs bGFpblxwbGFpblxmMFxmcz T8DMRsVEfaaqqpBCSbACpa O0cfIiHkPDDtdTyxUCjsu1 NoXGYxXGZzMjJcdGFiXHRh Tax0YEWatOBrISXsZsIxU1 tfbkkxOnPPWEQbm5joL3sx nXUOtPEfY3UqNNpihxYgQQ jnATmoJaUaZCy2YW88AySj CYPmwx48 CPT Code(s) (test code x4xbkSEuJJLtzCEoVRZkU0 = 3357) xnpbZnDSWcsLZzA7Annsle XZtuLX8kPV5qoVmehPDmuM JgMOFuOqIxu8wqy926mVJq z9rhTFYLvyxbaCt0yHbwU7 6ri9U8VlfrF98rzHAjSRW4 SXAxQGYwgARiVJFoOVF6DZ CkcVZbA0fzQXThTI4rnwwi NVzzQVfmHYBuiOW2NZQiqH QwB9JdWZYdQCsgQBMhjew0 GoOhAu6amUUqdHqiRHbuOI JkXHBsYWluXGZzMjAgODgz MDVccGFyfQ== CLINICAL HISTORY (test a9oqrSRoPLZdoSEaIOHtQ3 code = 3356) laacZiGDMpnXOzO3Intyrq KJdqAP8qYX9xoBwllVGciR SrLZVxAkDmf7ydx635kXXb j2doHFEPmffhiFc0gBmcE9 2fw0B7WorpY17uzPFjGSX2 HGMgGMZspGMlDOBaPJZ0HT JkmKAdM0jpSMTjUR0amfih PTftTZtuJKAtmTF1NKAneE XzZ3NcSTGtZKjoNJGzkbx7 HeJoJm4kpVYalVcxEOwpAH JkXHBsYWluXGZzMjAgTWFs dOzaCR19GO9ll0HuVUMcVN 5bCY54JUX9YSDnxb9= GROSS DESCRIPTION (test i2lvdQGtUFCojCLFNKYsCU code = [id number]) DaKB9kqXmbuLs1tNroKANv ijO5wXQeYKkxg0qePXN1y2 zthcWHDjcqWZQkYL0fGYvl MTQjLK1oRyGpAYMxQpQhCT BhcGVydzEyMjQwXHBhcGVy eVJ4YDWxDG1clwtpGAdmTX tzXIXnxgF9NMPqoTEsZ0Fw DKGgEQ7ttoseONA5YZNOBy fmYh7kvZFvtWfzDfTpYiXb YXJzZXQwXGZuaWwgQXJpYW u9hW3PElvzE90pd6C1Uwf9 EMXnXWFrX3FpDQ3aBUDqnF MdL59DSivlULE9CPRKRujm DydkoFbrg1FkeDRiHRNeFG xcaWQgNTEwMDAgXFxkYiBP UoLqKqQlMgIuWWK9WTFnDQ i6IYnoKtOYZMS6DxOxMxIu YPf9GWqkCHsdvPFaFFTkHV NzUVZbQCelniR6g8diDRKg oUAyFJY3VAqvh6wiNBugRX V0LSTdYuFeLASwWR2LJjPd WJFgLhX9HAp8ElN2AZe3EJ VXPiQsAyGqJuP6WJY2LQku HMu3WLo4UIhPEhI9CFGwUc YgHrLuCII2ApyiFKp6LVHm XFxzcyAzIFxcZmwgXFxuY3 1ccGFyZCANClxwbGFpblxm byRlMARxVJGvAN9sRW1vOO elHiUfjJGrLL5AKTXghbMg BIwixGetrM7aFkVgWskzmX JjaFxlcGljTmVzdERvYzEg DQpcbHRycGFyXGxpbjBccm luMCANClxjZjFcZnMyMCBS XUMapDXfRPKpkiOey3TwGT xpbiBsYWJlbGVkIHdpdGgg iLisDLQrwRncaeXtA1F0bu CfMN2lTXZeLIJgN3SnFNWx C57zCPPubW5mFEYwMR5fXY k1BDKaCZNtWkvgzJNzvZOy YmRvbWVuIiBhcmUgbXVsdG lwbGUgdGFuIHRocmVhZGxp t1Cpj38yvFC8nDUayEQtX8 6zEGBkzDUyk0XpkE2pMGBp IHRvIDEuMyBjbSBpbiBncm WyzCTyjUDqMC4cfOmmOWyq ySJlYARcQRRunLZgiQA7KU JdzG4tcO48pvTxtdLUUJ2Q Iv9poXNfDN8DECLepxWADu reOYQzNYWwmPALc0PgZQDS ClxjZjBcZnMyMiBQaWxhci GSwpg2YTceVHOwVBRELNXZ VCAoQVNDUCkNClxlcGljTm EgfGWjLaN5SLKclHIfOVM7 XL7ekMuzOESeI7VjS8Qahh A6TWHwamNOOaapYQFjMJ9P fQ== MICROSCOPIC DESCRIPTION b4hhcLGlJQJpmUQoIWFuA0 (test code = 3371) ratkDgKKBliMBiZ0Dldcij ZVnvMZ1pLD2dtGycnKAdsH PkUABhAgHhe6ecg425tZTd c2iuXNFKkjmlaHa2sZgzK5 5pl2B7RpdfN87kpLChZBU2 TRVdDGLqyGFdIMYxSEA4QC QzjDAvS9kuIAEjUF0ehfrh ZDsqJVidGNWhpND1RKUiwY HtO4GjJNPdCImmYCVcgri8 AfCfBw7qjOKuqHseZDosPC JkXHBsYWluXGZzMjAgUGVy Rp8viNGbQiozEMSyeHLdZA RdS0WwadBxOHT7BCXXOIXS kH7oC94ml6gdIvTeNSZpp2 hxV5lbc79eRZ19LoNnQiNt XHBhcn0= SPECIAL STUDIES (test d1dadMBmCSHzn8jtCMAghX code = 3376) FuZzEwMzNcZnRuYmpcdWMx NWrkyhRoAMora6WhM1LmMj AwMFxhbnNpXGRlZmxhbmcx CLXtQRF9rmGcOSCrLVjrOI YaSBlmYn3etYYsbHqbYzHf TYHqt1ahqxNJwfslbDz2t1 obKWZxBdV8mWLvISpyS2mj vsJelKFyR8MnuNEatQx2u0 dbKkVgLrR4zAJmVRpoR9eg biYulJDdOQItIIv7cC43YE JjfW4roIJkMKynbiJeJrY7 MVgrJZLbAuO8DINnyMYuWD CgQ6jsFULfEOlpOHZpBNfp zKIuGYD6oZqgf5A6gKKanP XnjLizGoFtNtJeHqJHz9Mz MVd4yPhbI0EfITZcAtA8pB QgUGFyYWdyYXBoIEZvbnQ7 eRpxkjBfv57opAWmJVNwJR IiEbCtnWvpLZYrVBSXw1Tj qVxcOGP7lPu0eVygArdxWL V2Umj4GQ4uym14iey3hJus BUQdmfnlYzV4MUvlUQLypt jrCRq5VDayOOPagDD0BVMc sAKlF8XsBMDySX8ejxg5ST P6OKvlVVSoBlO1FCTngACt MVWkjTqhMClgr865HFA9Ol SjPU5kY7Ipr5D4mM0bqCJt QGJzdYYrKnSkBVDvth7jhN VoLHqbi3IpJOJ9fiC8bWSo fEEpXKSgUK26Rczgh7ZbBc ruv8SyX72olZS7BWxas2fo BR2yUzF9ikKdIXepx5ffbY 2iPbW4JDseID3zVJ6pNDRq sP0npvvdQNZzTiYlvvkoFD TmjZmrtsZeSg3tfPjgOLM6 RRcnH2cpeK0jPdO4QVmtT6 jmtK4sOEm0KYdcoVW6OEFz rP3gNF6xcuujz5zgOBkaGR qmRIBjavK6ukK1BLFudYVw W9IhfV7aIZKiBX8vewwgs1 keTGK3XHhqIBMbEXK7SvNy KPYjr0Pdiez2NzJwk9NseE NnDGinI61bb592DDPaaqDm Q6awyAGajpteuHBdxljgUK exzvP4GLNuUGQqUKvwZJFj XGZzMjJcbGFuZzEwMzNcaG ljaFxmMVxkYmNoXGYxXGxv B1fwLlQxC7LuIEGhFhCtMO jxVUkuzTBjfMWrwWF4fP2z VK3aONNueZAfH5NtBLUftt DkfVDuDHM1gTNsaOOeEU5b FDoqvHCak6yhw8VtN9qniC ffbKF9LN3iNPUbTVYsGAgq k2AwhJ6bSdzhoVRdvycsXA xmczIyXGxhbmcxMDMzXGhp V2qwWmZqUVPqePegIZmse8 NoXGYxXGNmMlxmczIyXGx0 cmNoXHBhclxwYXJccGxhaW 9zDeIyGqYwFhcxHI9kTMSa V6wrpXRaTRKyNUPmQ3xbBt ZdhZ1fkWkzBDisOvMcJxBz AbOAz672im8xNPLzhMCfoa YDiKXhwF7rUYouEOafLJpo mYVdMHesw1xyEHRjx7b3bG WaIXOgusJzo1osOOrcjwFp PEAfdQDybLIcHULof97vAU fqjWefpBxmDFBbk7ApxPgi p2VpGwUeUZpgn1JfB36qkW JvbCBzbGlkZXMgcnVuIGFs q14pe4diBJFiSdA9mSHdgS X1yDTpdGRhz0ZstGjsRQUw q6tkYOSkmp7iygjzjEPjc8 BbfK9geylfTWmfcHEcunFs XVDlz1z1yWNxFUUgEFOrEH xixGk5UKMju019nw2dftN8 uTMgFEL3TWvgWCJtYKSezq UgZXZhbHVhdGVkXHBsYWlu XGYxXGZzMjJcbGFuZzEwMz NcaGljaFxmMVxkYmNoXGYx FWhcW7lvMfEgK7JkQKAkDs TeuDHhK1mmpMDcUSGaNDol XGYxXGZzMjJcbGFuZzEwMz NcaGljaFxmMVxkYmNoXGYx CYunW0tcQlBrS0PqZKEvMe IgIFxwbGFpblxmMVxmczIy EGpgfythPYStJYxcB3ogIk DtADCxsXqmVWdch6ZbKXIf ZSAiCjjdlfZgAMv7ipTeMR BhclxwbGFpblxmMVxmczIy YYqrgxpuTPWgSOpiJ6qjLf XgILJcpRpmWXfdn7JgALLt XGNmMlxmczIyIEltbXVub2 xuz9LyI3qnfBcipFM9PMBh G6dgdDNtyEA8RHD6nY8rLA mgerQfRUBft5EiDEJwDXVo OmL9sH0oKXS5OnWIlSwdGI BsYWluXGYxXGZzMjJcbGFu ZzEwMzNcaGljaFxmMVxkYm UkOKCtNPeyW0mbFmYaT7Ie YJQtKrPurZzsYWxaJXr2Ej xwbGFpblxmMVxmczIyXGxh oxwtBMWiIVdaX6rvYwOgIG LsvKxzMAhkk6QmBTAfYMBw MlxmczIyIHMgTWVkaWNhbC XKLV50QRQoZPWnxKyujJ2l hBPNVVFlwlL5o2D3TFnjBR HbWAf7VAllwlAyRIQpjF1f XFVcVE8hUTk7daPsFHYva4 RfQG1mWBVtlCQtQTE7YGNl w9TkE3Aij5YsPIEdMRQfwe 4trmWbJvAWxRGlCZRbtk04 WEIhIZ0nV5zhRHPxAJDwvm DpyTEhm1NiAAWlbXV5mQIl YH1TYsNUc51zWRMhDIJNpi MxGUYmnQbygCG2szV3iF3f LiBUaGUgRkRBIGhhcyBkZX Ykxu2guhKqIEMlRJTfc6Lp fZCjjEIvegQxG5Nbu5KjGR Sqgv40NBsdaPYgpm47ZK1g W5Nbi7LgwS1wHRrlQLEex8 RynUMavIUoMTOcr8SvV7gw qcqyQSqutJDxqR3zKCMuEL w5LUPwr7ZoJDRjo6AhNvBe qqOqFWAlOEJcAAOneP79MG G9fYplyEkjaaCbLJ2dXMSb vhTzGGCiCGSdxC1nBGcjwp KuGLQedaW3s9F3TDlxXUNi gpVwRuurAUA1gaPwrhB8wU CmV3azaexnSZsqWLDzn4Nf xF1gwMBVsRPve9VrmSRwlG FSzCFbRL0dltVaCP2yVNY4 ODggKENMSUEtODgpIGFzIH H1BRnvAjpdEBA1xjFsOTKj o5DsLQejK5emP90rdPzywN e9vMUxqTflyZTbcGHpSBAr pdP0y7F7VQDky7HznhosEF BsYWluXGYyXGZzMjJcbGFu ZzEwMzNcaGljaFxmMlxkYm BfSSXfBQrgL8riCcYkWbLh PwdsYJF6jF== [facility] [id number] 12:21:38 Test Item Value Reference Range Interpretation Comments Case Report (test code Surgical Pathology = 104) Report Case: [id number] Authorizing Provider: Zay Ghotra MD Collected: 09/30/2022 12:18 PM Ordering Location: [facility] OT ENDOSCOPY Received: 09/30/2022 04:47 PM SERVICES Pathologist: Reece Vera MD Specimen: Abdomen, Left DIAGNOSIS (test code = [id number] 3220) FuZzEwMzNcZnRuYmpcdWMx IHtccnRmMVxlcGljMTAyMD ocNJ9ifIclcFj8iNvhNSKl zpL4tBPzHAtxj4zdWOE8w1 lojxhuPDViKWboJw6lhJOg tPqhWmSmAFMrFXb1bY44CG RqqI1fkAFxIHd7MAZdgRRn siMvHdYkNYNksDAsdDF5BX EpIX2rvwlkWMaaGHcaISYr srX1KVGagZTyQ7EsGNAoJP 7sezymHRZ7OGshWREuQTM1 VgHkGLIjg4Riksc4SlEkxX FyZFxwbGFpblxmczIwIEFC CG5XCY4xDOpWMbDsSJAHN7 BTWTpccGFyXHRhYiAtIExP Nd8WXnOFLXAUNVVSSWNgT2 IYC4kDV82GNLOyds93FRZ6 KmQua9A1HYQ2XSGeVQRfv4 lcZGVmbGFuZzEwMzNcZnRu QdgarPRyDDQnCgJci3otf4 33iTWnr6zuBHIyNuX6aDJv LYUxaLRmO244SZYoWYrfp6 ngr2DlVBQutMKtd4P7ZGCO lnflrGo2yBlqY42je5K2Kx hxQ7lvIFJtGPKeA2YlJY4r MEGuTnc9MBG7MKC7FFUwHY KrY6KhJN0sWOEgoYAlKMo4 q1tpnHmkRVRyDVF2v8uqUE wqaaHsNP3bfy6ulXn6r1el czEgRGVmYXVsdCBQYXJhZ3 NolWpcWe3szCy0tHxxMpwq BHQ6Iuj0YZ9kpy47ndw8vP ulDRCaqrlaTyN1KGpmJVFr kocxWAh0EPdaYJQohLK5QN KwbBXxQ4DpEUJaDL3wocd0 BMZ1SYunFWXnCaH4AVSteI SoHHGjpCumWJmwl285KHS6 PiTfBP5cT7Bpb9W5aL0tiG OgRCNxlHZhTiKzHUOama8i cLGkPKeyu9ZjSEJ6meD0kV MvlRUvNDOrIyC7ZMbcAE7l cj83YVEwSNU6ca7fiEMiyM wmdgIuyIKhLTvvL1OdQYWh t299FFXhE6JdXPYlj8Q9ct LcTkBaCHMxaWE6naO0TWGn RC6ymojps6nwQJdzMMmtXW BqnqO6xyE1JXKaoGHeK4Ut cG7jKDKsKK4qkckow4rcPR J8QOhfIQGmQLM9RyVlZGJl x2Jaesj0HbLuw7OnvPNcWZ waK21im816HAPgeaIbB4li bGFpblxwbGFpblxmMFxmcz G4CXZoYEvfclroVZTqJOkm Z0jpGtGiUGJsgUhuGObzs1 NoXGYxXGZzMjJcdGFiXHRh Tcq0NRTemPRbDTAsFdFkF9 qdiyvbLvFASALut0chF8nv cOMKbMDnX3UkLMfmmkWcRU stZKlsGgLcGLx0EV22QyPl NATtrm55 CPT Code(s) (test code h5hhzSXfLPHxqUWlDFHdR7 = 3357) lfyrAyTZFaqMZnH0Stdrub HDljLX2wYC4dsKfvdWAhiK MlBIRbVuRzo7ekb187bQIl x4jwRMWQtvfurKs3hBupJ0 1ui2X3YziwC51whTLuGDN3 VXHlTHFeiOPoVMRyWGM2TT IskBPhQ9ljUWXwMR4dzscm YOxfWLxkTYDspCU6ONAqcA OmP1WbMFMuEPvaDEXbtmk6 NlWqKk6zmNVngVrcYBmsIR JkXHBsYWluXGZzMjAgODgz MDVccGFyfQ== CLINICAL HISTORY (test g8owxPMbAGQddSAfBJJxM0 code = 3356) rbfxQlASBssWStC7Yzhvxj QZomPH1uSC6ymVbnxOKacR WrDTCqRnZhg3zio588lGOg l2bvOGYSbxctxHj4hHtxL7 3qj1O0AsimD44ibJBxBGU6 KXEwMDWptNVcYOQeFKD6XG AsaQQhY0xeCKAbWJ7vhixi TLvlVFqrKKWwbBR3ZSZesT YhG4FiZJDmLJkhSNIszim1 BoRxOj3npJIqdTowPLssLS JkXHBsYWluXGZzMjAgTWFs lYjhJQ36TS9bf9WaEGKrGK 3lDO27ZHY5VERpgn9= GROSS DESCRIPTION (test v9kacVWiFUFicPDAWMWwYX code = [id number]) SyJV1dvOohfYr8vAawMCYy hzK9lDNtPHpqd8xoLDO4r1 sqbhCLLbsmTGJiPF9bMYtr TBTnDG4bQtGqPDNhPeZdRV BhcGVydzEyMjQwXHBhcGVy oJM0PTArXB6ubvyrWWyzYP vfQUXxylA8MFTrkXVjI5Ty MTMaDU8jntymEGI7ADPRAx axRg3ujLFaoQuoBqClFjLh YXJzZXQwXGZuaWwgQXJpYW a4nU2FEybcQ61rl8S3Uhp1 AJDiZLZgG2WxMK5lVSOowZ LcN62YCvvoGMA2ZKLFGhfq XpnqmQwdz0JqxLMnMDQeFN xcaWQgNTEwMDAgXFxkYiBP PbTvFwVtWsRuFNS2NGUeEQ r0ITtlLcUSIYP3LxXuQoHq KOp0VLuuRVmxdNRkGYDoGZ YeBHLeSQnyywI2h9aaDFWx xUKuUWE0WAubz5xaJTccUF Q1KHKcWfXaCTNeTJ3SYaQu HMYyDlP1AEf8VfV5TGc2IK AAGmMrQpXcKqZ9XCJ2NJge TEl0LLk6OCeGQxR8YMNwIe HlQeXgKEU0CbqrRIm2ZQJs XFxzcyAzIFxcZmwgXFxuY3 1ccGFyZCANClxwbGFpblxm zrYpGUGgJTLdUK6pAU9uJK tiSxQpcYKmUE2FGJTdzaOu VVyqcIqhsE3rYbGsBlgsdJ JjaFxlcGljTmVzdERvYzEg DQpcbHRycGFyXGxpbjBccm luMCANClxjZjFcZnMyMCBS URYilSBaOVRjqiXyh7XmWJ xpbiBsYWJlbGVkIHdpdGgg gFiySMQbdWmpkoMaA9S5sr SoXM0zKKOkMBGfM3VgHAIv L49fFUYbtR0nJAHqDF7tGY q2UTDtNOMfOkkkoLZdfYDu YmRvbWVuIiBhcmUgbXVsdG lwbGUgdGFuIHRocmVhZGxp t8Zaz99zlTP7wPYwlVCsV6 6kTQPlaYXyk7VpzW4pZSQk IHRvIDEuMyBjbSBpbiBncm EmtQQfaANkIU2rpAmeJSft dGOxSLKxGFYcpWTprSG5RI VyuA6odP75zoNgxbXRLQ0W Ky9tsNPqWC2LXFHwtxAWPk yjWIAhQMMecUXMu0MsLOHL ClxjZjBcZnMyMiBQaWxhci RMnet6GNxzTCDqSAFDLLGJ VCAoQVNDUCkNClxlcGljTm VtvGVwDpR3XSKziOJlYUM0 OP9mmRvyQIWaN7WuR6Ounk J0PWNmwsXLRdxoJDSmVB5H fQ== MICROSCOPIC DESCRIPTION r1bnlNMtWSQhjPCvTCUuU0 (test code = 3371) kmctStBKFdjXJaT7Rlxloo GUgeZM8iZE8bbClscLIdkZ FlSNBlAqFiu3lbu003wVZu s0wfTMALfrqrdOa6eSmtR6 7ut6U1ToxhI64krSRzDLH5 XMCiBXXdiIZrZXVcNSG3ID BuoOHcV3olRPNjZX6xbomz HYbiRMuoEECfsDQ5WHYyqN CcW9XfGILgWCmfAXZdqft0 VgDsMl1lqPQnpEqmHGcjKT JkXHBsYWluXGZzMjAgUGVy Km6qpMGwDqrdPNUteLHoOP KgH3MpqcCgFAZ6QQDGIUUM uY4oU41bu8rwEnMkHENoi7 hwM7vri53rOX26AaSzSmCf XHBhcn0= SPECIAL STUDIES (test c0oixIUbITWel4kjWJJchZ code = 3376) FuZzEwMzNcZnRuYmpcdWMx CJzatfJxQCigj0IcG2QhLo AwMFxhbnNpXGRlZmxhbmcx RZPrUBF1teCmDDSvMKozTP MlIOrhYt5mcNNueGepRpHa LDHkt5snwfZToxjqcDy9b5 ckHBVxXmK8iSApWEalI4zk pwRogCAaH9KxwOMhwBd4j4 vrDuFeOzD6zIWjZYlnC8sz maJliCMjCDCsQTn8pI68AB SwgR4omNFyKJockbRvLyN3 TOboCFOsLoI9QKDthJKnBW KuD2rkNWDsKZxtFJHzSNsj xXTeCQY5zNwlk2Y8eMNmhZ FtbTjhNtAlCsKnGnTDb0Ua WUb9uZdnE5IcIECgRxL4tD QgUGFyYWdyYXBoIEZvbnQ7 eTlbweOkk02yrOZzJPYlXM ZhVvCwsObzLLJvLTJEh9Xd gVgqJEZ0xFi3aQfpEanhCH S4Hxh4LA8xsz12cqv3mGok KBVengzgGfW4QZaeXVGabb liYOp3DHsuOUPsyLM6SVMh yEWaT8TiYUHjLQ6jlgl5CU W3WGnjNAEhNmK6HYDiqORl SNSxoMzhLGxia613XAP8Up LlOV9mC5Zrn5Z6zZ9hsIYo SDLjvZPhWmUmTMZqjb4srJ AgOKgjp1YwWHH3moT3lZMk qNDdJBToNG57Qyxgq4DbZn bht2DaD79rcGX2OPpnt0vh QA9pJgA9tlVcYXema1eqxY 2bQvV1PYpcVZ2mOU2rBWWu uR2gvrttKQLuZnMgpzbpZP MgbDqntqVcZv4aaXjzKBF9 RLhaM7zrsY9bAxX1IZyjC0 gkmI0zXIk6ITzsbLS3FZKa mI7wBN1qssesy3yqXDywES arPUJdvfR2fyO7CJHunUEw C0MoyL5pSDSpRN0kctvew2 jjFAN9UKwzAVVlAXY6LqOw XVJbi5Znrex9GeVfo3DooI EuYGvzB82ud816FOWjjuRa P9tcoIRpuyiizSAewvqtJF asgiQ5PEInHVUvNMzcKDGr XGZzMjJcbGFuZzEwMzNcaG ljaFxmMVxkYmNoXGYxXGxv O1jsXkUyH6AnVHByVySgVC uaLQjmlFUrtMCtxZY7cZ7w ID9eDMAaqAHiU7FzOGJbnw AmnWJjLCY3lXCifRAtYS2e IRlaoLNlx6zkx8LfS2zzlS xzkNQ8BJ9sGEQaFMTtBCfx x2VkxD3xQvchyHZgowylPD xmczIyXGxhbmcxMDMzXGhp P4koPbUwSHLrxPbxQZgap3 NoXGYxXGNmMlxmczIyXGx0 cmNoXHBhclxwYXJccGxhaW 8qNcYkTlGnUdriAK8bRLFr E3idtLZgBQNzCSFnI2iiDa UolJ8thVhuTTioVcFoLlVn DjARz248xb0tLDYozJVqwa JPkQGmrX9yUBmkPQxdFOjk eCShGBlij0sbZKSkb3u3hZ YmHLSuigCga9rtMUzwwoHv ASBviAApcAFbYRMhe51kSB mjzZqrlEejCLQok2TgfLns v0ArMkAaYMqgv8EcK67onZ JvbCBzbGlkZXMgcnVuIGFs x85qr1obWLLhVgN8zLWsgS N9jJOcjTGjg9OfqRlbDZUo p5cxXRGgdv0wmychaAXtb5 EhxV4okhqgEXftrXTgcrKw MIAya2j9qGCyHRUkKWZxHV ydiXq5ZTKly210jd9kqlZ2 oDFrSBC5ZMmcSIZoXGRsdq UgZXZhbHVhdGVkXHBsYWlu XGYxXGZzMjJcbGFuZzEwMz NcaGljaFxmMVxkYmNoXGYx UZgdF3ssYkZsL2VlCVAuOu VckFGcT2zexYUpSGRnLPwd XGYxXGZzMjJcbGFuZzEwMz NcaGljaFxmMVxkYmNoXGYx LEzwS7yxGzLuW0RoGSDdOu IgIFxwbGFpblxmMVxmczIy XEdayjbqYKMvDJmtV2dbFw DdZCKuyMtbYWqzy3PmTRBn VPGvXeziesVsSRj4ztUxEQ BhclxwbGFpblxmMVxmczIy DVxwxsyjUFKsQJpxX8ksKd CoVXNkrUakXYftf8EvAZMm XGNmMlxmczIyIEltbXVub2 rpw1OwG1jpzUxmbUK0PKWr M3jfyYPagWE9TAF8kT5bGJ zwasOiXRAbl6PtBIHrMSHb YzB2tP2yHSG2LrXXvOzhUR BsYWluXGYxXGZzMjJcbGFu ZzEwMzNcaGljaFxmMVxkYm XrNMYoPOrdO3hqLeHeR4Wr WIWpPuFizVfrJPuyWBk7Vz xwbGFpblxmMVxmczIyXGxh ubrwPOOfVRasX3snGeLgQF WfsMagLGzno9WjSALxCOQr MlxmczIyIHMgTWVkaWNhbC KIHZ41DBKzALIxqBgpyJ2g bWBSCIFqueU6u1L0XVuvXV BtETh0ILhjprJxGTOgnH2c OGPyII0rPRh3xaLpJBLvb1 CpKO8zERLdrBAlIFB6OXAy w1AkM4Pmn2QzVQEnIJFyqq 6tdiPcVaPTpGZgVNVsmw55 VMNgZD6sH4wcTYGyBCKuxo HnpXMby0WwCPUpwFU5kGYw EY8OGrCGi29xCPNgCLXUze RpOKCeiWcmpUN7zzT5uL2l LiBUaGUgRkRBIGhhcyBkZX Uuqp1uqcZgNUJbIXYoh2Dl nXJgbTDhgkLpE0Fkt3OeEE Xudu66KDopmKSdsu12JJ6y C5Bkh4FcsN8aIKapZHRvs3 CxbHYlwJChCKPdw7FbD3wu rhylPHoezJGspC9sVSTpFM d8LJKfn2XjHZCyz6EdShFt dyPtULEvVWTmPMQjeB66KB R9cJobcKbiowGqDT2gXFRn elUqEVDtJKNbsZ3fLMnivi WaDPWpiyE3z4D1VRegUXNg vsEdOytzKCH1quMyfuD3mV OwK3vfkmeiSKrdHHWzf6As vV9qoEVVxAIxo1ZfeANmwU DKjPLyJR7aezBvXC4dMMV6 ODggKENMSUEtODgpIGFzIH T6COggPkmuANU4vgFzHLYx y6OiMGmgK8qsX14zkWzirZ f5eCNhsCuveJEonBMfCDNo peK6t8K6SDGiy1NzjsayXC BsYWluXGYyXGZzMjJcbGFu ZzEwMzNcaGljaFxmMlxkYm QjAMVvNEkiA2kwYnNgKaJj MmgsXAN3aW== [facility] [id number] 12:21:38Surgical Pathology Report Case: [id number] Authorizing Provider: Zay Ghotra MD Collected: 09/30/2022 12:18 PM Ordering Location: [facility] OT ENDOSCOPY Received: 09/30/2022 04:47 PM SERVICES Pathologist: Reece Vera MD Specimen: Abdomen, Left ABDOMEN, LEFT, BIOPSY: - LOW-GRADE SEROUS CARCINOMA Signing Pathologist Direct Phone Line: [phone] signed by Reece Vera MD on 10/02/2022 at 12:21 [id number] neoplasm of ovaryA. Abdomen, LeftReceived in formalin labeled with the patient's name, medical record number and "left abdomen" are multiple brock threadlike soft tissue cores measuring up to 1.3 cm in greatest length, which are submitted in toto in A1-A2.LIBERTAD Mc, HT (ASCP)Performed.Received by [facility] Gynecologic pathology on 10/02/2022.The interpretation of this case included the use of immunohistochemistry or special stains.Control Slides Examined: In-house known positive controls were evaluated along with the test tissue. These control slidesrun alongside of the patients sample show appropriate staining. Internal positive and negative controls when available are evaluated Immunohistochemistry technical testing was performed at [facility], Pathology Laboratory where it was developed and its performance characteristicswere determined. It has not been cleared or approved by the U.S. Food and Drug Administration. The FDA has determined that such clearance or approval is not necessary. The test is used for clinical purp oses. It should not be regarded as investigational or for research. This laboratory is certified under the Clinical Laboratory Improvement Amendments of 1988 (CLIA-88) as qualified to perform high complexity clinical laboratory testing.CT BIOPSY/ASPIRATION/[id number] 16:43:18 [facility] : 1990 Sex: FPROCEDURE: CT- guided biopsy of a left upper quadrant omental nodule.Dose modulation, iterative reconstruction, and/or weight-basedadjustment of the mA/kV was utilized to reduce the radiation dose to aslow as reasonably achievable.INDICATION: Omental nodules.COMPARISON: CT from 08/15/2022.SEDATION: Intravenous moderate sedation was administered by radiologynursing and monitored under the direction of the undersignedradiologist. The patient's vital signs were monitored throughout theprocedure and recorded in the patient's medical record by radiologynursing. Total intraservice time of sedation was 25 minutes.MEDICATIONS: 2 mg Versed, 100 mcg fentanylDESCRIPTION: After obtaining informed written consent, the patient wasbrought to the procedure room and placed in the supine position. Preliminary CT scanrevealed the left upper quadrant omental nodule.This omental nodule was targeted for biopsy.The overlying skin was prepped and draped in the usual, sterile fashionand local 2% lidocaine anesthesia was administered.Under CT guidance, a 19-gauge introducer needle was placed into thenodule, and four 20-ga uge biopsies were obtained.Follow-up exam revealed no evidence for hematoma.There were no immediate complications.Diffuse fatty infiltration of the liverIMPRESSION:Technically successful CT-guided biopsy of a left upper quadrant omentumnodule.Electronically Signed By: Gary Moy09/30/2022 16:45 CDTWorkstation Name: [id number] W/PLT COUNT & AUTO [id number] 10:52:38 Test Item Value Reference Range Interpretation Comments WHITE BLOOD CELL COUNT (BEAKER) 5.9 K/ L 3.5-10.5 (test code = 775) RED BLOOD CELL COUNT (BEAKER) 4.69 M/ L 3.93-5.22 (test code = 761) HEMOGLOBIN (BEAKER) (test code = 13.5 GM/DL 11.2-15.7 410) HEMATOCRIT (BEAKER) (test code = 41.8 % 34.1-44.9 411) MEAN CORPUSCULAR VOLUME (BEAKER) 89 fL 79-95 (test code = 753) MEAN CORPUSCULAR HEMOGLOBIN 28.8 pg 25.6-32.2 (BEAKER) (test code = 751) MEAN CORPUSCULAR HEMOGLOBIN CONC 32.3 GM/DL 32.2-35.5 (BEAKER) (test code = 752) RED CELL DISTRIBUTION WIDTH 13.3 % 11.7-14.4 (BEAKER) (test code = 412) PLATELET COUNT (BEAKER) (test 376 K/CU MM 150-450 code = 756) MEAN PLATELET VOLUME (BEAKER) 9.5 fL 9.4-12.3 (test code = 754) NEUTROPHILS RELATIVE PERCENT 48 % (BEAKER) (test code = 429) LYMPHOCYTES RELATIVE PERCENT 43 % (BEAKER) (test code = 430) MONOCYTES RELATIVE PERCENT 6 % (BEAKER) (test code = 431) EOSINOPHILS RELATIVE PERCENT 2 % (BEAKER) (test code = 432) BASOPHILS RELATIVE PERCENT 1 % (BEAKER) (test code = 437) NEUTROPHILS ABSOLUTE COUNT 2.83 K/ L 1.56-6.13 (BEAKER) (test code = 670) LYMPHOCYTES ABSOLUTE COUNT 2.54 K/ L 1.18-3.74 (BEAKER) (test code = 414) MONOCYTES ABSOLUTE COUNT (BEAKER) 0.36 K/ L 0.24-0.36 (test code = 415) EOSINOPHILS ABSOLUTE COUNT 0.13 K/ L 0.04-0.36 (BEAKER) (test code = 416) BASOPHILS ABSOLUTE COUNT (BEAKER) 0.03 K/ L 0.01-0.08 (test code = 417) IMMATURE GRANULOCYTES-RELATIVE 0.00 % 0.00-1.00 PERCENT (BEAKER) (test code = 2801) PROTHROMBIN TIME/[id number] 10:33:06 Test Item Value Reference Range Interpretation Comments PROTIME (BEAKER) < seconds 9.8-12.0 L (test code = 759) INR (BEAKER) (test 0.87 See_Comment [Automat ed message] The code = 370) system which ge nerated this result tra nsmitted reference range : <=5.90. The reference r gregory was not used to int erpret this result as normal/abnormal . RECOMMENDED COUMADIN/WARFARIN INR THERAPY RANGESSTANDARD DOSE: 2.0 - 3.0 Includes: PROPHYLAXIS for venous thrombosis, systemic embolization; TREATMENT for venous thrombosis and/or pulmonary embolus.HIGH RISK: Target INR is 2.5-3.5 for patients with mechanical heart valves.COMPREHENSIVE METABOLIC PANEL 2022-08-26 12:17:43 Test Item Value Reference Range Interpretation Comments TOTAL PROTEIN 8.0 gm/dL 6.0-8.3 (BEAKER) (test code = 770) ALBUMIN (BEAKER) 4.7 g/dL 3.5-5.0 (test code = 1145) ALKALINE 102 U/L 40-150 PHOSPHATASE (BEAKER) (test code = 346) BILIRUBIN TOTAL 0.4 mg/dL 0.2-1.2 (BEAKER) (test code = 377) SODIUM (BEAKER) 140 meq/L 136-145 (test code = 381) POTASSIUM (BEAKER) 4.4 meq/L 3.5-5.1 (test code = 379) CHLORIDE (BEAKER) 104 meq/L 98-107 (test code = 382) CO2 (BEAKER) (test 28 meq/L 22-29 code = 355) BLOOD UREA 12 mg/dL 7-21 NITROGEN (BEAKER) (test code = 354) CREATININE 0.85 mg/dL 0.57-1.25 (BEAKER) (test code = 358) GLUCOSE RANDOM 109 mg/dL 70-105 H (BEAKER) (test code = 652) CALCIUM (BEAKER) 9.1 mg/dL 8.4-10.2 (test code = 697) AST (SGOT) 42 U/L 5-34 H (BEAKER) (test code = 353) ALT (SGPT) 61 U/L 6-55 H (BEAKER) (test code = 347) EGFR (BEAKER) 93 Interpretatio n of eGFR (test code = 1092) mL/min/1.73 values S tage Description sq m Result G1 Beena l or high >=90 G2 Mildly decreased 60-89 G3a Mildl y to moderately 45-5 9 G3b Moderately to s everely 30-44 G4 Severl y decreased 15-29 G5 Kidney failure <15Reported eGF R is based on the CKD-EPI 2020 equation that d oes not use a race coefficientEsti mated GFR is not as accur ate as Creatinine Denise huang in predicting glom erular filtration rate . Estimated GFR is not appl icable for dialysis patien trevon CBC W/PLT COUNT & AUTO [id number] 11:46:35 Test Item Value Reference Range Interpretation Comments WHITE BLOOD CELL COUNT (BEAKER) 5.7 K/ L 3.5-10.5 (test code = 775) RED BLOOD CELL COUNT (BEAKER) 5.26 M/ L 3.93-5.22 H (test code = 761) HEMOGLOBIN (BEAKER) (test code = 15.1 GM/DL 11.2-15.7 410) HEMATOCRIT (BEAKER) (test code = 46.3 % 34.1-44.9 H 411) MEAN CORPUSCULAR VOLUME (BEAKER) 88 fL 79-95 (test code = 753) MEAN CORPUSCULAR HEMOGLOBIN 28.7 pg 25.6-32.2 (BEAKER) (test code = 751) MEAN CORPUSCULAR HEMOGLOBIN CONC 32.6 GM/DL 32.2-35.5 (BEAKER) (test code = 752) RED CELL DISTRIBUTION WIDTH 13.3 % 11.7-14.4 (BEAKER) (test code = 412) PLATELET COUNT (BEAKER) (test 395 K/CU MM 150-450 code = 756) MEAN PLATELET VOLUME (BEAKER) 9.0 fL 9.4-12.3 L (test code = 754) NEUTROPHILS RELATIVE PERCENT 57 % (BEAKER) (test code = 429) LYMPHOCYTES RELATIVE PERCENT 34 % (BEAKER) (test code = 430) MONOCYTES RELATIVE PERCENT 5 % (BEAKER) (test code = 431) EOSINOPHILS RELATIVE PERCENT 3 % (BEAKER) (test code = 432) BASOPHILS RELATIVE PERCENT 1 % (BEAKER) (test code = 437) NEUTROPHILS ABSOLUTE COUNT 3.27 K/ L 1.56-6.13 (BEAKER) (test code = 670) LYMPHOCYTES ABSOLUTE COUNT 1.92 K/ L 1.18-3.74 (BEAKER) (test code = 414) MONOCYTES ABSOLUTE COUNT (BEAKER) 0.31 K/ L 0.24-0.36 (test code = 415) EOSINOPHILS ABSOLUTE COUNT 0.16 K/ L 0.04-0.36 (BEAKER) (test code = 416) BASOPHILS ABSOLUTE COUNT (BEAKER) 0.03 K/ L 0.01-0.08 (test code = 417) IMMATURE GRANULOCYTES-RELATIVE 0.40 % 0.00-1.00 PERCENT (BEAKER) (test code = 2801) CT ABDOMEN/PELVIS WITH IV [id number] 22:47:51 [facility] : 1990 Sex: FABDOMINAL AND PELVIS CT DATED August 15OMPARISON: Multiple prior CT examination dated back to October 10LINICAL INFORMATION: Pelvic pain, post- menopausalTECHNIQUE: Axial images of the abdomenand pelvis were obtained fromdiaphragm to the pubic symphysis with GI and intravenous contrast. Thisexam was performed according to our departmental dose-optimizationprogram, which includes automated exposure control, adjustment of the mAand/or kV according to patient size and/or use of interactivereconstruction technique.COMMENT: Liver and spleen are normal in size without focal abnormality.There is diffusely decreased attenuation liver consistent with fattyhepatic infiltrate. Gallbladder is contracted. No gallstone or biliarydilatation is noted. Pancreas and adrenals are unremarkable. Both kidneys are normal in size and functioning. No hydronephrosis,hydroureter, urolithiasis is seen.Diverticular disease is seen in the large bowel without diverticulitis.The small bowel and appendix are normal i n caliber.There is interval increase in size of mass lesions in the omentum, underthe left lateral hemidiaphragm, gastrohepatic ligament, distal ascendingmesocolon and proximal descending mesocolon. Some of the soft tissuemasses are partially calcified.No adenopathy is seen in the abdomen or pelvis.Uterus is surgically absent. A 3.9 x 4 cm cyst is seen in the leftadnexa, previously 2.5 x 2.6 cm.IMPRESSION:1. Interval increase in size of mass lesions in the omentum,gastrohepatic ligament, under the left lateral hemidiaphragm, distalascending mesocolon, and proximal descending mesocolon.2. Fatty hepatic infiltrate.3. 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 Last Menstrual Period: The patient is status post hysterectomy. COMPARISON: None. TECHNIQUE: Real time two-dimensional grayscale pelvic ultrasound was performed. Color and spectral Doppler images of the adnexa were also obtained. Transabdominal and transvaginal views were obtained. FINDINGS: Uterus: Surgicallyabsent. Right ovary: Surgically absent.Adnexal mass: None Left ovary: Surgically absent.Adnexal mass: A slightly thick-walled anechoic cyst in the left adnexa measuring 2.8 x 2.5 cm Free fluid: None IMP RESSION: Status post hysterectomy and bilateral oophorectomy. A 2.8 cm left adnexal cyst is not completely simple, slightly thick-walled, of uncertain significance; recommend pelvic MRI without and with IV contrast for further evaluation given the patient's history of pelvic malignancy. Signed: Giovani Correa Verified Date/Time: 03/14/2022 11:56:56 Electronically signed by: Lisa SCHNEIDER 03/14/2022 11:56 AMANG, REMOVAL OF TUNNELED CVC W/PORT 2022-03-01 15:39:00Needs port removalReason to refer externally->Patient has established relationshipReason for Exam:->Presence of other vascular implants and graftsUK[facility]LEY [facility]: [facility] : 1990 Sex: FFINAL REPORT Right Chest Port-A-Cath removal. History: Presence of other vascular implants and grafts Modality: None. Sedation: Versed 0.5 mg and fentanyl 25 mcg was given intravenously for conscious sedation. Vital signs were monitored throughout the procedure by a nurse, and remained stable. Physician intra-service time was 20 minutes. [employer] Car Checker: Giuseppe Weaver MD. Patito tant: Gabino Last MD . Approach: Right anterior chest. Estimated blood loss: < 5 cc. Specimen: None. Technique: The procedure including risks and benefits were explained to the patient, who expressedunderstanding. After informed written consent was obtained, the patient's Right anterior chest region was prepped and draped in the usual sterile fashion. The skin was anesthetized with lidocaine. Incision was made over the previous incision line. The port was removed with blunt dissection. The skin was closed with interrupted intermediate depth absorbable sutures. The patient tolerated the procedurewell and left the department in the same condition. Impression: Successful, uncomplicated removal of a Right Port-A-Cath. Signed: Giuseppe Weaver Verified Date/Time: 03/01/2022 15:39:29 Reading Location: [place] [address] Angio Body Reading Room PROTHROMBIN TIME/[id number] 07:59:00 Test Item Value Reference Range Interpretation Comments PROTIME (BEAKER) 12.8 seconds 11.9-14.2 (test code = 759) INR (BEAKER) (test 0.98 See_Comment [Automat ed message] code = 370) The system [employer] generated this result transmitted ref erence range: <=5.90. The reference range was not used to int erpret this result as normal/abnormal . RECOMMENDED COUMADIN/WARFARIN INR THERAPY RANGESSTANDARD DOSE: 2.0 - 3.0 Includes: PROPHYLAXIS for venous thrombosis, systemic embolization; TREATMENT for venous thrombosis and/or pulmonary embolus.HIGH RISK: Target INR is 2.5-3.5 for patients with mechanical heart valves.CBC W/PLT COUNT & AUTO [id number] 07:48:33 Test Item Value Reference Range Interpretation Comments WHITE BLOOD CELL COUNT (BEAKER) 7.8 K/ L 3.5-10.5 (test code = 775) RED BLOOD CELL COUNT (BEAKER) 4.51 M/ L 3.93-5.22 (test code = 761) HEMOGLOBIN (BEAKER) (test code = 13.1 GM/DL 11.2-15.7 410) HEMATOCRIT (BEAKER) (test code = 39.4 % 34.1-44.9 411) MEAN CORPUSCULAR VOLUME (BEAKER) 87 fL 79-95 (test code = 753) MEAN CORPUSCULAR HEMOGLOBIN 29.0 pg 25.6-32.2 (BEAKER) (test code = 751) MEAN CORPUSCULAR HEMOGLOBIN CONC 33.2 GM/DL 32.2-35.5 (BEAKER) (test code = 752) RED CELL DISTRIBUTION WIDTH 14.3 % 11.7-14.4 (BEAKER) (test code = 412) PLATELET COUNT (BEAKER) (test 357 K/CU MM 150-450 code = 756) MEAN PLATELET VOLUME (BEAKER) 9.2 fL 9.4-12.3 L (test code = 754) NUCLEATED RED BLOOD CELLS 0 /100 WBC 0-0 (BEAKER) (test code = 413) NEUTROPHILS RELATIVE PERCENT 60 % (BEAKER) (test code = 429) LYMPHOCYTES RELATIVE PERCENT 32 % (BEAKER) (test code = 430) MONOCYTES RELATIVE PERCENT 6 % (BEAKER) (test code = 431) EOSINOPHILS RELATIVE PERCENT 2 % (BEAKER) (test code = 432) BASOPHILS RELATIVE PERCENT 0 % (BEAKER) (test code = 437) NEUTROPHILS ABSOLUTE COUNT 4.62 K/ L 1.56-6.13 (BEAKER) (test code = 670) LYMPHOCYTES ABSOLUTE COUNT 2.49 K/ L 1.18-3.74 (BEAKER) (test code = 414) MONOCYTES ABSOLUTE COUNT (BEAKER) 0.47 K/ L 0.24-0.36 H (test code = 415) EOSINOPHILS ABSOLUTE COUNT 0.14 K/ L 0.04-0.36 (BEAKER) (test code = 416) BASOPHILS ABSOLUTE COUNT (BEAKER) 0.03 K/ L 0.01-0.08 (test code = 417) IMMATURE GRANULOCYTES-RELATIVE 0.30 % 0.00-1.00 PERCENT (BEAKER) (test code = 2801) CT, BIOPSY, [id number] 10:15:00Comments:Need image guided biopsy of 3.5cm left pelvic lesion seen on ultrasound and CT scan. Both uploaded in [facility] PACSReason for Exam:->Malignant neoplasm of both ovaries [facility] : 1990 Sex: FFINAL REPORT CT guided fluid aspiration Clinical History: Left lower quadrant fluid collection Conscious sedation: (Given after informed consent is obtained.) 1 mg of Versed and 50 mcg of fentanyl intravenously Technique: After informed consent is obtained, which included the risksof bleeding, infection, injury to adjacent structures/bowel, adverse medication reaction, the patient's abdomen was scanned. The fluid collection is localized. After the skin is prepped and draped in the usual sterile manner, and local anesthesia is achieved, a Yueh needle is advanced into the fluid collection under CT guidance. Approximately eight cc of serous fluid is drained. The fluid is sent for analysis. Post procedure CT demonstrates significantly smaller size of the fluid collection. No bleeding noted. Patient disposition: The patient is discharged from the department in stable condition. Impression: Successful and uncomplicated CT guided fluid aspiration from left lower quadrant fluid tyson ection. Signed: Vern Ryder [facility] Verified Date/Time: 01/18/2022 10:15:10 [facility] [id number] 14:40:13 Test Item Value Reference Range Interpretation Comments Case Report (test code Medical Cytology Report = 104) Case: [id number] Authorizing Provider: Zay Ghotra MD Collected: 01/10/2022 12:04 PM Ordering Location: [facility] Received: 01/10/2022 02:55 PM SERVICES Pathologist: Parag Hale MD Specimen: Pelvic, Left DIAGNOSIS (test code = u8gliLYkCZMwqTS0UzLqHDI 3220) qf6saf9GyiMPrlTDqLQqigM SnxsKzrc50iVY5gO54KU5qX EZzRbB6JVHvnzE0Gbz1XDKd CFGiuPGxH841a6ibi8chmrD eaNQ0iKgqBYThsocvRkR7ZV ujLQOmxzztSXe1UCdzNFEku VG7AYCzpZWjM8IsBRYsDE3u jwx3IER1VFgmJFCjUtV3OOH grNRdNGDlgQwhHLixz616SE L2KcZiRTWyktPurHfcfU1zB nMyMCBMRUZUIFBFTFZJQyBD VFWEYBEKLfPPTUBJADLQU4Q TCtMSRFXhU4mEU9AQLA3BLT oghZIxSMAmTD9aQpYHJZVAF bRaLp0VAT6QEIbZJaXFW4cm yJXzXDJfYU3mE0LtLFTgoD7 lbnRccGFyXGZzMjJcdGFiXH EfGle7JFTriJKyEOBeRiNsD 1jqjmiyAfJXRKGth5viC8ei kRFQmQBrX3LtJSeianBhKIj dKOowYwAfMQe0IE18ElUqPV Bhcn0= COMMENT (test code = z3bqxWFuVTWtoQM5TrBgSWV 9413) su9dal3IctEZjxDVdHFvbqN LgbrWdkf49oQL0zG79IY9tE WYqVdE6DAVbnsZ8Pcv1LFCs BJEluXNiF209l9ppt3eysdQ psYG3sEfxVDHuahwvWfG6UV xfCXDcgtfmFLj5BUkrNLIwx UZ9PKEfsUOaB9FeSFJaFR5a pvu3HJK2LZhrDAIxUzI8LSL gbYBoJDFziRfvJEmgy204TB C7LmCeMAVctzHzzVwryH2vC mDiEWGVgLZgV0h9n7dxW0ho h25iEDNvYFUmHIPfS8OwdWw 8EGDxbHe4nKHhFTMtu3ywxi VdDITcGMdjLY2kfn64VIIcb 1iyUL69KG6avpzfuYJtrBLc eXNwbGFzdGljIGNlbGxzLiA dZYfjuWQaFZJxlNAoyC2fva BwcmVjbHVkZXMgZnVydGhlc rIesdUfgWS4zT7eBEC8ZZEx vZqfiI9sdb4aNBgvTJLisHO yIElOVFJBREVQQVJUTUVOVE OJJGUDXkCVKWA6PQHtKQAyN XNlIGhhcyBiZWVuIHJldmll g1MmMCV3DCDsUwZQhYWuLii vCN9uVC0zDC1NUFmsvaVeC9 XwPOQqg5x5fKP9mVTrKAFcq pZblD29QVTgwbG8GTAlh91t XHBhcn0= CPT Code(s) (test code e9dioVOzNYLjrTH1OzYvICF = 3357) ci3qpb5FfbUTfqRWkTPehiQ FdvtOaod25xMM5eK95BZ5bG ITsLtE6VZOwduW2Rxt1XDKp PHXueIZyX595o4ohj6ijxfQ ikGY7jFevBUJqkavaYgE9EH teKTOfyipvHFk5XNkqDZEzt IK8LHXeuPWjI5JoAIZqAV4r grt6XIN3XTrsNVRuZeP3QKO otXLfJOMarEyqXUjmk490IZ O9WbJtFNIiuoSovEtmyY0tD xVrDWE7OBZoYEdzHRG7 CLINICAL DATA (test h4mocVWgINMikYU7QyYqWMP code = 3355) wg3etg1TdeNHonSSaRFxmeO WeheQmjm43jNP0wN19DL5sQ ULhTtZ9BMNakxL4Trk3UGFq JUZklULeR223a2khh2uyxbB ibBU6cIewXGTmpfjfThM7IW iwYCSezmgeUMj0KNsqPUOay QK0AJWwsRZqQ0FgGQSaTZ1e piy2NUB2EZbnOMErIbT7OBC bgFYpEFQxqUmdZGlkm004CZ X4VpKeAYEglxDyjTcokG7jT dNmHWRmAnD0Bo6gXSsiQMAa k5xkODWzjSGcCUWkwhHbIU3 6tS0fUJjnyAfrdOTjoHNnEO g1dLMkEnl2xVKkA59hfABsp Weqpu3iNK4DlRB9aGEfPKBn wt0knMCvPJE0WEQbcvBsDev wGPLfrwoxKT05ENZgIV6sJ3 LlB8ZdLPHdDH9eyFtdlfNfd GT1soXsmB2yniXjR54eoLpw jHTjUDYsHC7yPYNbPGIYJ6Q ULQ0oCU2noTMofW== SPECIMEN SOURCE (test b4hgmGCaWQKugCN9XkDoXHL code = 3377) wh3vbw2XizJPdtMMuBAkrtX UgszGtpv95vZE3sO93HC8wC TRyQdB2XWHhozD0Jez1PHXn AHXqyCLnJ433q1wgx7qrteL qzDP4xBngSSUhqqlaJqT3XB bnMQRemfclQYz4RDtiUFLnj WR9BDHocXPfS2TpJPKuYV7s per2MZK4PCfaJUVsMuC6VGJ vyOZpCFPqgOpiRQqye183TT M1RmHoCCCpdmLgkLydeM5oT nMyMCBMRUZUIFBFTFZJQyBD TQXGTOXDZfQOSQBNCOTUS1Q JUkFURVxwYXJ9 GROSS DESCRIPTION n7fhgQVpHLCabXF7FzIfRYX (test code = mj8ojz1KidALsbSUiKKckwF [id number]) NpevDxzn63iGM6kO13RR1sD OBnLcE1LCGfvnA3Ffn6QUSf DTGelMTkC646f8nxr0atvqZ fjVP5yXplMBZxngopTxX2YI lqLBDttljzBYs4JOvgRENbj HD8PFKeyFRdG7EqMEPbCS7k lhz4RBB3TWirHURaGjK8PCG zfUWjRUWvbQyjNRqoo504JP U4FlMhDBItkeJ6LPxaWFRvU 9PvZ9XkPRgwMFU9VVHqZGWt BSVuNILoYXGuUIjbpgO4s1i qLPBalEWfDCV3ZXqlpSQpIQ KoPSAlNPhlYpBIPkOeAkR5J WNmTIEyDsR3YIc5THFNZkZf VaAbFfR6Ywv2EZKmVGb5EWg 1VYxZZzN9WhD2IRI8DOVsIL ZkXBCwHIr5LJAlABvxoILfF HScAJOpJMfqBDgsI15bvRnc fV4fSqKyFLSSUhRADCk2mIJ lMQQwbmqzqpEdZYAqD0Rlqi VkIDQgbWxzIGFtYmVyIGZsd SooCaErmjApBKAnOMF5GMZ9 fR5mkNrmjvHteo55MTJlf2P tiPRsa0SsX4BhnGGpoN1btf m4OVOkwKTnDIG5YR7nfIecG KDrW1AdV7UomhT9ACOsvb1= MICROSCOPIC t7hijGHdOJNooLA3NiTaESY DESCRIPTION (test code sr5xpw2RnaMCbnAXtERxivY = 3371) WzxiEtts96gAB2sD18GL5gH FQpJfK7YSGeonJ3Vqq6PDGc GUFucLCcE194c1rqt1pqhsD ntMJ2aUkhABTjtnmzGfN2LE ofLLMzmqxjXPe7TCuqXQSxh ZR4AKHovYWtD6EgEADkWT3m fzp8IAL7DCdlPJGpCyR8PHH tpKOgKOJaxVpzQPqpc579XK Z1OnAiYQXpwjWpjMuvcU3bF hJuIPOOVIAfp5IvBFViFIzq YXJ9 STATEMENT OF ADEQUACY Satisfactory (test code = 2757) Gross assessment was [facility] performed at [facility], code = 2777) Department of Pathology, [address] [place] [id number], Technical component [facility] was performed at ([facility], code = 2778) Department of Pathology, [address] [place] [id number], Professional component [facility] was performed at ([facility], code = 2779) Department of Pathology, [address] [place] [id number], [facility]13 Test Item Value Reference Range Interpretation Comments Case Report (test code Medical Cytology Report = 104) Case: [id number] Authorizing Provider: Zay Ghotra MD Collected: 01/10/2022 12:04 PM Ordering Location: [facility] Received: 01/10/2022 02:55 PM SERVICES Pathologist: Parag Hale MD Specimen: Pelvic, Left DIAGNOSIS (test code = r5fzoCTbPDMysSD7TjKkJWU 3220) jz9vhm3RkvRSzaDRuREswqP OihdDzex87yJB5fO65RN5qE DOeIaX8WWYrvvD0Nnh1MDRh DKVcuHJvY379m2dne8sxetP snOC3sByhNNGcjtenUvJ2CQ ovCDFrdbuaXSj7RTxiVBEgc VD3YSSveDKsE8NuBOJuVA4v liy6KGJ2OVyuQUWnMlK3KUI grGXmVRQbtPovMGany841RG T9DaXhFTWaxyRxtDxhmG7uI nMyMCBMRUZUIFBFTFZJQyBD YUGRJDNHRgLFRDFVRRDAD5T TTxYWWSJxW6nLH2RTBP2YXM qjqVKeJEZxYY0gNnGSMWEBC oKlDt9BEX1SXUhMLcBGN4ex cDXxAMHlCG5sP4PdRPDefU8 lbnRccGFyXGZzMjJcdGFiXH HyMte5KRVhsAXeLKGpZbIvS 8kfwldqBtQFBKHyk4jvJ2qa bPYCwYAjI8AbLDauanLyZMm wKNgjFgWiTLb5WK90SmBlVC Bhcn0= COMMENT (test code = k0cjbOBgECUzhBY8QeHyQSR 3359) su9uuk5FjtENvoVOrWWdczY SdgyFnbz94mVA2mE87PF4aV XIgGoG2QOFxkyT3Kje4SZMn SGBueURoL946e0dko5yaooX suLI1oMobITGmrctaMaW8AX vuUIQhfqhaTFv1DLsaNEBqz PY6YXEryJFeO7PfXILvNG2q ecx1JAZ6LGiyMYBxTgO6UJH sbQJhAWVtdLbvGHijs709LW L6PeVpWHPgpjUcvUxyqM2jK lQoTTRFrBOmB8n3z8ckS1pj v84dXJOpTVEqYYQtW8JffPy 4QCWhnDj0oZXnVSFcl4hgqp MxRRCuUCymNC9xmk92EIIip 4cbHK82KC7nflsayWSmbWQj eXNwbGFzdGljIGNlbGxzLiA kQBvlgAJhJCEjzGTpgF9ipa BwcmVjbHVkZXMgZnVydGhlc lNvtbOwaRA0lS7qKHV4NROe vDdozE3qyc7bRDzlCBZgdQR yIElOVFJBREVQQVJUTUVOVE JKZGMHBhTYYWM2WFYwQNNbN XNlIGhhcyBiZWVuIHJldmll z2PbBUK4RRFfXxFSpSPfUun aXO7jWA0dIL3ORCmcroNqV2 PoESTmz9g7jJR4gOZlEYRmx kLyhF61LKRxdiB2AJBnz76c XHBhcn0= CPT Code(s) (test code n5yaoQQxMVPxvAW3HfRiNVH = 3357) wa2kct3HfeIJyoLTjFPmheL BxtjOqyy91vGT0sH57TI2uW ZAeWdD1HYOwlrQ9Tny8XHHu ERTizWVyL737t6esn0lnvaB tzDR5kJsnPIZkyurnQvO4GL hqZNBsllhhEYr8PZqyHRDkp VC2LGFqcQXqH5YsKYCuMH3q mia2HUO5BBrbSNDeFsI4BCA awIMhFDWvhDqtVMegu536VI P3CpTyKJQdvzNqrDagwK0zA hZnCUF3ZEHnJVjjEXN5 CLINICAL DATA (test d0iliUIsYLUauLL3OsZtSLL code = 3355) gf5wet2YkrEEaoYTjJKmbgA PyqmBlih70lOP3sJ71YA1qP DPtOmF8EWInjvV0Lbu7ZSTu OVQvqXNcN685f9wsr6ntopT qvBP7aSkxOUKbidwdReJ1DG hkPBBtbsefCBx6BCesWPZib UC9QIUxdGAkJ7OoTXTnYD4a piz5RIL4QKngUMXcKvD0JOQ acBTlIUZwgGkuRKsud037BW N5SsVpWKLswxVcwIsofG7jZ sBdEGZkLtG9Wa7uWMolYIYd b8niJAXomCTnWVHbkhStEK7 9sW1pXNibhPmjiFUesBZnWC n6jZVdIvr6iDMbD20rhQYvm Fvbhs9pPF5EeHH0qJKnRGJi tb2kdLJuNYW9GNKovhAlIgl uAWZpcylgPK38IRAfFW6qB2 IzG3NrDYCsGS1puBczknAun FO0rzNhgA2kyoNcS85heImv mOZvOKSeTW2rKXPtSIOST3S AGQ5nMF2jxYSxkA== SPECIMEN SOURCE (test o0mpfZBgMTGmuQO7CbOrRGY code = 3377) xe5cot0DhaKSumUZxMOhxlH RtdnDxdf87jTQ9nQ84RP6nP ZOoPdF7ZKCqglW7Bel0KYHa WEAmcUXyP168d4wee4hnccC vhDG3sPjcHXZnmstoBmT9YW qoBVNykoyyIKo3YMksWSGdc PR3KUHrdYSlL4WfSWDaQQ1v sqy1CME7QKnyNLWfYbB2GSY azRFoEGQqbPorCWwag183QD P7OnGpPSWssrAyxUrdvM3sH nMyMCBMRUZUIFBFTFZJQyBD THXGFKPPCkASQJUEIPFIZ8G JUkFURVxwYXJ9 GROSS DESCRIPTION c3wxyAMzOSXpnDM7VtTkKOU (test code = fg2byp3FnnTPfjRHgAVgvlM [id number]) HwjhSehp93wFA3tZ63BF2vZ QVzKdY9MEYgohE2Wfv9DLIq ARBtvPAzC485o0lez7zncdV xhFU9jGosWETptjrwPaL1BX tvVQShyqkhEGe9GFkmETDbw SW9ZKBaeSBuX4RiXBLzLP5c vab7MTC7WCtvLVRvFnR1FQZ olTQtQANmaQxfSNifb344YO W2XhNfIWQsmcX6XCcbGUUkH 4QuB9WcJAxnTJL1QDXzOXDg DKXqFYNiEXHcTWkeuvT9s8y dLXPtcCKhZAM2JGmdzPQnTU FsLUFlIErpXgMVCqEhBzN9Z MYcTVKiRvB1WTh8OQYWZwZl OlMdAdA0Nsy0BJHsDNk9YUn 5HDwEPcW9NwG8GXQ6OMSdLN QyLSAyKNc8YGArETwskKMvR MRaBRLfAOjaJTbfF60yzNsx tT9vItNyOIIRVqLWDIu5jGF yEPOfzwebelFuJKWfT7Ldfv VkIDQgbWxzIGFtYmVyIGZsd EwzPqJlfhUpIAUzHNC5IUK3 vG4wtHiazeCjbn42JJYhh9D qkVPcr2UbW5OgiWInoR5yhl p0ZLAxnLUlAMD3EU9qiUtoV QJfK4WpA4GpukH6PYZxio5= MICROSCOPIC v8vwnKOjQKBahBM0XbYtOXR DESCRIPTION (test code nt5zby0HosAPuvMDuPPzwqW = 3371) WaulAqjx05vTH4cJ89BY5vE ALlFcL4TXBrjrK3Piu4DKGr EXYipLFiB293v0rre0gcbiA jqLH6cVgeCCDshgqiSoG6LS giKGSfrxadZMj4HOdeRUCov LX0CCJvqFHbX2SyTIVzPH1f ofj3APC2VUfuLWAqGkE0ZTJ icMKsZBUjwPxgPKbxb888GI B0NuVqWXInnxByqKezoJ4yX cYlMQDMKIFhb2EdIVLyQQgl YXJ9 STATEMENT OF ADEQUACY Satisfactory (test code = 2757) Gross assessment was [facility] performed at ([facility], code = 2777) Department of Pathology, [address] [place] [id number], Technical component [facility] was performed at ([facility], code = 2778) Department of Pathology, [address] [place] [address], Professional component [facility] was performed at ([facility], code = 2779) Department of Pathology, [address] [place] [address], [facility]13 Test Item Value Reference Range Interpretation Comments Case Report (test code Medical Cytology Report = 104) Case: [id number] Authorizing Provider: Zay Ghotra MD Collected: 01/10/2022 12:04 PM Ordering Location: [facility] Received: 01/10/2022 02:55 PM SERVICES Pathologist: Parag Hale MD Specimen: Pelvic, Left DIAGNOSIS (test code = b4gmxHToLNSsrSV5ItJnXBZ 3220) ym6ytb2ZszBVryGSyUYhbfB AgeyGccz53qSK2iS62HL2gB LJzFcB8FEJmgqJ2Iar5BFMu AUStcOZiG550z7shi2tvukN eeBH1mEfdOLYowkzwPtY5NU wmBOWwyrkyTGy1PSytDRTzb EY9CKXewYXeE7YhLAFhLM0x iuk9GJQ5JCnmBKKcMwT7BXU spTWwZEIsnWmrSRanj199AR H7LlEpGQEyseCbwUuiuU3hD nMyMCBMRUZUIFBFTFZJQyBD HFDXDKWQNbYFTVMKSVROY1C AToNZOLBrV8aSL6VLRM8IPU zzmOGnRAPnAY4mBxDMNGEHR fSaKr3ABQ8WODhRVfIWZ5mh bYQoUSZrBM7hM3RoVZJyjE0 lbnRccGFyXGZzMjJcdGFiXH CqLxm2SKMzlCRuJDGcLaThK 2srsricMbBEVZJsa2eaD3hu ePJYiLOvP6MfGFoyoqOpEZl uKVwlTaTdKPc5GV51SnNfEG Bhcn0= COMMENT (test code = a7wddWIbAZOdvLS7EuBlFED 3359) wc4kuy7XzsRTjvSKxWZdlnO ErssOpcn52oVH5mQ54ZZ5wM IWjJqU6QIPouhJ8Cwi0POQy XASvoQVaL706o3swe2oyfwO uxRR4iGgzEOQwwxwiLgN8CI rrYKWtzgyoKUa8TYkmVKLin BO9ZMPwoYYlG9YfTLFbJD7f ggb6TQL9KNnaDWWaFmC3WQI zvEOzBYPdlGreHWqtx641QQ D7KmNdMAVketXrmAtpoR3hA sJiRGXCnXQiO3x4x0zmW6wc n59zUCHdWCTxUWUwT6AqdXr 1POAjhUl9rFGeKKSin9bnee AmATJhNAxlHD7qlk05XRAms 7baTN80PK2nqquxmCBjoOBj eXNwbGFzdGljIGNlbGxzLiA uJUqufFLmCBHiqENezS7joz BwcmVjbHVkZXMgZnVydGhlc vApnlZzaHC5nZ5yCJO0XRSi oCarbK4qpe3jHItxVOVhwFS yIElOVFJBREVQQVJUTUVOVE TAZHWVFdZLYHR9CDCsHVRjK XNlIGhhcyBiZWVuIHJldmll e1EkFUV7MINeHpZJmLYoOht jGA5iAV1mEA2WRSrbiwObJ3 KdXMDei6q2uHJ0mKPtUUVgt oBsqZ13PDFwfeE8YDIti06u XHBhcn0= CPT Code(s) (test code f2kctIZkMQFbaEL1ZhUpZNG = 3357) ga7alx2QtbRIqrSCiBCqzrR YehdViem33vKI9lT20IB4fO ZYtFyX2YUMlziQ0Qgj9DUAg CDDcoQVmV561k7ugx1xnfkQ frNK9wFjfCNBnycpdFeR9CY ixYFIbghgjGEx6ALokPWVqj JI8UXLrlVDmF6SoTMNeCT4v cgg2WZP2YYlcXXMlZrV1RUK omCQgFORtsCblGSpnp210ZR P1DbOpKAXfkwBzlGunuF6oW gEkJVD7GDTyOAlfXRP1 CLINICAL DATA (test c7nadAFtOMOofKW0CqWeHXI code = 3355) fy6ghw4XygGRibOQgPLcyaP ZfqlYqvw71bRU4fW39CE7uY ERsNrT1JOLmdhL8Gkb0WBNj GYBqqBPvM694g3grw9pudjX prHC8kAwxPUHxitjoApH2AJ yuPSSzrrczIEa0QTzaTTKiv FB0SOSvaJBbD3JeIUPzLN7t lfs7VJC5QZuwUIQpEaJ5QLK zcYFqPNLurQxmDJics074KO D3KxMjJNDjiyFxuLqueY4jO kJoPUZeSsW7Xv5mSKvfZABh v2yoKYLalNFiDICisnJlAZ9 6aX7vKNbxsRjfkSByqSCtTU r5rINgZih7bELzJ88whPKmo Fndzc8mJQ9MxSY7bSGxRVSd ps8wiYVoQIN7YUGzwwArBgo uJYKleapeNQ67HAMwGC2sD9 BzF8NpOJAbXM3bcOgknuYuk EU6xhNgfJ9htrQoP10soXfk wZJcWUUvJJ7mDEMxBBEKX1O WXH7eVB7osAMabH== SPECIMEN SOURCE (test t1recXJdNXUldUU0IzQtJIA code = 3377) le6yzi8OpxZUogSZyDWuiaR WkoxCngo06oHW7bI03TF7fI HYwWjF3KTFhpoD2Yvy4OKDc XXMepIAuX840v4oxs8jcbfW foKS6cVrlHYEpmfgeUeG3VQ fwUBUraycsUKr0WVeyXKDnw TX1CECmpBHkM7SwHFGlTG8y gpa8XQT4ZJsvMYCgEuD9LKE jbIGrKSPgqCedEMruc868VG G1KiWjEVXjbzBuiNnytH0qG nMyMCBMRUZUIFBFTFZJQyBD QIHEFBZBSfQVFBBINFMHZ4W JUkFURVxwYXJ9 GROSS DESCRIPTION d0scpQCuKUIjtMD9TgJvRJJ (test code = lu9lep9BsuYMzqMMyZQeqoL [id number]) RicjDraw73dKA7sE09DT4qT DGcSbR2CHCdnuJ2Fzw2NAYf NUVhlJMeW659l2qwk5wqcsH bgCQ1oXvuTFBffxdgDyR0LS qbCSRgiikfOLo2ICpoDWSgo FV5WDXzcYKxI8BkLHKvRI5k old8HSH3RUryYEJrKlW5JJW fsLQrHQRvkGidMByzs986IT A9UfMeSLIqmaA5YSswXPCqF 2WuX6UsTIkoLBV3ZOCjSQBt NGCfYKKlTDKlKJgaveX1m9m uPJJfuFAaLDB8OPemvVRbVJ ChBMIgSDulIyVNTeBzRsZ8H PPnGMJyRbM2EQa7SHFZTiOh WtAsDbG9Rcn0MZTrARd9GIt 9QWnWWhE1ZmM6GFJ6JFOtXB ZgOUSvWKt6MUUvXLerjTGrD PCsMMCoWYesZNtrI46bdUdm sV5iXyWlBYPCInJTVTa8jGN zTGCsrfirnzPoBHEeZ8Iybb VkIDQgbWxzIGFtYmVyIGZsd JpjIbAybqQiQYDpQKX6OZW7 iR5qoBcgaoOpfv53VDShl1T awAZjl0BbK3AatQFoeR8hyt y7SLIhlRJzVFF9YP8jkCjxH UTdD1EjR0DwazA0OIRzya5= MICROSCOPIC n9koqVMwWSNorOY2GbGiRGN DESCRIPTION (test code rd8tpy3XmxGRmwBLwTRjsrP = 3371) YqogCshh13pMV8yA89CG2tJ IDvEcF2DCMyesY4Clx9SKIz ZABbvPGcA728z4qzf5wkgeL fxDH5jZwdMKIrkkmrXyO8ME jiBCHnciqyDHz4IOqzSPHyq VK5PTJcaYPgG3YpSTNeDM5o vyr9JQV9YJapGWKeYsE4YIY yzCKwQGLqjFkcODvrh903OY M8IgQvZWNgvaDblHghrP0nE lKeYGJDPTXkt5GpEAYjTHdz YXJ9 STATEMENT OF ADEQUACY Satisfactory (test code = 2757) Gross assessment was [facility] performed at ([facility], code = 2777) Department of Pathology, [address] [place] [address], Technical component [facility] was performed at ([facility], code = 2778) Department of Pathology, [address] [place] [address], Professional component [facility] performed at ([facility], code = 2779) Department of Pathology, [address] [place] [address], [facility] Test Item Value Reference Range Interpretation Comments Case Report (test code Medical Cytology Report = 104) Case: [id number] Authorizing Provider: Zay Ghotra MD Collected: 01/10/2022 12:04 PM Ordering Location: [facility] Received: 01/10/2022 02:55 PM SERVICES Pathologist: Parag Hale MD Specimen: Pelvic, Left DIAGNOSIS (test code = s7ainXMmYUJzcEJ2VuWkGHL 3220) pe0vku2RseXKgzJOrHShiwR IbulKtwg54vRI9pG70QI2fQ NVaBaS4LRPpokA9Isu3GMJn CWRosCUxC927i1hoy7eaduV dvSN3kDboRSDesgedDuS1FB qoBVOmxuoqAXb1FHtwADWdp AY3GLJeyGTdX9VgVQBpDU9s zqe4QZZ0PWgrPJNdNeK1WDH lgQCuYVIvsOqiLTczd354CS E5HqByBFUdzsPyqWjkkN1eT nMyMCBMRUZUIFBFTFZJQyBD VUDXEQPPIkTOFDCAXMQAW4Z BDsXPDQCfA1fTM3QGDO7NAJ sfmARqJAGnYQ0hDpDVVJAGF lVaBg1QTS8OEZsQHpJXG3zi gOMnPLSxYK7nL2LiHRGflF5 lbnRccGFyXGZzMjJcdGFiXH XnYbg2VEQufNEwOGSaNqTzF 3wtpitiNdQWWYQho0qfB9nm wIHRzXYjR9TlDVhakiKnNWx zFOflIwXnYNr4PX52ZrMoZO Bhcn0= COMMENT (test code = e5fkdUUfXPNplIF0FaWrCOB 3354) ev6vfu5ImqQKcxDYgVZvfdB EczfZmcr98fXG8zY60EX2bT GSjXrW9FHGdnjT5Pti2KXGz QPTwdFRoQ751u2eub9ijjkM atPD9tIpiZPBegswdSgQ9JR joHDJwgwnrEGg9LChdRGLdn GY2NQYfxSWqA8FsEZSyDU7u jvw0QET9GTuwJZBcJdR6WOK baDKpFTWcjZyjXUobi070XG L0SzQrDZOxofWlkXsbkR2kH pRqVWYOqCBgZ6c2p7rgE1yv m80fWGMtZLWgPPGsU5RhmVc 7IQFufIv4ePWnFGSfj2scrp DcZQLmIVodDK6jha98FFFdh 2oyIR84TH0vfnltnFRplFYs eXNwbGFzdGljIGNlbGxzLiA aPAvouSBoMLDifASwjG8cmu BwcmVjbHVkZXMgZnVydGhlc sLuyuFihTI7dC0sZWS5LEMx oQkmrW5uqu3qQZrjZHQraIK yIElOVFJBREVQQVJUTUVOVE CQCQMUEoBPBXT9TQQkZRPuC XNlIGhhcyBiZWVuIHJldmll l1TwWNC6BPTcKvDTpETsKld qBF1aFM9dGG2CSJbydaEwQ0 RvQGOzl4m7jCZ2vWLjONWxz mJsrT55VVJbhmM4QZVbl25d XHBhcn0= CPT Code(s) (test code q7zskXVjEHRqrMJ8TmSlTYQ = 3357) by0via9PfxCEsyVHaDIvcqG HhxvZjvg64vQS5cC53BH7rS EZgLvG0HOCuioY2Arx2IYUh GQRdmXNkN451j5jlz9woipB aiDQ3wNuqYWDpnaifZfY2XN daCKQhldvfRNq8RAflHOUlm ZJ6RJPnpNEaB8MlIRMwVB8t hgh9ELA4SGaqOKTtSvB3BAR ziOMkCGHysQqsCMqua269FQ K7PlFhVUEhwzRwhXgxeZ0jL nXuOAH0XTFlYXccSJQ2 CLINICAL DATA (test i8pvmPWbYPCjmXH2NeAnXBR code = 3355) am1hzr5YopZJwfVGuKSeqwF LlroSanp48wFR0zK65NE5cI ESqHwE1TVRcybS0Mov9JFZo PZBvwRHsF238l2ftq1gcrjW mgDA4jMxaLIWcmlbnFoL1WI nzGWZfjnbvGJm1KEjzPTHau XO4CVKapWPzC3MtUWCzQC7e ugi9ODY7GYzwKZUuLuQ8KVH yqDSuVFMyaYaaQDlmc209CD L6NgPiAKJxrsGibBgyyF9nI jDlUCTpGrR8Xa4hOMsoWPCi l5xsQTYjzVTuUSXxehAzZF1 7tF7fFSndcCzdyAGjxZCzEF p0hIRdTnx2yYWbG46vyTYoq Blggu4hRP2VdDL6aNVyNZVm oc6ksAKqXQN6MDIzgoDtInb cAUFxrhalLZ75STVhNK4jL5 QwT2GjNOElEP8luMubyeDzt CT8slTmeT1iyhYpV01xvRlj qAMwNXFeVJ0fEVJgVCWGI2J RDE9qXD8khDGzhP== SPECIMEN SOURCE (test u8digXOkCCXfoQQ2VpGiNPI code = 3377) zs4gju8SurSGawTXdWRwlxT GsqlVbjl68bXS7fK77SH3qQ DOdIaG5LEXtzyP2Dir1HBXz BKZfaRRiN225l8lte9wmiwL szOL2fYpzJQXzvjmyEaI4CI iiRXOilcseHIq7TTxyFQXok CK6MFLzzJTiY9GgHAYgDM7x ate6ZSU4DXqiXPIxCgL5VQN btKRiLYJotTlySQamb474DP X6PdXqPIRsirZftYslaN1dW nMyMCBMRUZUIFBFTFZJQyBD WATITPVPLzEHYAEKBXJGY3E JUkFURVxwYXJ9 GROSS DESCRIPTION f5qtmIUsCHVfnRO8MfJzSNX (test code = ma4heq9AnmLWykEMiNYumjV [id number]) JjucYlwf25gIK7yS17LE3bT FQwLtH0VYJwrlH2Aun7WGRj YFFcnDErD546x9cmz8jkkxQ khYW5uOblZFUrcorfLtQ2NC ytMMZowhjkDEr3FNtkCQYme JR9DRUbvYMjU3TpBODvVX0z vra8YME9SWofOMTfMeW7ATS hoNRaXBGlcIlcMIsyd155DK O1RbRjHAUqpdT9GJwhKHTzS 7HgJ5CkCEhhHFN3FHVsTHYg EBJlCJBlQKDmKOosawM2i1t bLTFojGUqFZL3DFkzlSFaBF CaWCXzZJgmMnJDFxWoMzU0F TZxEIJoPxC3CHh3YRQQSySp EdOwKuR4Imr8MQEwKVy9ENq 3ACbJRfG0VkY7LFI0EAUpSJ AkDKNnFCq7PCDtVChrwBZeH SDkIZDwKVyaMWmfD79ghTbk uG9qGsYcXTVLDjJPHIz7xOC fNUDststtbjLpGOJaR1Qngk VkIDQgbWxzIGFtYmVyIGZsd WgrFxGxcnJkKCSaXKF8NVR1 fP9ocFnmdwFusi51OUQld4O vtXYup7ZlH7HyzLTcfB6ccn v8WVAnrSSeOJR5QN9loXbrS WKmD5VcE2YdslD6JZJzkg3= MICROSCOPIC s7xjrZPtAWXvlGB9GeFmCPP DESCRIPTION (test code jk6wuq8HeuICfjWRdEClvpD = 3371) GuftUyav03gVU6dO73YU8gB AMeHbI7UBLrzwB5Jbn8RZZn IIQebZNlQ631i5pzb1ltpnR fcCU7qFruORLyhuryYpI6ZO cpECRtnrpzQKj8AXgkZJNan TY3FFCdsXJvA7SjENKgPO6w kxe9VFC4KBjeMMAuFpS7RXK poFAcWDLcqMxpDCcyb015IZ L7UjNbFBZddtNluCeomD5vK nYwXWWTJHNxx2MxSEFaCGum YXJ9 STATEMENT OF ADEQUACY Satisfactory (test code = 2757) Gross assessment was [facility] performed at ([facility], code = 2777) Department of Pathology, [address] [place] [address], Technical component [facility] was performed at ([facility], code = 2778) Department of Pathology, [address] [place] [address], Professional component [facility] was performed at ([facility], code = 2779) Department of Pathology, [address] [place] [address], [facility]13 Test Item Value Reference Range Interpretation Comments Case Report (test code Medical Cytology Report = 104) Case: [id number] Authorizing Provider: Zay Ghotra MD Collected: 01/10/2022 12:04 PM Ordering Location: [facility] Received: 01/10/2022 02:55 PM SERVICES Pathologist: Parag Hale MD Specimen: Pelvic, Left DIAGNOSIS (test code = i1osmFGeEORxuPD8LsHhSIO 3220) jk6iwc2OvuLLruUReIMqlrT TvqzJyrb06rEX3aG71UR5kT FEpKqL9DKZuttG2Pbd3SLZp VQXbzLWjD573i1lkd4nrcfU jxQD7mJsqMFNnogpxTeB8HG hrYIJnfjjcJQv1NCboRWVpd VA1EWBpjKVgZ2OqJDDuRP3o mcq5VIS8GTulJYYmDpQ0QWI krEJjWPGuePwdFSnhb483GP P8ErWdAFKymdMjvQaynL7wT nMyMCBMRUZUIFBFTFZJQyBD HONUEQQZBpLQMCPUDVUAC2I PJqZSVDKwU8vIK4NLSE1LFA xotXFjCRDlPR6aOnQCNPEGA sIvPp7WNA6AIXmDMuFJG9du eQDeVNFuMQ9wO3WePCVnfX5 lbnRccGFyXGZzMjJcdGFiXH ThEws3QAMicBTrXAMiZzQoK 9qtdqayYeIZFGXtn9nxU6fc cKCRcEAlJ9CuHZrnjwWiJIl eRAffTjNnXDm3IG86LiKgCC Bhcn0= COMMENT (test code = q9yxlEJwFBFacOT1ObWkYOO 3359) ds5icy1QvoHKexDTgEXdxzU WndsZinp79tYF6cP24WO9hJ KTaLsA6TAAgstJ1Ljv2SSPy WWUjhHPfH577y3cxu1uvkiB xoYA7uVciLUGqamqaMhG4TJ cjQGYzufqsQMt9KBpaNSLao UB8IWMvcCHcV4GuGFGkVS3w czo9QWR1YNerMDPgZrM0HWL bgUPlEAHksCbcYGgtr924WY A3ZiGmRAIuuqZqiSnfhZ8wM eLuXAVErRNtQ0q5k2nkV2ws e76eZSUbTEMeZUKlW7ZboOo 3LBZavPv4mCDqMNIai4tnfn ArHCDzAUncQQ9ojg67DAOus 8cyFG32SY1wmtqsqGAjlCQt eXNwbGFzdGljIGNlbGxzLiA tFJsmwPIhJIUfgDVekB4oua BwcmVjbHVkZXMgZnVydGhlc rVjiqNliPB3iL8fHMR2RLBs eFywiZ1cpe1ePLzxISTkmQH yIElOVFJBREVQQVJUTUVOVE BXYAQDKvNWQDF6NTMjFDNaW XNlIGhhcyBiZWVuIHJldmll f5JbJNF5NZDqQvZHsYHkGbo nDM3gWU9rYR6YINbzneZsI2 UiMTFfc7m6nBK8qUFtHLYkj hIglT14EKFdyxL7DZWbm93t XHBhcn0= CPT Code(s) (test code k8hblLFqFOYrdMP4NjFsVRO = 3357) nz1osq8MxuYGagELrOLrruM EjpnXwdo92oTE0cN46OY2uE XChRsT4NCBfxxB4Qnu5QEFl UYGhtRHxT903c5fqd4roqhN fpML9dJtqMQXpwzwkTwU9ZD exQJRcmngbSNt3EFyoDLGlv JW0VJHwnOGpJ4EoQSNjQW8p cav3ARS6EUqwUVXgYoO9CBN ujNMxSGUpzVqjKJidv370RG R7MdOcPKUpbpYjtHunvJ8cT cZxWHJ2TRCmEOfsZZM9 CLINICAL DATA (test s4shcIFpDURcwAD8NpPqOCL code = 3355) we0aox8MqxDEhrQNtYKnttW WnnmSqnt64sUU9uX02OO5jV UTxTkF2YBKbuuX9Jys9CLZn LFXsnHPsI123j1qao1iwtrW cuHO2zJzhFAEwnzatRqK6NU agSYRfabjzHAf4CAtxRWQar UN7TZPbnMEfF2ZdTPVmKC3v abu4AKX6MJvvDYGzXoA5IZA wrVNfIVPgoVcjPGadi280AA W6WhPfIVFyqxBotUhiyE2cA yWzADBtKdL3Md9tVGlzFQIr p6vhAANkmCHgQFMwpfPgML5 9tC8iLDsckEnazTVkkVWrTA g9tCNsRda3uPQsW31knFRzu Dgahb3qVO5PdDE9eBEsXXVj kr5vdJJcZIO8JZXzvkAuRvd tBOJvudqaDK03TLLiTO0yV9 WlO3JzTBBmBG2atBhcclNbl PO1llPukG2uniSiZ57hyIbd aUVeSKXvCN9hZAGaAUMCG2W DOT6eCT2bgGDnvG== SPECIMEN SOURCE (test s9qpcLRzJFJayTR0OeHpSJV code = 3377) rn5nib4XlaUEysUCjBGusnE YtcdFdsm09kGN0jN61MN5mV QIjNqZ0MYSbjoP0Ncl1XIKs ARCwbCLiD141t0vph8rvbkE auLV5rQcmRULkwzpnFfK5CM ahDJVcydhlJEq6EAbhTURxr IX0IWMtcOZxE5UhSSHpCN2q wzl0IHU7TEaxYGMlEoA4WJT cyQJpINCdzMowDTnnh043IA X2JcXrDYAfgmGusEkgjT1sB nMyMCBMRUZUIFBFTFZJQyBD DQZMEETDYbHYCKAJRCPNE6D JUkFURVxwYXJ9 GROSS DESCRIPTION n9hmtIMbUKSzfGN8HoGbQXX (test code = kf8hvm9KtdCSzvPKpXJtxgE 2309308266) LdhaSuxe92tQP9mQ19QB9rS YVaKaD3EBWnoaX6Tmf2BQTh GPVrlKImF346c1buc3bvjpF caRT3dVtfQMSnpogrZnM5VN wsKPDudptbGEl2YMkoIXGxx SA7GEUcvPNuV4VvLQCzAK1s tzr1EAV9RUamHLRdLaM7VNL roRUoMWWvmMieTKlah329OG B7BeCvLXMrjoV9EGufCLVtS 1BaZ4JyJFrfBJE2TCIwLVRl HSWrPQClYNWnWGwtnxM6w6x sTYXsxTHuIIP2ZQvqjHLeIC EeDCEhBKpdKgFLYyIhYqY2W WUrTQHtXwO6ARa3GQILPtYs YwDfNoW2Pcr2ZMWcCZo2GHs 9YWqSHoR5TfW7XID2LALzBW OaPQKoNBo1BWNtBTuhmIVzQ KNhZEIaCLhmMPncK71isHcb iO7uQpQeKBMMCzSTNPo6sON kNOPydmkjorHtBSSsQ7Rdbd VkIDQgbWxzIGFtYmVyIGZsd KzuPkIahzYmVWMgLDB7AXE6 pF5gwPbvscKubt46FZFvx1F cxSImv8SlA1CtjIVhoZ1dnv v9IYHpyAAeIEZ3CW0qeEhhG AGwG2HwW2RlkdR0TAOhcv0= MICROSCOPIC f6xulKBzCCFsbFQ7BxJhRTC DESCRIPTION (test code gp9kxm7DnnATgjSAmPJaflS = 3371) JxwjPruu28vOW8vP30WQ5lW CXsTnZ2XIVwfyR7Bgu5PVKw VYJfcAFnO217j9ltu5xlqxF vsJS8kXegYNLixuknVgG5EK ciWCDaqfigEUt1VTaqULDqw KX6UCIvrYNkC4XoUIZaMY4s tkz2NAO4NNquEZMjNhY5CEQ prPAeJONyvJjyBEise926KR B0PhGqNQWrteWsdWohqP2eY uGfDHOSZWPmn0QoGSMpKRlq YXJ9 STATEMENT OF ADEQUACY Satisfactory (test code = 2757) Gross assessment was [facility] performed at ([facility], code = 2777) Department of Pathology, [address] [place] [address], Technical component [facility] was performed at ([facility], code = 2778) Department of Pathology, [address] [place] [address], Professional component [facility] was performed at ([facility], code = 2779) Department of Pathology, [address] [place] [address], [place] [address], [facility]40:13 Test Item Value Reference Range Interpretation Comments Case Report (test code Medical Cytology Report = 104) Case: [id number] Authorizing Provider: Zay Ghotra MD Collected: 01/10/2022 12:04 PM Ordering Location: [facility] Received: 01/10/2022 02:55 PM SERVICES Pathologist: Parag Hale MD Specimen: Pelvic, Left DIAGNOSIS (test code = w3phnYXwLOCghTN2ElMdYRY 3220) pb2pxg2DavZGyjERqQGrjhX PopdKabv91mNM5kQ50TI9xR MAiXqA2UKYfmqN6Fip2MWUd LYGxlTZiP650u3bxi3aurdV itDN3iSjzZXDuglnuXsZ3AG uvSBGrzrvqRKq8WSyxWUAdw FI3NMGmqOCcJ9NsLDHbGS9e idh6VJQ9OLhrFVVrFyY9WKX ugTQpUBJfcQooHQkwf596OE E3YyPwFGKtpkGbhXjxbN1xQ nMyMCBMRUZUIFBFTFZJQyBD YROBYVSKOcFURCMRENLPY8N PHmDZFATmS6oTW1ZCGB2TFW fyjOGcNIThID9wKzCZFDXLZ sZbQv0HYN8FDGyUFsUJP9gf sTYqSUWlEU1bX0BiIBTozP6 lbnRccGFyXGZzMjJcdGFiXH PlNcv1NRQmvMWfJNBbAxVnS 4iugaxuOtZKDJUmv7rkI5va wDAYfQTeD4TfLFbrcnFrRCg zHTcmAvZfWTm0EA58EpYrRG Bhcn0= COMMENT (test code = m1svhZLqLSStoCH3UlXwXUQ 3359) cw7bgh9HhjMNebSEsABmvlN UevuLgcl36aGL6dG01UE2uJ FOyWmC3EKHyadP5Ecc3IUOa CMOsyWXgV960i6yeq6knioX rnZC9xOkpFEGwrrghSfM1WA cfDUHhjyzmGCz7XDraXNQwo XN9NZFcqPUsA0ZaGBNuSL9f ovu1LUX7CVfqWDWnTwI1OMJ qoDAkZKOshLjsQEwoi105BR D3DrMiJNRaawMnoTzzmP3uD tSeQZOWzQNzO2o9t8xhH5fr x73gLNTlELNtLJAkS3MjnZq 9UETecKc2rNGxATZhi8mlgg OwWENqTSnpZI4xsl71NPXti 5yeIH09BH4oimpstAAxpNSh eXNwbGFzdGljIGNlbGxzLiA kSJquwUIoOFOzwPUjyN0usn BwcmVjbHVkZXMgZnVydGhlc uQyqeIkuBL8vX5tIRR0OPSu nWvozG5ats7wAOgqCNRbeVU yIElOVFJBREVQQVJUTUVOVE BXHEUSYlRFKHI8STTfMOTrK XNlIGhhcyBiZWVuIHJldmll t4LqIXN5NKMaBvEWuYWgHxu pNF8sDY0yNC2NROzmidKlR5 CuEGTln1r0gOT2hDLxDULmt pGycV16VKUemiC1JHPxo45i XHBhcn0= CPT Code(s) (test code z2aeaUCjSBYrdOY5LjGnEFC = 3357) gg0oti4PxtJAckMMtINlpqQ FaigSgce79hXU4xO95KH8fI MJwLyE6RQRuqpE7Idp3EIOy MNAlbFOoJ780c3tlu7xdnmX buON3dPmzEMIuhsahVfG2FR uyQKViggbrYKw3WXihIVVdp XB4BTVinPYtO8OzIOMlSG1y cgr0MKR0HPcpBJQfBaG9JJK igAOlNYRlvWhwZZasx879JV Z0KgRuWVDgrqIauWbplE6yR hYcMWQ0GKCxXLwhRZH2 CLINICAL DATA (test u4qrlRUsNWWdcHC1IcUoNIG code = 3355) bc4krw5PorHWtySIfBNfwlS RirbHxar43xQL8bP02GQ1kN RIaSrA7UVNoetV5Sxe5FXPw CYHmgGIyY175u2gfx1jvzrT mcJG3hYbiKMCkvufgHgM3XS gkUXFumzhdYWc9DOjyFDFjv RH8TJEflVMxO4NcWAAcEI4r efr3LIJ8EIvzQCOvHeD0MJU sfHSuERBjxTxoIWvfe550WV G3DaYcBPAvotLkeAoiqA1rV bZhGZGwLwE0Xd0eHRzfXXIn r9ktQGDawHYlDUUffzZuUQ6 5dD8hFEdraDhbzDMgmHZnPF f1zWVgOtw5zWXnG53tvRHtm Dsxuu4jOR4AzOX0tFQuFUPn bq8aoPCaJCU0QYGjmcWjShj rYUFcltthYJ42FCCiFW9kB5 DqJ5KnZOMqKG1eyJxqxwXdn WY2aoVttX5bkqSyT07vrPwn hJFdCQJrEH4bUPCkTUFHX8G NAT1uIG6zjEOvsH== SPECIMEN SOURCE (test d5yisGLsNZBgdYE7HbBrZET code = 3377) ij0mov2KesDQzfOPvZOnjkD AilzPmlw76lXE3vQ79SX8jR AAcUjO0INPftuP6Yps0LAWe POYmsKToD282m5lsn6berbM wpFC8pXpcNBUqkrnsRwA0EN quWBXblyeiHDo0TAsfPJKcd XW7SXYbhFXsU1PxFEFzWC8v wdq1WGN3VPkhBFMbKrE8EOR rdETxJLOieNlzFIfpc676LF Z0NnLoLWReyvAfcDbjbM0uH nMyMCBMRUZUIFBFTFZJQyBD BKYQSCCJYtXBYGXMWZNVZ8I JUkFURVxwYXJ9 GROSS DESCRIPTION e5mijJVzDLAnoIF3DuMmEYL (test code = wg7wqi5GymUNszGEbWUhurC [id number]) EqlyJjgv10oYX3zA92MX5lR EXtOzX1YLNmikZ4Cfb0RJUr RRIhyZEsB517p5qrg8mbgtY yjMA0jGmxJZJzdmztTgK9GT ctNAPldktvYTh1NQyyIRRoa LN3HMGmvFYmE8NcJIElOC4t srw7WZW1XIamTUUaKyU0FLC shBOxFMUccIvrCVqjy328ZT U3AaQpWWHjezZ1MRniCXHyG 4ZgT8GpJCnrHDF9GBMiTIId KDEuPPCsHJEaOYrlhxK1o8u mAPKchYJfHCY6CBlakMAxNM ImCSHrYVdhYkZIOuMaCgW8A RAyXPAnEdO9UDg1OFCXDyOa RiEkYmU5Iop8SPKpZTj7SAw 9GMiWZoX1KqP5LTZ6VTSsWA KkXNMmSKe7POXpMGxdkODoR WYjXZBtKQssGYxuV93jrAiv xJ1rPxNqYMQAWsGKAVu0oUL hGKFvktujmiHeWNFaI3Slux VkIDQgbWxzIGFtYmVyIGZsd ParBiZqbkMkMTEmMOD4IGL3 mL4qhMphubWhkc65KNLuc9K ulEDdj3AnD9KkpIOaiP0krt p2VCSgnOSsGSB7MX8thAizT JVqP7IwY6GkwkE1WMUzon0= MICROSCOPIC a5mxpCLbDMAbeRN2HjByCRA DESCRIPTION (test code in1eeo8QahGHlmHKgHYbfvK = 3371) EyewJgos79xYX0vM46TW7fT ZNnAjA7QNJanfE2Szd7VWNe WJKvyUQeR380b1cur5sgewK koMS0mDplNRNihwtjRtE3GI uqMXCnerlqGPs5GFghMUKce BZ2NSSjsJRtR2AbUFGsDQ2u zlk3YAI9MEngFDQiJoR8HEH bqSKhPNNuwEzvOSary941JN A9FhVyAKOzdcSviJhamS5wJ jNjHCKZOKUdi6DsVGDhRDzg YXJ9 STATEMENT OF ADEQUACY Satisfactory (test code = 2757) Gross assessment was [facility] performed at ([facility], code = 2777) Department of Pathology, [address] [place] [address], Technical component [facility] was performed at ([facility], code = 2778) Department of Pathology, [address] [place] [address], Professional component [facility] was performed at ([facility], code = 2779) Department of Pathology, [address] [place] [address], [facility] Test Item Value Reference Range Interpretation Comments Case Report (test code Medical Cytology Report = 104) Case: [id number] Authorizing Provider: Zay Ghotra MD Collected: 01/10/2022 12:04 PM Ordering Location: [facility] Received: 01/10/2022 02:55 PM SERVICES Pathologist: Parag Hale MD Specimen: Pelvic, Left DIAGNOSIS (test code = l2dwsMNaCUXzlLF2FnUcRBX 3220) nx5ycs1QnqVIdaDEiHBzppG CqxzQbxs99nSA1gP57IK4xO QGtZzR5WPUoecW2Gpv2ZVZl IWThsERyT468u7hyq2vbctR ucJH8xEkeRNQlplmuCoG7HL ajICJpfcaxRBp3MNrqIZXeq CC0ISDioQVdX9DqGUCrDL5b csj5GKD4ECebLDSfTaD4MEH ovNWmABDzfJrfDPkjk459JB X8PoCeNOIucrSmwNnuiG2hN nMyMCBMRUZUIFBFTFZJQyBD CGVSMBFLZnJRYFOGRYLSV6V QWlWWKPJnA8pMP1SAMY9PZJ pseZFtNVCwUW8aIiUODGSQR cAdGi8ALW9JDTiRYrNIS0hi uMFqADAiMP0qE8MrOSZkaE6 lbnRccGFyXGZzMjJcdGFiXH TzFia8OCVomEGeOGFlWdJdX 4wfislqRlSGXMRzd3sjK5yb gVHNiOLvW8KgZNedalOlUSe lNAssVsBgVIw5DR61NqKiRN Bhcn0= COMMENT (test code = h0dwlQZhQEHdmMW5CyFyNQR 3359) ko9zsl9BgaKOisFAnYFfkdE YstsFbdg96aOR3eL09DF3rQ MKyEqZ6GPHqiiI5Tqq3LIAl IVWszLWuH030f3dgb6zyomR sjPN0iXopLUWssayvDfM0YY efBAAjgdcfNTv4VRvuYNCkb FV0CJWfeNJhD1MeTEKqNI3u uwf3HQZ2XPmkKJLtBvJ1IGZ igSLvGHNgvTqaOJbrv155YC V8QtYkDGNpyuTloGbqlO4uO nPkFFDEsPNxS0t9v0czI5wa y59xYCYkATPrJXKqU7DkySp 3LADofPu1gCNtHWLfn2udbt DwHMYfIOrcCD8zdf11HZHae 3wuMV65WU4qqblfhBHbcLNd eXNwbGFzdGljIGNlbGxzLiA aFTyrdYPeKVDfbFDoaG9pdy BwcmVjbHVkZXMgZnVydGhlc qKostRtuUV6vW5pLVY1SWJs tQhwoI0odn4fMVarLWDkiWA yIElOVFJBREVQQVJUTUVOVE ISCPMZDkQHZLH7GKGdXQBaO XNlIGhhcyBiZWVuIHJldmll c2PeAQH7LQJeQqNXjKOnBjx bDO3uWP1oVV5QJCaqlbXlK7 ZlSHEyu8r5dXT6wEFeEPJhy sFrxW57UYLfoaI2CUXqc61k XHBhcn0= CPT Code(s) (test code i9mcrPXjAKYraHH9SuUbUAC = 3357) mq0rxl9FxfAEwuMPzAGyrcN PrfnIupu02pDU8fQ84HM2oW MInGxJ4BXXkfqH3Lqj2IQWz BKRydESlW204e6cbg6lusjH wwSO3pShqYVXpkarbVsG3TG kvXMGlkdlbJEq5BGawXJWqv HW3VVBtoTLfI8SvEQAlWN6p qbr0ENJ5OMtpIGGzCtL5PRW ohRUcNFWgiWsfSMzua903VH O8HbPfSPEnaqJslEzwgV8lS gIhOEA0GRIxQUlxXJT0 CLINICAL DATA (test q9uavJDuCVPjkCW3GvOxJME code = 3355) hn1kix5KdjKOydQTjAJzpuA AylfRrxh83eVI4dP21EC6lS KTxPaD8AMEpitI4Xaw7VDIt RDJzvWNjC805h1uis1wqnjU acKM0fDevONStcmunZnU7LI nfHEAsgfhvVYe5ZHooOZHjz YK3JJHftJUvA1KrNHNaCM8w xjl7QVL4CKfmZIMgYnA0HVK jiGGtBWGadUzeDTxem054GS H0PuQuOZNoraJzyTtnfZ1lY fAmXNDiFiM6So0uOAmkOTMd b2gjXPSalVNeRSKzkbLgTB9 8vR7sNRekbUfvsKMutWGeXK i0cXEmAjh3jIRlU11viOZpv Ddois2lKO4SpKP8rLUvVWCo vr3whFLxNGP2HCZncxJtEyy fERJrhcrsFN18PKTsDC6hS6 StX8OfDEPbER7wxJaieyTnj OV1gmZvbF4lmhEgJ34otHde tBRnYQGsLT2qZZNsZHBRH7R PAT5jEU6ksAYazS== SPECIMEN SOURCE (test x5hcfDZpQEJklIY2CsLzKAT code = 3377) gq9mqu7JumWHvfNOqJYbzgF IsiyXhuq95qKZ1bA09AN4gK WJfAoP2MQCwsrW3Bgq7DDXt AOTonJDoJ479a2dyo2fyliJ fpBF6xNvmOBHsntqkVuZ5MV saOFJytbdsNIa3ZBzxHTNti JS8CBDysATkL2BsXLRzGQ3j rwl9LVY5LTtvYVKsYgW8YOA xfOQcNMXjaUloSJgpn565ZJ G6PlMuCEOmuwOreOjjnI1iF nMyMCBMRUZUIFBFTFZJQyBD VANDIPWOVcAGZOQOBZFMR4T JUkFURVxwYXJ9 GROSS DESCRIPTION g0ysaLLmAUKbzLO9DlXiZYM (test code = fl1hpx0LwbXZazXOvSJeolG 5533809607) UaevYlpp37gIK8lQ46HZ8xT XLmMdG6KOYhblT3Pce6MCIv TVRfjWUdW797k5oun6fflgI ltYH6hCluUEBsvxrwFwD9BS wuZNUgtiesZOk7IFzbUEXuj UF0DVZvdDRtT2YnOKIoZT7e cwr7JQJ5BAeoDCUcEyX4YUA nbEIgAMOctVppOSecv424ND Q0ZuQiMJByorR8QNmnRPFjP 2HqW0QaTRabMWE7PJJeMTDu WUEsTNLbVAMjNVslktY9p5n tRVHmuXOzOLN7DFxtwXKwGG VwSEBjGWqgTuZPPcBbDmK8B SIwRBXtUlW5HNr8JHZKNhUn LlObBoT8Taj8FJAaGUl2ONc 1MOqRMrX9XxM2THH7QXDdJN DcBIEqXZs7HSWpLZzzmFDfA UGbUBFrPAcjVYioK74ugOgf iL6eBrZbBJMDVcBUFAu6iRE aZNRyhlrrxwDgWIIeJ4Fkca VkIDQgbWxzIGFtYmVyIGZsd BeoIrGwziOaZNLwCEM7XLS6 kW7hwEpddzYowz97ZYCre6Z kwZPzj4HxP2LxuAKxjN3iqb i4UQUvoUGgGVT7ZR5pmJkkE JDmS2FmB3UlpnL2KUMvyu5= MICROSCOPIC t8kmiLYaJKEqaHE6GpEgNEO DESCRIPTION (test code qa6onc1ZtzBVzuWCuUVwqwS = 3371) GiajZvbl24uWJ8tL98SI2oF RTuBiS8WTXblbZ2Yrv4VDMq XILgjWHtD708g6msb7ciddS dbIA1pUlsJICpecatXpL6CI efSUEshnfaTLs3AGskMZCdb LQ3BQZfeWHbI9LxCUSmSD4m zja4OOG6VHgbSRLbUdZ5YYB pbMXyQJSgvDnzDFxkx315VD Y0NpXbSJJsueXxaHwueU1uJ hRcNCEVCHGve2XdUCUfWVtg YXJ9 STATEMENT OF ADEQUACY Satisfactory (test code = 2757) Gross assessment was [facility] performed at ([facility], code = 2777) Department of Pathology, [address] [place] [address], Technical component [facility] was performed at ([facility], code = 2778) Department of Pathology, [address] [place] [address], Professional component [facility] was performed at ([facility], code = 2779) Department of Pathology, [address] [place] [address], [facility] 14:40:13Medical Cytology Report Case: [id number] Authorizing Provider: Zay Ghotra MD Collected: 01/10/2022 12:04 PM Ordering Location: [facility] Received: 01/10/2022 02:55 PM SERVICES Pathologist: Parag Hale MD Specimen: Pelvic, Left LEFT PELVIC CYST STRUCTURE ASPIRATE (CYTOSPINS): - NEGATIVE FOR MALIGNANCY - See comment Signing Pathologist Direct Phone Line: [phone] signed by Parag Hale MD on 01/16/2022 at 2:40 PMPreliminary result electronically signed by Parag Hale MD on 01/15/2022 at 7:10 PMThe cytology smears are scantly cellular, however they do not showany obviously dysplastic cells. Limited specimen precludes further evaluation by cellblock. INTRADEPARTMENTAL CONSULT: The case has been reviewed by Dr. Mynor Sesay MD who agrees with the above interpretation.[id number] y.o. year old female presenting with left pelvic fluid collection. PMHx with abnormal uterine bleeding, ovarian cancer- chemotherapy treatment completed- 12/2020, COVID-19.LEFT PELVIC CYST STRUCTURE ASPIRATEA. Pelvic.Received 4 mls pavel fluid; prepared 4 cytospins (not enough for cell block)Performed. [facility], Department of Pathology, [address] [place] [address], [facility], [facility] of [facility], [address] [place] [address], [facility], [facility] of [facility], [address] [place] [address], Mmis fluid culture + gram [id number] 13:39:23 Test Item Value Reference Range Interpretation Comments Result (test code = 6463-4) No growth Gram Stain Result (test No organisms seen code = 1123) [facility] fluid culture + gram [id number] 13:39:23 Test Item Value Reference Range Interpretation Comments Result (test code = 6463-4) No growth Gram Stain Result (test No organisms seen code = 1123) [facility] fluid culture + gram [id number] 13:39:23 Test Item Value Reference Range Interpretation Comments Result (test code = 6463-4) No growth Gram Stain Result (test No organisms seen code = 1123) [facility] fluid culture + gram [id number] 13:39:23 Test Item Value Reference Range Interpretation Comments Result (test code = 6463-4) No growth Gram Stain Result (test No organisms seen code = 1123) [facility] fluid culture + gram [id number] 13:39:23 Test Item Value Reference Range Interpretation Comments Result (test code = 6463-4) No growth Gram Stain Result (test No organisms seen code = 1123) [facility] fluid culture + gram [id number] 13:39:23 Test Item Value Reference Range Interpretation Comments Result (test code = 6463-4) No growth Gram Stain Result (test No organisms seen code = 1123) [facility] fluid culture + gram [id number] 13:39:23 Test Item Value Reference Range Interpretation Comments Result (test code = 6463-4) No growth Gram Stain Result (test No organisms seen code = 1123) [facility]AM [id number] 13:39:23 Test Item Value Reference Range Interpretation Comments CULTURE (BEAKER) (test code No growth = 1095) GRAM STAIN RESULT (BEAKER) <1+ WBCs (test code = 1123) GRAM STAIN RESULT (BEAKER) No organisms seen (test code = 94382) BASIC METABOLIC [id number] 09:54:26 Test Item Value Reference Range Interpretation Comments SODIUM (BEAKER) 140 meq/L 136-145 (test code = 381) POTASSIUM 4.2 meq/L 3.5-5.1 (BEAKER) (test code = 379) CHLORIDE (BEAKER) 105 meq/L 98-107 (test code = 382) CO2 (BEAKER) 29 meq/L 22-29 (test code = 355) BLOOD UREA 11 mg/dL 7-21 NITROGEN (BEAKER) (test code = 354) CREATININE 0.83 mg/dL 0.57-1.25 (BEAKER) (test code = 358) GLUCOSE RANDOM 89 mg/dL 70-105 (BEAKER) (test code = 652) CALCIUM (BEAKER) 9.6 mg/dL 8.4-10.2 (test code = 697) EGFR (BEAKER) 96 Interpretati on of eGFR (test code = mL/min/1.73 values Stage De scription 1092) sq m Result G1 Beena l or high >=90 G2 Mildly decreased 60-89 G3a Mildl y to moderately 45-5 9 G3b Moderately to s everely 30-44 G4 Severl y decreased 15-29 G5 Kidney failure <15Reported eGF R is based on the CKD-EPI 2021 equation that d oes not use a race coefficientEsti mated GFR is not as accur ate as Creatinine Denise huang in predicting glom erular filtration rate . Estimated GFR is not appl icable for dialysis patien ts Commercial Agent ID - RIGOBERTO MPROTHROMBIN TIME/[id number] 09:52:48 Test Item Value Reference Range Interpretation Comments PROTIME (BEAKER) 13.3 seconds 11.9-14.2 (test code = 759) INR (BEAKER) (test 1.03 See_Comment [Automat ed message] code = 370) The system [employer] generated this result transmitted ref erence range: <=5.90. The reference range was not used to int erpret this result as normal/abnormal . RECOMMENDED COUMADIN/WARFARIN INR THERAPY RANGESSTANDARD DOSE: 2.0 - 3.0 Includes: PROPHYLAXIS for venous thrombosis, systemic embolization; TREATMENT for venous thrombosis and/or pulmonary embolus.HIGH RISK: Target INR is 2.5-3.5 for patients with mechanical heart valves.POCT , [id number] 09:40:00 Test Item Value Reference Range Interpretation Comments Test Urine, POC (test Negative code = 1944199) Control line present?, POC (test Yes code = 8212421) Background clear?, POC (test code Yes = 6795939) UPT Cassette Lot #, POC (test code 20110727 = 1477485) UPT Cassette Expiration Date, POC 03/26/2023 (test code = 2195402) [facility] , [id number] 09:40:00 Test Item Value Reference Range Interpretation Comments Test Urine, POC (test Negative code = 5022618) Control line present?, POC (test Yes code = 4011535) Background clear?, POC (test code Yes = 0266087) UPT Cassette Lot #, POC (test code 20110727 = 8689583) UPT Cassette Expiration Date, POC 03/26/2023 (test code = 3339560) [facility] , [id number] 09:40:00 Test Item Value Reference Range Interpretation Comments Test Urine, POC (test Negative code = 9357874) Control line present?, POC (test Yes code = 2316754) Background clear?, POC (test code Yes = 8381570) UPT Cassette Lot #, POC (test code 20110727 = 5609176) UPT Cassette Expiration Date, POC 03/26/2023 (test code = 6464715) [facility] , [id number] 09:40:00 Test Item Value Reference Range Interpretation Comments Test Urine, POC (test Negative code = 8169459) Control line present?, POC (test Yes code = 7777037) Background clear?, POC (test code Yes = 4223326) UPT Cassette Lot #, POC (test code 2741425 = 6674147) UPT Cassette Expiration Date, POC 03/26/2023 (test code = 8193401) [facility] , [id number] 09:40:00 Test Item Value Reference Range Interpretation Comments Test Urine, POC (test Negative code = 1792375) Control line present?, POC (test Yes code = 5793551) Background clear?, POC (test code Yes = 2468459) UPT Cassette Lot #, POC (test code 9146612 = 0696820) UPT Cassette Expiration Date, POC 03/26/2023 (test code = 2653639) [facility] , [id number] 09:40:00 Test Item Value Reference Range Interpretation Comments Test Urine, POC (test Negative code = 0693496) Control line present?, POC (test Yes code = 7342113) Background clear?, POC (test code Yes = 8217746) UPT Cassette Lot #, POC (test code 20110727 = 4360889) UPT Cassette Expiration Date, POC 03/26/2023 (test code = 1906827) [facility] , [id number] 09:40:00 Test Item Value Reference Range Interpretation Comments Test Urine, POC (test Negative code = 7993590) Control line present?, POC (test Yes code = 3194374) Background clear?, POC (test code Yes = 5539789) UPT Cassette Lot #, POC (test code 20110727 = 1611284) UPT Cassette Expiration Date, POC 03/26/2023 (test code = 6881641) [facility] W/PLT COUNT & AUTO [id number] 09:34:53 Test Item Value Reference Range Interpretation Comments WHITE BLOOD CELL COUNT (BEAKER) 5.5 K/ L 3.5-10.5 (test code = 775) RED BLOOD CELL COUNT (BEAKER) 5.07 M/ L 3.93-5.22 (test code = 761) HEMOGLOBIN (BEAKER) (test code = 14.8 GM/DL 11.2-15.7 410) HEMATOCRIT (BEAKER) (test code = 43.6 % 34.1-44.9 411) MEAN CORPUSCULAR VOLUME (BEAKER) 86 fL 79-95 (test code = 753) MEAN CORPUSCULAR HEMOGLOBIN 29.2 pg 25.6-32.2 (BEAKER) (test code = 751) MEAN CORPUSCULAR HEMOGLOBIN CONC 33.9 GM/DL 32.2-35.5 (BEAKER) (test code = 752) RED CELL DISTRIBUTION WIDTH 13.5 % 11.7-14.4 (BEAKER) (test code = 412) PLATELET COUNT (BEAKER) (test 378 K/CU MM 150-450 code = 756) MEAN PLATELET VOLUME (BEAKER) 9.6 fL 9.4-12.3 (test code = 754) NUCLEATED RED BLOOD CELLS 0 /100 WBC 0-0 (BEAKER) (test code = 413) NEUTROPHILS RELATIVE PERCENT 53 % (BEAKER) (test code = 429) LYMPHOCYTES RELATIVE PERCENT 37 % (BEAKER) (test code = 430) MONOCYTES RELATIVE PERCENT 7 % (BEAKER) (test code = 431) EOSINOPHILS RELATIVE PERCENT 2 % (BEAKER) (test code = 432) BASOPHILS RELATIVE PERCENT 1 % (BEAKER) (test code = 437) NEUTROPHILS ABSOLUTE COUNT 2.93 K/ L 1.56-6.13 (BEAKER) (test code = 670) LYMPHOCYTES ABSOLUTE COUNT 2.01 K/ L 1.18-3.74 (BEAKER) (test code = 414) MONOCYTES ABSOLUTE COUNT (BEAKER) 0.40 K/ L 0.24-0.36 H (test code = 415) EOSINOPHILS ABSOLUTE COUNT 0.08 K/ L 0.04-0.36 (BEAKER) (test code = 416) BASOPHILS ABSOLUTE COUNT (BEAKER) 0.05 K/ L 0.01-0.08 (test code = 417) IMMATURE GRANULOCYTES-RELATIVE 0.20 % 0.00-1.00 PERCENT (BEAKER) (test code = 2801) Tissue [id number] 10:37:50 Test Item Value Reference Range Interpretation Comments Case Report (test code Surgical Pathology = 104) Report Case: [id number] Authorizing Provider: Zay Ghotra, Collected: 07/17/2021 09:17 AM Ordering Location: [facility] Received: 07/17/2021 12:10 PM SERVICES Pathologist: Fredi Dimas MD Specimens: A) - Uterus w/Cervix B) - Cyst, PELVIC CYST DIAGNOSIS (test code = r9tcnMAcIDLax7mxSZWibYV 3220) uZzEwMzNcZnRuYmpcdWMxIH tccnRmMVxlcGljOTYwMlxhb sBjSJBuhIAiO8DnxlskPTcl NY2aDD8voUvocWSwnPYhNQC sJvJdb2les202vPSlu7qyZF AZdbyhjCd3jJehY20ez7E6U mzuD74pqVRhYFU3TAJkGOTa fMApPCDdCCG2MZMdcQVfB1h mCAWeXP0nuwyvEPxoVHmkEN IgfHE5QUKxwAAoJ8PpIZYcT BixZVJcshl5PvRkCe0woXBf eTcyMFxwYXJkXHBsYWluXGZ xRoFuRM5qIEWERyBHWGoNUF wfV2SWIjvEBWXQZWKUBXYVY 4YLBXz4EAFyvaa7FCOvBKJW WFREXC3WCNALIo8LJTKINAO WKNSTE0ZIKNzMEi9FPwMLVK XQCXWPVVHeM5ITW1gUO19DS EqzPWDmiEAvMKPlTSHXBP7P JCVOP0PVRXIKKJCJHaoOYBX LV70kPFMDVY0BTRnQSX7FTW 9TSVMsIEFORCBccGFyXGZpN wArMSUaMDaWKT7JSOLKNXRH FFKSCN4SPrOrpVBrOQSfHKp 0YWIgLSBTRUNSRVRPUlkgVE 0mSG0NY3AYOiLlLB0IP66WJ XCIEL8cNKYwjst7AQWgIVZW ODTGUcFBKY4KQIRNDOCCEHn UXYnvCNTTIN9DVXSUT4VDAO PLJMYKIjnGQKHDE72nwGSgI HRhYiAtIFVOUkVNQVJLQUJM HOZRWPOCLD0TONBHBjVNCFI ccGFyXHBhciBCLiAiUEVMVk gSMCMDI6JlQXFUFZFJS0iFX jrjbAOrKDAaRdTvUO0HOTRO AH1nYHGBVF5CMHrSTMOGFTY ZDQsSTP6PLyoIE0rMLMVWVc XKYqVNGYKMGJ3oO3vYNEJcY VRgvaHaCIIfxy90LOM3PsEb a6R5WCK6MFVtCYVts4rrKKL mbGFuZzEwMzNcZnRuYmpcdW WsXSIbTyEzi6qaw055mJRgq 3tnHSNrAiI3qOPyNXAzvNJy X137FIYiOAcoz0igg3HoIHX qvHReu7I2VZMWxtzjgGl3rZ niS86xr1W1OhtlQ1ciTCUhU DKkE0XjVQ8cLLCwZsh8EZN0 YYN8ZMNvTVScL9XkDL4nYRT eaIHnWSh4w4pmfPrlALWhMA A9y5yzFMozjnLtEU4dof6cj Tc0i8nosqQkUAIaFGJmgAFJ YAKaH6BsvXqrZo0neBr0bQh nJkulDYR6Hkf4QK6ioa05bq h8rVfeYVQiwtoiRgZ3HYvbQ XCkzailIEo2BOrnTIHxkYQ6 FWDmuBJiR0AlWOXnZP1nlcn 9UFJ2AXqbNDAvGbW6SOLswZ NsSMNwdPeqGBfbo655FAJ0O cMvMA7iI8Atr8W0sZ6smZEg XVLtkFJlGiPdWRScjm6brID aGJhyh4HxPEY4leQ9uSIzjK CsFLVlUbU7QEwkCU4jsa67M HJyHVJ6ii9eePDnoWclzjNa uGXyZBphQ5XtSNDhr381PSP nO9KrKKIgx2V7dkHfZmEsHL JnqUO3siO3FPBxAR0vgxrmo 3wwYTfkGCunYMAtgkH1ijE1 ZDFcuGBaY3ZgbA2oOFAhDV4 dgsszq7nwLWE7ALflLMYbGZ T0OiVfSXAoy1Enele3JtDxw 2EmeHGrEBenM87fv332VLYz vrOvL7gtnQGetmqmxMCeukg kBEabvvY4AJMrTGhmnasuGU RtHRynJ9xxRuEqEJVdeAduU Kbsq7OrRQToBKUrVyJfnYOo AQRzTdh6JBLiyCHgNGVaMyD gI5xjovqvVmMVUIRzm1itX0 pruOTXeIQvJ9CbQEhypbDbW HmnEXceKgPiJQo9HP17AoYk HSMjow93 COMMENT (test code = b0pccOKrCLAcaHL2CcQzUEZ 3359) ey1cxz9WxyLQgbMLjOEtbmU EsdlOfjh43aVK3dD54AC7qR IFhIoY1KLZtvnW5Mlz6XDRr GCZjsQUmG157c0dkq6lifyI efRE7AASlQNFhE5DuJT0wPL GomQJxU59peCJsRBJ2DXJpP CEzbQIlDOEdFYT8CXXrhVOq U7ytSUNeRQ9kbcpnZLkkCYt rSKSlrWY7WPVzeGKxC5PvEH FyDRqbKHMmlqk0FmUkRk7jh GVyeTcyMFxwYXJkXHBsYWlu ZHUhEoHwY0IxXSTpPCGdSFD qHV24C6UnrUjdoW7zlOYbYi DnjeKmeINpLGkfks2nirNyY GRnHDEgiXCjW8UmW0qok96b KEgvGA5cmXKsAiRuzEWheY= = CPT Code(s) (test code l2abbVEtCMJfhUG6YsLnEOA = 3357) sw2ugs9MikZMncEZgYIdglZ JybhVxfj94eYH6tJ96XB0dX JXgIxL3GJTmybN3Ozs8PUIf SWSefDAzW064m6gab9xbhiK vlMZ0mIrqPUHsnfwwWkX4QP hdOHIyndmlTIw1NWihSTBti NQ0BVXecOEwP8OxTXTlDS0j xrc7BMV9EYhmVYNgWuV9IEM rxQUhQDShwDglBZevo014YK D6HqHfJZKgizYeiCslfW5nE cCdYHDZHtK2EYHdKUxoTJEw Pn4xEMmeCGOvcUJvbU== GROSS DESCRIPTION u8kgmFKnKDOjqCK4WsRqYSU (test code = kx6rpt9TjkFPwbOVbCXeahP 0560920558) InzcNppt22aNN0vC12MS2eZ KWaQgG5EDGhdcA8Inb9VVLs RBDjrPEfJ919w6xos6mttqU ayGD7nQwfQKLtgozwIjE5OD lhVGFlsxdmYKg5CHeqBXLzm PE6WFJfeMMgX1CbSZEsLC6r jtu3NJM2NQbjDHPfFaM0JBJ jtHOyGNGvnBizHTjvq524OV H5XoYxNSMtdgO5IMmuDSCiS 7TtB9YwLMqjXBC9HVCzNAPa QVEiDSGyQFIwDTkenhT9a2x bXVOgcOQjKDZ0ICdvdZWfTL EwMDIgXFxkYiBPVlIgIiAxN oW6YWd9BtU8ABy9MLVQOeCl MdNnAio4HVZiMcAvQGz2GWq 0XTqKQdA1JoKxWtVgAWewWQ QvRcrsUVv4JERpGFngkBGuY EBpPUKjGOaqQVwjF70qrPmm kN8nLbCeXZSQPxPWwFNwhDD yxb2NWUT5uMtySLFscdfdqw SdJUAmY4SyvlFzIFbjNLTlx p4uiAopWMjaOtUlHDPuc7j6 qUZ5cOLdoOY1cSCzlOkiZQo zEd4taSC7lI0tZTKoCWRjbU FtdaRaYVlmzFneL2Ndgbl7L eCqqxMaGXc7LCpkYNdeIINb oGOodctpkeH0vgNisqZcdnl xoamdRR98EPzxmDEhHUvshF 0erXD7GSEacTFxigYjEO3zL LPyNGIhwEBaiC8iAYLaEZNo b0KortjnhhAaguEmK5YgzLT khdTnIKzrcNzrOV4mNFX4IL RzVPGeIx51KLljGh8aUAElU POfch3agM4vWDDwqyJomXEm WD1jVXmfBA7dIWPbKBIkzaV iZ1YtJY7nNH1lHOGqwyvuQD RvL7NpEHAunESzWRCjZDxeO DRnfg5vqI6uBQjcdLcrL5G4 tKQibNHrphRuOOEfMBIri8g nmcK2vNXclG9tNFSqU36ohu XlEU8kPDeqtKTqMRajw8BlL mFjZXMuIFRoZXJlIGFyZSBu iU5tfr69eqZ4NO2hp1groLL xuT2ssHMjUVohsMflseAwaE XvXKMwKD5cMSMax33bcVhiZ YU6gjTdR5NraaXbM6erXbWi ctTvhwJhfJVwtYBgmX1cbfW be97qLdSjuAOyYiIxaE5kIP 59XJLxSBmuls7whjXllF92h 8wbQJPntpI4GPbqedriQEFk ZUDsxBFspK2ymuXrvwCmkjy lZCBhcyBiZWxvdyBhbmQgYm v7EXq8NCJxxH1rmfI9IPGdU SZmXQH9JFMxOOXanSI2cYUy jB5dJUFqxkt1aLH2pBRfBWH dx082lCGoziQniMY1kbn8jH 1dB4KkhOBcXKOrG4Xin78lg sxoszC4LFAvnfIpADQjMbCq mSJ2rHqnnlEasgJedYG0pgx 8pUW2tIAyFFGcQL27FYNfIQ EboUBbBJ91m79ifGEwbJ1uC K5zIX2xx9ShltHpxhYneKQd qyCsTepgTB2rAkQuzaSjEO2 5TEHnvaOyz1BdbSmqjmUfOM HeANE1Nr5xyVMcYWDuzeUfR Smgws8asZTuQVRyzlLEckxt Z45mHUslnEXlDUFaiLOgSYM BbnRlcmlvclxwYXIgQmxhY2 maIBPNl4S5MVBvn1GxxALyH NNkacPIFNK5zZ4bKYWfBPZ2 YQSbzeXPWS36KQ7gXD61OCP ba3NiwR2eJ3c3aSZjrdDwGY R1fUhxvHaqD6soJTJjGBIsF 8Icy02dKWRkbqNxdJH3ppZs hN5aeCCrtQRyBCV6BBbxSQB Sf5C4JTXhu8QyjZ9qZ5e7lB RkqyRbEXG7jMwulYysX7cxH WRkKHSuG7Rlq46hGSMnvgVi xZZ1pyZjoZ5ueNHjRDS9M2O xa5YqteHjihOxzfUEMl12AW atHMTaXFjxMAEkLOIHZH6nt T8jKFYnv1LlEU55HWNmy7Gc ZM7bi01mwQCxdQ0bBH3upLR mdWxsIHRoaWNrbmVzcylccG HgPDNmKp5wWFFfBEWagDGro dXdgfSgIlAru1E2WUFio6Fn NU5zh36jeINbiS3pDY0doDU lgVkdAJTphAAkspFotcm7CO XjuRKuBQN9JN2fNSTbnkoxN DErFBOgZCB7JYzerL70kIHc XGZzMTZccGFyfXtcKlxlcGl rm6WzdJSgJIudBIJhWBTyVT pjRTGtE4JNECAqCAYiGLt3D mXkVWk6NMziW8KJEUWpSLA9 LpKkXAn5XrU0MSt5NLEIFt8 lNZvtMavbEGN2ITZ6Vkf9TQ xcdCAyIFxcZmwgXFxmIEFya OFvNZgcbaI6RYCdFcShOp7v C6uvrJ9xoVEnRKLmTmPsPuH uEQn2MNJdpF5jPx6jiOSndN 9ezZAiQLvkIHU3zDTzRKVpF ZLzFFTpHX83B3WnkM4as1Iq NDIzw86jXT5nVJSwGPh6qNQ wG3csbKEblKYtDBEcXvMwtQ TmWtAcxFUoUsIdM67mdBIdL VYfapqunIThDKp8hRMlcIcc e1subQMmBBJxUYLhAW3lGPR gKaYsuYdqs2QqFdVKvYRwi0 DqB2fzRA9ynVTpAemrPBY3O JSgHM0wTAW2Vi4gdRSjXQCh bnRpcmVseSBpbiBjYXNzZXR 0RXCnPiMhZx4toYMmPBYcki SINfb0GLMikFWrJOY6KG7pt PkuVSPeK5JlE2ZstiU4TTPk cn0= MICROSCOPIC g3aihMHeGJQlqJT4SwZqKVX DESCRIPTION (test code wo1qtd3LtqJDxpPKdLHludY = 3371) YnruYsdf60xGT4bU41MY9jD YMtYcU1QZFnvoO7Wgi9KVVi QVXxnMOvB645b3axl8zlqmG vsLL0bIzwZNObiginIdW6MB xyQOImcrpxYGs1GBfiUGDhm PF3JFLrmQPjQ0SvZZIbVK6o cqv2RCQ0JHaoQGRrYfM4CJR bhRLrTAEmmYzzTGsql584FS U5AbDiYMMpygZtjYftyQ3fE wCzZIPDUYOaa3JqRFOoJTSg clxwYXJkXHBhcn0= [facility] [id number] 10:37:50 Test Item Value Reference Range Interpretation Comments Case Report (test code Surgical Pathology = 104) Report Case: [id number] Authorizing Provider: Zay Ghotra, Collected: 07/17/2021 09:17 AM Ordering Location: [facility] Received: 07/17/2021 12:10 PM SERVICES Pathologist: Fredi Dimas MD Specimens: A) - Uterus w/Cervix B) - Cyst, PELVIC CYST DIAGNOSIS (test code = p3wweQDqCOInj1ybLAWhiQK 3220) uZzEwMzNcZnRuYmpcdWMxIH tccnRmMVxlcGljOTYwMlxhb yOyZANicBJpX6HlpowhCYgr OM6sJI2gtFbfyYQvyKXkNIC lHcBaq2ikh529cDIju5mtOD NCfeabeNc6dWxxD09du7D2O zgsR97qwWDzNHN7ZSXrMVSl nZTmJKQxZDU7UUBvcMCpC9y pGWPoBM1qoaqoRKtzQXszXD GfbXK7FVSjeDBeD1HwYIBgO ApaHFOefun7ZoWaAa5eyTXw eTcyMFxwYXJkXHBsYWluXGZ jQkXsPP5sAREFBkQOGFpDLD llQ7KFCmkQZMBWZPUOTBPOI 7MFAHj3WYFxhxx4WFSwRJVK RAQTAL0HETGUZh0JXBYXVFS CGKFMK2QXRDrSCc2VLxCRAX DQQJLUQGWuA6VLY0cJG28WT ScrJJKrzCCiJAQlXHHPAM7V FDZBS1GERQUESNTTGrpPTUR OF12aYKMKZV2PUZgVZL2MXJ 9TSVMsIEFORCBccGFyXGZpN gUkGFWcKYxPWK6SPBJUDYLO PVQPPG7MFqPexNMbXWShOQm 0YWIgLSBTRUNSRVRPUlkgVE 0mZC3YU6SDPfHjRO8YZ68QP HVEPA0cWAGaewm5ZYIdKOHJ IZCIWaZPVR4FAWEOIQEVKIf HGUtpOLWXPU5KBKKBD5XMWV PCKKAXKpeFCEPEU11zfWQmK HRhYiAtIFVOUkVNQVJLQUJM BNOGBQEMAY4OUFJPWmZQGZR ccGFyXHBhciBCLiAiUEVMVk zVHSGBN0SxMYWTKVNCO7oOQ yjibMDhWUBoJsRdET1EQCJM OA2cAONTKE8DKGlTWPMPUJN VYNcUFU2AFkbVO8bXTMSNDq JFRzBEXUCFJM9rF9xWXYDnN BKpnyXmMSUnjg62NXK3WpOg i0O8TDG6UIOkRDCft8qmCQI mbGFuZzEwMzNcZnRuYmpcdW PgZAKiKeYzu7hev410cRCpq 8vzWKRhMaZ4qXNbHDMnhSPz B387UMEgFRxyu3bdy6ClBQE ikJXzv6C1TUBQeznryWi9rX gbJ16cz2Z6AnzbB5sqMJNqM WZkF0XvMR0gCCIbHse1DRK9 PJV8DZJcLYHiR4CvLU8lMAD wnKGgNDk6k9uagXbuTCXnXS J2z5feQQpdbrZsYL0qpo3zn Mp3r1ukpqPnOTMrTIDwjFTN JEUdX0UdkEdxMg1dxFb9rIy gRjyuYMZ9Uhu9QM2bhq13yi k7tSdmXLKgxwlbWqG4TOysO XJopfxuPBy5RWayEPPzwXS3 TNYmnWLfH1ZyPAJdUN5vdej 9UFB5VBteRDEiDwZ1PHYaaY BpDZIiqZwsUVcwa811RMQ8R mFxDQ5tU1Ftd7H8fS5hkFRk ZCQwlRGkDhVhTKInnu8gbAK wNVmwf9StTSV0qtT9eVNvoK YfNSTjVoP0XPylJD9znw91B PIxPLP4hv4ceJQytOdckyHq sPEnONmxK1NjOCTpv837GCJ mN9DaSKAmi7L0piXsVaQxHP QuiYS9ikB6IRSzJI5hyuxja 9ciJZfmBNesUOJyunB8hdP7 FFLhyMBdE1AlgS9hYYJmFP5 kenjzz8skPQU7LBoxXTAwAQ M3EbPlTLDri5Acspb6XtHag 1QogZNdORevB01kq491CKLy rrHdS3qtuLNcfofwcAPpajc uDRnuqpY8YMHbZGqdhbufOQ KjFDqpU9pxVsJxURPcmMopN Dttc8DyEIUzRBLjMmCqrWXf UXQgThb7DOMuoQQoFJCbOfE pM5teazmyWmLTJSNda5cxU3 wxkRBRbCRqI3PqDKrivsTjV AzkGPzjCuNlQYo6GF94InVz MQPbso63 COMMENT (test code = m0clmATyPQVtcIE6EeIfNAX 3359) vh6skp3XnrFByhQKtRRswlO NtqqRanf17qRK4wZ41PI8aT RDcYhV2IQWvimS3Ruv9UMMr BYArzTPeQ883w1ixh1tvvfI txMW4YHGpPXQgK1FwJJ7vRA KocWVjC19gzWSfKZQ7EKYsH OAjyKTzGWBhDRO5SRJstUDd U0gxCLJpKT4mjhmuPVyiHHj bBJUpwBE9MNKllYQzA2IuRG EfNBnkGVHwiqk7FaZtCw9yy GVyeTcyMFxwYXJkXHBsYWlu QDFzZtFfE2OcKPUzYGBdWRU yAG00A4RjcIzcsT5mfWRaWu WzduMnbARaYPdfgd5ntsAdS ZXnITUwrKRpF0KyT4rgb39x GBjvOM0dtLQjKlYayDTcsD= = CPT Code(s) (test code i0dwsYWyYWWajEY6JrCrKID = 3357) au9yqy0FghCReeNAkIBxqhI QnsaSvfv05fZO8rA79UU1bU LXnZoP1RQTtxyE5Otu9NGTc KUEkhQPcG121u0rpa6wtigA zxCN3cEdgTRUhdhtyHeX0UI jeKKOoszcgUUv0XMetHMNeo WI6DPYsnPEzZ8LeIFHzXL4h bwc3XLC7LEagDXLvTdY1HUJ svIXsMKUjoTgbHMeht022UG N6YtEjAKOnehHqrCxbgW3gC mJgSAOHNhH2YEKfKSkvBSOd Nv8dYZzfJTExmMAzzB== GROSS DESCRIPTION u2fwhAJtVGRbhDJ1BvWsEYG (test code = rt9npo8DlmCLneOWhOXoiiG [id number]) HhorCwzh03cMT0pK33QR3hO FKjQpD3TKDchjL2Nhp9GIJc IWCiwGViD375j0qef9oswhG hrYL9yGcrUKXoeghsTqC1ER hfGMMrmnxbEDy1ZCdwQLAdt OX0GTDvbKKdC7BcRJDfIA9x zix7EVG4MMwmEGOqVdH1KGM qyJEyYIGcmDkcJOxrz938LM R0VzHuXXFcqzT2EBtpBHJbP 6PxX5DhZMhuIIF6WYKcYHFg FFUmKTNwNYYfXOuotaO5h3s vWIOhkNSxUVS9BJypwKBtGZ EwMDIgXFxkYiBPVlIgIiAxN yT9OZw4MpB6KEl8KSDGVpVh FtIrIed4BRMoBsLhZFm9SUq 8ITtAHwR2UfLeAoOkRWpcQH YwHwirSEp8DDXmNTdkcQMjR EPqXVNzZFecJAngO18ybJox rS5yOmIkAGPLUvAYsIEezFN nut2TIQI7yHqjDSWpgnsvby MzYAUtM5KvbzThAMuhFMYzz b4vxXzvVAbaNuJpOGRqn6i0 kQJ7tTWtlMH0wSAhtRpjXNv rJo6vwDI1qF2dXZLdCXCplF FtwqGyEWqkrVhpD4Ajrxm3N iNjleWzHRj3MPldSDevZNJz zMMzrdcdvyH3niPqlyVebth vypktHG32OPswgWUaVXhljK 3uqAQ3ZPQjpHNndfMdSM9hQ WYaIRMmmOIuaG7uCBWwWPOc l3IkytdrliVydrDzD4JzvGC oufEzAFihxEsfOJ4aZXJ4OY PzGEZdDk03EWxrHl7hRQPtM EDyhn5ytO3qSTYkuxKmcZLu LZ8tKSahQO1wQNZdXRRkpuJ gH3JpUT2oZJ0zCXGjimojJT CdD4XiNUNekQDqWMKiOWvfK HAlql0bhO8uNHrgcDgpO5H2 pACasMUysbChPQXvDPTdq1x bvbW9xMLrxC6gFVBnO35qcn ObPQ2qRYpdsADtYAmjo0JoY mFjZXMuIFRoZXJlIGFyZSBu fB4can25sgM9XP1mb5ywcNO rzY0bmOPiUAeqfDjwgiBntG YxJWKvJW4gKOHaf90mrRhhS SQ2odDpC0ZfbsPjA4fpBbYf kzVfimLmoEKklZRkmM6qokI vn35gKtRtiIDoHxMmaM5bLU 28YUVpHIdiiz3gzsYmuY20s 9adRQJgzuP2TDmozqdaUFQc WGFysPYveJ2jtwUvusRxwuo lZCBhcyBiZWxvdyBhbmQgYm o9TIw0DBFucI0nkgU7PZFzK PZaFFF3RXEgAVMpwRB1vKBa zE1zOMHdqmr2zXW0nJSuBDW pb301uQDaqiTjgVP7hmt0jO 3iE4UxdCIsSGZmU3Cmk24wi schmrY5JOVmdlOjRVJqXiKg zWB1dKeqskXngqYftKH9nuv 7vYJ2oNFcCWAoNP88ZAIrLG KmeNGxKL24h15npZKysO9tK R6tPT2oa2CuiwXvdvCvzHNu kyQaYjchHG8uZjUhhxKyFS1 5BRPhhxJcy0WzpHgcxcRvZT VtJIH8Ii8ddJPwDUNdzyBpE Eulfm8pxBDsGKPmofQAofvv D57tWIprhUEiWNMsoZSiRJS BbnRlcmlvclxwYXIgQmxhY2 ucXRPLp5S3PVLnu0TahQYyV MMsbmDUJCU9fN8qSFGmMMN3 NKXbplNNIA25AB3kSK36DHU td9StvD5fW7z8dXBtfoFdJP C5mEoxrGeqD6scKOVeKSSnJ 1Nfp53fHRMtfaEayPO2ywOw sK0pqHUyoSSwFBO5KUvsMEQ Kv9P6HITdg8CqqD4gK7f9dI PnyuFnIDW1kDpacYfiF7tlO PWcPVPtL2Exa09cBNBsctXh uOH1jmIiqK5ujIPsHGG8T4O do6HbgkUomnJoevTVNq04NQ epTGQuQIrqLCJsHUHSRL4id T0aLZZif2QdFD66XYNex0Es AH5zy29pnSTmxD5tIP0nzKD mdWxsIHRoaWNrbmVzcylccG BjZMXbYu8xOYMkEZLkaTSxv pDgpaSjHzTcl7O3RBZlg2Qd PY2fb58vuBTeeF3eGS2lgGB mlPzuJEBauKOojgGrefd2WR HicCKeWMO7YU0pGPJkfuyzB EJyYYLeBKC4WXgpyY32bYMn XGZzMTZccGFyfXtcKlxlcGl ce7BahPNjYGcrMHTwYKWkPM msERKpG7IUESNnEOMfBLp9R tFeBOv1RZhwM0GVCOUyGLB6 FqZcLIh6PdH6FUy2KBMPPz3 gMQgbTgwvQSQ9DBP2Rkb6PH xcdCAyIFxcZmwgXFxmIEFya FKfEWrulhT6JAYhJbNtTm2a W5uvqH9adXMcSRVxGqNaGdF lRQv9WKFrgA0uOv6ckYBsoC 7gbFHoXZfxPSQ7sDYfKTJcI KAiLNBuVU60H3WjxM5vz8Fh WLXgz02xOS7cZLYoJJt3kHN iM0udlKRbhGOnTTCwNnButD BmImVyoYWbJkFeZ79qcVZjX NLbppshoDRuLZx3pKUjqNib q1wiyITmZZVmZQXiWN0rRCP eVmXbwIuvh2VqBxOAbIGno5 BkQ4zoHC8geQTmLzokRNZ5B QIxTW7xHQJ2Jw7lcCWuICHn bnRpcmVseSBpbiBjYXNzZXR 8JWNvHqHwCu3hiDGmIXFetk KOMfz2CSHykROfRUY9GI7co PxgKSLlE5RzN3JltsL5BYCi cn0= MICROSCOPIC e4icbBZeUIKueTJ0HfPwNRN DESCRIPTION (test code mq8syg9UeaJRktGUiFFhhpW = 3371) FhvsMsvz21uOA0eP69YN5wY TJnHaP0NXUtdhN1Jzl7LEVl LRKckIHmY681b3yev5yotgM elPK9sIxzRKNdsxsdFgM0ME pjQYMzbzwsVIf1ZQldNRUca AJ5MLUdzJCfM6BmFATxOX2x paz9OSC7YMadLZAiIlO7RUE dyWHfAAGtsOmbRNyet867EK V7FeKiIUWhllHwiDvuvW8aI wMvMAVJQDHfo1BrSXWvMWOy clxwYXJkXHBhcn0= [facility] 10:37:50 Test Item Value Reference Range Interpretation Comments Case Report (test code Surgical Pathology = 104) Report Case: [id number] Authorizing Provider: Zay hGotra, Collected: 07/17/2021 09:17 AM Ordering Location: [facility] Received: 07/17/2021 12:10 PM SERVICES Pathologist: Fredi Dimas MD Specimens: A) - Uterus w/Cervix B) - Cyst, PELVIC CYST DIAGNOSIS (test code = p4xviDMwHUJqr0dcHIBfsAT 3220) uZzEwMzNcZnRuYmpcdWMxIH tccnRmMVxlcGljOTYwMlxhb eVhGSRxcZWeS9VnencwQVdh SW5bMR5uwXlwoTUrdYXeYMZ cPySby4fvm452sVGmb8arHX XYwgrgyTl6uZceI18gg9L4I jhrE75udVNdXTB7CTVzOLUj uGMtIXFxTEF5NMFqlQCbX8g uYYZpQH8ggjyyDBxiUQysVG HxkAY7SPNofTIeR5NfNAErY UgmLJEohqd0JjCfCs3faPPz eTcyMFxwYXJkXHBsYWluXGZ lByZyME1qAYVDDlNSOPoUWZ bnM1XJZduWOHGRBGXICCRIF 4KTQWp9SEBdolr1VCElBIWO KTOPXC5RTEOWXw3JTYDVOMH UZFXGR0DGFOtPOy0TIfQLSZ NZTQOBQYEoU9JYJ4hTS28AQ UwhJFEseZFzRKOnJBUZGU7M DGGFQ1BGWCAWHNWLSpfLOYU VH19xGCFNSE4EHEvLKP8FZD 9TSVMsIEFORCBccGFyXGZpN jByQHQqBMcXTS4EEMNXVJPX LFWWPJ4NVxWekHMwLBJoWQb 0YWIgLSBTRUNSRVRPUlkgVE 7iQT5NC6KACvSlMQ0IU29XD QDYEP3oMKNuoyw1AJSgUSCI EUZNLeWAGE7NZBWSJBHXWAz BLYyoZMYXLV5CEKEVW0PNBF KYKUVUExjEUOKJR12vdDZhZ HRhYiAtIFVOUkVNQVJLQUJM OPHQACNXPK1ZLHPDQfKLCPI ccGFyXHBhciBCLiAiUEVMVk gHZDZQV1TtSQPOCVSLP9wHK ncnmGPdWTDbPdOsRS3JNLNV OB4iWGGKKN1NMYzOFQRLZPH URIdKJE8MCshJJ0dETZPQJa FCWnFPRACFVP9uK1pGUUNzT WDijjPeKJXxdt89ERX8MwQb q4U6QCY2DWVxRXIhm9flEQP mbGFuZzEwMzNcZnRuYmpcdW ClELOsYzYzi4pra518wHHcc 6uxRTOwKbJ7zKKaAKGasRXe N106LYErCGdij4iuc1ZvFAK jcQRsv5R4GEVKkciomIw8vZ ffB11rz7L4XuleS5pnANKaX DLfF4BwNC8kNYRiLoj9VRG8 FMR5ISOoVVKvZ5RcFQ7bHDO gqFRrIUr9s7yzdMvfKGRbMR X5k6ioIKsfemCqDD7feb9wh Wc9w1scgwYgFLEnEIXlpKHW TTNbE6SpjUxoQx5nmPd7jMc mNnnwZJJ0Eyn2AW0fdo88cp t2oGhnVVLjraaeFdU6KUioL VGfkcjfJVh5ZOkcNPLqkYX6 RHVcmHMdR0HiSFElWU0pwkq 3BZY4NWcaSLQuMyR5QIHfwD KxOYUsbVpfWNtht617PCK5A iEsFB0cL6Grb2E6wA7kjHHu OBDxoTCkZlDkLMBilq9tbGQ gNBvbh5EmHLL2tdJ6bQPxfE AdSNWmDwY6OJbbBG3ndg67F UKwRHR3zh3cbHOxtGwvwwPz dKPbPJthR0SdBEBcy344EEM uI7AqVVOnp2Q3gpOhAqKtSQ ElxTC4ciU0COEwNB5txhrlk 2bpDFodOTdaDEAkdvI7kzO5 DXLbsRVqP0JfuY5gLWEpCW8 jilgfx7vePNV8CWbeYSFjPT X1GkLtTQLwe4Wueum8DrYet 6DoiVNjYNdbI43fz659UYBt urDfT1bbmUPweentcHAirfy kFLoiweS0HLRvMCwazdvrHX ZkNHaoF0fmVuYjULVqhYacH Ddnu2JsTFMaLUUjJpUbgLQt LXDwSux6KUElaKDjQMQuLwP cL0vkcpdkRlQTLSAnu4ovF7 czyCHLgKDcX4UwLXreicNwV UnsZVxmZgSbPWl4RG38JyJy DWFbge53 COMMENT (test code = w0vohVEbCFImeBT1XtJkHDF 3359) lv4dtc3OtuFLnoFQbATdejY LdorMjkv31kPU5wF70RJ4wP ZPcObP3BMNiapG0Fnd9YDBr YXMbwGHrN477l9peu2xiztQ ymSK5YUXbIWWhH0YkFW9wTG JibJHwS41rjUCuNFH1ROMxY WWadUNgJHIiYCA2YCAksWHz Y1izYOJoYZ7mzpsnZAgvSZr kBLExiQF3GJAlxVRuV8KjPR MvPUhzPQXmobf5XcTwNr8wv GVyeTcyMFxwYXJkXHBsYWlu ZMBzTpOoV9HuWIXdWHSzQWU qAE65D1ZjgVqiqH1ptHOhHu YdstFhoKQbZLcttz6enrYnH EIuQNZvrUJyR1PhX5oij18y TYqpCD5qkBQqCgKczYVrdB= = CPT Code(s) (test code a6pntSCaNVGegNT3FyXrUQU = 3357) fs2agn4ZelRXkeAAdHSpvvR JrkqLgtf88nKH0yH57KQ6mC HBtPiG2LIRohlE9Fzx0RQRt GHLmtDGzQ254z7axg9rapaT enZG2qEeqWSMsuqyhXkF5GF miVGJtfwilVBp4GGkbOVNig KM6QRYjnXRxM8XnFBBtXZ8i mvd5AJY6DQcuCXRbRbI5WNC qeUHmWTPbpIitYMvlb354JP F0CfQwNMRggwPvwLejzS5qE hVsLWEKPzO1ZENwISenEQAp Tf1bIGgvEJCukABxxT== GROSS DESCRIPTION n2fiuOTjQJOxfNR1JpBuFTM (test code = zl5urn6ZycVVayHXtFRpwaL [id number]) ZxecOejj29fXJ8kQ80NP5bB TBgZeU5QKLyzcV9Fzn8WWPx IKKcbPQsE765q5isz9jhsyT knIQ7yPgzHICivkspRrM4PJ cvJVYbwzexIBn1FOkxBRLbf AT5MBJruKKkM6KfQXTqHS2s krj5DFH7UXduWZCkOjL7NHL isWDwAONpdLanSYzak056AX P8GfWwVJFxwbU8BZntKBMuB 3SsS5CjMCfqCCW2SVVvZQOs GZNyORNhBJCiRNfrbqO2f2g tCLSizVTlWUE2NJmzgLTlPZ EwMDIgXFxkYiBPVlIgIiAxN fC2IGu7XzX2QOa2EJVCUhEv PzCiAgi5DCRmCcRrMHg6NOf 9JMfKUzB6PbAtYgOqMSkwUO HbXvxuHPb0VJElJBvqnIHeR CBbYWTkXDhwDNcnI33lrMxw oV8dNlVzEKMYSgAKmEUcmNK xpc0CRER7gRmgNDUhyefzue DgUYXtT3LseoFmWZthXLSqb o8ztSsvKBqtDxUnOJRrn5a0 vVF4lXArfQB8wUHqlFazLZw cSq2feQQ4iQ2sHSDlWGRhwV NbjoEaCAlffBtoL4Ecbww9F gIshjKrPTb2YTalUKdbSPFl oUZpsldztrN4fcEhdwLvuyc skfvfAF62TZikhVUeIYaixK 1qmOK2RGWznHJbbqKlMN5rB JYhBVDvuJDzzS7lVOFlWDXr d1AiftrpexYjgeFjI1GqfCD sarBhUNislAufIO9bYXG5CJ TgPMCiCb91HPszZl6wOXVnV ZAiqm1krI8cIGOnbwIroDZa KU9dNZrfVV3tSTRxASJrwbT bN8UwES5fZY8mLLVavkkrOP MvG1CoEWAzdTSdIIKwPRkjT PZvde4ieQ5sXZfyvHeoV4A0 mXJijTTzrvIkORMrFAPgw3p gekB5cUSxbZ1dICArP67ydn IhBJ9aOXdafAIaXZuet6WeT mFjZXMuIFRoZXJlIGFyZSBu zX0mwd70hgI1JK6qi6wayIA abE0zvABvCQigqZvsuyBlfK SgNWMoKH7dLANzh30dfKqeM UB2irAlR9PxrmTpX0oeMuPr ojNxgjCplXWyxGLhkB8gecT ue49rObXdcZLfJfRvnG1pUN 27DFFmKHhrvt7euuOvjJ14s 6miRCOljpU7RGogsuymLZLi BEFzlHPkgB7jkkOyohRovpz lZCBhcyBiZWxvdyBhbmQgYm t3TTb2DURmhA0wnoM5CMWmG BTrCQR6SNQzWPDeuAH8xHAw uQ9hWQXtmzg4sBC5rMFsRXC sj631qXWozlZgyJJ0biq4dN 5cA4IpyIUeSVNtQ3Uns53tw svgruA4LMByzhLdPXJrXsAd aFK1hIxhubBodjLwpYB2dcy 2uOG9qEFsRLNiCN02FZOnJH QfxBKzQL74y37maZCaeD3sC I4nFK7fv5CvmqJizfIuaDJy zoKkVoddZJ2zNdDnmxEtIH9 5FASlieVka7UfmNvtjaQkQE FjEVT8Ts9sqYNfSYPybwQgK Fgcxh0xhUEwNXEwjpBLgnxt V06vSKvbmWCpLAMddULyLYZ BbnRlcmlvclxwYXIgQmxhY2 aiWOBFi0M5VKIxx0XajLUvR OUbdbVVNZS6qR2jQLLtCIQ9 TCTrnlYCFM45PF2jQX33RLB wh4OpwP0aN4p8kNFvkjQvLC M4nIrplXuxT1umRAPvYIChN 5Zov62eRJHssyPejAK3maWk hW9utBShnBSdANK3WFjaPMW Ng5F4EEQhy4NibU5pP2p9cK EaspBlUTE1wXrwjQczN7gvC UEhGPFqG4Akr65vYYWrpjCd wRK4jiGtqG8idGRrCQT4L0L wa9RrtzMqbkYxprHJZe53NH exVYFtNFqmUXKjSVIEFY0ix Q7lQIVld0WyPU62EGRus6Um XS8km05dsRDqoS7gQT6tfPU mdWxsIHRoaWNrbmVzcylccG TgTNFzPy4oSAAdTTKcjJYlp zNevfSvKxEyn0M9ONUvp3Lf ZT0qo73vjRGjzB1lSN5jfTO qiHybTUEyiUKbbcYpooh1VR NyoXMwUBJ6VD0eCVBalvnqL OIbYHXyYWS8ZDwkqU00uHRw XGZzMTZccGFyfXtcKlxlcGl mk5XruKSwZPgfZLTzHVRjLK laDHOoY1OZRSBcNTCaLOs5S gNePLu9AVyxK1YBCJCjUXG4 OnXwXDw4KlA9QDa3NIZWKl2 nYAkrSlaiQJC1CMN1Fhw5WA xcdCAyIFxcZmwgXFxmIEFya TUhVUaxcrZ9LJNfHkKbAu4v U5hmjN0zjUZkVBQuWtUmFeD tEFa2QEByhW8rOj9heRWtzN 1kaKEkIDhnCYQ2nYXjTKIkK UXsPZJuYR45X6IuaV7ih8Pl CDHjy24fHB0uFQPmHCb8kDU qK7romJUfrWSvFIRpCaYrkC TtFzVbnMRkKrCfM07uvGUyG HCktnctvPGsDMh1jTTplKpn x2hecYEcENIjXNEyYZ0hERU dPaWtwYtcl8GxFbWVvEDep9 PkI4iaJO5trVAzCqtnMTN0H FTeEP7qAWJ5Gg9whTKoWQVb bnRpcmVseSBpbiBjYXNzZXR 1SCIjTqSdVo1udALrQYRdqb TIFcl1JLCvkQMkTBX3MC9qe MrgMRDwS0XpE8VtrbE3GTVa cn0= MICROSCOPIC t6qsdCIfYHCuzHK0EoMcMDU DESCRIPTION (test code eo9tdh8ArzFUieQYqXIqalM = 3371) XsblGayi10tVR9cY74AN8kE FYmYtL8KYLkyeN9Wra3NFHv VRKgpQWcJ700p5hyf8ruzeW xhAR8lWguRMLdcbsoLuU0AT vcGCBwrdvyQHu9XJapBZLeo WI7OIPxjZYcJ3VuEOLoVK7r hoi8ACT0ZFcuUECoRzK8FIN qxXIyWHRqjWvdPCojj130OC Q2PfJiNBFzlmTddYxqeE7dU bMfCXGEEMGqy9YuTHOoGFPh clxwYXJkXHBhcn0= [id number] 10:37:50 Test Item Value Reference Range Interpretation Comments Case Report (test code Surgical Pathology = 104) Report Case: [id number] Authorizing Provider: Zay Ghotra, Collected: 07/17/2021 09:17 AM Ordering Location: [facility] Received: 07/17/2021 12:10 PM SERVICES Pathologist: Fredi Dimas MD Specimens: A) - Uterus w/Cervix B) - Cyst, PELVIC CYST DIAGNOSIS (test code = i8jjjMSzCGUap5pwNHYqjDP 3220) uZzEwMzNcZnRuYmpcdWMxIH tccnRmMVxlcGljOTYwMlxhb jMtQGFdtDCxA2YhbprtREvb PH3sFD3pqBrqsLAdyRFlNGA hBuFus5kar812dRZff2ghQI CRnhpxdWv3jKcmT18ts0R7T ailH35lkVQhWFD7KNIdDEEh fKKkAWHdWOS8BXBkeWFlE4x aBVDlVU4mtnwxGUahPXcpPW RmkDI5VIPhrFAbJ7JwBINsI UrlYPZmgvu6DqNkOs8lsVTx eTcyMFxwYXJkXHBsYWluXGZ qZsPyHW3oYSQFOnYTVHyKML bbT7FDUyrTGQWCYHVYDBQMJ 5PPGEb0LERxlkk5ENOcOILF FHTPHE3XLGWZRa9PYMNLKHS QPOLYA2WYOGgOOs4QWoXYUY JAQWJIXEHzU0FQN8bSR43BK RiqBVSqvAFfUELaLKQOBO7G PJBJQ4SLKDMBXCKSLpxRZCS PV36cBWOBNN5IJOaRPP1XJF 9TSVMsIEFORCBccGFyXGZpN uTyMEUmMJkWLZ9HBDZZAVSE XOMXZN4JAyJgoJXsRZEgYRc 0YWIgLSBTRUNSRVRPUlkgVE 1dDN5EB8DSKyZqAQ8FX37FF LAKDB0wJKFfmxr7MWGkPAFJ CWFLSdJVPE8VJTLZMFCVWIv GUWxmGXUDNJ6SYDPPR7DZGA CVYTRMQmuBLVQVS26vnBPlR HRhYiAtIFVOUkVNQVJLQUJM YASNMDRMJJ6MJEQIQuNWGKN ccGFyXHBhciBCLiAiUEVMVk oXDFYSX3ArVYLEEIIYN9pJC zoooDZjSOLrLsEeZE1HFCHG MV9sBCKQHA7MEAbKXNLYERI XUVpHXY5WEqsHS7dNLELSCq OSRxTMQSETEL1zV4cRWNZvL ZJqwzZfXFKvuz53BXH6HtKl x2I4UXN2OVZqGGGyb0siUKR mbGFuZzEwMzNcZnRuYmpcdW EmTDIqNbPxb2mim224mVKnp 2krEJNsHsS2tIIyMOYxwGZa D989RHYyAYhkr9ntd6ZkLQE sxSLxj0P3NEUNyxtjmGy2vK swR07ge2W0RysrP5svKJLgU JGpT1OuGW6bLBWiWkd5BDV6 QAU5DZNsBMFgO0HqWB1gDQN saKLhWEz1i8jssJxbRXVkEG E7f2inCTmsubXoNE9ysd7iz Ez3k2gdwfXyHOFoSGNoyCHO YARlB7LaoHtpXh3rcQp4pDt mStvcMUN2Jix8ZP7aup20gv p0vNdtYVCrddxhFxE7JUzbG WBxngppHMq7TUtgVTWlsXL5 CVFmgSMfC4LaJVIkVG8npqw 0WHM5THdvQSLwWjM9NGTgtC ZnKNIwtOvwDBpba602RXZ9R hTySP9lJ4Zaj0M0iJ9ytZHv FJHzgJIdBbTuISTgta0bsKC nISvpj8EwHPO6ndU4eMImkM ZzANUeWhJ1NIuhVS6wqi04S LMyWPW5mf9qnGCuePxibqYn oNRhRZtxR4YiFHLkq261OOF bL4ZyWOUqo3W5wuVaZvOtAC XjfSE8ewZ7EJEdOY9rhetcr 6onCMtnWRmnSNYlwuI4poI2 ASReuCDxD2TncV9xLGOdDB6 giyabk2hwTDU5UJdjGDCjSU I0PlMuIGSku8Sjsqd3HiTqz 5NzbAUiOJumX38tw830TSYh dyDpE2vbjXQywtbksAMibiy wVBbummW3TWWvQOiixlxmHB CcVXyyW3kzXnSjRPXuaQrcV Dqtm3BySKHuADBkQsAvwHUx HODvUrb1KCGynXGoDTZbRbX qY3lopteeLuTPTDXak3kvZ7 woiAKKsFXdP9IoYRwtdfPdT TwtUVytJePyVUa4MX40KtAa GKUbsj47 COMMENT (test code = d4dsjSLmENGniFM5SrOaZAU 3359) ml4jcq1ZueWLbcMOyBLaqtQ EvgqOjwz12pBH7tC24GR5kI NEiIcM1TXFpiuD9Ddl2BARb ENAfcAKxH425b4ona5uhrhS skIT9YXGiFFNsS9CaEO6sRF VlfTHfK50znNJyXKK4PHSvY WYhzLHvFHAcRDD4LVIuvUJv P7unZJGeTC5qntvcISpoCEs tJHBqdXW7MKSbfRScP2TeIG DeBPxcJXMmyjb1LfHwOw9mv GVyeTcyMFxwYXJkXHBsYWlu CQRjChFiT4YiTMKmLTWyLQV aFR39P3QdaWzykM6vmAZwZd WcomKvhCOwXNukii0vzwUcX QBjBWNsiMWjX3CcB2lxz90f AYquQQ1neVSxPiEksHUvdT= = CPT Code(s) (test code s2cpgJUaIABxfWW8RyVnQXP = 3357) cv6fhy6LyaESruBYxJZdszI JnybMocq42tFK7uC35IT1pK OObJiT8EHRvenS2Ksn1IWNw JDVdlYWfC990l3ghd8wuxaJ diJB6rYbxLLWsbxwcIaQ8BB nuGJLgqgxdQTi7QUnkFYVbl AI8QEFkxHZkQ7VgRERuAY1x otu9SFC4YEkqLXIhJaQ2RES alSSfFRLzcUuwTDjyt666LU F6OsXpBNFburUkhArfpI1rO bDuVCOHKhY0PIJtMGwdHWBr Bm8lPWtpJYBirVGpmM== GROSS DESCRIPTION l9xxaUNjILXlaCH0BsFhLFL (test code = hh5wtf7RpbISolSAyXRhmrH [id number]) WezfNhgh03vTN9iX54UO1fU GItEtQ5SPLuxiY0Dnk8XOQo EVUalEEaG737n3sof0zuwlD qcES4zXvtAFZoyrfcMlB5KL ubWSQwrircGCb6NUhlZLZny IC9NPPwzZJdJ9OfVFAnYC1i xlo1SJO8QMafGSTzDuK4WRP zmONiPWCvrDlrGYxai316KP X3ScSwLNRwvdK5HXryTLLwI 2PgT3OiFIpbSWV1PXLuISAh BMOuDBSxPAPoQYvhawK3l4b iPJAelCKnJLJ6CZnopQKgHJ EwMDIgXFxkYiBPVlIgIiAxN zR2ZEi5IsV9VDx7PCTLOzGu GjMkPtt6DRDaJfGxPIs7DGk 1LVpTWeT9MlWiUrTlDPymHI VyLbkbDCf5UEPuXZmurYUyM JMqJYFnWSnxIPwoD30mcOhp nE8gKsKeEICLXmRFmYKvnPF gir1TMYB8rJaaCKVtvgjmek CfLKTpP6BluwPeCRbaTPAjv m7bbNnwCRjeVvXxDBBpu6s8 kZN3tSRxbUW4dSTteBtfMZb jKa9gnVN2oE4bKSEaOMLdzC VtytGvNByvdGohS5Wwifj5N bEqeuXvVMv0THyrBZleMKOz uZBqcpedexQ5maYapzKfpnn laxytRT05COamzBOrAPobgO 8ueZM3LTCuuOTuycWfAI8kR GOcKHXqfXJzmS3vUCVvHKMd a2CzeygqhnRulnWaA8PwfLS cdnKiBQydiRegKP2nZED5II MbHOVuDu53ZJgpPf7eLKKuE SChwd4okD2vOXYflsYgyFAp YU0zLOipSF2gSVHoKFVzudK yL0ZdQI8jUA3kSFHntxhbYR RzD8UzUZVneAArBTAqHOvzK TPalx0spO4aNYefzEquI4A4 iYJekSMhhaEeEZJlJEAsc7p rbzZ5dBWwpX2lMUPtZ38khn NmEL8aHQoctDBeHNead7XwV mFjZXMuIFRoZXJlIGFyZSBu aQ3czq70gnA3EB6gu2kznSN wyN0dcAWaKUqgcCbxufRqhP KwCDPgYW7tLDHhf74fnSchT RF1ncSlM5VzetXaT2kxJqHn znEmbePrdEYypZRcgE5gfjM jo48aNoEjaZHnWwNbbA0gKR 39VEMgUMhbts7ttsQdgC73m 5auLPRlhwR4RZofugfpZYNm INTrtQTinG0gmsVdtoJttdb lZCBhcyBiZWxvdyBhbmQgYm y1GQr3UPPkzK4zanR0ROUgO DZlWZP3POGmHKThhTP0wMLi iI5lXNNjmfw6cDZ6zNPyGLX hp906jKOzolCkmMF2tbn4wM 1aM8YkeYWpJUVzV6Zqk66vz thdbgI2BKDyjxPaOFCdIxMa aRD1vIkudwFlqrGydEP3oxt 5jAF3gZSsPLQrUN72IPTxBI WvqQWjNR76n52ibBWspV2oW T6mVU2ea0TcryGmkjWmdAHr vuDuPkowUZ1aRdJgfhMrIY7 4WWErobJcr3RziLbpzgNfQV NgSMC4Rp5gxOHgYLJbbvCwD Kqxyi1duQJjEMXxmfFZdsyv V85kOQpfjPYaXAUjtJRlBZR BbnRlcmlvclxwYXIgQmxhY2 fjYQVUx8W8HDAvy8CjbWDiK XNkmuYSZLD5sT7dWBRqAQO4 KAPlkiJYZQ58VR0qFL86OEC lh0UxnO4qW2n1dPBlxpStIE F3bKvydOalG9usDHVnUXWeH 3Wyc23pYYAnseQxjQX4zcWt zX0wfVLnpLHzJQE6KEpwEHC Bb4A6BWFie1QpjM0yF0n1mE XnbzAqHFO2cOpsoVsgD6gaV OShRRWaM5Adl35nKXKnyvVm oPL5qtQwzB7wuLIfLDJ2C5R hm8KwzgKoztCgbjLVKg70MK bhLWNsOUxdKLBtJSVIVR7lb N1wOXDaq8PgTE36LWJgg6Bf TV6cm83faBDpgI4bPK6gdVO mdWxsIHRoaWNrbmVzcylccG ExHZLpRc0pXKXhPXIzyLNbl bTfjlDrDiCzs0H4EVPqu4Kt ER0yy03reFUqvV2fFQ1vtIQ oqUdpAKMhiSHpjgFuzxv5XC WrwYKnBYK3FR6xYOUmkdxdL KGyAMXsHQH0HPnobZ96bWZi XGZzMTZccGFyfXtcKlxlcGl fu4XvwBNsVBahRJHmBEJgWA wvJFMnK3KNLXAcTSQlYVv6H nHgKDg2JGspU4FRWSSkQII4 KhUsRSn2ChE1WLt4IACABc8 mGXteStgjJQT3PDY4Vtf4CK xcdCAyIFxcZmwgXFxmIEFya JGqHUsoceG5KNVnUwFwZe3o U4fddY9pyVYdHDNwFiSnIxW lXLq5JIDbeT2lMj2cdPZrmW 5xhKTsJBcyIHN4sGSwEARnE DEgZJPkHD21P0TadI0mp7Th ISMfj05mUG4zQSObWHe4nZM fI2olaWWmdSGeVCYeEyRlvU YgYeVitWTfFgGrR84hhOKkC LJgfjjeaANoUGd7nNAdtVhk v7xpnLJaCGPqDVNaNO5cPRJ iHgMttSydq2DvFjTJqBHpc1 EkC0gmGK3bgXIxBqasKGT3F NLwDK9pGYM8Py1jjANmAFQe bnRpcmVseSBpbiBjYXNzZXR 0QHWoPeVmPx0diEVcKBLinb UMKly4SBAaqRZnJXI5VO1ll PjeKGLoA8RcX2PpfdS8VBKn cn0= MICROSCOPIC w8ltpRKkOBRylFR1SvWiEFK DESCRIPTION (test code re5era1DlqIZieGHaGKauuN = 3371) EnnpBjrv73kWY3eL58OQ6bC AWsXsX8IGXyneV9Utb3QAOe ZCMzdBOiM844e9noq1tfdxA ygGS5wUsnMIYubbnmVoJ7JB seDQVxcleuKTq6POacRHDsb KC6BCOplNTxX6BsZQKuOD2r ggw1CQY7CAhbECAjLpL0SYH qbUCxIHPkkAvmVBfum725IH L1EmJsKJDpemWrxQefwC5pE bIhZWSTLZHsi1PnEJSfZRBd clxwYXJkXHBhcn0= [id number] 10:37:50 Test Item Value Reference Range Interpretation Comments Case Report (test code Surgical Pathology = 104) Report Case: [id number] Authorizing Provider: Zay Ghotra, Collected: 07/17/2021 09:17 AM Ordering Location: [facility] Received: 07/17/2021 12:10 PM SERVICES Pathologist: Fredi Dimas MD Specimens: A) - Uterus w/Cervix B) - Cyst, PELVIC CYST DIAGNOSIS (test code = m9ofwPItLQSgi3rkBYMgcDE 3220) uZzEwMzNcZnRuYmpcdWMxIH tccnRmMVxlcGljOTYwMlxhb aGkPHMtaSLqW5GkreowRWtx CX5iBR0zxVugrQVngZIwZLO xTxLzc5vtn666wGFuq3poYC LFysrnnVn6wNpqW05fh0S1L yjpI97qvNGpRZL4OSAdBTMr rVGnGZXlEJW5WKWobFDpM2d cXESmOV7pxkwrYWbdQJusOQ KszYL2EPNjxJUdE1UxNBBhD NpjAUOokcb9IpTnNa4grCMy eTcyMFxwYXJkXHBsYWluXGZ cHcAgAU9nGNRQFeQCCDqYLO jxR5APEplAKLXLUAOIFUAOJ 9XXZZq9ZNBjbwz5USZyKXUC UEYDAB4TDZJQMr5CULVHXWB MPHENH0GNUGjOAc1SOrXFWJ TLXIRPETTiX3ITD2bEU69BO EfvAWBufFGwUCPhWJTLQP8Z IVOAH7KPIJYIQXQDSxbKSOP QA89aMNSPIW0ZIMxNPR9XJG 9TSVMsIEFORCBccGFyXGZpN qNlBNUmRFnSYO7WHAXCDRVI ENQCJA4ZDoIacSDyTHEjFZm 0YWIgLSBTRUNSRVRPUlkgVE 5iGY8UH1WXCjWuWD9LI50XM KVUPQ0pFDUapyf6ADUhFRQA OWNFLsYQRU1ANWVZBQBZWKo RIWhpZZZZAQ9WFYDQY8QTJP MPFITWXukJDZIMN90tsAOdL HRhYiAtIFVOUkVNQVJLQUJM PNIUCQXOUS7QOOAWTmTIXPX ccGFyXHBhciBCLiAiUEVMVk zWLWFGL1TcQDIFMVKUA1xCJ xnmfNRfOCTaOaShCX4PIFLR VQ0cCIIDSM7JKLdMNIUUVGT UPKcNWA7QQutZO1oTPVUCKm UQZoEIYOPPVL3tR6pVPCZjM PHfvqGhKUJjsu26RCJ7OvKj r0Q0OJM2TLAaCOKzu4wkEFU mbGFuZzEwMzNcZnRuYmpcdW IrBBZqGnVns2aoy879bRAur 6sqVHAmPwC8dQDvLDIcyMJd E924EWNlQFbes9gcq3NuXGU jiRZth7B0QPXJjlgqoGk4oX ddG15uh9V3AirrR4kbGCIjD ACwR8JhLZ3gHNBeGbt7RKS7 MNN8XZRgYBOxY2CsVZ8vEAK viZHvJXb5n9pxoYcvLQYxRB I2e4daQWwcowSqWF3imp5fm Gn1m6jngwZyRRSwKLGulMCF WFCoF9UnqPriRu8vtNp6jRb bQfsaELH1Mcz7IO6kij69ov l1yIpoNZIkuyjaMrR1XKljS HEcgkrvGVt3HKcrPKVssOX0 BOAoaAXfM5LdHMXtOK4ckuk 7OOG4JKebTCJpDqG6QEYgtY HxZPGimUobEUzcw953CZD8J fRtQG1oX7Ixs3U4pC4ulGNr QYNrtZKcFsUyUKGych8diTQ iKMgwf9QnNAQ2roX6iEGoiX CwDYChNxG4GGmuFJ7aun03C FDwXZB2hx1hbHEqxSncptZg oKYyQMcfD3NhGUJbs844WEY wO8BmYYNhi0N7wqBeWlYiZJ VzoRA3ovR9VYIuQM4osizgf 6hiHVlvUBhlRNYrylQ9haM6 QBHroOIyC7PvqZ1wFBIkHZ6 vjpwxc7dtMJB7RTajHYXbYH M5ScKuOXVbg3Bzqub5IlPzc 3YdmOGkSZdyD22ax679IJBl bpWeL1orvSMxvpulvZVktva kNQlpvxY0ASFgNBshksvfCS YjUUbaX3rvNjVbFQBotWjvH Mrjm6XiOZJiNNDdFlHebBZc XBFcOdh3HPAsyRNpRFFeCkW hQ9yyactrEgURLODsw9niW0 pjiVGSnXMtR4MmCJpnotZeX PrnWSqlVmZxOMd3FE13YhSw WCNjmx38 COMMENT (test code = f5hbdZOyNQAdzSE7WiJnLHC 3356) tl0cwr5CjlVLgoGRcVJznaU TnxcLmyv16qJC1vT62DD0oY AZgHpZ8ZAGeqrL8Icw9THHb ZFEvaIWjJ864x2dar1itscC qaVR0QPZyHJGrE8UtGI2dQP FbnTXpX81ycUFwYQU8BWZaA BGbfFKtUUEkVXL8EGRbrCTy X7rnJJFuIV3gxfuwOWgoFMs kMWKbcYO7BAUuoSGiD4MiYV CwYMogJUDdjcw6HeCbAe3qs GVyeTcyMFxwYXJkXHBsYWlu ANDwRcOmM9MfZHZuWGKxGUS jVA45V3UdqIygnE6qpRRhCg UlpsAgiVCzTViugy3xgqVrP XAfVAJjcKXaZ6KcZ3mhd39u RTjaHI2wqDEpDqQwhSUhaD= = CPT Code(s) (test code q0mbsAHyHUGexIP6CzAzMXB = 3357) zc1atn3AkdVQgjSFaVXbwcS MzwiGvhw50yMU9cI21BE6aD FYtUfE2EXSritE3Xzp4CBSi CKNfiNXtG741l2hgm6ioqsS mrZG1tOdwSESiaafhBdD2KG upWBGqcftuICg6IHgnCDJvc SB9DQLmwVWrD3VvXMKmKJ8n gqr7RFB2NExpGGRkSsS9KWT dyLLcLJAmcHdrKTrib645WY W5SsZgTDJvtbZaoZehmZ4iO bUgZKLAAuS9NLHrJSkoBLFg Uv8sGFlpDMRhlWXptG== GROSS DESCRIPTION z8voySZfKXOurGM6GcTbUXM (test code = im7wlh1OnaOJoeZSzWAredA [id number]) BjdpFvrt53sZE5mO92SU4sE DAbLmG6YFEevxL6Qah7YKTy XVLxxSUuM182c1iwv8cfqmH dfKG2oYijBFYwznrxTxY7DK xiFJVsouhyZZr6AWxeEJKxx PK1WWIeqGQzB9ZjIZYcOK4z too4DRT9RLccVTTxWeQ4ORH ofFGbHKGefNcdYEmcx316UX M8OeJqLMSmfeT0BIhrZLHkT 0CdW0FcADxuMDH4HLPlDNLb GXQrJMUbLORqZOhwybS3p9o qYDSfkMFaABZ5ILyrxHCnVF EwMDIgXFxkYiBPVlIgIiAxN kO0LVv2CwW0STd8KNJNLmUi WuQeQjc0CAMuCzPiFJq6KEq 3NLpMNvU4UbWwGpFhMJflEY EvLoslCMc0TKLuNEneoPMoZ QHbTNSxDHjePQweT43uwCuu pQ7gNbBvAVUTGdYXgOFplKH lpj4EWQJ8iKjsBLQcaedtbj UcKBCvJ3UhtuFhDMdrUZGrb f8poIykBPqsQxGiHBCxd4h5 aPT1vHYguCI2qLMvbXciFSy tYy0otSY1zY9mKWQuBQFxlC LwvuFoDXfmuQvwN4Avijm7H lLwvqTtANx5NUuyNNtlEGUh bBRxwjinamB2vkPaqxGgnpn homjjWX18UMytqOYdNDjgtF 9xyCH4NZQuiKNnirItZE1xQ OPbZNZgtONhlL9uHKQmEWTd n1QeejvmtcAnnmQvX1YthWA wpkYlYTywtRvqIX5fANN4CE IcQCBoYn80LKwpBs0uJDYeM KXaxa7dcZ3lZFZoucZjmAVt NK1sHUewSC9mGRVqVHKwykB qK2SkBC1dEF3hKROcqtwzRG WxH1ZzUYNrnCZpLXPoONyyQ VDyrq3goM7uNKbqmRrwO7V8 xMGvrJQeqcZmSHCoSDDdx1k inkR3qHMbxW5tUYHhM89rrc JzVM9yIDurkUVfXVedq1ZqU mFjZXMuIFRoZXJlIGFyZSBu iT0nlx66wzE0YQ3ge3zddKO wmK5rcYWbKTfcwRjypvGivQ EcYNXwTS5gEUMeo24izEffJ GV3geByI0XmecQfM1nmZrFd djQvuaEdbRQssOCvkF9tjrP gl86vDfWxlBMiQiKqfW2xCX 37SSSeJDhudu3bbySclU39u 7heCVNfdhB0AQvzjxndSUFh TDTmhKLpqL3kzlGaceAlkpi lZCBhcyBiZWxvdyBhbmQgYm a6OMf5IVGdpZ2yyoM1SPBvH CNuJEJ4FMVgRAQmeOB7wBPy dL7kFFNtdif6wXV7uABkLXS vq236aKVxjxLthEO3ltu1oM 8iZ2GyfRCtCCAjV4Tpm97cb qbpwnU9BNCxqoStEGOdJkHo nSW0gOujleGvddFfxEN0adq 7mBX3kBOfQIOoKI92ZGEgBM NvkWAnKQ39q90mkFVceB8xU L3wWK9ke6IaovHulcTuaGPz dtWyLcqnNO3nYkWsybNhCR6 5OKEegfLsr4TpoShexiDrPI PxZVG0Gp5utFIuMURxedEoB Zwhyi0ujQDbWHKhpuQYysmi G21fAEpbbXOaQIHcnGQyWOT BbnRlcmlvclxwYXIgQmxhY2 yeZPUXx6U1LXEod3KwrOFqF VDrrnADHJD9xI4wVRPlVSF1 YQSkddIQVU91LO7uPG31IET qd5GxgH9iZ9z1nSRnxtNoMV K9wNswsBwrW1zcHTXzWQVeG 2Ldx97tNOTyutNptKP6rqOa qC4gwMRvtRWgZNX1PHkbERN Dp9W8IXKix1CmzM0uE2l9uI BscjRmKAO9bAqzvNfhL3taX FZuDNUmB6Okx44pTHVmviHo aAH4deGjkA8jpUIwPNE1R9B to1VljnQuheNtakHKFj36HM zvRGHmLFvjEXXyXEONDX2ud P0iNRLoc1MoIQ01GZDfh2Kf SX0gu57lmXJrfR2hOM1yyJV mdWxsIHRoaWNrbmVzcylccG XcAEZpQm3wHBJlPLPiwQOzi bBwigHaWjKgg6R6CSTir4Ou CX6uu52zbHIvgE2oIQ6zjPT gbVymBKLgaQTihxEuhha9WP RjqWWaJJJ6BD0rOZCbhjtkK HIzOUTlKRC3ZEisvP37dCRp XGZzMTZccGFyfXtcKlxlcGl ej1XcxDMwSOojBIObBMCtJJ luHAVjJ0WRJDIoFEPkQNq2Z wPaORr0KWqiL3YWBWAzRAN2 XwUkOAs0GsS4AJe7ATJMWh5 pGXdoLrfmFPD6ZHW0Grm4ZS xcdCAyIFxcZmwgXFxmIEFya KNyTCqmlnJ5UJVqCgTeAh8g H3aclI8fxCFlURQxXsOeAqA oMPs4KRLqsR0aYi4plBAiqO 2oxFEkPYhgOKA5vLWoAWRyR MEgUDQzOX70L7BchN2yk2Mf XASmn69dGQ2hDOVbGAw6dUF wS0zboENadJYyARBqXmPslQ XxZxDbcUFwAdQzR64hjSHiB YLdcqdksPAtIWn9xFEfgInn e6uasGXaWAWmVQSiYO5yFBH lMfIdzArdt4MkKrXKvGXtr5 DoM5qcUP9pdPTwMczxERW9M RDdQQ8sHRY9Yw2jvVWoOXXi bnRpcmVseSBpbiBjYXNzZXR 6FMXwElMoJm7pxPLjPQDeso HSOwy1ZLYdwEMrXEA8MX5wf KioNHEdL4TuM0BewyG0SGQr cn0= MICROSCOPIC m1ridJHxEJJvdAL5CxEwJPS DESCRIPTION (test code ss4wbm3XiiDApzGHdEZtfvL = 3371) MuksKjkp40cPG6nN11ZN7iZ DEqAoU9QKYsbzM1Jih7JELh CMKgdTSoP904q2zhe3nvctF nhKO0hUhjSLEyjluvWhZ0MD iyLMKgcftsXHq2ZYmxWQCkg FX8NHAllYMnI0LjNHCqUV2g ogl1JRW8MWknYUAmHjL6TXI ggGWnNMYslPpxOEuwn175IF X7IaJjVDWuwkXyaMsjoE2hO uIgWZPJIARau8SeTLVoMXQp clxwYXJkXHBhcn0= [facility] [id number] 10:37:50 Test Item Value Reference Range Interpretation Comments Case Report (test code Surgical Pathology = 104) Report Case: [id number] Authorizing Provider: Zay Ghotra, Collected: 07/17/2021 09:17 AM Ordering Location: [facility] Received: 07/17/2021 12:10 PM SERVICES Pathologist: Fredi Dimas MD Specimens: A) - Uterus w/Cervix B) - Cyst, PELVIC CYST DIAGNOSIS (test code = k3rdzZSgNCAef9bnSXVgtPC 3220) uZzEwMzNcZnRuYmpcdWMxIH tccnRmMVxlcGljOTYwMlxhb oOwVQFgqBWpZ7SewyayHZlk NH4xPX4hyCbkqFDlzHTyICH pKnRut8cor057eWEls9hpZK RBxjdlvHw9oSfcE32pv4C8V asrG95apLWxBKG0TROqGYMl iKXeIDMsMHV9SCZshKRaV2g dOJVnAH0vupvhHPtiTRodBE BcnWH2QCVskGZyV5VaNNVzJ WmdUEPnfie1ZrYdDc9hwVTc eTcyMFxwYXJkXHBsYWluXGZ wUsUzET1eUWIPPaVFKJbCYJ ewZ1HVXszDAPAFTOFVPMFXO 5WJGMw8YXKhrfg1MPImMCNQ YJEOPM1NJMTJYo5LMKFIXOX EJEKWK6HZESqXMm1JGcGNJS AHCBAAHHZfN2MKT8bDM41AB NmjBRJccQDpXZXyMNCANX6I YXZMQ2GBEDYCWSLHGiaUDAB HW81rMKCUDL4PBDjZVV5DPK 9TSVMsIEFORCBccGFyXGZpN dLvELPhOAbBMP6RARVDMGIB JHKFKC6EZyLqfNKkYMOmBGi 0YWIgLSBTRUNSRVRPUlkgVE 2vKZ4EY2QDUvRqGU7ZY70ZB EFKTR5lKASsttt1FKUbLNBQ ZMQXEoLWFU7AGPYFWVRQTNf IGVvkWBCWQD9OAXPIA1AGYN SXRRPXFmcIOVMXH08kfOAdL HRhYiAtIFVOUkVNQVJLQUJM EVKZXMHJAP1HDSTENiEPTLF ccGFyXHBhciBCLiAiUEVMVk hKZRZHK0QoZDZOOBFXN2jAO cxpjMLlWUYsXuEuWH7LRYNS PT1nKAVDTP0TDIvLHJVCQFJ ZQOeBHO9IDlsYK4lQBWWVAp YOOuSGLQKIEM2qB9vTOXMkE VVjcsGrYBIbhv14ZDD0EqOx u2H8FXO3RXUsQFTpo4cgDFF mbGFuZzEwMzNcZnRuYmpcdW LpADHtNdYwo4znc280lVMxo 2cuJNPiBqF5lDQhNKEwqAEs A264MPSpLTuqo5skk2WbCLZ ysVQwp8F1HUFPzatpmWb4kU ghS34pm2D7LiuhT9usBBTkY UFxG0FfSN8xNZQuIhm5VCZ6 SMP5QGNzNBMuI1EzEO4fBEC zgONaQAa0m0lmpBqsHCMuUZ Z0d9ulJNnwzfHnYO4thz6lz Es3u0rdxfZoNAQgRTLzkOMU UVBdP3KumQicSq1rjZw5kYg xTctgOAV1Xkh1IO8ofu90oe b4wQmgBPFfcoymDaQ4JIgdI HZybrlkPNc7JLqdWGDemUB7 VAOyrPBiF7PhTADjSD5wxpo 0KFQ6RUosIEZeIaJ6TWOubV YgXVTsmPyrPVyne462WGQ3R cZhEU2hC2Hyb6W3cG9tmWPh ZBHaxTVuVjYqCSIrwx2uyBW eYWfpg1CjPRL7umB8oGHqtY RzDKRbXuK5OEtmNC5ygg63B IKoVDZ2xj2xxSZnxSymcuWu uNWxAWuoG7OjGRXxy610EPD nK3VqNVMrc3T3ifPrVyIgPR CtsXU2gzB6QFNmXS7pmcdtg 9tbTPcvHTieJHUptwD1htH6 KSRowSOtE5TsqS0gVTBtGU5 zmbvux5klBCM1GWyfSEXoLL R6NsNiPHOoj3Qxfgu7WeXni 3JoiYEsBOudT07hj973OXFe btJxA4hcjMIiuhpjvNVpurn kWBgwvaY2QVBdFJzwaskaMF HdJPwmP3taXaVsZHNkjMuaX Lqta8NiFQFxPBNhOoUedIIi YUIwCub9FZOheTYwDDAaWhN dV8uyvyhwYbRPWVNov5ocB8 qwoYNTaARvN6FgHYvswpWeX GbsTTqfEcFtYVn5DE19DuSy CJQrrl11 COMMENT (test code = p4hdaTMoKULhyPE7SfZuRCG 335) sh4wpl3CidGXogANjSJfmnY QpxyLebd02rSY0xO70AL9nJ FXkAtL9IXUftqJ0Hew5XFGy BRYduYMyI417n9hzc7eyjpZ jfRO2LDRgGAWyM7YfHM4tML TppUMsG18rnLCzHWS6THNsO NGgfSBbPLQdCEA2WXXmrHEn O3cjBAIkAR5ihfuyCVcaKIs oXXUppLI5YTPxvOZyM9GkGJ CxYNhkCROhyty7LcNiSu2uk GVyeTcyMFxwYXJkXHBsYWlu WEHjGwDqO6InTGBaNNHhENF mKO10N7DyvUvorT0plCQrKt FtcqFhgYRqEXcrsm5nquDvR CXzJFIevJJyD7LtC5orr50k VVxxEG0ceQOhAeDmdDWuiE= = CPT Code(s) (test code w4mhpNCmPAMflIU4NbJxFXS = 3357) sm4czn9AzxFGbmWKwNHfcyN VowlLmtk61mAI9qX41DQ1fD YLzPyT6WCYztgM3Erd2STNj NRDncASbA386y4jps1cwmvC flUI1lCoaYNIulbtxPiQ3AA gwBDCuracaSJk2BZdpVDDbl FG7QNXqpYAlL6DoPOSjQH3h wfg4YNL0NHetDOUcSpU2OIY neTEbVZXckJfaRNhhh857XB N9AyLfUYXejqSifAcvuB2dA mMiSIIOJeL9VAQzRXyqSMUx Tx3cSMdhBXZsfBMkiF== GROSS DESCRIPTION v0kwvEKrJUGutNN6WwYbWHW (test code = hr6swt5SttWVayFGlWLilzQ [id number]) QjzhPecz83cAB2xN97YT5yT SHiPlT1NMSisbH8Bed4CNZa JNJabQKnE544u2zic1jxwjK voDO8pCvvIJKdretmVfP0PX pyBLIutxejPYz7YLxuVPQjv NT6JQUkmITkN5FqPDAeXQ3k mkh5LVL9VSnaLESjFpF2SWO eaUEzAQRzhWhzRPbzl149AO W4VhYnZQEbruI3MJdvIPQqD 6ZyN5NsTDkdUPN9ZGVmGOSg SYPuGTZeSURrQNhfbxT8g0i dXMLmbGWnUOM7GDsgwASiTG EwMDIgXFxkYiBPVlIgIiAxN wC1VQw5TgT2EDj2PSLQEgHv HsZoHuv1HVYvCfYuGVp2HIf 9SFaHLdM6KuLkXkIoVSejNX BkXfrtNTd0EBOhOKtquXDpV YVjPMOmYHyiEStsV98rrJjp vS6eQjIbOZJKCoPZxTToaNA czs5BPRE6fRyvBNFzssqsqs EmOWKmN3MtgrRxEVsmJHGez t5ciLgaATqoNdVyXAMyy1r9 oUX3kJHsmRD8iJXgmXcsEAk nMw4ztHO1jG1dNNYeOMDcqL RbaiFvPLrmiMgbZ0Upzok8E yKaqsWhMRx8LKdvCYmtDGJs zAMvaxpldsU2xcZnmnCtogx buotjBY89LFtpgHTjHXpcqC 6ggAZ2HBKbxFFdorAsKI2pH IQcLEPxuKUguL2fQKDlQAZl p1JkyvyqvqHybaArK1JkjPT ithOcQSvphAuaIP6pLQJ9CB AtVHMlBq22EHopSo0iCCSuQ SVjee0evG2yEYKhxyVqwHHs NG4iPNbyYA8sULNxEGIytuH bN4TxQQ5cXH7vOAYngsmxUB PyJ8XlLEMgyJCcCKYyYJrlK GNlrr0ywQ7vYQtzoFndV6E4 eCTdzDXeirAjWCBqIJAal0s yryA2dNThkP4kSNEjQ42sem XaNZ0nLAabuPUlOKwim3ZzU mFjZXMuIFRoZXJlIGFyZSBu cP8ygq11ixQ8XV0be4vxdWQ frO3fjNRgMCsveXcfaoGpeW QiVWFhRS4oHECtr26akEdeF UJ7yhZhC4PcpwSnA3awFsSa gkIjsiKozQWziHMimH1lkpK tg11yZlVxoGWsGjEazU2eBI 31SLVtOXggqq2rrhFogA76f 9sqCSHqpfR3UQifzfxaRRAm NQLazXRdqY0aguSguaSepic lZCBhcyBiZWxvdyBhbmQgYm f2ZLz9MXKlrN4ylxN7CAJgN URaWRF3DOQuYKFruBS7rIHb gF4kAFYuggi6jYI7jWNmBKP xw198vLUnxmMdnAI9tuq2sT 3aF6RqoRPkQVJrI7Mja30ti dvbuxJ0XXVpvqCkGOGdLwWf qZP9nEorgzXluuEltCD7ham 9yPD1kDUrZBBrPD14YUIeVX ChjGJcYR97h86sbYYmwK3cT Q4tJR9eq9JddeFhzcQkiTIn cpWaItgaWY5lRdDxofKtKD8 1JVUvgrHun2NtmGkyquVuJF DbOZA3Al0fwIVxUQTcovRdU Jmoyv0wsVUxCYEinpBVygsx O06lULmjyZNfWJTvzKVeTXP BbnRlcmlvclxwYXIgQmxhY2 hwLJPCa2J9XLPsc0SfdHUdM ULvrfGIYUK8dP1nLXXsRBU4 CEStpfQEWP39KZ8kQM68JZO ik9VpfD5bA3m2jLGcgwGzMA U7xGzjjPeaI6zqLXImJWEnW 0Iku26dUXNkloElpDR0xvQg iT2ryHLpvXYyYAR2DUqvOFQ Ox0X5XXZsv5JodF0mX7v2uP EdyiLkVCN3hVayxLwkR0ynI YDgWXZhR5Ixe46uCYIpixOb bQN2yeIwmO2tqMGdYGM9P8C vy9ZrnlMdcfIzndRNKw51RX xiNFWyFZwhMEZiFWJBCG4cw O9wRPWxo1KvUK65XZBmb5Pn EL5vp27cnSSyvG8jWB3idQD mdWxsIHRoaWNrbmVzcylccG MdOOMmMa6tCENiJTLlwOYwv oQqzqRzQrEks0K7KULnz1Ol WM0fj79qcADpqW8jOU5yjUH kwQttPSRscZMtwcVyemn3EJ GdaYAxOCN1VA4mTFVegywfV KUqSHLkJHG3ZCfioY90uMLv XGZzMTZccGFyfXtcKlxlcGl mh6YlwMCsXFazSKNnQXVzXI kiLZOdX3ODUMSwWCVsLVr6N jXxPPm2AAwlS2YPCJQsXXJ6 IrEsXRt7BhF9RUb0PXFYZx5 lJYwfRujmVXH4RHR1Vzo5UT xcdCAyIFxcZmwgXFxmIEFya REuWLymhaZ2YPPoVfUdAv7z J1fvfU4zjSJvKTQoAuEhZpO zTWc2FSUtiY7kHx6qvHGelO 6euDTuDGiqHPZ6lAOsSOFnM HYdLANzGL42U1SkdQ1qz5Cl UELtb23mWQ7wSJBcKKn5lCL xP3zzdTKixSJrNNSpZgQxjW ZmTdJjlSVbRtWjU14cmGQoT XJsbvrauUSvYUz7pBNpbIpz m6osjMXmZZGaPPGpZF4yYTV wWwQznVyus5NqBdGYqSLjm4 RhJ1doPG5upCYiRzbjOQB2P HQdRJ3mZVN3Qi6kyQHsDPSo bnRpcmVseSBpbiBjYXNzZXR 8HIHoFnIpAr5afSMvNUHcdv LSLvs1UDWoxYDsCWF2FH1qb NxdPEFqX3GjS9UmqsJ4XTUw cn0= MICROSCOPIC i9lxaYFkQKUaoPT9DrFjDZO DESCRIPTION (test code gz5ybs5JozRHerIMvEAkkjS = 3371) RrwpHraj05zMZ2aC08ET8sP TMjLcV1XCXsrzO1Otz3IOId MZMwyPNrE461d8gwe9wchaT xeDN4aKogLMVemalmWpY9PN ckLLCseqxdYEu9TEzwZJWpz AU6MXMkrKFtF4TxWJAqYV2z fdz0HAM2IJsiJIXrVgK3JGU ejPPeXOLebMqyEOvlx649WN S3OlNfWZEpbkIjcQsifH2eY oQrKDRXGXZua6MnQRTwKHZc clxwYXJkXHBhcn0= [facility] [id number] 10:37:50 Test Item Value Reference Range Interpretation Comments Case Report (test code Surgical Pathology = 104) Report Case: [id number] Authorizing Provider: Zay Ghotra, Collected: 07/17/2021 09:17 AM Ordering Location: [facility] Received: 07/17/2021 12:10 PM SERVICES Pathologist: Fredi Dimas MD Specimens: A) - Uterus w/Cervix B) - Cyst, PELVIC CYST DIAGNOSIS (test code = d1nwkIBsYZOhv6yfXZBxdQO 3220) uZzEwMzNcZnRuYmpcdWMxIH tccnRmMVxlcGljOTYwMlxhb wHbDZUerALcY1GjscktEWst GP2gRL1lhYbxzOFjsAReSCC qOeWrc7zlq438gIAqi1wePP PTdnrusLo6bPqfV14bn9I9Y sulW87dbFWhQRG2IRJcUJGd kUQnFHFaIVC1YIQxgJYjK8q oAZFyAE9ctfvyPPjqKTfaFR JenEA2ZTQtfRJyL1MoGPIjC SoqTZMtfha3DyKiUr8ogBYn eTcyMFxwYXJkXHBsYWluXGZ gHpVoSB6pWMCYWlBPQYgKSI knT2GZAgkLZUZKSDUQWPOJG 9SHUPd0KTFyudg8RZCbQJYM FYVZNN0OEASBQx2QZWTCJLN WIEPUB0PUCObJHi5QMnRTYM SMLCYXYERdM2VMH9dYU93HK WchXUByoQEuLPLxUSKWQX5M OMIMA8DBOIVQKJZCPlsGGVB SP98gNLSFBH3SOKbVAK0NPK 9TSVMsIEFORCBccGFyXGZpN pOfMGXdGCaNLS3GETZXSXGA YDDZAP4ZZfFetONqPCLdFVx 0YWIgLSBTRUNSRVRPUlkgVE 4oQS3PH0ZYEqUfHK1QN01MP YJMDY8xXDGamum0QNKzLMPB RZUTBbZOEE6FARIMRGDDQRe TIOokFEJIFN4IAPENY9IYGR ULGSOKYvpLSQLLQ19jxZAvJ HRhYiAtIFVOUkVNQVJLQUJM OJIONSXXFC0KIVDWSgCYLCH ccGFyXHBhciBCLiAiUEVMVk fLMNMYH3AmEJEWXIAEK4jEX ssmgNJjVCXiBrUhTB6ANLGY LF6rTVBXAC2UJYzXYCGAEXA BLDuKKE2YGdmQT6eDGGETHv HSLsJTDPAKFB6kW5qUDJXdK IWvgmUkJXZymm14RJN2ReZv d2Z0ETT9TSXfVKJhm3qhZCV mbGFuZzEwMzNcZnRuYmpcdW UiRWQtIoKyi3nen743jBBef 8woAKHyNpT6rFBuSFExvUUy L667UDJkYKmax1fuc5DfTDL hlOHnj2E4IUCGyaqgqRs0tQ ffG23ju4H7QytuP0gyYSCfY CQuO1CvUQ8xKNOgMtz6WTU5 TAG3GTHbHLLnY6BkPF6jGCN btFYeXKi1u4rweIorNYWbJH G7c6zdKNlrvcDzXU4wze5sb Sq5f5bmjuDiGVMcEKToaWBO VVZzH3TtpFwmDj9heMv7cBg aAtepJYM7Ocj9FU4fwl64an q9qWzkAYCiqkwoYgT0VYpeT HDxalpxEPx4AEjsNUDisTS5 UIUbvNBmA8FdXGTmBD5xawh 4TSL6RQbvOEXzVyQ5SGNekS RuZVDjsSngRTsab315OND1F qQyIX3zY9Waq5Z5xD6ljVKq RYYkaRQxXeKvYBTixo1qiLM uTXokp1ZkFUG7zvK2gGRfoA DyFBGhYiI7TXopLS6pto62Q DUdVPJ6nb3eeRLwrEcpkyLh pOVoUTqqF9QnVDFpt693ZNW lG0IkTIGax4Y4goHeQdLtLO RdlQX8hsV4ZDUpKA6iegdma 9psAPwhIYlhXZMucqL6xuW8 XRKwpKBsI4AmvO2yWTKvYG3 otharx3euKIJ8ESbkYFAsXZ N6WsKuQZAht7Qqxrk4BbAkq 6KryCUfVUjrI54qt513RPBp oiCcH3fnjRWiwnsixGIjwpn cIYdfdhH1GTBhTTyjopjoTI XqJRgtY1pgYlEqNGHzoJhkG Ohpk9CqTLNcQONuUuPnbILy KWJmPth1LYUpuMGbVXLaVyT oE7zrpabcEyRHTNQon6sxJ1 xsrUSGzUDeF4QdWFkieySqA AmkHErkRrQlZGu2VA16RlYz BZJtoh14 COMMENT (test code = e0bqtPAfEJJgcFV1RfGuNQC 3354) wg1cvy5XfuRIxbFZqRQrfuI ThdgKsxw46dIN9hG90JU6yF JCaChS1DLIbcpX2Etg0KUJb THZazAMjG287a5ook0oqbuD wdHG1NSGfNAEsC7NmBM0aMG WhqTCyN79lcVPnTXB7AIDyA MBeaDZmOFYaXGZ2XGQrwPSa Z1rbGHXqZV0akellMXraAPb oGCVqzWX1CKJpoKAbC4XnHH BhIYwlUUEivwh2YoKlDb4we GVyeTcyMFxwYXJkXHBsYWlu IYYfYlBrB0HeNOLgTZLzGKB wNA86Q0YssJbdbI6bdWFjUu GtorXsvDVlHNejiy4vqlWzG ONmZBJnkQPqW5IoV7hak48c GKokKX4awIJxUyUisQGtfV= = CPT Code(s) (test code l3pnpSDmCQFbnSX9RqArWMN = 3357) vv6jdu8HmgZZmiMMkCZjkdZ ShcbIsyq38pCC1tT45EP4wO SWnAuD1WLUabjR9Yae1MZQb OACglCRwQ970b4ooj3dgmlF nfQZ2kNdhQMLdazirGsP8PB yaYAWryzycEJm4YVylHCDga ZJ8GUHxxPPpZ7OnLPPiGL8h nih5ACX5ZHqeNPIdNhH5LDZ khMUpMIKkkLfaEQjff135WQ R9GrFlAEFzgzUkiNjzgR9cL yAgNCKAYtO8IDYzHOolKKGz Il5pLXrwODPflYJepC== GROSS DESCRIPTION m8nryBEsWJGpeUQ4VjIvPFR (test code = xg8dgc5VugYAfvQIoPSedeD 8229827470) YdxaEgsd99jEH1lM65YU1cP UNuWyV1CRUgcqA3Zph7OLCm XRTnoUXqW083d2gyf6vdbcO nyLG4eKxjMVYbwqpyEjX2PJ gtQQWhibljDMo1DHgeJFVxn OF2IAIggCPdF3MwDUJfHH9f bvj6GGO5BTjnTYRvGbI0CPJ kuSKvCAOdqSgvAUhyj927GG D9SjDhPABvrfK0SNrbZKHsI 6AgZ4PoHDrpZNA7WTBkQHQk PLMgDYFbDJRuBVaelrN5a0s tFQNhdHRqMGN0HHwmlKBsED EwMDIgXFxkYiBPVlIgIiAxN wH4ZBm5VbP3FTp5HCZVJoFb ZzQhPnm5AMMbVfTeCFn5EEw 4KReZQsJ8WtCzJqXfJFzgAR CoXrbsBJk6JFYqYWyytVOxT VZsVFSbQGymRTdmY44kgPba eI3oKcBjFMCTGrHMlPFvoHJ wsp0OQHT3eOmbLEZfwzdvhj StKYPkY1WrjrEpOPxqSKOsh e3kiVyhQJbuOqHfNEJsa2a2 nTY9fIMzlYW8rYTndLukWTn sFe8tlKL1wV6bDEImDLHseV SmwoMuNSyesPjnQ9Ppnyy2B gUjdtWlHNd8VSriNNomXKPn lTYsndporlU4irVhzxUtbye qqrosPE83DGmtdTDwQLdgnF 4kpMM9TPLmkNPyrxGeJH7fJ GVhDLFfkAWeyR0gLRZaEIAr m9HasatwkpIokdTxY6JxnJL eymCuTMvusLlgHC2kUVG0WE MfMMEtLn75UCqaVe0fDNYeF OQfus2mmP4kWJOmsoKhnVBj EN8tJHgeMX2fZVJmNWKhoqS jQ2JkVL8bRI9sRDSjrdtbEJ VbF6GxPSRczRCuAOVxENosV KAqgd1acS1pPOrryHlaF5K9 fWAfiPYuiuRbCHHdECBea3w wkgF3uPGioJ2aMZKzH68fiz XsXB3lAVvouGUoSArle3ObK mFjZXMuIFRoZXJlIGFyZSBu yY3gyd97aaH6HF0ta7lbbTI ezA3yrCBpANuwdUygyxWwpG MbDTYmMM9uEEVum19giWslU FI1pjDyT3SwiyBtF6lkBtZf rsJfooVjbLFwsUAkyE2ulrS wc13rNdJziFWyYnYpnI7yQV 15KRJoUTtxaa4awdHcsY94a 9jmRQCwhhI5PCvwrfiwRZQk WSNuqSGzzH1vldIwtiEyacs lZCBhcyBiZWxvdyBhbmQgYm x4QYc9HCNhbF2gttG9UAWuI VDkLRQ5GRHpAGAzzYY1xCVm cE0cVIDswwq3vMI5tXZxJCF mo658zPCgysPbzHQ0ydh7aB 8zL9OuhNIrTBLiX4Yib81zw cowloI4STZqpnTiPSIlQaSz jGD2iPgwklEhljZimQP8yji 6xYF1kOAgLJGsVC74SHLuWS VliRRyWI61y04pbJEcqZ2oP O8zUT3uj0ToddMocrWlqWZk hpGwSvfmWR7sBmJrfcBsLW8 6KBZcsrOep9EfzQknwmOiRY RqYKB5Oq5mmUBcAMMlseDmR Tptbl4agQTyKBTqmtMMjzub T59nAMmylBDpSXDjvMDqFIB BbnRlcmlvclxwYXIgQmxhY2 ikGQSHw8Z9XQMqc7TvpQCgI IYnplEZKNG9fZ8mEJGoQCB5 EOOxqyROPJ91OH9kVB49RDI cy2BdoT0xV0p4xQWdplTdFH P0lGawtImqE5lfRSNjVXFbY 8Znk89tSTOxkfPszVY2vkZl yN5vfCYohSAkTYQ1YKgmDSH Ch9M2TEBzd4DkpA3tZ9n5aN TjwpInXAI8yFnctXtgW5scZ YBbOCOqQ2Lyu87wVATlemEl sLW3muFfnG7mcSZoVCW0J1T tv7SdnbZiosRyhiLHCp82RL akYHChOPhhSFVoHAVNPP8kf J8qGNZar8MuWM83IBLmz2Ll MG5cn53zoGHvfB6aZB5uaDR mdWxsIHRoaWNrbmVzcylccG ReHESyAv4sLFOaQZQwfMDih hVesjEaPwUyv5V4ULXog4Rw DL3vc50jeGOxgH7kNQ6eaZL etPuxABBwrVCkybOrbyf0DD SyiCMwWEL2OC2cRDWkdqagS KZkAZMgGAC7XFdnpJ85nHKq XGZzMTZccGFyfXtcKlxlcGl gp8FafMIvREliEQUpTYUqCW qwAECzS3GOTAFhIQPrWXp1V dKnLPf6SUreA0FHHLBtDTU0 QhLtHAz1YoY8PBn7MQFPBr8 rHXegAsegBFT7JSU4Sym1ZV xcdCAyIFxcZmwgXFxmIEFya SSyVWptveF2VZCjCkIlLs1x G0cjrK4bzUZfAYPgVwPhBvN lFZh6FAUgrA9oWp6ylRKkcV 8gcBIiJWdgJUI6bFOrNTReL DQtMHTzDB14P3WcpW9dl9Xs FXUdd67yTO1uPCKoMJy7oGW uE5dpvIDjkYOhLONtDuOxfQ KhGiHedMEhZdKhW58rwZFtD GXyqylqfQFgXOr9fZNvvJjn z0ikvUKjEDIeOAWpRZ6aCGC qQrBaaRfka1XlUhUEkGHkh8 OgD3huDD7byFXiVgfmAEA0L BRnLQ7jQPW1Km6dfNLrFFVp bnRpcmVseSBpbiBjYXNzZXR 0YKMeFvVeNr1mfLDzUMGoig ABNuu1MEZaiYLqBIE4AI8zw WnnERNaH5VmD5PtryE6GHBc cn0= MICROSCOPIC c6uurWNzIWSdhXS9QfLlTFG DESCRIPTION (test code es3fix2ZbiXVvaLFlINvdbI = 3371) VcbeQqgn95jMN2nY71OB8cF REqTqQ5DQZwibX1Ana6SCYv HUTyiBMvB505w3czm2onzdW jxYN5pSakYJTqaihtBaL1FU ijDIWvmmtkPRg9IBzfZYEyq DX8SNNsgNBiJ8RuYBAmMA2s vfh7GIF4YEivMAKmVtR7SEQ xcMOqSHDjaXfoNKodn831OT Y8YzEcUPVbetLfjRaslT1bK jBeHLTDIYTfx2XjBXEaKSUj clxwYXJkXHBhcn0= [id number] 10:37:50 Test Item Value Reference Range Interpretation Comments Case Report (test code Surgical Pathology = 104) Report Case: [id number] Authorizing Provider: Zay Ghotra, Collected: 07/17/2021 09:17 AM Ordering Location: [facility] Received: 07/17/2021 12:10 PM SERVICES Pathologist: Fredi Dimas MD Specimens: A) - Uterus w/Cervix B) - Cyst, PELVIC CYST DIAGNOSIS (test code = r2bvdXCeBBDom1vvWVXfjTT 3220) uZzEwMzNcZnRuYmpcdWMxIH tccnRmMVxlcGljOTYwMlxhb yZsFSPiuBCtG4WodoiuFQis SQ4hPN4rkSkkrWMsrGOqHVK jJwDqi2csi478pMKwp4kpRO QRghevmQe6fCgxQ63wo1D6W upxT83amBFfOTE9NPKaCZLb mEZiTEHxSPC8HHBkaFVcM9d qQJQpFK1mjgtkQAivSXmrDF XxeUB5MKFjwKUjJ9RiCYUxF GebGIBkyfr8PrGyMv4dkGXj eTcyMFxwYXJkXHBsYWluXGZ uQqMoWC0wBAPELxKOUBwURJ nrU8PXAkwLFBWVJNKHFOWIC 7JLREo1VMJykqy0FXRqJYTW ZVDLQQ6LOKEXAi7WQGPPHCZ CTVPPL8TAPNkHRd5UQeBQXY XICPEWWOTqN5VOO7qMY03CA UbaYJTakNRkBKLrPDAQXO2R PFEBX0HDSFYNIYFDKklEOLM FV74oZELNKR0MYOzMEI7JQZ 9TSVMsIEFORCBccGFyXGZpN aPfDSQpNWoRYT6TGCTIZXEQ COXZNJ8IPdTtxCSfOSTyOCe 0YWIgLSBTRUNSRVRPUlkgVE 1pZU0WW6YMAuImHI8JF02FX TGCWI1qRKBoglf8KVQzJZUJ DNMBIfGPMO2AQSGVXXWCJUk QLDlyLSNCZB2TMZBOK5SNHL XLGKOZQmjFSCRPN55adZMzN HRhYiAtIFVOUkVNQVJLQUJM MNQPEVAICA0NGCEKAfTXZTY ccGFyXHBhciBCLiAiUEVMVk sSJSHEJ8EjGZECCQYVX2vFT ajdlRHvFJIwNiVsRM9GONUO WS4dGERWOT6THPhCTYPPVIY DKNbTNW6EUkoIP7yWQTAWMj ZDRmBZOAMHYI2eS2zKKTOhU GRjnmVhGCNndz78PDY7ZeWq v3R8GSV6YZZcXXXdp6dhRZI mbGFuZzEwMzNcZnRuYmpcdW NgBCHrNwYio7lxy163wJAav 2itNNGqUeV8uGUmUDYmrEVc A135VVPuFIbib9udy0ApCJK ngLGkm4O9ERVSxzydiMr9dQ mwK33ay1G4YdvuP8vzWKKwM JBiE0ZyYG2aBNUvWqn8FEA1 WYL5FCPkTPDjY6AsTY8dALP lcQLlKSx1d9sjrIzoRFFqYM K0x1jdGSeqaiSoPG4ycg3wz Do9p2txakJyMTFbVXRdhUVH CWLeK3LzjCkzId1dwHk9gLw bAwirACD1Qrq3BT4vbw98sv u3sAuxXWGquwxdPnG1QAroQ OLddwbmYKf0AJuqXAJijQL3 RSLvrSMfY9EgFAUdKB1zzez 9KLC3FWtaMDQbNgM9VGRzbT GjACZihGgjOKmvi858KUW1W iOkPN7zL7Cmv0F1hV6iqODv HOOugYQbTeXeCBVoyu9xhYF vKDjpl6LfSMC6naF3oWMquL GsPZHlBvD2IVvmMZ3pks52D VMoSJT7it8ziVKvsKhgwkTm lVFqKTpjR1IgTVQlw678PFR zT7SwYKYxj3Y7zpQzDhPmAX DtiZP5hjP9UILhZA8zvonsi 4grTErtEZygDUHrpzD3axY9 STZerIHoN2IiqF4jJATrUA9 krorjp3pbDLM8FUsxKGPfNS A4AdBjRERjz2Zrank4YzIpo 9EtyWQeXWkrN10mi915JJKw asUxQ0zjfUXafjnuzFVnpcg sJOqmelA7TIVlOVuduqbzGE KxUPscS7jyRzSoVOWlqLcoC Brjn3OwPAHmNGZgYrOsmTGg HKGmYwq2SOZsoQAtCZVoEcJ uV3incxssZgGFNEPcu2jbW2 jetJLQkFXfE0PiHUxoemWzU VkqVXlwScLxPLy7YA47GjXa XMGesx41 COMMENT (test code = t9seaZPrAHLjuLV6PbTvZYB 4168) yw3svk1OvpOSpxVAjUAdrcE IlomVdht62zOZ1gA04BC1lQ WLvVlV9KWDnzqR3Gsq8VKCl DUCwbUYzR731o2tty2tfmeQ wzRH8UHCyPFDhM5GzIN8gYS PuwAAsK26syNDhVWC9CXJrY ZPgnMNoPSCfTNW9LVVslRHv W2rzOBByYJ9oozvyBFvwDJw gRUWvyGE3EWGziOYrI6IzIV MqCDivXQBzbgd6HdTrAi2mv GVyeTcyMFxwYXJkXHBsYWlu VUCrRkZkQ5FtNWPuDNSpPBF uLX00T5ZgzEgzgW7klUQsQb MsmsTqyCSgJPoyiz6yruKsI GCvQWYmwSDyE0HdG7dnw21q XCvhJC1swXMrGuDphCFboO= = CPT Code(s) (test code z8uspVTfFTIjtCV8SuBzERG = 3357) jt7tdo6FrnDQtpTRnLMlpzC TjoqZilu53vOP3tS03PN8lQ QYcYdA6YXUocdF0Xem5EGRw EJPdbXDqQ763y3soa4nhdmG bjCB7oVdjMEKkodbeSoR6OP rwGVUmyzbwEYx6DFhgCMHxz QT8BEVjiKVbC2LyJPEmWU2a fvb6TCN7ZTbwBAWfLoC4KWP wuLMrMJDiqWeyJFlyu125BP S7BmJjERMlxaIhmGswqM2eG lHnVJZDJqQ3BVHbQRscAFVl Sm8pDLcgNTCyuZJexQ== GROSS DESCRIPTION o8tfwASeXGDytMO0ZeBvVNH (test code = nv0kza1EtwLDhcFZpBXaxsG 2427728841) NkgfQyup04qYF8iJ65XM7eG UOrZgJ3CVOubmT9Rat6QNOi PRJewSCjQ052h8maq3pvctH sjXY1iBlhHRSuqmziUfS2EX nrRXNtvkxvWZf1ZOmmCEVqb UV5RMJojYOaQ8PoQHHkVR4x bbt8BMO4JUmrMSBvIwA9PWX brKVwRHUxoFpiBRojb190UR L6DoSpCQPpphF1AMzrHXYdR 8BuK5YoLWqnLSW0PXLnUULc EBWbOGPlWQNeOHdgvzO1p3i mRHSemSSuTLL4EQkwhKQpMG EwMDIgXFxkYiBPVlIgIiAxN mQ0FXz6TiM2WUm8DFZAJgPl VwQdVgb0SHRuSfZtVZb0ZPt 5UGeEThR8KwErQgZnNFxtRH YuRrswYJv9ZDBnFRestXMjS TZnLPEwMOgwLLsjP94qcOle cS8lXuRbAKCLQsJCdPNkeXU btq0HWSF1gUafVCCrqquksb CfDPWwO2VgbzNlWRntAFThf e3rdQrsPAbwNrDhJABgz4o7 qSC7eYTrrLP9uHPexAxsDIi fOr7cvWM8jH1yHBHsVDXeoJ WzwvAvOZuzhJxnD4Rhqkx2X wMszzIcZKc8FZpwXUfbYNKz vWHblfmenoP2wgJyosAxgqz ixloaSG96EVijgWHfHAsroZ 4mfTH3MGBklEYifwHjBG0mQ FNfKPFxyOUwuP9pJORdQVTf g6LsjydxjqKmyqXgC8SngLE mleJiAGbyaRhzAU3nJFR9AB MfSESjJs95SRqjRz9xXDYmE UBbqc1vaD2uQLGasqKbnJPl LX0bFWndPF5wIVYkPYDeihV qX8BkUA7iIU7mGVKavwjgAG EyO2KeESOgpLDjWNDxAGboF QZwky1jnO5rJDpmoAvzH6T9 uRCjtOCxayWjIEIvFTSql8u wdlE4cFKwaM4uNERxQ81bwn FeAI6kSYbaqHSpDFdze3JwN mFjZXMuIFRoZXJlIGFyZSBu oV3ygh96ooT0VC0yp6dubJG urN5ntUZyBQfsyIqcaeWbiY QnRRUiKN3fNVCok85apIskZ RJ1kaQzP0PcugDsH3fnVlMk azPamqTogMMvgZVctS7gnqY vh96dTcXeyDQgHmSfzH4eTC 48USEzQZmoxn3wmhUnzH71i 2taTOAjobB5RWsepbcsJBPv ONDycKXpjX0cmwHwpxEtetx lZCBhcyBiZWxvdyBhbmQgYm s4FKt3DELchJ3vlpK6ZDMfH GZsNMY1NJNxWELdxSU5aPYy zS3zMCWdcbr1rUY0dLShXFA uz905aQJsomVphUT4oze7aZ 2mA4TynJJqVQWyJ6Uau88gv tlupzJ0NAKxhoTiCFZjVmWq dLI9vYdhxaOajeAfdWE9vey 1dNL1kHVfBCZzTF23UBQtBN PacUUbFS59n39xnPUayV5jQ X3sJZ9rk7RtkeBjvjUgbFSk sjPuAcddXT0zJcOlsgAwMC6 9COGdrnCvw0HbfRwstzTwGE PmKAI2Ov0keUXvOUQrdvEgN Rncwx2jzTNwNWFckvZKnhfs Y15fUOdpmTJpJCZvgNTwAXA BbnRlcmlvclxwYXIgQmxhY2 iaEXDWo9V4YUIgt7YvdSTyJ CElygNKWGN2gJ8cGEUjFLJ9 PVHrzhQJFX93JE5dOQ39OXU ef8TraY4oB9p7qHKcntDnNG N6dOehkJpvO3ivUATxFXWzV 7Sne89iFDEvzeDktHL0asIk aB1emUHbzTUwDME2OGpwIOP Bi1Q1GRWaf5OesQ7uN7p9sD IveoTyENR0jZwmnVtqO0mfC BRcCEBiA1Kov20pXRFsgfXz mAE2drOwyH6ciTFmJJA5K1I ev8KtefHmdsOawsYOOw95RZ pxJHEqWYkxDBCsSWVZLT3gh X3vPEHdl5EaHQ35ERJrl5Dp ZE5cp71whSVnfA7xGB7yuBC mdWxsIHRoaWNrbmVzcylccG EeOMBrDu0yHMScYWOigEXiz zBjgyBtUgTnu7U9PTJua9Er RO7ah23etGYrwN6dAT2fzOR rzPibEVVneGBjnnGfcwo3AZ KhtTLfHSZ5ER4uHFWmpywlV KCrLQGpKPO4ENzumT88gNLz XGZzMTZccGFyfXtcKlxlcGl oo5LveBPfRQkhQRBwVFIyOC klADVyQ1YIWUCmMNIaGJy5T bKlELx8OCjwC8HMGNHcVTN0 AvTrWHv2NsV8BGb0OWZCEk6 gAGxsNtspOAL1LHN5Rmo7XA xcdCAyIFxcZmwgXFxmIEFya ISdJEfouuU3OQZnPtNaLm9d K8rosM2uvVFuBVPkRuWwQbN nENj3AXYooK6kKr0zuDYphA 9zhRAzSPxoMIN0pCRqRFWmT LWhGHOmOS03P8GhqT1rh5To JWGkr62gCA0zLLMiJPz5cYB mR7uxuKXhiQCgKZUgCrDsxC McXaVueUQnQpHbO80bfXDaM CRtryssbZKxUIp0qHCszOoo n9yftDDjZLHmHFXjGL3xEAI rBpAdlOtxf3VsGeFJbVEqm8 WxE6rlIG5rwQIhGcnpKIU0J DUlPI6jVRP2Vc1ynTBmRCXm bnRpcmVseSBpbiBjYXNzZXR 7QEMtAdStSi2weMPrHZJxwe FPKmn9OXDtbLAsJEQ9MP2py LdwCEOyB7GyJ4JeirD3KYKb cn0= MICROSCOPIC k9neqUUtVRIaeJE4QpSjNYO DESCRIPTION (test code wr9seq4UykQEcpKVpWHqmnG = 3371) TlvqTaoj32jBR2fB38LR5jA EHaLcY1SHFgyuV3Tkk8HXRp VLAamKTqM227a1yzk2gtqaO oxSH5uDynGQFhlztyWaF4WZ kmWUCagewcDCl4YQexJQCtu IB1RQMtpBXgR4NaJAQbII0t hjo5EGN8ZYndZWSbDxD5BYC enNTfCLWtuJsyFPqag082TH G2EeRkTWQnqfZmkCijlF6mJ gZmKVMRCCXzy0HsQZHnSWUp clxwYXJkXHBhcn0= [id number] 10:37:50 Test Item Value Reference Range Interpretation Comments Case Report (test code Surgical Pathology = 104) Report Case: [id number] Authorizing Provider: Zay Ghotra, Collected: 07/17/2021 09:17 AM Ordering Location: [facility] Received: 07/17/2021 12:10 PM SERVICES Pathologist: Fredi Dimas MD Specimens: A) - Uterus w/Cervix B) - Cyst, PELVIC CYST DIAGNOSIS (test code = y9puzMHfCTZaa7gtJBYbpZG 3220) uZzEwMzNcZnRuYmpcdWMxIH tccnRmMVxlcGljOTYwMlxhb lCpVVIvgKHfN2AgknqiELzr PO6uUJ5zdKqwdVHdkGOaNDZ sAnFiv2xnu001vNPlu6gsCO UDjqtexUm6fNtsR51xy2S4U esmH33yvPEgXYB5AFCzSQSn gOBoDEDdQVX3GEYqpWAhH7k wCTCsVO8rfeotAStzMMgkMO PhvHU2AFBrrEBsB1AqKHYdT RdoATFdgax6DkMfAl9jbTDk eTcyMFxwYXJkXHBsYWluXGZ tFiJzTO8vGFOXGkLMTSiWFO viC1YTCkgXPZZFXMEAYSOEN 3ZZMCq0REKsysz3MIMfJZMF HOSHEA3SEEZNAh6HADPQLXA WLPXCO7EZHElORa0QWkILHI XNVOBLXVPvS4HPW6pTH04WO PmcAEEfyLDjWINvMSWYCJ1U FNOCK7ERNCNYADDDNwxYACA CS17dANGRFZ1MHHvILN5VXD 9TSVMsIEFORCBccGFyXGZpN mCxTZSwQVmILV8FFJUZWOKW MTXTYB5FJeTqhTEvRXYeDLp 0YWIgLSBTRUNSRVRPUlkgVE 2qEU1OV4IRGhDkEG1DT46CA OVWRV9yNDApdqf5RKNnVKDU ZLYKIaSRKR0GWRTGKVKQKMw EFOfwJONCMP9RXOBYC6JETL NXUINBZodPIASHA32wfMIoJ HRhYiAtIFVOUkVNQVJLQUJM NRNUBAITAN4SWCYHMoGJKJB ccGFyXHBhciBCLiAiUEVMVk tVOFRPQ5PvIUJAPGRPT0qRG esslPHjWDZrFlDiXJ6YOUOF DR7zWOSPRM9JHQyMVAYGFFT ILXgLUC5LKczNS2sXKUVQZh LIErGCIDATAC1nZ7fEYMZrI FQeszLcTOUxaw71JHJ3KxDp n3R1JOP2GIMaTXPgf2rmDAX mbGFuZzEwMzNcZnRuYmpcdW HmPZSvEuStt2epu108nZJqm 4tfPONhHaR7kWXxONCjdNMs X977CWUyZGagn2jns4AePYK ceVIiq1G2PVYTteppkJm6uU xrH77mg8G5IzxzD6imEFKlY NDvM3KdDT1xOKPjKrm5ENL2 ZJZ9MXZuVJQsW6QpLS6sHNE skBDzYMo9i4wzsAohKEVuXF N4r3hiIWlqmcDuSV2cfi7wq Cm0t9kogvXoLQEjDDCpyRAD WKZlW4FxqUbyDl2hhOn4mOa rGjrvXFT5Qai9QL0yvq67vp s8dRwzFITxuhkmJxK6SShmF DUcgbryASq3OUsyAKKqpGI0 CGEshJAvV4NhKDReYU5nywk 2TLL4YZczZJOcIiP8RXWhqZ XtYSTjxRtjFByxv240OIX8C zJoFS3pG5Ksn7R6sR3etRAh IKIbuKIrEjFnNRCzcp5guLW hTJnou7YoNPZ7fnE1sDEtlU WtQGXbLbS6CFypPM0nnv31Q FAcHGK9mk2prIWofGfwqjPw wVCcIChuO0HcJARjq357VTK bM9BpDCNqn3P8qxYxArAxUQ YbgHM9kpN4UWUcNU8xwipav 5cbUAogROydYBMmrmL7flV0 OKHzsLPxL7IiwX2kRKKnMB0 yliagm7krMFA3UZxqBDLtHW R9AzGtWNTby7Rzbwz8OwHwg 3TxgIGnWMqoE76du648BIBl jbXfH9koxYLonaksoJDuftz iDXhucyY9TJHmRWdoxcldUT GtGLbkT4buSqZyPNHakYsfT Xdos3YbHPFmZJOdHhAjvARf VIUpRif4BGBaqMAoVHOtLfO uN6ixvmafLpBBHEYpf0lfM8 tlyPEAsBFzS5GlNAvezqHvV OzfORduGtUaTNl7CJ53OwSw RNWcrn77 COMMENT (test code = d2ljvTRqNHQolJM3MoWxNIO 3359) mm2bta0AawLDlrNAvDZsxbA ZswpRhhy75vME8xR98AR2pT HWuHjQ1WVKjpzW1Mzt0ZYXn WZGdzUWaB110p8oja5wcxoG adJQ4TCVnDBQuV3YbIL1yRB WzdYCgT84fcSKuPTQ2HTZhN UAcuPNyCIMvMJR7NEGxcATe A6ibXPZvTE2bdsjgCEroYCr tNLZnvNK0ADAtnAWvO2AwWP EgGDrwUTAiscd5DjStSm4fl GVyeTcyMFxwYXJkXHBsYWlu AWCoEkHmV9YqZFUrZBVuENE fES07Z6JglSnefA4tyZAaRe OjafQofFGkYUwcgg4lksWdU LXfWTXasLKoX5JbD7yfx22z XIdsRF1zuEYoVaFdaBQjwK= = CPT Code(s) (test code g2xbfESdJFSfzMB7JaEaORV = 3357) tp9rlk5FqcVWypJTlMQhxkC TjzbStin50vQX5aL67IJ5eK PEfJjR8MLQncrR4Sep2IGHz ABRysRVcO931o4uyf1tpkeA juHE1rBjmQGRkymlmIqK2TB poZWMhrcaxXMz2NXazDXPtn WH7RUUsmELcH9ArDYMzZI3m hrq9RVU2ATwkPKGnIbP7TRF xcWWqMGHusItbVIupl140TE U1CbToCTInkcLhgAuxnJ2qT oOeZCPBCjR8FXRiJUmjXRTp Cq0wIEmcPHNgbCXggB== GROSS DESCRIPTION z7bkyTPfCDLbjTN4FwCkTCZ (test code = wh3see4XowDKdgAUpBCrrlF [id number]) DkmjGopn88dVV7tR52SR6gE GLyRoD1SZOiemE8Vcd1UPUy DNDkgDJfF087o3ljy1uwogQ dnLW9dAiyMTAheofbFoZ0JX ozIEIdbmjmBAs1PMavFMFyv AA6BFGwqDIwL8AiEFDnSZ8i ija8QQP4FDsaKASzZcV4TTL vuGJmRUUsuXlzZWvns784XT U6ThExAHFmerY8RMrtLEBiZ 7AhQ4QlKZxyCNQ8RYBdCDTi BWGxJOVtWEMzBYawjsY7m7u mYZCofIMdXGW0AIfysMBcHB EwMDIgXFxkYiBPVlIgIiAxN eH8ZJe2XoT5DBm0UHNJMrEo SsQmZph5AKIjOuLvODf1MBs 0SFvJUdA6BbKxUwKuEKgdPC KeTxayHVf3MGDrXQxvjZFtL GCiKOCdMCnyLPbfB72xlPpw eT2sAgGzYYKUTeADnGVvaOX fho3VEWB1hDddRIAnabrbbi VeSNKpT9XkgbKnUYnbLUGqd s3xoEpcUUigGzGpJPSfb9m4 mWB9pREbrSO1bDFhsIftKAi tBw8miXT8uT0eASZnFLMmvZ HldnOrAPdkpUzmK0Gjvxr9E lXdjsSsVPg2LMxjRFetQTFt nMIzfkccacX4foIyyzYbtlw zlzymZZ22AGvfiRAcDRepoN 4heEV8SIBlyZRthxMnEF8nB QYqVLJapDBdvO6cLJCfHSSf u9MwtynhhmLfhxKkF7RawFD ycfJaTWftpItvSP9pLPK7DD JtLPDbWt22URbmJe3xXQHaZ MBams0waA9lDOCsioLdrGOr SR9bWYclUW4tBEQuBWTlxjH dZ1AaLS9nBL9zBSOkhdfdYK JrO7MvXBQktIVmECTwXEylE HStdo1lmL7pXJyurIkdX4L8 uMIgsQImftVpBVZfMGLiv1e nlrP4fNOdnT4qTTFxQ09fhr LfOE6uHLksiUXhZKizw6BnS mFjZXMuIFRoZXJlIGFyZSBu oZ4ujh18khK9CT9yv1dqnBA ijH6qdRHiZEqypOtsewGaqU OiXIHpWM7kJOBsv98ryMhtM IW4fcCdE9YdyoVuQ1umRzGk icNjodSpnALvwIDnsW2hunU xj44hLsMusSDpWkHccH2rPY 90MAGjTFvfym3tgeBykQ56p 4qoYZThxvE5RNzdejrrINLu LJUocISljB6qamNztbYfkvt lZCBhcyBiZWxvdyBhbmQgYm u4QFv6ILQviT6bpfY9NNBjH DPwUHO0YKYfTRZzvZG6cVEn iT7nOZPgqdw6xEE1uFNjTOE lo637jPJcypSksZO2kde9gZ 0gJ0JcaPHwTLDdQ3Pdw90lm swjboR8GUBayyGqIKCoMlLp pSF6kGebtlWkjlYzyRJ1sbp 5nRN5kPQwJVCpXD07JGTqBZ OgyKJfIJ90t73iaFFpdC1hT I2uCZ1dp5CdfoVjznFmqRNd llPyPhcrHS0iGzDulzYkNH1 6ZPIrcaJcs5EmhOeeicTlKZ FlGMV0Gt0dsLTvYJPaxlMaH Wgthd9xhGJcYNFfqfCDwluv L94yCUfzrWArBSErcHXkOJE BbnRlcmlvclxwYXIgQmxhY2 nvTPSZu6B2UECoc3XhaLNhD KAcrdBLDTV4cH9iWHPeFIR2 EHGhipURSA01UN2aTT45UHE bx2CwuE0uY8o1sCGqzuMuST T4fXpkcXzsR4flFBZrZZNbL 1Laz39vNPKfwjLtjYB9vyZg qG1vjITwoUNgOCU3FUppWLY Tr7E6EHFan0QgcK2qZ3p6aD XpmcKyHWW7eMywqXtyD4qjD XIjCBQvG4Syy36hXXKrqlAh aFS6ehFgjB4dvTMpWPX5T6X dc4ZhyaCdyzHluvNWBg70VL xiQKRyFYllTOUhFJIFAW7co F3mEUVmr4CpZY32WXDae3Gh TK3cj15jpCLqrR9rRM3pdDH mdWxsIHRoaWNrbmVzcylccG YxEKPbZf9vYLVbXRAuvFYkd mBhkrYqOyYda0F4CCZum5Ps YG6ii03nqHVwgR9kEJ4agDP noGipEZTjlGPeoaXodsj2XQ YdvENyRLV7GU0vWBSobyrvY UAoWLTcEXR5AZvruL45eGMo XGZzMTZccGFyfXtcKlxlcGl yr9ZvpLGwDRdsERRiEYPwWU huOLFeR9XYZDZrIPPrQEd2U mOnENo8TWtxL7JPRIZrYMC5 AeUmSJd3LiU7YXd2YNAZLn1 bEIcuLypiSTF5IWN6Zpn1BL xcdCAyIFxcZmwgXFxmIEFya HFkMVxazcO5KFQtRqHqDa6c O8igzW6kgBVpWAIbVbWnTzD pHZy1UAAttA1lJw2zlXOoaR 5qvCSfDWfhKWI5aBEdCUQhU JQjKYNbWN84G3IjvJ6nh1Dx RUVot77lGH9xFAWfMDb3hTD uF3gqzIIguUEvLKZjWmFbbD ZaJxVwrPTyBtMnL39nzCNyH BKnqqtpwPWtVUf4qZRdaZua j1wloPXwDMKxOJJfWC3qPTT rUyYujOviv8AsVfWKeNFgd6 ZhQ0vnNX1hkWHnXbqpDSJ2P VOpOW7tIDD0Xc7sjOZjENEq bnRpcmVseSBpbiBjYXNzZXR 8BKDoHjBoJn1uxIRaJGTwkd ITNde9MOCzxYFiRGT1WJ0jh CjlSPPqR4TdL1PudvR3ZKZr cn0= MICROSCOPIC d4hbnVCwWJXobSP7GrRxJWQ DESCRIPTION (test code gp6pjw8PchWBmkJNbWScqvD = 3371) DkohVnlv33pTT6pZ05XY9lK OWhZvF1WSJhthE8Mig8IMZp YAAstFZvR764k7vok9erviS lwVN4bDydQVMglrnyMuB2LM mpZIFwgnlfOZt4LNuiXJGxk FW3JCFvrFAfA0DsADRmYW2s stf9CUO2BOmnLITbMeM5FBZ suQAsMPBffNqvCWfel671JH T8BpVnSRYcysJiwSwbgW6fG kRjWFHVAETyu0MhYRPsBGQs clxwYXJkXHBhcn0= [id number] 10:37:50 Test Item Value Reference Range Interpretation Comments Case Report (test code Surgical Pathology = 104) Report Case: [id number] Authorizing Provider: Zay Ghotra, Collected: 07/17/2021 09:17 AM Ordering Location: [facility] Received: 07/17/2021 12:10 PM SERVICES Pathologist: Fredi Dimas MD Specimens: A) - Uterus w/Cervix B) - Cyst, PELVIC CYST DIAGNOSIS (test code = x7gdjYWqYVSfw4kuTAVqvPZ 3220) uZzEwMzNcZnRuYmpcdWMxIH tccnRmMVxlcGljOTYwMlxhb xMaMZQzhWCeE0XxilusYGll SA9cRX0mlWaxnODbkDXyPEX jQiRdp2okn073lOWhh1duSR CLlzmpsRp8gQbuV34vd8U4Y wavT38qiIRmOON8ZJXsFIQv rJRuSXWmEKA8IVJrnHSoX6z sXLCvSO2ceqegYVsiCVkdLF IorBI8PVQavKCbR9EfIHJpR BeoPQTofkj6KuFhUc4xrPBm eTcyMFxwYXJkXHBsYWluXGZ bBtNgWI3zJMABYwGIWImDAZ pbN4TNXyoTZCSDLUVGXUUSY 5AQRPz2NSJvdeo8ZFZaVVWD PIFAII8VWJNOZl9TGFLRJIT OOVXHS6QZNElUDr7BQePWVS DLLVEXNDFzH8YDG9yIU15VK DymMFBqySAtCZPtGTRQIF7Z MOZDK4TQPYIFRNSCKmkZARC IX37qYIEEJB7CTLnQNK2EUG 9TSVMsIEFORCBccGFyXGZpN jRgDVTnSCmXLK3YCNIKAGXO JENECX7OFeQwwLVtKFGkNNq 0YWIgLSBTRUNSRVRPUlkgVE 0vXX5XD7NPJrLbSA9BL05VG PZQHQ8eNDZmgvl1UMHmXIWZ MEZZWvZTCK2YXDMCBUIDAYe LLUsdJGZCXE4SLILUG6VXRW TYYKKXOenJMNDTT38wnFRyN HRhYiAtIFVOUkVNQVJLQUJM UWDKCBWQUU0UNPPNEhBYMTL ccGFyXHBhciBCLiAiUEVMVk nHAREEN5VkYJBBBWGJG1gQG jjbnOKiJMQkXzYnGX2AWWCD LT4pWTIPFE1KVYcYIWSIICW TNZdTGI4JLchMG0lPSUVJRe MWQjJNRNPWII7jW6zRCURlB LJfvaOkAZUzct32VNI1SqZi u1H4SBP1EYArOBPsk2agZIV mbGFuZzEwMzNcZnRuYmpcdW FmPCNsMfFrj7uyh728rOBpr 5ooQXRxBdQ9xZMmTZBipCHu R905NJInTJrop8vag9QhIVV znXSnz4R4NXRUyykdzEo5gV eaV15oy2I9LgpjH6dtZEKiT KUrA9SbSM5pJVLiAah5RPF0 UQN9WRAtXIWoW1ZuRI6zNEM znEAiZCf5v9kpvElmTEUwQY O4u0anCOnrphIeIU9ewt6xg Ac6s8cmbrAlVADbUPWauTHC IYLwW7MotFygVa7xeIl0zUp eQkmnVOG4Vva5VJ7eyp05ev z1kIevEUZxtrtmFcM5JVuzC EUatlpfKKf8PZyqFQFmyYP2 OGChoULmG4QrDEKaRY4avly 0ZOC8UBswQYHeEbB7KTWkaY CxIJJmyMuyMSlzu744FHK7C wRhLT2mC5Zel1X1oQ2jsSTk APBvyCZwHyZhFEGtgw0kgFK cEXkux6NoCSK0vpT3xAPdqP FnJHMfPlZ9SSpqKY0gui27B VThOUN8nu9fiQNipTlrvaMt iFRvNGfwT3TzZHNin810ZGJ xG0XcABGbr3F0uyDzXeWmXJ WqeQO5uuW1PULaPN9dbvdzy 9apNTnbZFjeIHTndeA7ktD3 IOFpcSPhX5ZicY5tLXCgFZ9 sfdzco4ffWFT6QEppLTNiOR I3EqZtQSMcf7Cnwgm9RlXaq 9ZlvQZjILzkH37ph482ZRLs jeYqU6ydwVJyokahgNZanob pASmvhxP0ACRuLGbkjzkqFL YjIZqtT0ekPeUbZRDbkYssQ Rhqq0VxFBSvTNNdNsVcrQEi TCLqEuh3JKNluFRpALHcPzV vX4kasgtrQjYFLZFql0aiO4 ofoQSDiLAzG8SpEWtewcIoV PlzAIbcYvMeOZa7LA30YzAr NXKvjp12 COMMENT (test code = d4xckXGjKHAhwVI2FxHoMYW 0479) ax6jgu6AiuBZwcMMlNCrcqW PwzcCqul98rCG1dC72ZE5mP RGvYtI2ZWHuzrZ5Brq7BMYe LODmeVCoN989w7upp3uiqfZ rxOK6LXTcQCKgL3MkBM5lUZ NeaCSlS95ftMJnCQG1DGJuS TCbvPMvARNzLHG1DKYxpCWz P2kpJTUxOQ0mfpgjWSucASl lRERdvAW5MFHzrRQtP8LoRM BhIWagQCFtull2EuPqYt6ex GVyeTcyMFxwYXJkXHBsYWlu HBRiSjMzQ8KkXEFkFKYhAVN dLJ39B5SgdMftwR9myYUfAv McyePczQJoMXbyol9vhlWvO YTiGMKlwEReS1WjW6qfh59y SJqcQB0zoHBiIcDfcIUkxG= = CPT Code(s) (test code e0lslQDxFKLmqHQ6AvBnWYB = 3357) lu8dqk6UsgTFjuKUrGEwyxB ByyyFklk63vTE4gM94OZ7qD LYyBlB8ZJWxakP9Fit8WQNw VRFbbINbU624i2xhc6rnhuR pdOQ2lAwbOVXstnfeEfA8EC acGLLaftyuJIq9AHzlMUUla ZX5DVNihFKpS5ZnELWcKO1b bnc5GAH7YZamDEAxOwR9XSA woCXbVDPxhDwuSVdcx995JV D8SmYjWGXzhwOorTwjiJ9vU fPoUKLGRbS0FHXrKZqlBXIt Dx0tVNorRAQdzHFnrC== GROSS DESCRIPTION i6jomHWgTPTigDC1IiJhBDF (test code = dt2syb4SylHOlhWEwPScdzF [id number]) JidlYdsl24hUQ8uC16EA4jF DZjHjV3VFIwbtC6Hbo1CUIb YAOxlHZoA775a7ogf2cupmR ldVP5qLmiYOSuouauJrS8UW jvKGLnhpddWQv9DDpuEQZnz KU6TGAglONdE1AvQZLkMY7d dsb1CTV5DSpgLUNxXiV2FNK uaETeSSMivQfyMPvus171QK M3VjXzVUYylnT8OYltTKJqS 9YyA0LoWDwnSFR1ROExMPAt OEVyWUXfFRApYIbfvvY4r7g yJOIinECxBDJ7NJnxsLCeGE EwMDIgXFxkYiBPVlIgIiAxN oN5LDo4LcS6FVy6CAZAEuTy AoEdDmz8TQRwPvAdBAw0IJr 2WHrYRgL3XlTqTcGiMZbgWS MfNplfNWt6IMMuKKrxyJQkT MMtDBXpEYbnBKrsK39enCde rF5kDyHsJZDKAoOTpXFhtQX hlv5SUWZ9eXvfSQZkotcdqi NdYGCfE0ElwkUxAXztSHIwa o4dpDraHBlaQvQmEOGtf3x2 xVG8vQRjsVY3lWWzzUbqJMg rVq2yxNY7vC3lQJNxEDNwmW PjuoPvDOsypJsoQ9Amubl1S qJotxWlKRz1HMcnXWhkFHSx bJZflwexlwR0cuRdjvHodph lnxipML53LMpvmMRqSTuquF 4esUQ7OAQqoMRrmbKfWV5sK ADjLZBycTWexF3oVSEaPETn b9VycncsepBkyaTjQ3GsxLK lvzXwLNzgcLdhUE1mZSI6PG TyKCKdLn54BSyyZc2fHVEcU UVxge3liE0zQWQbhsLdlZFm MK9vKQpdMH5lJBYtWDFbycP iL8AePC0aKG6tLFTnygkrTU GtG0TqQGDaxKVmWHXjZXxlS ADcac9quY8iEBeuyWnoI6W6 dWGmfXYbxrIqCDKxWNBba5n pztW1yULztC3pPABcG68ehs ChEK6bHUyhiJDbWUmlp0JuK mFjZXMuIFRoZXJlIGFyZSBu cT5jdq81lvO4PO3lu7gfhWD eeN2zmIRcYBowlMnnogApwA DiHYMlAD2uKXYvh78gtIyvC BT5ewXwU5GopcHvR6yeLwZu meNoluJvxENemBYvnW9xsyY dm09qGvCbhAVzAuHpqM1aAO 20UPYtNClpvm7pmgDdqK42o 5piMIVcmeM7OWyllldvEFQi PRRspNJykF5evrKsonMarzg lZCBhcyBiZWxvdyBhbmQgYm w4MBd3NQRfeN1wleL6ODHzW RUnCHH2KRRvJYWsmOF9qAVv yU3eTHPzsas0iDQ5uIZkZXZ jv134yVApohZelXH7ggw6oR 9yU5CzcHRpTEFgW2Aek98yf lenfzO0VWKjwaOcNIFtSnIu hFA4aHxtksHajfJiuLW8hvz 7vNC9bSVyIJBvVC18TGMmDZ DrgTCjZM59r12ibGDcnE3gR Z7lDW3em4ZnswKjbqJpiSEs eqGqHhmbDH0kTgMmjzEwAP5 3UHQlquAzy0XusArtkjDkOJ QoWLE3Ck5doRMwSHTnpaEgC Jgoxt0noBFjQLFnsgLOhhft C27nQUytkOZsGMVfvGCaGDU BbnRlcmlvclxwYXIgQmxhY2 hfKLOPy3F7WDLgg4RyoTHrN ZEslzQHHTB1vD5bQZOzGLV7 WEUnzgHNHU61PO5pDQ08RMJ xz7ZybL9dG0p8jCUhcyNiID L7pXlmxUguR2yrHUKuLCSfK 0Ful47wHXDfveOmuQN9nlCo mX9qeJJbmABzNZY1WCdtFLG Nr7K3KNPsz3CuyG4uV0s9kL VtgnOhOKK4nQdcoEqiJ4grV GRoTEBrP8Hrg77mFRNillTg vCU5wdTuwT8xrLIiRGY9D3Z yc8RwfaKrqoUigvXPSy89LQ tyRLRrVJieYFLmENLRAL5qo F9hMTKzt4WuPN14WGSkj2Pk SY5nb78hyQFffD9nZO4lzMQ mdWxsIHRoaWNrbmVzcylccG IuTOYmHc7rYOIkALVbzPCqj yMmepHwPuLxw6P0NXZhm7Iy QG1nl03jxGEngP4yCE8cnHR fuHxlKJAjzDAauiHfyxy3YW YyxGZoYHX7HJ9vGXVjwmkeO ZYmNZCiVTQ6ZGczyR29gUIb XGZzMTZccGFyfXtcKlxlcGl lu0JjvFKkZFmbHDPzJNGfMI utGNUgN4IJNZSpCGJlWPz9T rBdZIg2FBidX9GUBPWyDLO4 MnQfJIf4TlJ7ZVn4EVKIVd7 hAPntFhjgXWS0FAO4Sfo2BN xcdCAyIFxcZmwgXFxmIEFya LTwLGipycG3BGQxJnWaHl5v P7qeaV9ccRBqXNIvUsVoCfN rQFt8CXOggV3bIw3gzXTzeW 4waBCxDIgtJQD7yCBzSEFtS ABqMNNvAG65B4KqzI9vd0Zl NHVcx58uOX5vFSVlIXw2rNL jW5ubeVLriLMuKAKhCbLyzI FzGcGcgEYfViQnS78vvZYvZ QXeyjessVIzZYn0dUImeWqa q3sfpZTtVOBlWDKtYW5kIHU iLfIqgPcza2YhDyZWyTUal3 TyO0rxSO9ogJWgCufnONT9D VUtYU5gVFI5On0faWZjQXAg bnRpcmVseSBpbiBjYXNzZXR 3MZWrPbJhFl8hjZAqRLZdfl LPXtq6VQOupXPuATC7LV9el VhlUPYwU5CdR5RchzD9HNAn cn0= MICROSCOPIC v9vgtAPhUYPjkVS7LaDhSDB DESCRIPTION (test code ix7hxf0MtcMZquTIeFKsgtS = 3371) QkpiTpgh46gHB5nC60IF6rM UZoYoG1KLVvipN5Mea7VHWu SIJqbHPbQ394o0cbv6ngbjA hcBH3lJiaYRGrukxjIeG7UT dzCVQrrvhuTFy5XFlhPEFch LU1BZXdrDSiD0ZeBOLaHQ9d uzf2BUF1ULheVSFsKuO4EMH hiMJzORNasQjaGUipd708FJ Z0QqNjLYAnmiRnySjuqH1rM jThWIVXDEBwa5NmQIQxZEFj clxwYXJkXHBhcn0= [facility] [id number] 10:37:50Surgical Pathology Report Case: [id number] Authorizing Provider: Zay Ghotra, Collected: 07/17/2021 09:17 AM Ordering Location: [facility] Received: 07/17/2021 12:10 PM SERVICES Pathologist: Fredi Dimas MD Specimens: A) - Uterus w/Cervix B) - Cyst, PELVIC CYST A. UTERUS WITH CERVIX, HYSTERECTOMY: - UTERINE SEROSA WITH FOCAL LOW-GRADE SEROUS CARCINOMA, P SAMMOMATOUS CALCIFICATION, ENDOSALPINGIOSIS, AND EXTENSIVE ADHESIONS - SECRETORY TO INACTIVE ENDOMETRIUM - OUTER MYOMETRIUM WITH PSAMMOMATOUS CALCIFICATION - UNREMARKABLE UTERINE CERVIX B. "PELVIC CYST", EXCISION: - OVARIAN PARENCHYMA WITH HEMORRHAGIC CORPUS LUTEUM CYST Signing Pathologist Direct Phone Line: [phone] signed by Fredi Dimas MD on 07/18/2021 at 10:37 AMThe patient's history of ovarian low-grade serous carcinoma is noted. A. 51844R. 54031M. Uterus w/Cervix.Received in formalin labeled with the patient's information and "uterus with cervix" is a74 g, 7.5 superior to inferior, 5.5 lateral to lateral and 4.0 cm anterior to posterior intact uterus with an attached 3.5 x 3.0 cm brock-pink cervix (1.0 x 0.3 cm cervical os). +The surface is brock-pink with cautery over the lower uterine segment and lateral surfaces. There are numerous brock-white to brock-yellow excrescences on the surface ranging in greatest dimension from 0.1 to 0.4 cm (gross photographs taken). The specimen is inked as below and bivalved to reveal 6.5 x 1.4 cm uterine cavity with smooth endometrium. Serial sectioning reveals a 0.2 cm thick endometrium with a 1.8 cm thick myometrium.No masses are identified. Reservationist sections are submitted as below.Ink Code:Blue - AnteriorBlack - PosteriorSection Code:A1- 4 - Anterior longitudinal full thickness section, cervix to fundusA5-8 - Posterior longitudinal full thickness section, cervix to fundus (excrescences in A7-8)A9-11 - Remainder of anterior endometrium (not full thickness)A12-14 - Remainder of posterior endometrium (not full thickness)B. Cyst.Received in formalin labeled with the patient's information and "pelvic cyst" is a 2.5 x 1.0 x 0.5 cm brock-pink irregularly shaped piece of soft tissue. The specimen is bisected and submitted entirely in cassettes B1-2.NRWPerformed.BASIC METABOLIC [id number] 06:58:15 Test Item Value Reference Range Interpretation [...] S NOT APPLICABLE FOR DIALYSIS PATIEN TS. Commercial Agent ID - ROLDAN LPOCT , [id number] 06:02:00 Test Item Value Reference Range Interpretation Comments Test Urine, POC (test Negative code = 7354066) Control line present?, POC (test Yes code = 0370010) Background clear?, POC (test code Yes = 5441737) UPT Cassette Lot #, POC (test code 2682250 = 7382337) UPT Cassette Expiration Date, POC 11/23/2022 (test code = 0032628) [facility] , [id number] 06:02:00 Test Item Value Reference Range Interpretation Comments Test Urine, POC (test Negative code = 8594101) Control line present?, POC (test Yes code = 3596471) Background clear?, POC (test code Yes = 7646492) UPT Cassette Lot #, POC (test code 6627435 = 6789330) UPT Cassette Expiration Date, POC 11/23/2022 (test code = 4864001) [facility] , [id number] 06:02:00 Test Item Value Reference Range Interpretation Comments Test Urine, POC (test Negative code = 6812199) Control line present?, POC (test Yes code = 7702176) Background clear?, POC (test code Yes = 1025139) UPT Cassette Lot #, POC (test code 4361720 = 0524365) UPT Cassette Expiration Date, POC 11/23/2022 (test code = 0351768) [facility] , [id number] 06:02:00 Test Item Value Reference Range Interpretation Comments Test Urine, POC (test Negative code = 3441476) Control line present?, POC (test Yes code = 8642525) Background clear?, POC (test code Yes = 3023467) UPT Cassette Lot #, POC (test code 8203695 = 2935602) UPT Cassette Expiration Date, POC 11/23/2022 (test code = 9022772) [facility] , [id number] 06:02:00 Test Item Value Reference Range Interpretation Comments Test Urine, POC (test Negative code = 1034708) Control line present?, POC (test Yes code = 8914857) Background clear?, POC (test code Yes = 9937228) UPT Cassette Lot #, POC (test code 7894683 = 9768089) UPT Cassette Expiration Date, POC 11/23/2022 (test code = 3881842) [facility]14 02:12:36 Test Item Value Reference Range Interpretation Comments SARS-COV2/RT-PCR (test Negative Negative code = 86481-2) JOHNNA (test code = JOHNNA) Negative result [...] the Act. Testing was performed using the [employer] SARS-CoV-2 assay. Fact Sheet for Healthcare Providers:https://www.eleazar welch/jose roberto/RT SARS-CoV-2 HCP Fact Sheet 51-551145.pdf Fact Sheet for Healthcare Patients:https://www.macie orellana/jose roberto/RT SARS-CoV-2 Patient Fact Sheet EN 51-259766O4.pdf Lab Interpretation Normal (test code = 09231-5) [facility]2021-07-14 02:12:36 Test Item Value Reference Range Interpretation Comments SARS-COV2/RT-PCR (test Negative Negative code = 03718-7) JOHNNA (test code = JOHNNA) Negative result [...] the Act. Testing was performed using the [employer] SARS-CoV-2 assay. Fact Sheet for Healthcare Providers:https://www.eleazar welch/jose roberto/RT SARS-CoV-2 HCP Fact Sheet 51-977952.pdf Fact Sheet for Healthcare Patients:https://www.Szl/jose roberto/RT SARS-CoV-2 Patient Fact Sheet EN 51-406893L3.pdf Lab Interpretation Normal (test code = 43093-5) [facility]2021-07-14 02:12:36 Test Item Value Reference Range Interpretation Comments SARS-COV2/RT-PCR (test Negative Negative code = 38354-4) JOHNNA (test code = JOHNNA) Negative result [...] the Act. Testing was performed using the [employer] SARS-CoV-2 assay. Fact Sheet for Healthcare Providers:https://www.eleazar rogeltolbert/jose roberto/RT SARS-CoV-2 HCP Fact Sheet 51-745547.pdf Fact Sheet for Healthcare Patients:https://www.Szl/jose roberto/RT SARS-CoV-2 Patient Fact Sheet EN 51-540503C2.pdf Lab Interpretation Normal (test code = 15913-6) [facility]2021-07-14 02:12:36 Test Item Value Reference Range Interpretation Comments SARS-COV2/RT-PCR (test Negative Negative code = 83070-7) JOHNNA (test code = JOHNNA) Negative result [...] the Act. Testing was performed using the [employer] SARS-CoV-2 assay. Fact Sheet for Healthcare Providers:https://www.eleazar welch/jose roberto/RT SARS-CoV-2 HCP Fact Sheet 51-688391.pdf Fact Sheet for Healthcare Patients:https://www.Szl/jose roberto/RT SARS-CoV-2 Patient Fact Sheet EN 51-316825Q9.pdf Lab Interpretation Normal (test code = 12183-0) [facility]2021-07-14 02:12:36 Test Item Value Reference Range Interpretation Comments SARS-COV2/RT-PCR (test Negative Negative code = 86458-7) JOHNNA (test code = JOHNNA) Negative result [...] the Act. Testing was performed using the [employer] SARS-CoV-2 assay. Fact Sheet for Healthcare Providers:https://www.eleazar welch/jose roberto/RT SARS-CoV-2 HCP Fact Sheet 51-022085.pdf Fact Sheet for Healthcare Patients:https://www.macie orellana/jose roberto/RT SARS-CoV-2 Patient Fact Sheet EN 51-600712N9.pdf Lab Interpretation Normal (test code = 76273-6) [facility]2021-07-14 02:12:36 Test Item Value Reference Range Interpretation Comments SARS-COV2/RT-PCR (test Negative Negative code = 51151-9) JOHNNA (test code = JOHNNA) Negative result [...] the Act. Testing was performed using the [employer] SARS-CoV-2 assay. Fact Sheet for Healthcare Providers:https://www.eleazar welch/jose roberto/RT SARS-CoV-2 HCP Fact Sheet 51-266995.pdf Fact Sheet for Healthcare Patients:https://www.macie orellana/jose roberto/RT SARS-CoV-2 Patient Fact Sheet EN 51-664566D9.pdf Lab Interpretation Normal (test code = 41964-6) [facility]2021-07-14 02:12:36 Test Item Value Reference Range Interpretation Comments SARS-COV2/RT-PCR (test Negative Negative code = 94370-7) JOHNNA (test code = JOHNNA) Negative result [...] the Act. Testing was performed using the [employer] SARS-CoV-2 assay. Fact Sheet for Healthcare Providers:https://www.eleazar welch/jose roberto/RT SARS-CoV-2 HCP Fact Sheet 51-772613.pdf Fact Sheet for Healthcare Patients:https://www.macie orellana/jose roberto/RT SARS-CoV-2 Patient Fact Sheet EN 51-462851I9.pdf Lab Interpretation Normal (test code = 33233-2) [facility]2021-07-14 02:12:36 Test Item Value Reference Range Interpretation Comments SARS-COV2/RT-PCR (test Negative Negative code = 12350-9) JOHNNA (test code = JOHNNA) Negative result [...] SARS-CoV-2 assay. Fact Sheet for Healthcare Providers:https://www.eleazar welch/jose roberto/RT SARS-CoV-2 HCP Fact Sheet 51-031911.pdf Fact Sheet for Healthcare Patients:https://www.macie orellana/jose roberto/RT SARS-CoV-2 Patient Fact Sheet EN 51-615506A3.pdf Lab Interpretation Normal (test code = 52271-3) [facility]2021-07-14 02:12:36 Test Item Value Reference Range Interpretation Comments SARS-COV2/RT-PCR (test Negative Negative code = 36785-9) JOHNNA (test code = JOHNNA) Negative result [...] SARS-CoV-2 assay. Fact Sheet for Healthcare Providers:https://www.eleazar welch/jose roberto/RT SARS-CoV-2 HCP Fact Sheet 51-909995.pdf Fact Sheet for Healthcare Patients:https://www.macie orellana/jose roberto/RT SARS-CoV-2 Patient Fact Sheet EN 51-360583O6.pdf Lab Interpretation Normal (test code = 15526-6) [facility]2021-07-14 02:12:36 Test Item Value Reference Range Interpretation Comments SARS-COV2/RT-PCR (test Negative Negative code = 01213-9) JOHNNA (test code = JOHNNA) Negative result [...] SARS-CoV-2 assay. Fact Sheet for Healthcare Providers:https://www.eleazar welch/jose roberto/RT SARS-CoV-2 HCP Fact Sheet 51-616424.pdf Fact Sheet for Healthcare Patients:https://www.macie orellana/jose roberto/RT SARS-CoV-2 Patient Fact Sheet EN 51-758086O2.pdf Lab Interpretation Normal (test code = 36834-5) [facility])2021-07-14 02:12:36 Test Item Value Reference Range Interpretation Comments SARS-COV2/RT-PCR (test code = Negative Negative 1664556) Negative result for this test determines that [...] 564(g) of the Act.Testing was performed using [employer] SARS-CoV-2 assay.Fact Sheet for Healthcare Providers:https://www.SuperLikers.tolbert/jose roberto/RT SARS-CoV-2 HCP Fact Sheet 51- 378627.pdfFact Sheet for Healthcare Patients:https://www.SuperLikers.Med.ly/jose roberto/RT SARS-CoV-2 Patient Fact Sheet EN 51-327960W1.wijOSVAPXSDOX7532-10-17 11:51:33 Test Item Value Reference Range Interpretation Comments HEMOGLOBIN (BEAKER) (test code = 13.0 GM/DL 11.2-15.7 410) Commercial Agent ID - [id number], [id number] 10:21:00Unlisted Reason for Exam - Click Yes and Enter Reason Below->YesUnlisted Reason for Exam->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)Will this procedure require oral contrast?->Yes[facility] : 1990 Sex: FFINAL REPORT CT Chest, abdomen, and pelvis with contrast History:Malignant neoplasm of both ovaries Comparison:10/10/2020 CT abdomen and pelvis; CT chest 07/19/2020 Technique: serialaxial imaging was performed following up to 100cc [...] Verified Date/ Time: 12/22/2020 10:21:39 Reading Location: [address] Consult Reading Room CT, CHEST, WITH IV [id number] 10:21:00Unlisted Reason for Exam - Click Yes and Enter Reason Below->YesUnlisted Reason for Exam->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 Signed: Angie Gomes Verified Date/Time: 10/11/2020 09:00:55 Reading Location: [address] Consult Reading Room LL MCGRAW, [id number] 15:02:00Reason for Exam:->MALIGNANT NEOPLASM OF BOTH OVARIES [facility] : 1990 Sex: FFINAL REPORT Right internal [...] the patient's medical record by the nurse. Mechanical And Auto Body Car Checker: Hayden Ryder MD Straight Slicing Machine Operator: None. Approach: Right internal jugular vein Estimated [...] needle into the right atrium. A 4 Hong Konger micropuncture sheath was placed and a 0.035 wire was advanced into the IVC. A subcutaneous tunnel and pocket were created in the right anterior chest wall by blunt dissection. The pocket was flushed with saline. A 6F Deltech port was placed within the pocket and the catheter brought through the tunnel. Thecatheter was trimmed to length. A peel-away sheath [...] port is ready for immediate use. Signed: Hayden Ryder MDReport Verified Date/Time: 08/11/2020 15:02:41 Reading Location: [place] [address] Angio Body Reading Room PROTHROMBIN TIME/[id number] 07:31:00 Test Item Value Reference Range Interpretation Comments PROTIME (BEAKER) 13.4 seconds 11.9-14.2 (test code = 759) INR (BEAKER) (test 1.03 See_Comment [Automat ed message] code = 370) The system [employer] generated this result transmitted ref erence range: <=5.90. The reference range was not used to int erpret this result as normal/abnormal . RECOMMENDED COUMADIN/WARFARIN INR THERAPY RANGESSTANDARD DOSE: 2.0 - 3.0 Includes: PROPHYLAXIS for venous thrombosis, systemic embolization; TREATMENT for venous thrombosis and/or pulmonary embolus.HIGH RISK: Target INR is 2.5-3.5 for patients with mechanical heart valves.[id number] 07:31:00 Test Item Value Reference Range Interpretation Comments PARTIAL THROMBOPLASTIN TIME 31.3 seconds 22.5-36.0 (BEAKER) (test code = 760) CBC W/PLT COUNT & AUTO [id number] 07:13:00 Test Item Value Reference Range Interpretation [...] 0-1 PERCENT (BEAKER) (test code = 2801) [id number] 13:47:00Medical Cytology Report Case: [id number] Authorizing Provider: Zay Ghotra, Collected: 07/18/2020 11:41 AM Ordering Location: [facility] Received: 07/18/2020 03:26 PM SERVICES Pat hologist: Marcella Galeas MD Specimen: Peritoneal Fluid PERITONEAL FLUID (CYTOSPINS AND CELL BLOCK): - POSITIVE FOR MALIGNANCY - LOW GRADE SEROUS CARCINOMA (SEE COMMENT) Signing Pathologist Direct Phone Line: [phone] signed by Marcella Galeas MD on 07/25/2020 at 1:47 PMThe tumor cells stain positive for PAX-8; ER, TX and WT-1. 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 32302, 05326; 24321; 60304 x 3Ascites, status post laparoscopy, CT from [...] the test tissue. These control slides run alongsideof the patients sample show appropriate staining. Internal positive and negative controls when available are evaluated Immunohistochemistry technical testing was performed at [facility], Pathology Laboratory where it was developed and [...] qualified to perform high complexity clinical laboratory testing.[facility], Department of Pathology, [address] [place] [address], [facility], [facility] of [facility]ology, [address] [place] [address], [facility]jaHigh[facility], Department of Pathology, [address] [place] [address], ALYBEI [id number] 12:45:00Surgical Pathology Report Case: [id number] Authorizing Provider: Zay Ghotra, Collected: 0 07/18/2020 12:15 PM Ordering Location: [facility] Received: 07/18/2020 12:30 PM SERVICES Pathologist: Leighann Mathias MD Specimens: A) - Omentum B) - Omentum, Omentum C) - Soft Tissue, Other, Right Adnexa D) - Soft Tissue, Other, Left Adnexa A. OMENTUM, PARTIAL OMENTECTOMY: - LOW GRADE SEROUS CARCINOMAB. OMENTUM, OMENTECTOMY: - LOW GRADE SEROUS CARCINOMAC. OVARY AND FALLOPIAN TUBE,RIGHT SALPINGO-OOPHORECTOMY OVARY - LOW GRADE SEROUS CARCINOMA -TUMOR SIZE: 4 X 3 X 2.9 - INTACT CAPSULE - SURFACE INVOLVEMENT PRESENT FALLOPIAN TUBE - TUMOR EXTENDS TO TUBAL SEROSA - ADHESIONS D. OVARY AND FALLOPIAN TUBE, LEFT SALPINGO-OOPHORECTOMY OVARY - LOW GRADE SEROUS CARCINOMA - TUMOR SIZE: 5 X5 X 3.5 - INTACT CAPSULE - SURFACE INVOLVEMENT PRESENT FALLOPIAN TUBE - TUMOR EXTENDS TO TUBAL SEROSA - ADHESIONS Signing Pathologist Direct Phone Line: [phone] signed by Leighann Mathias MD on 07/25/2020 [...] Primary Tumor (pT): pT3c Regional Lymph Nodes (pN):pNX FIGO STAGE FIGO Stage: IIIC A. 57275, 89939P. 35407T. 53270B. 36921Okmgfoddm adnexal masses, pelvic pain, elevated tumor markers at risk for fertility problems, abnormalityOmentumA. Received fresh for intraoperative frozen consultation diagnosis labeled with patient's name, medical record number and accession number "omentum" is a single brock yellow to brock pink, firm to soft lobulated fibro-adipose tissue (8 x 4 x 2 cm), sectioning reveals brock pink fibrous mass (6 x 3 x 1.4 cm). Touch preps is made and client service representative tissue is submitted in FSA1.Section code:FSA1: Reservationist, massA2-A4: additional client service representative, massB. Received in formalin labeled with patient's name, medical record number a nd accession number, "omentum" are multiple brock-yellow lobulated firm to soft pieces of fibroadiposetissue (15 x 8 x 2.5 cm aggregate). Multiple brock-yellow to brock-pink firm nodules ranging from 1 to 4cm in greatest dimension are palpated in the adipose tissue. Serial sections reveal brock-white to brock-yellow cut surface and focal areas. Reservationist sections are submitted in cassette B1- B6. C. Received in formalin labeled with patient's name, medical record number and accession number, "right adnexa" is a single brock-pink to brock-brown lobulated, firm to soft mass (8 x 7.5 x 4 cm) with no grossly identifiable ovary or fallopian tube. The specimen is inked black on the outer surface and serially sectioned to reveal multinodular brock-yellow to fcs-byat-mfisc areas, the largest nodule is 4 x 3 x 2.9 cm. A possible fallopian tube is identified on cross- sections with brock mucosa and pinpoint lumen. Possible cross sections of the ovary is identified displaying brock pink-brock and hemorrhagic areas (4 x 2.3 x 2 cm). Multinodular brock-granados masses are closely abutting the outer surface of the ovary, obvious involvement of the ovary is not identified. Reservationist sections are submitted in cassettes C1-C10.D. Received in formalin labeled with patient's name, medical record number and accession number, "left adnexa" is a 10 x 8 x 3 cm lobulated brock-pink firm to soft mass with no grossly identifiable ovaryor fallopian tube. The specimen is inked black [...] cross-section with brock mucosa and pinpoint lumen. Reservationist sections are submitted in cassette D1-D10.SOPHIA AnandA1: OMENTUM, EXCISION: - POSITIVE FOR CARCINOMA, PROBABLY SEROUS CARCINOMAReported by Dr. Rodas on Jul 18 2020 at 12:45 PM to NY85Egbgadyql.CT, CHEST, WITH [id number] 10:38:00Unlisted Reason for Exam - Click Yes and Enter Reason Below->No [facility] : 1990 Sex: FFINAL REPORT TECHNIQUE: CT [...] MDReport Verified Date/Time: 07/20/2020 10:38:03 Reading Location: [address] Consult Reading Room [id number] 07:19:00 Test Item Value Reference Range Interpretation Comments PARTIAL THROMBOPLASTIN TIME 34.0 seconds 22.5-36.0 (BEAKER) (test code = 760) COMPREHENSIVE METABOLIC [id number] 05:22:00 Test Item Value Reference Range Interpretation [...] S NOT APPLICABLE FOR DIALYSIS PATIEN TS. Commercial Agent ID - LEANNA WPROTHROMBIN TIME/[id number] 05:03:00 Test Item Value Reference Range Interpretation Comments PROTIME (BEAKER) 15.3 seconds 11.9-14.2 H (test code = 759) INR (BEAKER) (test 1.25 See_Comment [Automat ed message] code = 370) The system [employer] generated this result transmitted ref erence range: [...] = 413) CBC W/PLT COUNT & AUTO [id number] 18:49:00 Test Item Value Reference Range Interpretation [...] PERCENT (BEAKER) (test code = 2801) CYTOLOGY [id number] 17:00:00 Test Item Value Reference Range Interpretation Comments CYTOLOGY RESULT POINTER See Separate Report (BEAKER) (test code = 2629) [id number] 08:31:00 Test Item Value Reference Range Interpretation Comments HEMOGLOBIN (BEAKER) (test code = 12.1 GM/DL 11.2-15.7 410) Commercial Agent ID - [id number] METABOLIC [id number] 05:14:00 Test Item Value Reference Range Interpretation [...] S NOT APPLICABLE FOR DIALYSIS PATIEN TS. Commercial Agent ID - [id number] 05:14:00 Test Item Value Reference Range Interpretation Comments MAGNESIUM (BEAKER) (test code = 2.1 mg/dL 1.6-2.6 627) Commercial Agent ID - [id number] 05:14:00 Test Item Value Reference Range Interpretation Comments PHOSPHORUS (BEAKER) (test code = 3.7 mg/dL 2.3-4.7 604) Commercial Agent ID - [id number] (HEMOGRAM ONLY)2020-06-10 04:54:00 Test [...] (BEAKER) (test code = 413) MR, PELVIS, [id number] 18:35:00Unlisted Reason for Exam - Click Yes and Enter Reason Below->No [facility] : 1990 Sex: FFINAL REPORT MRI of [...] MDReport Verified Date/Time: 06/09/2020 18:35:16 Reading Location: [facility] C013Y CT Body Reading Room BASIC METABOLIC [id number] 05:43:00 Test Item Value Reference Range Interpretation [...] S NOT APPLICABLE FOR DIALYSIS PATIEN TS. Commercial Agent ID - [id number] 05:43:00 Test Item Value Reference Range Interpretation Comments MAGNESIUM (BEAKER) (test code = 2.0 mg/dL 1.6-2.6 627) Commercial Agent ID - [id number] 05:43:00 Test Item Value Reference Range Interpretation Comments PHOSPHORUS (BEAKER) (test code = 3.4 mg/dL 2.3-4.7 604) Commercial Agent ID - EDASICBC (HEMOGRAM ONLY)2020-06-09 05:22:00 Test [...] code = 413) ALPHA FETOPROTEIN (AFP), TUMOR [id number] 17:48:00 Test Item Value Reference Range Interpretation Comments ALPHA-FETOPROTEIN (BEAKER) (test 4.0 ng/mL <10.0 code = 1094) Commercial Agent ID - DBHCG, QUANTITATIVE, [id number] 16:38:00 Test Item Value Reference Range Interpretation Comments GONADOTROPIN, CHORIONIC (HCG) QUANT < mIU/mL 0-10 (BEAKER) (test code = 649) Non- Females: <10 mIU/mL Females: Gestation Age Reference Range(mIU/mL) 0.2-1 Week 5-50 1-2 Weeks 50-500 2-3 Weeks 100-5,000 3-4 Weeks 500-10,000 4-5 Weeks 1,000-50,000 5-6 Weeks 10,000-100,000 6-8 Weeks 15,000- 200,000 2-3 Months 10,000-100,000 Commercial Agent ID - [id number] 16:32:00 Test Item Value Reference Range Interpretation Comments FERRITIN (BEAKER) (test code = 345.19 ng/mL 5.00-275.00 H 361) Commercial Agent ID - DBIRON, TIBC, % SAT. (WITHOUT FERRITIN)2020-06-08 16:11:00 Test Item Value Reference Range Interpretation Comments IRON (BEAKER) (test code = 547) 35.0 ug/dL 40.0-160.0 L TOTAL IRON BINDING CAPACITY 308 ug/dL 250-450 (BEAKER) (test code = 769) IRON % SATURATION (2) (BEAKER) 11 % 20-55 L (test code = 2590) Commercial Agent ID - DBHEMOGLOBIN AND [id number] 15:33:00 Test Item Value Reference Range Interpretation Comments HEMOGLOBIN (BEAKER) (test code = 11.5 GM/DL 11.2-15.7 410) HEMATOCRIT (BEAKER) (test code = 35.0 % 34.1-44.9 411) Commercial Agent ID - [id number] DEHYDROGENASE (LDH)2020-06-08 14:22:00 Test Item Value Reference Range Interpretation Comments LACTATE DEHYDROGENASE (BEAKER) (test 236 U/L 125-220 H code = 635) Commercial Agent ID - EMERSONBASIC METABOLIC [id number] 07:55:00 Test Item Value Reference Range Interpretation [...] S NOT APPLICABLE FOR DIALYSIS PATIEN TS. Commercial Agent ID - [id number] 07:55:00 Test Item Value Reference Range Interpretation Comments MAGNESIUM (BEAKER) (test code = 2.1 mg/dL 1.6-2.6 627) Commercial Agent ID - [id number] 07:55:00 Test Item Value Reference Range Interpretation Comments PHOSPHORUS (BEAKER) (test code = 3.4 mg/dL 2.3-4.7 604) Commercial Agent ID - LILIYACBC (HEMOGRAM ONLY)2020-06-08 05:03:00 Test [...] 0-0 (BEAKER) (test code = 413) PROTHROMBIN [id number] 04:56:00 Test Item Value Reference Range Interpretation Comments PROTIME (BEAKER) 14.3 seconds 11.9-14.2 H (test code = 759) INR (BEAKER) (test 1.14 See_Comment [Automat ed message] code = 370) The system [employer] generated this result transmitted ref erence range: <=5.90. The reference range was not used to int erpret this result as normal/abnormal . Effective 07/22/2018: PT Reference Range ChangeNew: 11.9-14.2 Previous: 11.7- 14.7RECOMMENDED COUMADIN/WARFARIN INR THERAPY RANGESSTANDARD DOSE: 2.0-3.0 Includes: PROPHYLAXIS for venous thrombosis, systemic embolization; TREATMENT for venous thrombosis and/or pulmonary embolus.HIGH RISK: Target INR is 2.5-3.5 for patients wiht mechanical heart valves.PROTHROMBIN [id number] 22:05:00 Test Item Value Reference Range Interpretation Comments PROTIME (BEAKER) 13.5 seconds 11.9-14.2 (test code = 759) INR (BEAKER) (test 1.06 See_Comment [Automat ed message] code = 370) The system [employer] generated this result transmitted ref erence range: [...] 1.0 ng/mL 0.0-5.0 (test code = 685) Commercial Agent ID - BSCOMPREHENSIVE METABOLIC [id number] 21:27:00 Test Item Value Reference Range Interpretation [...] S NOT APPLICABLE FOR DIALYSIS PATIEN TS. Commercial Agent ID - [id number] 21:27:00 Test Item Value Reference Range Interpretation Comments MAGNESIUM (BEAKER) (test code = 2.2 mg/dL 1.6-2.6 627) Commercial Agent ID - [id number] 21:27:00 Test Item Value Reference Range Interpretation Comments PHOSPHORUS (BEAKER) (test code = 3.3 mg/dL 2.3-4.7 604) Commercial Agent ID - BSCBC W/PLT COUNT & AUTO [id number] 21:10:00 Test Item Value Reference Range Interpretation [...] % 0-1 PERCENT (BEAKER) (test code = 6441)
[2022-12-28 03:40] LABS: Absolute Lymphocytes (CBC) 1.7 K/uL (0.7-4.9); Hematocrit 35.7 % (36.0-45.0); Lymphocytes % 38.5 % (15.3-44.8); MCV 87.1 fL (80-100); MPV 7.2 fL (7.6-11.3); Platelets 331 thou/uL (152-406)
[2022-12-28] MEDS ORDERED: ONDANSETRON 4 MG/2 ML VIAL ONE ×2 (03:41→04:12)
[2022-12-28] MEDS ORDERED: HYDROMORPHONE HCL 1 MG/ML INJ ONE (03:41)
[2022-12-28 03:57] LABS: Albumin 3.5 g/dL (3.4-5.0); Bilirubin Total 0.3 mg/dL (0.2-1.0); Potassium 3.3 mEq/L (3.5-5.1); Protein, Total 8.1 g/dL (6.4-8.2)
[2022-12-28] MEDS ORDERED: NA CHLORIDE 0.9% 1,000 ML ONE (04:12)
[2022-12-28] MEDS ORDERED: PROMETHAZINE INJ 25 MG/ML AMP ONE (04:48)
--- NOTE | 2022-12-28 05:05 | ER ---
Nurse's Notes [facility] – [place], [place] Name: Thea Briceño Age: 32 yrs Sex: Female : 1990 Arrival Date: 12/28/2022 Time: 03:03 Bed 18 Private MD: Diagnosis: UTI/ Urinary tract infection, site not specified Presentation: 12/28 03:19 Chief complaint: Patient states: I've been having intermittent abdominal pain and left vc1 leg pain all day, now it is constant and my oncologist said if I ever start to have severe pain to come to the ER. I also peed blood earlier. Coronavirus screen: Vaccine status: Patient reports receiving the 2nd dose of the covid vaccine. Moderna Client denies travel out of the [place] in the last 14 days. At this time, the client does not indicate any symptoms associated with coronavirus-19. Ebola Screen: Patient negative for fever greater than or equal to 101.5 degrees Fahrenheit, and additional compatible Ebola Virus Disease symptoms Patient denies exposure to infectious person. Patient denies travel to an Ebola-affected area in the 21 days before illness onset. No symptoms or risks identified at this time. Initial Sepsis Screen: Does the patient meet any 2 criteria? No. Patient's initial sepsis screen is negative. Does the patient have a suspected source of infection? No. Patient's initial sepsis screen is negative. Risk Assessment: Do you want to hurt yourself or someone else? Patient reports no desire to harm self or others. Onset of symptoms was December 27, 2022. 03:19 Method Of Arrival: Wheelchair vc1 03:19 Acuity: YUMIKO 3 vc1 Triage Assessment: 03:24 General: Appears in no apparent distress. uncomfortable, Behavior is calm, cooperative, vc1 appropriate for age. Pain: Complains of pain in left lower quadrant and left leg Pain does not radiate. Pain currently is 9 out of 10 on a pain scale. Quality of pain is described as sharp, stabbing, throbbing. EENT: No deficits noted. No signs and/or symptoms were reported regarding the EENT system. Neuro: Level of Consciousness is awake, alert, obeys commands, Oriented to person, place, time, situation, Appropriate for age. Cardiovascular: No deficits noted. Respiratory: Airway is patent Respiratory effort is even, unlabored, Respiratory pattern is regular, symmetrical. GI: Reports lower abdominal pain. : Reports blood in urine. Derm: No deficits noted. No signs and/or symptoms reported regarding the dermatologic system. Musculoskeletal: No deficits noted. No signs and/or symptoms reported regarding the musculoskeletal system. 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 - Social history:: Smoking status: Reported history of juuling and/or vaping. - Family history:: not pertinent. Screenin:26 Abuse screen: Denies threats or abuse. Nutritional screening: No deficits noted. vc1 Tuberculosis screening: No symptoms or risk factors identified. 03:27 [facility] ED Fall Risk Assessment (Adult) History of falling in the last 3 months, vc1 including since admission No falls in past 3 months (0 pts) Confusion or Disorientation No (0 pts) Intoxicated or Sedated No (0 pts) Impaired Gait Yes (1 pt) Mobility Assist Device Used No (0 pt) Altered Elimination No (0 pt) Score/Fall Risk Level 0 - 2 = Low Risk Oriented to surroundings, Maintained a safe environment, Educated pt \T\ family on fall prevention, incl call for assistance when getting out of bed. Assessment: 03:37 General: Appears in no apparent distress. uncomfortable, Behavior is calm, cooperative, km8 appropriate for age. Pain: Complains of pain in left lower quadrant Pain currently is 8 out of 10 on a pain scale. Quality of pain is described as burning, aching, sharp. Neuro: Joyner Agitation-Sedation Scale (RASS): 0 - Alert and Calm Level of Consciousness is awake, alert, obeys commands, Oriented to person, place, time, situation. Cardiovascular: Denies chest pain, shortness of breath, Capillary refill < 3 seconds Patient's skin is warm and dry. Respiratory: Airway is patent Respiratory effort is even, unlabored, Respiratory pattern is regular, symmetrical. GI: Abdomen is non-distended, Abdomen is tender to palpation in left lower quadrant. : Reports blood x1 when urinating. EENT: No deficits noted. No signs and/or symptoms were reported regarding the EENT system. Derm: No signs and/or symptoms reported regarding the dermatologic system. Skin is intact, Skin is dry, Skin is normal, Skin temperature is warm. Musculoskeletal: No signs and/or symptoms reported regarding the musculoskeletal system. Circulation, motion, and sensation intact. Range of motion: intact in all extremities. 04:39 Reassessment: Patient appears in no apparent distress at this time. Patient and/or km8 family updated on plan of care and expected duration. Pain level reassessed. Patient is alert, oriented x 3, equal unlabored respirations, skin warm/dry/pink. pt reports pain is better, just complaining of nausea/dry heaving. Vital Signs: 03:10 BP 151 / 81; Pulse 100; Resp 18; Temp 97.1(O); Pulse Ox 98% on R/A; km8 03:19 BP 151 / 81; Pulse 102; Resp 18; Temp 97.8; Pulse Ox 99% ; Weight 95.71 kg; Height 4 vc1 ft. 11 in. ; Pain 9/10; 03:30 BP 113 / 79; Pulse 99; Resp 18; Pulse Ox 98% on R/A; km8 04:00 BP 115 / 83; Pulse 98; Resp 16 S; Pulse Ox 100% on R/A; km8 04:05 Pain 4/10; km8 04:30 BP 114 / 63; Pulse 92; Resp 16; Pulse Ox 99% on R/A; km8 05:07 BP 117 / 81; Pulse 86; Resp 16 S; Pulse Ox 98% on R/A; km8 03:19 Body Mass Index 42.62 (95.71 kg, 149.86 cm) vc1 03:19 Pain Scale: Adult vc1 04:05 Pain Scale: Adult km8 ED Course: 03:04 Patient arrived in ED. jj6 03:10 Shawn Gardner MD is Attending Physician. rt 03:23 Triage completed. vc1 03:24 Hermila Cruz, CHANDAN is Primary Nurse. km8 03:24 Arm band placed on right wrist. vc1 03:25 Inserted saline lock: 20 gauge in right antecubital area, using aseptic technique. km8 Blood collected. 03:27 Patient has correct armband on for positive identification. Bed in low position. Call vc1 light in reach. Pulse ox on. NIBP on. 03:37 Door closed. Noise minimized. Warm blanket given. 03:37 CBC with Diff Sent. 03:37 CMP Sent. 03:37 Lipase Sent. 03:37 Patient maintains SpO2 saturation greater than 95% on room air. 8 04:31 CT Abd/Pelvis - IV Contrast Only In Process Unspecified. EDMS 05:08 Provided Education on: d/c teaching. 05:08 No provider procedures requiring assistance completed. IV discontinued, intact, km8 bleeding controlled, No redness/swelling at site. Pressure dressing applied. Administered Medications: 03:39 Drug: Ondansetron IVP 4 mg IVP once; over 2 minutes Route: IVP; Site: right antecubital;km8 04:05 Follow up: Response: No adverse reaction; Nausea unchanged 03:39 Drug: HYDROmorphone IVP 1 mg IVP once Route: IVP; Site: right antecubital; km8 04:05 Follow up: Pain 4/10 Adult; Response: No adverse reaction; Pain is decreased 8 04:06 Drug: NS 0.9% IV 1000 ml IV at 1 bolus Per protocol; 1000 mL bolus Route: IV; Rate: 1 km8 bolus; Site: right antecubital; 05:07 Follow up: IV Status: Completed infusion; IV Intake: 500ml 04:07 Drug: Ondansetron IVP 4 mg IVP once; over 2 minutes Route: IVP; Site: right antecubital;km8 04:38 Follow up: Response: No adverse reaction; Nausea unchanged 04:38 Drug: Promethazine IVP 12.5 mg IVP once Route: IVP; Site: right antecubital; km8 05:04 Follow up: Response: No adverse reaction; Nausea is decreased km8 Medication: 03:26 VIS not applicable for this client. vc1 Intake: 05:07 IV: 500ml; Total: 500ml. 8 Outcome: 05:04 Discharge ordered by . rt 05:08 Discharged to home via wheelchair, with significant other, 8 05:08 Condition: good 05:08 Discharge instructions given to patient, significant other, Instructed on discharge instructions, follow up and referral plans. Demonstrated understanding of instructions, follow-up care, 05:11 Patient left the ED. km8 Signatures: Dispatcher [employer] ED Princess Duffy [id number] Lee Ann Farfan RN RN vc1 Shawn Gardner MD MD rt Hermila Cruz RN RN km8 Corrections: (The following items were deleted from the chart) 03:24 03:23 PMHx: ovarian cancer; vc1 vc1
--- NOTE | 2022-12-28 05:05 | EDPHYS ---
Physician Documentation [facility] Name: Thea Briceño Age: 32 yrs Sex: Female : 1990 Arrival Date: 12/28/2022 Time: 03:03 Bed 18 Private MD: ED Physician Shawn Gardner HPI: 12/28 04:26 This 32 yrs old Female presents to ER via Wheelchair with complaints of Pt has rt Stage III Ovarian Cancer, post 4th infusion patient has been urinating blood and having severe abd pain in lower left quad.. 04:26 Patient has a history of stage IV ovarian cancer is currently receiving a lumbee rt chemotherapeutic agent, last received last week. The patient presents to the ED with left lower quadrant pain starting this evening. She has associated nausea. Patient had 1 episode where she noticed some blood on the tissue after urinating but has since had a clear urination. She denies other acute complaints at this time. [place] 5 did not adequately improve her symptoms, symptoms are moderate severity, no other aggravating or elevating factors.. 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 - Social history:: Smoking status: Reported history of juuling and/or vaping. - Family history:: not pertinent. ROS: 04:26 Constitutional: Negative for fever, chills, and weight loss, rt 04:26 Cardiovascular: Negative for chest pain, palpitations, and edema, Respiratory: Negative for shortness of breath, cough, wheezing, and pleuritic chest pain, MS/Extremity: Negative for injury and deformity, Skin: Negative for injury, rash, and discoloration, Neuro: Negative for headache, weakness, numbness, tingling, and seizure, 04:26 Abdomen/GI: Positive for abdominal pain, nausea, 04:26 : Positive for hematuria, burning with urination, Exam: 04:26 Constitutional: This is a well developed, well nourished patient who is awake, alert, rt and in no acute distress. Head/Face: Normocephalic, atraumatic. Chest/axilla: Normal chest wall appearance and motion. Nontender with no deformity. No lesions are appreciated. Cardiovascular: Regular rate and rhythm with a normal S1 and S2. No gallops, murmurs, or rubs. Normal PMI, no JVD. No pulse deficits. Respiratory: Lungs have equal breath sounds bilaterally, clear to auscultation and percussion. No rales, rhonchi or wheezes noted. No increased work of breathing, no retractions or nasal flaring. Skin: Warm, dry with normal turgor. Normal color with no rashes, no lesions, and no evidence of cellulitis. MS/ Extremity: Pulses equal, no cyanosis. Neurovascular intact. Full, normal range of motion. Neuro: Awake and alert, GCS 15, oriented to person, place, time, and situation. Cranial nerves II-XII grossly intact. Motor strength 5/5 in all extremities. Sensory grossly intact. Cerebellar exam normal. Normal gait. Psych: Awake, alert, with orientation to person, place and time. Behavior, mood, and affect are within normal limits. 04:26 Abdomen/GI: Tenderness to left lower quadrant without rebound, guarding, distention, Vital Signs: 03:10 BP 151 / 81; Pulse 100; Resp 18; Temp 97.1(O); Pulse Ox 98% on R/A; km8 03:19 BP 151 / 81; Pulse 102; Resp 18; Temp 97.8; Pulse Ox 99% ; Weight 95.71 kg; Height 4 vc1 ft. 11 in. ; Pain 9/10; 03:30 BP 113 / 79; Pulse 99; Resp 18; Pulse Ox 98% on R/A; km8 04:00 BP 115 / 83; Pulse 98; Resp 16 S; Pulse Ox 100% on R/A; km8 04:05 Pain 4/10; km8 04:30 BP 114 / 63; Pulse 92; Resp 16; Pulse Ox 99% on R/A; km8 05:07 BP 117 / 81; Pulse 86; Resp 16 S; Pulse Ox 98% on R/A; km8 03:19 Body Mass Index 42.62 (95.71 kg, 149.86 cm) vc1 03:19 Pain Scale: Adult vc1 04:05 Pain Scale: Adult km8 MDM: 03:17 Patient medically screened. rt 05:06 Differential diagnosis: UTI, bowel obstruction, hemorrhage, diverticulitis. Data rt reviewed: vital signs, nurses notes, lab test result(s), radiologic studies. Consideration of Admission/Observation Escalation of care including admission/observation considered. Pain and nausea well controlled, patient later stated that she is currently taking antibiotics for a UTI, will forego urinalysis at this time. Labs, CT scan are benign, no indications for admission at this time, stable for outpatient care, comfortable to follow-up with an outpatient. Independent interpretation of the following test(s) in the Emergency Department CT Scan: My interpretation is No bowel obstruction syndrome interpretation of CT scan images. Care significantly affected by the following chronic conditions: Ovarian cancer. Counseling: I had a detailed discussion with the patient and/or guardian regarding the historical points, exam findings, and any diagnostic results supporting the discharge/admit diagnosis, lab results, radiology results, the need for outpatient follow up, to return to the emergency department if symptoms worsen or persist or if there are any questions or concerns that arise at home. Response to treatment: the patient's symptoms have markedly improved after treatment. 12/28 03:26 Order name: CBC with Diff; Complete Time: 03:58 rt 12/28 03:26 Order name: CMP; Complete Time: 03:58 rt 12/28 03:26 Order name: Lipase; Complete Time: 03:58 rt 12/28 03:26 Order name: CT Abd/Pelvis - IV Contrast Only rt 12/28 03:26 Order name: IV Saline Lock; Complete Time: 03:27 rt 12/28 03:26 Order name: Labs collected and sent; Complete Time: 03:27 rt Administered Medications: 03:39 Drug: Ondansetron IVP 4 mg IVP once; over 2 minutes Route: IVP; Site: right antecubital;km8 04:05 Follow up: Response: No adverse reaction; Nausea unchanged km8 03:39 Drug: HYDROmorphone IVP 1 mg IVP once Route: IVP; Site: right antecubital; km8 04:05 Follow up: Pain 4/10 Adult; Response: No adverse reaction; Pain is decreased km8 04:06 Drug: NS 0.9% IV 1000 ml IV at 1 bolus Per protocol; 1000 mL bolus Route: IV; Rate: 1 km8 bolus; Site: right antecubital; 05:07 Follow up: IV Status: Completed infusion; IV Intake: 500ml km8 04:07 Drug: Ondansetron IVP 4 mg IVP once; over 2 minutes Route: IVP; Site: right antecubital;km8 04:38 Follow up: Response: No adverse reaction; Nausea unchanged km8 04:38 Drug: Promethazine IVP 12.5 mg IVP once Route: IVP; Site: right antecubital; km8 05:04 Follow up: Response: No adverse reaction; Nausea is decreased 8 Disposition Summary: 12/28/22 05:04 Discharge Ordered Notes: Location: Home rt Problem: new rt Symptoms: have improved rt Condition: Stable rt Diagnosis - UTI/ Urinary tract infection, site not specified rt Followup: rt - With: Private Physician - When: 2 - 3 days - Reason: Discharge Instructions: - Discharge Summary Sheet rt - Urinary Tract Infection, Adult rt Forms: - Medication Reconciliation Form rt - Thank You Letter rt - Antibiotic Education rt - Prescription Opioid Use rt - Patient Portal Instructions rt - Leadership Thank You Letter rt Signatures: Dispatcher [employer] Lee Ann Mac, RN RN vc1 Shawn Gardner MD MD rt Hermila Cruz RN RN km8 Corrections: (The following items were deleted from the chart) 03:24 03:23 PMHx: ovarian cancer; vc1 vc1
[2022-12-28 05:38] VITALS: TEMP 97.8
[2022-12-28 05:44] VITALS: BP 117/81; O2SAT 98
--- NOTE | 2022-12-28 12:40 | RAD REPORT ---
EXAM DESCRIPTION: CT - Abdomen Pelvis W Contrast - 12/28/2022 6:28 am CLINICAL HISTORY: The patient is 32 years old and is Female; ABD PAIN TECHNIQUE: Axial computed tomography images of the abdomen and pelvis with intravenous contrast. S agittal and coronal reformatted images were created and reviewed. This CT exam was performed using one or more of the following dose reduction techniques: automated exposure control, adjustment of t he mA and/or kV according to patient size, and/or use of iterative reconstruction technique. COMPARISON: CT abdomen and pelvis with contrast December 13, 2021. FINDINGS: Lung bases: Unremarkable. No mass. No consolidation. ABDOMEN: Liver: Unremarkable. No mass. Gallbladder and bile ducts: Unremarkable. No calcified stones. No ductal dilation. Pancreas: Unremarkable. No mass. No ductal dilation. Spleen: Unremarkable. No splenomegaly. Adrenals: Unremarkable. No mass. Kidneys and ureters: Unremarkable. No solid mass. No hydronephrosis. Stomach and bowel: Soft tissue density and calcification in the fat adjacent to the splenic flexu re, similar to prior. No obstruction. No mucosal thickening. PELVIS: Appendix: No findings to suggest acute appendicitis. Bladder: Unremarkable. Reproductive: Uterus is not seen. ABDOMEN and PELVIS: Intraperitoneal space: Unremarkable. No free air. No significant fluid collection. Bones/joints: No acute fracture. No dislocation. Soft tissues: Unremarkable. Vasculature: Unremarkable. No abdominal aortic aneurysm. Lymph nodes: Unremarkable. No enlarged lymph nodes. IMPRESSION: No acute finding in the abdomen/pelvis. Electronically signed by: Matheus Anand MD 12/28/2022 4:44 AM CDT Due to temporary technical issues with the PACS/Fluency reporting system, reports are being signed by the in house radiologists without review as a courtesy to insure prompt reporting. The interpreting radiologist is fully responsible for the content of the report.
== END 2022-12-28 05:11 | disposition home or self-care (01) ==
LOC: ER 03:03
DX: N39.0 Urinary tract infection, site not specified (principal); C56.9 Malignant neoplasm of unspecified ovary; Z88.1 Allergy status to other antibiotic agents
CPT/HCPCS: 96361; 85025; 36415; 83690; 80053; 74177; 96375; 96374; 99285; Q9967; J2550; J1170; J2405 ×2; J7030

== ENCOUNTER → 2023-03-25 | Emergency (ER) | payer OTHER ==
[~2023-03-25] MED LIST: ACETAMINOPHEN 500 MG TAB ONE; CEFEPIME 2 GM VIAL ONE; NA CHLORIDE 0.9% 1,000 ML ONE; NA CHLORIDE 0.9% 100 ML ONE
--- OUTSIDE RECORDS SUMMARY | 2023-03-25 07:42 | XMS REPORT | Clinical Summary ---
Author Name Unknown Organization [facility] Address [address] [place] [address] Care Team Providers Care Aircraft Body Repairer Name Role Phone Mariel Farris TABLE TENDER Unavailable [phone] Kade Wilson MD Primary Care Provider [phone] Macarena Reveles MD Unavailable [phone] Allergies Active Allergy Reactions Criticality Noted Date Comments Carboplatin Other (See Comments) High 12/30/2022 Syncope and shaking Doxycycline GI Intolerance High 12/30/2022 Vomiting Medications Medication Sig Dispensed Refills Start Date End Date Status clonazePAM (KlonoPIN) 0.5 mg tablet Take 1 tablet (0.5 mg) by mouth twice daily. 0 1 Active FLUoxetine (PROzac) 40 mg capsule Take 1 capsule (40 mg) by mouth daily. 0 2 Active metoclopramide (REGLAN) 10 mg tablet Take 1 tablet (10 mg) by mouth as needed for nausea and vomiting. 0 3 Active morphine (MSIR) 15 mg IR tabletIndications: Abdominal pain,Ovarian cancer Take 0.5-1 tablets (7.5-15 mg) by mouth every 4 (four) hours as needed for severe pain or moderate pain. 15 tablet 0 3 Active ciprofloxacin HCl (Cipro) 500 mg tabletIndications: Dysuria Take 1 tablet (500 mg) by mouth twice daily. 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 Only to be used if flare up. 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 Only to be used if flare up. 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 Administer 1 hour before or 2 hours after a meal. Keep bottle refrigerated. 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 30 tablet 0 4 Active HYDROcodone-acetam inophen (NORCO) 5 mg-325 mg per tablet Take 1 tablet by mouth every 6 (six) hours as needed for moderate pain. 0 1 01/01/20 23 Discontinued HYDROcodone-acetam inophen (NORCO) 5 mg-325 mg per tablet Take 1 tablet by mouth every 6 (six) hours as needed for moderate pain. 0 03/03/19 24 Discontinued fluconazole (Diflucan) 200 mg tabletIndications: Dysuria,Pruritus of vagina Take 1 tablet (200 mg) by mouth once for 1 dose. If symptoms do not improve within 72 hours, then take second pill 1 tablet 1 3 01/21/20 23 peg 3350-electrolytes (Golytely) 236-22.74-6.74 g solutionIndication s:Colonoscopy planned Use as directed by ordering provider. 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 Pelvic pain 06/12/2020 Generalized abdominal pain 06/07/2020 Encounters Date Type Department Care Team Description 03/25/2023 Nurse Triage [facility] [address] [place] [address] Анна Fraire APRN 03/20/2023 Orders Only MD Ferrer [facility] - [address] [address] Vera Narayan PA 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> (Primary Dx) 03/17/2023 Travel 03/11/2023 Prep for [facility]ology , Hepatology & Nutrition [address] [facility], 7th [place] [address] Jax Chaudhary MD Intestinal metaplasia of gastric mucosa (Primary Dx) 03/03/2023 11:00 AM CRANE FOLLOWER Follow-Up MD Ferrer [address] [address] Kade Wilson MD Cancer associated pain (Primary Dx); 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, Floor [address] [place] [address] Jax Chaudhary MD DIAGNOSTIC FLEXIBLE COLONOSCOPY PROXIMAL TO SPLENIC FLEXURE 02/19/2023 12:25 PM CRANE FOLLOWER Anesthesia Event [facility] - Endoscopy 0 [facility], Floor [address] [place] [address] Roger Arrington MD 02/19/2023 11:35 AM CRANE FOLLOWER - 02/19/2023 2:40 PM CRANE FOLLOWER Hospital Encounter [facility] - Endoscopy 0 [facility], Floor [address] [place] [address] Jax Chaudhary MD History of rectal bleeding; Gastroesophageal reflux disease; Regurgitation of food; Dysphagia, not otherwise specified; Endoscopy abnormal Discharge Disposition: Home 02/19/2023 Travel 02/14/2023 4:30 PM CRANE FOLLOWER POEM Appointments [facility] [address] [place] [address], 6th [place] [address] Kade Wilson MD 02/13/2023 11:59 PM CRANE FOLLOWER Anesthesia Event [facility] [address] [place] [address], [facility] [place] [address] Elio Eddy RN 02/13/2023 9:41 AM CRANE FOLLOWER Anesthesia Event [facility] [address] [place] [address], [facility] [place] [address] Acacia Cabrera, RN 02/11/2023 Documentation MD Ferrer [facility] - GI, Hepatology & Nutrition [address] [place] [address] Jennifer Bonilla, RN 02/07/2023 Orders Only MD Ferrer in [place] - Gynecology [address] [place] [address] Mecca Armstrong PA 02/06/2023 4:00 PM CRANE FOLLOWER POEM Appointments [facility] [address] [place] [address], 6th [place] [address] Kade Wilson MD 02/06/2023 Orders Only MD Ferrer in [place] - [address] [address] Mecca Armstrong PA 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> (Primary Dx) 02/06/2023 Orders Only MD Ferrer in [place] - [address] [address] Mecca Armstrong PA Primary low grade serous adenocarcinoma of ovary <Bilateral> (Primary Dx) 02/04/2023 Documentation [facility] TRANSL MOLE[facility] Venus Parekh 01/30/2023 10:00 AM CRANE FOLLOWER Telemedicine [facility] - GI, Hepatology & Nutrition [address] [facility] [address] [place] [address] Macarena Reveles MD History of rectal bleeding; Primary low grade serous adenocarcinoma of ovary <Bilateral> 01/30/2023 Prep for Surgery [facility] - GI, Hepatology & Nutrition [address] [facility] [address] [place] [address] Vicenta Delgado PA Colonoscopy planned (Primary Dx); History of rectal bleeding; Gastroesophageal reflux disease; Regurgitation of food; Dysphagia, not otherwise specified; Endoscopy abnormal 01/29/2023 8:00 AM CRANE FOLLOWER Telephone MD Ferrer in [address] [address] Mecca Armstrong PA 01/28/2023 Orders Only MD Ferrer in [place] - [address] [address] Mecca Armstrong PA Primary low grade serous adenocarcinoma of ovary <Bilateral> (Primary Dx) 01/24/2023 Orders Only MD Ferrer in [place] - [address] [address] Mecca Armstrong PA 01/24/2023 Lab Requisition [facility] Salty Andre MD Helekar, Bharati Santosh, MD 01/24/2023 Lab Requisition [facility] Salty Andre MD Elshaikh, Abubaker, MD Discharge Disposition: Home 01/23/2023 4:00 PM CRANE FOLLOWER Multidisciplinary Visit [facility]nec[facility] Oncology Center [address] [facility], 6th [place] [address] Mecca Armstrong PA Primary low grade serous adenocarcinoma of ovary <Bilateral> 01/23/2023 Travel 01/20/2023 1:00 PM CRANE FOLLOWER Office Visit MD Ferrer in [place] - Gynecology [address] [place] [address] Kade Wilson MD Primary low grade serous adenocarcinoma of ovary <Bilateral> (Primary Dx); Dysuria; Pruritus of vagina 01/20/2023 12:00 PM CRANE FOLLOWER NPR [facility] PATIENT ACCESS 01/20/2023 Travel 12/30/2022 11:50 PM CRANE FOLLOWER - 12/31/2022 6:10 AM CRANE FOLLOWER Emergency [facility] [address] [facility], 1st [place] [address] Kourtney Jerry MD Abdominal pain (Primary Dx); Ovarian cancer Discharge Disposition: Home 12/30/2022 Travel after 03/25/2022 Surgical History Surgery Date Site/Laterality Comments HYSTERECTOMY UPPER GASTROINTESTINAL ENDOSCOPY COLONOSCOPY 07/2022 LAPAROSCOPIC SALPINGO OOPHORECTOMY Bilate ral omentectomy, radical pelvic resection of bilaterial adnexal masses CA COLONOSCOPY FLX DX W/ALEX J SPEC WHEN PFRMD 02/19/2023 N/A Procedure: DIAGNOSTIC FLEXIBLE COLONOSCOPY PROXIMAL TO SPLENIC FLEXURE; Surgeon: Jax Chaudhary MD; Location: [facility]; Service: GASTROENTEROLOGY CA ESOPHAGOGASTRODUODENOSCOP Y TRANSORAL DIAGNOSTIC 02/19/2023 Esophagus/N/A Procedure: DIAGNOSTIC UPPER GASTROINTESTINAL ENDOSCOPY; Surgeon: Jax Chaudhary MD; Location: [facility]; Service: GASTROENTEROLOGY Medical History Medical History Date Comments Neuropathy hands to elbows numbness, legs weakness bilateral Fatty liver Diverticulitis 07/2022, mild no t treated Endometriosis Depressive disorder Anxiety Bipolar disorder Ovarian cancer Family History Medical History Relation Name Comments Breast cancer Maternal Aunt Jemima Kelly Pancreatic cancer Maternal Grandmother Diana barker Colon cancer Paternal Grandfather Heriberto Relation Name Status Comments Maternal Aunt Jemima Kelly Maternal Grandmother Diana lo Paternal Grandfather Heriberto Social History Tobacco Use Types Packs/Day Years Used Date Smoking Tobacco: Former Cigarettes 0.3 4 Smokeless Tobacco: Never Tobacco Cessation:Counseling Given: Not Answered Alcohol Use Standard Drinks/Week Comments Not Currently 1 (1 standard drink = 0.6 oz pur e alcohol) Sex and Gender Information Value Date Recorded Sex Assigned at Not on file Gender Identity Not on file Sexual Orientation Not on file Job Start Date Occupation Industry Not on file Not on file Not on file Obstetrics History Para Term AB IAB SAB Ectopic Multiple Livin g Live Births 7 0 7 Date Outcome GA Total Labor Labor/2nd/3rd Weight Sex Delivery Anes PTL Opal A1 A5 Name Cl in AB AB AB AB AB AB AB Comments Menarche: 10 Last pap: 07/2021 Colonoscopy 07/2022 Mammogram: never Last Filed Vital Signs Vital Sign Reading Time Taken Comments Blood Pressure 107/78 02/19/2023 2:25 PM CRANE FOLLOWER Pulse 66 02/19/2023 2:25 PM CRANE FOLLOWER Temperature 36.8 C (98.2 F) 02/19/2023 2:25 PM CS T Respiratory Rate 15 02/19/2023 2:25 PM CRANE FOLLOWER Oxygen Saturation 97% 02/19/2023 2:25 PM CRANE FOLLOWER Inhaled Oxygen Concentration - - Weight 95.4 kg (210 lb 5.1 oz) 02/19/2023 12:16 PM CRANE FOLLOWER Height 154 cm (5' 0.63") 01/20/2023 12:59 PM CRANE FOLLOWER Body Mass Index 40.23 01/20/2023 12:59 PM CRANE FOLLOWER Plan of Treatment Upcoming Encounters Date Type Department Care Team Description 04/14/2023 8:15 AM CRANE FOLLOWER Lab MD [facility] [address] [place] [address] [address] [place] [address] Kade Wilson MD [address] [place] [address] 04/14/2023 8:30 AM CRANE FOLLOWER Appointment MD [facility] Kim - Cardiology [address] [place] [address] [address] [place] [address] Kade Wilson MD [facility] [place] [address] 04/14/2023 9:30 AM CRANE FOLLOWER Follow-Up MD Ferrer in [place] - Gynecology [address] [place] [address] Kade Wilson MD [address] [place] [address] 04/14/2023 3:00 PM CRANE FOLLOWER Appointment MD Ferrer [facility] - Cardiology [address] 3rd [place] [address] Kade Wilson MD [address] [place] [id number] 06/03/2023 Hospital Encounter [facility] - Endoscopy [address] 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> URINALYSIS WITH MICROSCOPIC IF INDICATED Routine 03/03/2023 11:47 AM CRANE FOLLOWER Dysuria URINE CULTURE Routine 03/03/2023 11:47 AM CRANE FOLLOWER Dysuria .CBC Routine 03/03/2023 10:36 AM CRANE FOLLOWER 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> CANCER ANTIGEN 125 Routine 03/03/2023 10:36 AM CRANE FOLLOWER 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> PHOSPHORUS LEVEL Routine 03/03/2023 10:36 AM CRANE FOLLOWER 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> MAGNESIUM LEVEL Routine 03/03/2023 10:36 AM CRANE FOLLOWER 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> COMPLETE BLOOD COUNT W/ DIFFERENTIAL Routine 03/03/2023 10:36 AM CRANE FOLLOWER 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> COMPREHENSIVE METABOLIC PANEL Routine 03/03/2023 10:36 AM CRANE FOLLOWER 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> EKG, 12-LEAD (SCHEDULED) Routine 03/03/2023 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> POC GLUCOSE SCREEN Routine 02/19/2023 1:05 PM CRANE FOLLOWER PATHOLOGY BIOPSY INTERPRETATION Routine 02/19/2023 12:35 PM CRANE FOLLOWER History of rectal bleeding Gastroesophageal reflux disease Regurgitation of food Dysphagia, not otherwise specified Endoscopy abnormal DIAGNOSTIC UPPER GASTROINTESTINAL ENDOSCOPY 02/19/2023 12:15 PM CRANE FOLLOWER History of rectal bleeding Gastroesophageal reflux disease Regurgitation of food Dysphagia, not otherwise specified Endoscopy abnormal Case Notes 02/13 moved down 10 minutes -dc12/7 asking leadership for assistance in finding a slotPatient called to reschedule procedure due to ride; She is requesting to schedule after 02/14/2023 - Leadership and Endosccope has been notified, patient is FT 02/06/2023 TRS DIAGNOSTIC FLEXIBLE COLONOSCOPY PROXIMAL TO SPLENIC FLEXURE 02/19/2023 12:15 PM CRANE FOLLOWER History of rectal bleeding Gastroesophageal reflux disease Regurgitation of food Dysphagia, not otherwise specified Endoscopy abnormal Case Notes 02/13 moved down 10 minutes -dc12/7 asking leadership for assistance in finding a slotPatient called to reschedule procedure due to ride; She is requesting to schedule after 02/14/2023 - Leadership and Endosccope has been notified, patient is FT 02/06/2023 TRS URINALYSIS MICROSCOPIC EXAM Routine 01/20/2023 2:50 PM CRANE FOLLOWER Dysuria .CBC Routine 01/20/2023 2:50 PM CRANE FOLLOWER Primary low grade serous adenocarcinoma of ovary <Bilateral> CANCER ANTIGEN 125 Routine 01/20/2023 2:50 PM CRANE FOLLOWER Primary low grade serous adenocarcinoma of ovary <Bilateral> HIV 1/2 ANTIGEN/ANTIBODY, FOURTH GEN W/RFL Routine 01/20/2023 2:50 PM CRANE FOLLOWER Primary low grade serous adenocarcinoma of ovary <Bilateral> HEPATITIS C VIRUS ANTIBODY Routine 01/20/2023 2:50 PM CRANE FOLLOWER Primary low grade serous adenocarcinoma of ovary <Bilateral> HEPATITIS B CORE ANTIBODY Routine 01/20/2023 2:50 PM CRANE FOLLOWER Primary low grade serous adenocarcinoma of ovary <Bilateral> HEPATITIS B SURFACE ANTIGEN Routine 01/20/2023 2:50 PM CRANE FOLLOWER Primary low grade serous adenocarcinoma of ovary <Bilateral> HEPATITIS B SURFACE ANTIBODY Routine 01/20/2023 2:50 PM CRANE FOLLOWER Primary low grade serous adenocarcinoma of ovary <Bilateral> HEMOGLOBIN A1C Routine 01/20/2023 2:50 PM CRANE FOLLOWER Primary low grade serous adenocarcinoma of ovary <Bilateral> COMPREHENSIVE METABOLIC PANEL Routine 01/20/2023 2:50 PM CRANE FOLLOWER Primary low grade serous adenocarcinoma of ovary <Bilateral> COMPLETE BLOOD COUNT W/ DIFFERENTIAL Routine 01/20/2023 2:50 PM CRANE FOLLOWER Primary low grade serous adenocarcinoma of ovary <Bilateral> URINALYSIS WITH MICROSCOPIC IF INDICATED Routine 01/20/2023 2:50 PM CRANE FOLLOWER Dysuria URINE CULTURE Routine 01/20/2023 2:50 PM CR[address] FOLLOWER Dys[address] CT ABDOMEN PELVIS W CONTRAST STAT 12/31/2022 4:15 AM CRANE FOLLOWER VERIFY CATHETER TIP PLACEMENT Routine 12/31/2022 2:37 AM CRANE FOLLOWER Abdominal pain Ovarian cancer XR CHEST 1 VW Routine 12/31/2022 2:04 AM CRANE FOLLOWER URINALYSIS MICROSCOPIC EXAM Routine 12/31/2022 1:37 AM CRANE FOLLOWER URINALYSIS WITH MICROSCOPIC IF INDICATED Routine 12/31/2022 1:37 AM CRANE FOLLOWER URINE CULTURE Routine 12/31/2022 1:37 AM CRANE FOLLOWER .CBC Routine 12/31/2022 12:29 AM CRANE FOLLOWER LIPASE LEVEL Routine 12/31/2022 12:29 AM CRANE FOLLOWER AMYLASE LEVEL Routine 12/31/2022 12:29 AM CRANE FOLLOWER LACTATE DEHYDROGENASE Routine 12/31/2022 12:29 AM CRANE FOLLOWER PHOSPHORUS LEVEL Routine 12/31/2022 12:29 AM CRANE FOLLOWER MAGNESIUM LEVEL Routine 12/31/2022 12:29 AM CRANE FOLLOWER COMPREHENSIVE METABOLIC PANEL Routine 12/31/2022 12:29 AM CRANE FOLLOWER COMPLETE BLOOD COUNT W/ DIFFERENTIAL Routine 12/31/2022 12:29 AM CRANE FOLLOWER after 03/25/2022 Results * Echocardiogram 2D Complete (03/17/2023 2:12 PM CRANE FOLLOWER) EF 62 [facility] 03/17/2023 1:05 PM CRANE FOLLOWER [facility] 03/17/2023 3:09 PM CRANE FOLLOWER Echocardiographic Report Interpretation Summary A complete two-dimensional transthoracic echocardiogram was performed (2D, M- mode, Doppler and color flow Doppler). The study was technically adequate and no previous studies are available for comparison. Normal left ventricular size and systolic function. LV ejection fraction calculated using the bi-plane method of disks is 62 %. The right ventricle is normal in size and function. There is no pericardial effusion. Left Ventricle: Normal left ventricular size and systolic function. LV ejection fraction calculated using the bi-plane method of disks is 62 %. I WMSI = 1.00 % Normal = 100 Segments Size X - Cannot 2 - 1-2 small Interpret 1 - Normal Hypokinetic 3 - Akinetic 4 - Dyskinetic3- 5 moderate 5 - Aneurysmal 6-14 large 15-16 diffuse Cardiac Mechanics/Speckle Tracking Imaging: Normal global longitudinal peak systolic value. Diastology: Normal diastolic function. Right Ventricle: The right ventricle is normal in size and function. Normal RV systolic function using TAPSE criteria. Atria: Atria are normal in size. Mitral Valve: The mitral valve is grossly normal. Tricuspid Valve: The tricuspid valve is not well visualized, but is grossly normal. Right ventricular systolic pressure is normal. There is trace tricuspid regurgitation. Aortic Valve: The aortic valve is trileaflet. The aortic valve opens well. Pulmonic Valve: The pulmonic valve is not well visualized. Great Vessels: The aortic root is normal size. The inferior vena cava demonstrates normal size and normal respiratory variation. Pericardium/Pleural: There is no pericardial effusion. MMode/2D Measurements IVSd: 0.98 cm LVIDd: 4.3 cm LVIDs: 2.7 cm LVPWd: 1.0 cm FS: 37.5 % Ao root diam: 2.4 cm Ao root area: 4.6 cm2 LA dimension: 3.2 cm LVOT diam: 2.1 cm EDV(MOD-A4C): 56.7 ml ESV(MOD-A4C): 21.7 ml LVOT area: 3.5 cm2 EF(MOD-A4C): 61.7 % EDV(MOD-A2C): 69.6 ml ESV(MOD-A2C): 27.6 ml EDV(MOD-bp): 65.1 ml EF(MOD-A2C): 60.4 % ESV(MOD-bp): 24.5 ml EF(MOD-bp): 62.3 % LAV(MOD-A2C): 19.0 ml LAV(MOD-A4C): 20.4 ml EDV (MOD-bp) Index: 33.9 ml/m2 LAV(MOD-bp): 20.5 ml LAV(MOD-bp) Indexed: 10.7 ml/m2 ESV (MOD-bp) Index: 12.8 ml/m2 RWT: 0.47 cm TAPSE (>1.6): 1.9 cm Doppler Measurements MV E max get: 76.0 cm/sec MV V2 max: 78.5 cm/sec MV A max egt: 59.2 cm/sec MV max P.5 mmHg MV E/A: 1.3 MV V2 mean: 44.9 cm/sec MV mean P.92 mmHg MV V2 VTI: 20.3 cm MVA(VTI): 3.5 cm2 MV dec time: 0.22 sec Ao V2 max: 115.4 cm/sec Ao max P.3 mmHg Ao V2 mean: 80.6 cm/sec Ao mean P.8 mmHg Ao V2 VTI: 22.4 cm JASON(I,D): 3.2 cm2 JASON(V,D): 3.2 cm2 LV V1 max P.3 mmHg SV(LVOT): 71.4 ml LV V1 mean P.1 mmHg LV V1 max: 103.9 cm/sec LV V1 mean: 68.8 cm/sec LV V1 VTI: 20.4 cm Med Peak E' Get: 9.4 cm/sec Lat Peak E' Get: 14.7 cm/sec TR max get: 213.5 cm/sec RAP systole: 3.0 mmHg TR max P.2 mmHg RVSP(TR): 21.2 mmHg JASON Index (I,D): 1.7 JASON Index (V,D): 1.6 Dimensionless Index: 0.90 E/e' (avg): 6.3 E/e' (lat): 5.2 E/e' (sept): 8.1 Procedure Note Thai Ryan MD - 03/17/2023 Echocardiographic Report Interpretation Summary A complete two-dimensional transthoracic echocardiogram was performed (2D,M- mode, Doppler and color flow Doppler). The study was technicallyadequate and no previous studies are available for comparison. Normal left ventricular size and systolic function. LV ejection fraction calculated using the bi-plane method of disks is 62%. The right ventricle is normal in size and function. There is no pericardial effusion. Left Ventricle: Normal left ventricular size and systolic function. LV ejection fractioncalculated using the bi-plane method of disks is 62 %. I WMSI = 1.00 % Normal = 100 Segments Size X - Cannot 2 - 1-2small Interpret 1 - Normal Hypokinetic 3 - Akinetic 4 - Dyskinetic3-5moderate 5 - Aneurysmal6-14 large 15-16 diffuse Cardiac Mechanics/Speckle Tracking Imaging: Normal global longitudinal peak systolic value. Diastology: Normal diastolic function. Right Ventricle: The right ventricle is normal in size and function. Normal RV systolicfunction using TAPSE criteria. Atria: Atria are normal in size. Mitral Valve: The mitral valve is grossly normal. Tricuspid Valve: The tricuspid valve is not well visualized, but is grossly normal. Rightventricular systolic pressure is normal. There is trace tricuspidregurgitation. Aortic Valve: The aortic valve is trileaflet. The aortic valve opens well. Pulmonic Valve: The pulmonic valve is not well visualized. Great Vessels: The aortic root is normal size. The inferior vena cava demonstrates normalsize and normal respiratory variation. Pericardium/Pleural: There is no pericardial effusion. MMode/2D Measurements IVSd: 0.98 cmLVIDd: 4.3 cm LVIDs: 2.7 cm LVPWd: 1.0 cm FS: 37.5 %Ao root diam: 2.4 cm Ao root area: 4.6 cm2 LA dimension: 3.2 cm LVOT diam: 2.1 cmEDV(MOD-A4C): 56.7 ml ESV(MOD-A4C): 21.7 ml LVOT area: 3.5 cm2EF(MOD-A4C): 61.7 % EDV(MOD-A2C): 69.6 ml ESV(MOD-A2C): 27.6 mlEDV(MOD-bp): 65.1 ml EF(MOD-A2C): 60.4 %ESV(MOD-bp): 24.5 ml EF(MOD-bp): 62.3 % LAV(MOD-A2C): 19.0 ml LAV(MOD-A4C): 20.4 mlEDV (MOD-bp) Index: 33.9 ml/m2 LAV(MOD-bp): 20.5 ml LAV(MOD-bp) Indexed: 10.7 ml/m2 ESV (MOD-bp) Index: 12.8 ml/m2RWT: 0.47 cm TAPSE (>1.6): 1.9 cm Doppler Measurements MV E max get: 76.0 cm/secMV V2 max: 78.5 cm/sec MV A max get: 59.2 cm/secMV max P.5 mmHg MV E/A: 1.3MV V2 mean: 44.9 cm/sec MV mean P.92 mmHg MV V2 VTI: 20.3 cm MVA(VTI): 3.5 cm2 MV dec time: 0.22 secAo V2 max: 115.4 cm/sec Ao max P.3 mmHg Ao V2 mean: 80.6 cm/sec Ao mean P.8 mmHg Ao V2 VTI: 22.4 cm JASON(I,D): 3.2 cm2 JASON(V,D): 3.2 cm2 LV V1 max P.3 mmHgSV(LVOT): 71.4 ml LV V1 mean P.1 mmHg LV V1 max: 103.9 cm/sec LV V1 mean: 68.8 cm/sec LV V1 VTI: 20.4 cm Med Peak E' Get: 9.4 cm/secLat Peak E' Get: 14.7 cm/sec TR max get: 213.5 cm/secRAP systole: 3.0 mmHg TR max P.2 mmHg RVSP(TR): 21.2 mmHg JASON Index (I,D): 1.7AVA Index (V,D): 1.6 Dimensionless Index: 0.90E/e' (avg): 6.3 E/e' (lat): 5.2E/e' (sept): 8.1 Mecca MAURER CV ECHO ORDERABLES ISCV * Urinalysis w/Microscopic if Indicated (03/03/2023 11:47 AM [facility]) Only the most recent of3 resultswithin the time period is included. Urine Appearance Clear Clear 03/03/19 24 12:21 PM [facility] [place] Urine Color Yellow Colorless, Straw, Light Yellow, Yellow, Dark Yellow, Straw-Yellow 03/03/2023 12:21 PM [facility] [place] Urine Specific [place] 1.030 1.003 - 1.035 03/03/2023 12:21 PM [facility] [place] Urine pH 6.0 5.0 - 8.0 03/03/2023 12:21 PM [facility] [place] Urine Glucose Negative Negative mg/dL 03/03/2023 12:21 PM [facility] [place] Urine Ketones Negative Negative mg/dL 03/03/2023 12:21 PM [facility] [place] Urine Blood Negative Negative 03/03/2023 12:21 PM [facility] [place] Urine Protein Negative Negative mg/dL 03/03/2023 12:21 PM [facility] [place] Urine Bilirubin Negative Negative 12:21 PM [facility] [place] Urine Urobilinogen Negative Negative 03/03/2023 12:21 PM [facility] [place] Urine Nitrite Negative Negative 03/03/2023 12:21 PM [facility] [place] Urine Leukocyte Esterase Negative Negative 03/03/2023 12:21 PM [facility] [place] Urine Voided urine specimen / Unknown Non-blood Collection / Unknown 03/03/2023 11:47 AM [facility] 03/03/2023 11:56 AM [facility] [place] - 03/03/2023 12:21 PM [facility] Some reporting parameters within the Urinalysis test have changed due to the implementation of new instrumentation in the Main [place], allowing greater sensitivity of measurement. Urinalysis results reported by the [facility] using existing instrumentation, as well as Urinalysis testing performed manually or by back-up methodology at the main campus, will remain relatively unchanged. New reporting parameters and units will now be reported for all campuses. No microscopic exam performed; physiochemical findings are negative Mecca MAURER URINE ORDERABLES [facility] [address], [address] [place] [address] * Urine Culture (03/03/2023 11:47 AM [facility]) Only the most recent of3 resultswithin the time period is included. Urine Culture Normal site lorraine present. Generally of low significance. Correlate with clinical data and culture history. 03/05/2023 7:25 AM [facility] [place] Urine Voided urine specimen / Unknown Non-blood Collection / Unknown 03/03/2023 11:47 AM [facility] 03/03/2023 11:56 AM [facility] Mecca MAURER MICROBIOLOGY - GENER AL ORDERABLES [facility] Unless otherwise noted, all lab tests performed by: Division of Pathology and Laboratory Medicine [address] [place] [id number] * (ABNORMAL) .CBC (03/03/2023 10:36 AM [facility]) Only the most recent of3 resultswithin the time period is included. White Blood Cell 6.1 4.1 - 10.5 K/uL 03/03/2023 10:44 AM [facility] [place] Red Blood Cell 4.55 3.99 - 5.46 M/uL 03/03/2023 10:44 AM [facility] [place] Hemoglobin 13.6 12.2 - 15.3 g/dL 03/03/2023 10:44 AM [facility] [place] Hematocrit 41.2 36.4 - 46.8 % 03/03/2023 10:44 AM [facility] [place] Mean Cell Volume 91 82 - 99 fL 03/03/19 10:44 AM [facility] [place] Mean Cell Hemoglobin 29.9 26.6 - 33.2 pg 03/03/2023 10:44 AM [facility] [place] Mean Cell Hemoglobin Concentration 33.0 31.1 - 35.2 g/dL 03/03/2023 10:44 AM [facility] [place] RDW-SD 43.2 37.5 - 49.7 fL 03/03/2023 10:44 AM [facility] [place] Red Cell Diameter Width 13.3 11.6 - 15.5 % 03/03/2023 10:44 AM [facility] [place] Platelet 323 160 - 397 K/uL 03/03/2023 10:44 AM [facility] [place] Mean Platelet Volume 8.9(L) 9.1 - 12.6 fL 03/03/2023 10:44 AM [facility] [place] Neutrophil % 54.8 43.2 - 72.7 % 03/03/2023 10:44 AM [facility] [place] Lymphocyte % 35.0 16.8 - 46.2 % 03/03/2023 10:44 AM [facility] [place] Monocyte % 7.2 5.1 - 12.5 % 03/03/2023 10:44 AM [facility] [place] Eosinophil % 2.5 0.4 - 6.3 % 03/03/2023 10:44 AM [facility] [place] Basophil % 0.5 0.2 - 1.4 % 03/03/2023 10:44 AM [facility] [place] Neutrophil Abs 3.33 1.95 - 7.25 K/uL 03/03/2023 10:44 AM [facility] [place] Lymphocyte Abs 2.13 1.01 - 3.24 K/uL 03/03/2023 10:44 AM [facility] [place] Monocyte Abs 0.44 0.24 - 0.85 K/uL 03/03/2023 10:44 AM [facility] [place] Eosinophil Abs 0.15 0.02 - 0.50 K/uL 03/03/2023 10:44 AM [facility] [place] Basophil Abs 0.03 0.02 - 0.09 K/uL 03/03/2023 10:44 AM [facility] [place] Blood Peripheral blood specimen / Unknown Venipuncture / Unknown 03/03/2023 10:36 AM [facility] 03/03/2023 10:38 AM [facility] Mecca MAURER LAB BLOOD ORDERABLES [facility] [address], [address] [place] [address] * (ABNORMAL) Comprehensive Metabolic Panel (03/03/2023 10:36 AM [facility]) Only the most recent of3 resultswithin the time period is included. Bilirubin Total 0.3 <=1.2 mg/dL 03/03/2023 11:02 AM [facility] Comment: Indocyanine Green (ICG) may cause falsely elevated bilirubin results. Total and direct bilirubin must not be measured from samples containing indocyanine green. False elevation of total bilirubin can be seen in patients with IgG concentrations above 28 g/L. This result was previously suppressed from the chart. Bilirubin Direct <0.2 <=0.3 mg/dL 03/03/2023 11:02 AM [facility] [place] Comment: Indocyanine Green (ICG) may cause falsely elevated bilirubin results. Total and direct bilirubin must not be measured from samples containing indocyanine green. This result was previously suppressed from the chart. Bilirubin Indirect 2023 11:02 AM [facility] [place] Comment:Unable to calculate Indirect Bilirubin result due to some parameters are outside reportable range eGFR 109 >=60 mL/min/1. 73 sq. m 03/03/2023 11:02 AM [facility] [place] Comment: The eGFRcr is calculated with the 2020 CKD-EPI creatinine equation using creatinine, patient's age, and sex for adults 18 years of age and older. Other factors, especially muscle mass, may affect accuracy and need to be considered. According to the Kidney Disease: Improving Global Outcomes (KDIGO) CKD Work Group 2012 Clinical Practice Guideline, chronic kidney disease (CKD) is defined as the abnormalities of kidney structure or function, present for more than 3 months, with implications for health. CKD should be classified by cause, GFR category, and albuminuria category. KDIGO guidelines provide the following GFR categories. Stage / Description / GFR mL/min/1.73 m2: G1* / Normal or high / >= 90 G2* / Mildly decreased / 60-89 G3a / Mildly to moderately decreased / 45-59 G3b / Moderately to severely decreased / 30-44 G4 / Severely decreased / 15-29 G5 / Kidney failure / <15 *In the absence of evidence of kidney damage, neither G1 nor G2 fulfill criteria for CKD. Tot Protein 7.6 6.4 - 8.3 gm/dL 03/03/2023 11:02 AM [facility] [place] Comment:This result was prev iously suppressed from the chart. Calcium Level Total 9.4 8.2 - 10.2 mg/dL 03/03/2023 11:02 AM [facility] [place] Comment:This result was prev iously suppressed from the chart. Alkaline Phosphatase 95 35 - 104 U/L 03/03/2023 11:02 AM [facility] [place] Comment:This result was prev iously suppressed from the chart. Albumin Level 4.4 3.5 - 5.2 gm/dL 03/03/2023 11:02 AM [facility] [place] Comment:This result was prev iously suppressed from the chart. AST 20 <=32 U/L 03/03/2023 11:02 AM [facility] [place] Comment:This result was prev iously suppressed from the chart. ALT 26 <=33 U/L 03/03/2023 11:02 AM [facility] [place] Comment:This result was prev iously suppressed from the chart. Sodium Level 138 136 - 145 mmol/L 03/03/2023 11:02 AM [facility] [place] Comment:This result was prev iously suppressed from the chart. Potassium Level 3.8 3.4 - 4.5 mmol/L 03/03/2023 11:02 AM [facility] [place] Comment:This result was prev iously suppressed from the chart. Chloride 103 98 - 107 mmol/L 03/03/2023 11:02 AM [facility] [place] Comment:This result was prev iously suppressed from the chart. CO2 26 22 - 29 mmol/L 03/03/2023 11:02 AM [facility] [place] Comment:This result was prev iously suppressed from the chart. Anion Gap 9 4 - 14 mmol/L 03/03/2023 11:02 AM [facility] [place] Comment:This result was prev iously suppressed from the chart. Creatinine 0.74 0.51 - 0.95 mg/dL 03/03/2023 11:02 AM [facility] [place] Comment:This result was prev iously suppressed from the chart. BUN 13 6 - 23 mg/dL 03/03/2023 11:02 AM [facility] [place] Comment:This result was prev iously suppressed from the chart. Glucose Level 116(H) 70 - 99 mg/dL 03/03/2023 11:02 AM [facility] [place] Comment: Effective 09/20/15, the glucose reference intervals have been updated based on [place] [employer] guidelines (Standards of Medical Care in Diabetes 2016. Diabetes Care 2016; 39: S13-S22). Fasting blood glucose: Normal: 70-99 mg/dL Impaired fasting glucose (increased risk for diabetes or pre-diabetes): 100-125 mg/dL Diabetes mellitus: >/=126 mg/dL Random blood glucose: Normal: 70-199 mg/dL Note: Random glucose >100 mg/dL is associated with increased risk for diabetes. This result was previously suppressed from the chart. Blood Peripheral blood specimen / Unknown Venipuncture / Unknown 03/03/2023 10:36 AM [facility] 03/03/2023 10:38 AM [facility] Mecca Armstrong PA LAB BLOOD ORDERABLES Performing Organization Address City/[facility]/ZIP Co de Phone Number [address], [address] [place] [id number] * CA 125 (03/03/2023 10:36 AM CR[facility]LLOWER) Only the most recent of2 resultswithin the time period is included. Cancer Antigen 125 31.6 <=38.0 U/mL 03/03/2023 11:12 AM [facility] Blood Peripheral blood specimen / Unknown Venipuncture / Unknown 03/03/2023 10:36 AM [facility] 03/03/2023 10:38 AM [facility] Narrative [facility] - 03/03/2023 11:12 AM [facility] Results greater than 11,500.0 U/mL may not be reliable due to matrix effect with extended dilution as it exceeds the flexo press operator's recommended limit. Caution should be exercised when interpreting such values and done in conjunction with clinical context. This test is measured by electrochemiluminescence immunoassay on [place] Anuel immunoassay analyzers. Results obtained in different methods are not interchangeable. Reference intervals are not available for male patients. Results should be interpreted in conjunction with clinical context. Mecca Armstrong PA LAB BLOOD ORDERABLES Performing Organization Address [facility] Co de Phone Number [address], [address] [address] * Phosphorus Level (03/03/2023 10:36 AM CR[facility]) Only the most recent of2 resultswithin the time period is included. Phosphorus Level 2.9 2.5 - 4.5 mg/dL 03/03/2023 11:02 AM [facility] Blood Peripheral blood specimen / Unknown Venipuncture / Unknown 03/03/2023 10:36 AM [facility] 03/03/2023 10:38 AM [facility] Mecca Hameedke PA LAB BLOOD ORDERABLES [address], [address] [place] [address] * Magnesium Level (03/03/2023 10:36 AM [facility]) Only the most recent of2 resultswithin the time period is included. Magnesium Level 1.8 1.6 - 2.6 mg/dL 03/03/2023 11:02 AM [facility] Blood Peripheral blood specimen / Unknown Venipuncture / Unknown 03/03/2023 10:36 AM [facility] 03/03/2023 10:38 AM [facility] Mecca MAURER LAB BLOOD ORDERABLES [facility] [address], [address] [place] [address] * EKG, 12-Lead (Scheduled) (03/03/2023) Mecca MAURER ECG ORDERABLES Performing Organization Address City/[facility]/ZIP Co de Phone Number ROMÁN IECG * POC Glucose Screen - Fingerstick (02/19/2023 1:05 PM [facility]) Glucose Screen 97 70 - 99 mg/dL 02/19/2023 1:07 PM [facility] POC Sample Type Capillary 02/19/2023 1:07 PM [facility] Blood 02/19/2023 1:05 PM [facility] 02/19/2023 1:07 PM [facility] Narrative [facility] - 02/19/2023 1:07 PM [facility] Capillary blood samples, e.g. obtained by fingerstick, may have inaccurate results in patients with decreased peripheral blood flow. Method description: All results are measured using Electrochemistry test methodology. The glucose in the sample mixes with the reagents on the test strip. The reaction produces an electric current. The amount of current produced is proportional to the glucose concentration in the blood. All POC Glucose screen test results, including critical values, must be interpreted and evaluated in the context of the patients' clinical findings. It is recommended to confirm any questionable test results by core lab methodology. Jax Chaudhary MD POCT ORDERABLES - D CHANDRIKA MAIRA MEDINA [facility] [address] [place] [address] * Pathology Biopsy Interpretation (02/19/2023 12:35 PM [facility]) Submitted Clinical History History of rectal bleeding [Z87.19] Gastroesophageal reflux disease [K21.9] Regurgitation of food [R19.8] Dysphagia, not otherwise specified [R13.10] Endoscopy abnormal [R93.89] 02/27/2023 2:03 PM [facility] Diagnosis A: Stomach, random stomach: Antral mucosa with mild inactive chronic gastritis and intestinal metaplasia. Oxyntic mucosa with minimal inactive chronic inflammation; no intestinal metaplasia identified. Immunostain for Helicobacter organisms is negative. B: Stomach, stomach nodule: Oxyntic mucosa with minimal inactive chronic inflammation. No intestinal metaplasia identified. No dysplasia or malignancy identified (deeper levels examined). C: Gastroesophageal junction, ge. junction: Cardio-oxyntic mucosa with mild inactive chronic inflammation; no intestinal metaplasia identified. Adjacent squamous mucosa, no significant histologic abnormality. 02/27/2023 2:03 PM [facility] Preliminary result electronically signed by Marii Aj MD on 02/21/2023 at 3:05 PM Gross Description A: Stomach, random stomach: 2 soft brock tissue fragments, 0.3 cm and 0.4 cm, entirely submitted in A1. ET B: Stomach, stomach nodule: 2 soft brock tissue fragments, 0.2 cm and 0.6 cm, entirely submitted in B1. ET C: Gastroesophageal junction, ge. junction: 1 soft light brock tissue fragment, 0.25 cm, entirely submitted in C1. ET 02/27/2023 2:03 PM [facility] Biomarker Block(s) NA 02/27/2023 2:03 PM [facility] Disclaimer "Some tests reported here may have been developed and performance characteristics determined by [facility] Pathology and Laboratory Medicine. These tests have not been specifically cleared or approved by the U.S. Food and Drug Administration. If applicable, controls were reviewed and showed appropriate reactivity." 02/27/2023 2:03 PM [facility] Tissue (Stomach) 02/19/2023 12:35 PM [facility] 02/20/2023 7:12 AM [facility] Tissue specimen (specimen) (Stomach) 02/19/2023 12:36 PM [facility] 02/20/2023 7:12 AM [facility] Tissue specimen (specimen) (Gastroesophagea l Junction) 02/19/2023 12:37 PM [facility] 02/20/2023 7:12 AM [facility] Jax Chaudhary MD LAB PATHOLOGY ORDER [facility] [id number] [place] [address], * (ABNORMAL) Urinalysis Microscopic Exam (01/20/2023 2:50 PM CR[facility]LLOWER) Only the most recent of2 resultswithin the time period is included. Urine WBC 3-4(A) None Seen, Rare, 0-2, <1 /HPF 01/20/2023 3:45 PM [facility] [place] Urine RBC 0-2 None Seen, Rare, 0-2, <1 /HPF 01/20/2023 3:45 PM [facility] [place] Urine Mucous Trace Not Seen, Trace /HPF 01/20/2023 3:45 PM [facility] [place] Urine Bacteria 4+(A) Not Seen /HPF 01/20/2023 3:45 PM [facility] [place] Urine Squamous Epithelial Cells OCC Not Seen, OCC, Rare /HPF 01/20/2023 3:45 PM [facility] [place] UA Transitional Epi OCC(A) Not Seen, <1 /HPF 01/20/2023 3:45 PM [facility] [place] Urine Voided urine specimen / Unknown Non-blood Collection / Unknown 01/20/2023 2:50 PM [facility] 01/20/2023 3:06 PM [facility] Mecca MAURER LAB BLOOD ORDERABLES [facility] [address], [address] [place] [address] * HIV 1/2 Antigen/Antibody, Fourth Gen W/RFL (01/20/2023 2:50 PM CRANE [facility]LLOWER) HIV Ag/Ab, 4TH Gen NON-REACT TERRENCE NON-REACT TERRENCE 01/21/2023 7:00 AM CRANE FOLLOWER [facility] (ABBIE) Comment: HIV-1 antigen and HIV-1/HIV-2 antibodies were not detected. There is no laboratory evidence of HIV infection. PLEASE NOTE: This information has been disclosed to you from records whose confidentiality may be protected by state law. If your state requires such protection, then the state law prohibits you from making any further disclosure of the information without the specific written consent of the person to whom it pertains, or as otherwise permitted by law. A general authorization for the release of medical or other information is NOT sufficient for this purpose. For additional information please refer to http://education.LendingStar/faq/WPM128 (This link is being provided for informational/ educational purposes only.) The performance of this assay has not been clinically validated in patients less than 2 years old. Blood Peripheral blood specimen / Unknown Venipuncture / Unknown 01/20/2023 2:50 PM [facility] 01/20/2023 3:06 PM [facility] Elisabeth QUEST (ABBIE) - 01/21/2023 7:00 AM CR[facility]LLOWER Performing Organization Information: [facility] [address] [place] [phone] Krissy Storm Mecca MAURER LAB BLOOD ORDERABLES [facility]) * Hepatitis C Virus Antibody (01/20/2023 2:50 PM CR[facility]OWER) HCVAb. Non Reactive Non Reactive 01/21/2023 9:30 AM [facility] Blood Peripheral blood specimen / Unknown Venipuncture / Unknown 01/20/2023 2:50 PM [facility] 01/20/2023 3:06 PM [facility] Narrative [facility] - 01/21/2023 9:30 AM [facility]LLOWER Antibody detection in the immunocompromised and immunosuppressed population may be delayed or absent entirely. Therefore serial testing, correlation with other clinical findings, and supplemental testing (if available) should be taken into consideration when interpreting the results. Mecca MAURER LAB BLOOD ORDERABLES Performing Organization Address City/[facility]/ZIP Co de Phone Number [facility] Unless otherwise noted, all lab tests performed by: Division of Pathology and Laboratory Medicine [address] [place] [id number] * Hepatitis B Total Ig Core Ab (SCREENING) (anti-HBc total Ig; HBcAb total Ig) (01/20/2023 2:50 PM CRANE FOLLOWER) Pathologist [facility] HBcAb. Non Reactive Non Reactive 01/21/2023 9:28 AM [facility]OWER [facility] Blood Peripheral blood specimen / Unknown Venipuncture / Unknown 01/20/2023 2:50 PM [facility] 01/20/2023 3:06 PM [facility]LLOWER Mecca MAURER LAB BLOOD ORDERABLES Performing Organization Address [facility] de Phone Number [facility] Unless otherwise noted, all lab tests performed by: Division of Pathology and Laboratory Medicine [address] [place] [id number] * Hepatitis B Surface Antibody (01/20/2023 2:50 PM CRANE FOLLOWER) Pathologist [facility] HBsAb Indeterminate 01/21/2023 10:13 AM [facility]LLOWER [facility] Comment:The HBV immune statu s cannot be confirmed. Further assessment utilizing other clinical factors and repeat testing at least 4 to 6 weeks later is recommended. Blood Peripheral blood specimen / Unknown Venipuncture / Unknown 01/20/2023 2:50 PM [facility]OWER 01/20/2023 3:06 PM [facility] Narrative [facility] - 01/21/2023 10:13 AM CR[facility]LLOWER Vaccinated individual: Reactive Unvaccinated individual: Non-Reactive Mecca MAURER LAB BLOOD ORDERABLES Performing Organization Address [facility] Co de Phone Number [facility] Unless otherwise noted, all lab tests performed by: Division of Pathology and Laboratory Medicine [address] [place] [id number] * Hepatitis B Surface Ag (01/20/2023 2:50 PM CR[facility] FOLLOWER) HBsAg. Non Reactive Non Reactive 01/21/2023 9:29 AM [facility] Blood Peripheral blood specimen / Unknown Venipuncture / Unknown 01/20/2023 2:50 PM [facility] 01/20/2023 3:06 PM [facility] Mecca MAURER LAB BLOOD ORDERABLES [facility] Unless otherwise noted, all lab tests performed by: Division of Pathology and Laboratory Medicine [address] [place] [id number] * Hemoglobin A1c (01/20/2023 2:50 PM CRANE FOLLOWER) Pathologist [facility] Hemoglobin A1c 5.3 4.3 - 5.6 % 3:20 PM [facility]OWER [facility] Blood Peripheral blood specimen / Unknown Venipuncture / Unknown 01/20/2023 2:50 PM [facility] 01/20/2023 3:06 PM [facility] Narrative [place] - 01/20/2023 3:20 PM [facility]LLOWER HbA1c values >=6.5% are diagnostic of diabetes mellitus. Diagnosis should be confirmed by repeat testing. Therapeutic Action suggested: >8.0% HbA1c; Goal of therapy: <7.0% HbA1c Mecca MAURER LAB BLOOD ORDERABLES Performing Organization Address City/[facility]/ZIP Co de Phone Number [facility] [address], [address] [place] [address] * CT Abdomen Pelvis with Contrast (12/31/2022 4:15 AM CRANE FOLLOWER) Anatomical Region Laterality Modality Abdomen, Pelvis Computed Tomogra phy 12/31/2022 5:22 AM [facility] Impressions 12/31/2022 4:42 PM [facility] 1. No CT abnormality to explain patient's hematochezia or hematuria. 2. Patient is status post hysterectomy and bilateral salpingo-oophorectomy. 3. Multiple hyperdense peritoneal nodules are present suggestive of peritoneal carcinomatosis. 4. Diffuse hepatic steatosis. 5. Other chronic/incidental findings, as above ACTIONABLE ITEMS/RECOMMENDATIONS: None. This is a preliminary resident report and has not been reviewed by an attending radiologist. I personally reviewed these image(s) along with the resident's/fellow's interpretations, certify that if a procedure was performed I was physically present, and agree with the final report. Narrative 12/31/2022 4:42 PM [facility]LLOWER FULL RESULT: Examination: CT ABDOMEN PELVIS W CONTRAST on 12/31/2022 4:15 AM. Clinical History: 32-year-old female with history of ovarian cancer status post bilateral salpingo-oophorectomy, omentectomy, radical pelvic resection in 2020 and hysterectomy in 2021. 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 Patient presents with worsening abdominal pain and hematochezia. Indication: Abdominal pain, worst in left lower quadrant, hematuria and hematochezia Comparison: None available.. Technique: CT ABDOMEN PELVIS W CONTRAST. Findings: Limited CT sections of the lower chest show a calcified small nodule in the right lower lobe, possibly a calcified granuloma. Diffuse hepatic steatosis. No focal liver lesions. Numerous tiny hyperdense foci are seen adjacent to the liver, possibly related to the known peritoneal carcinomatosis. The spleen, pancreas, adrenal glands and both kidneys appear grossly unremarkable. Multiple calcified peritoneal nodules are seen scattered within the abdominal and pelvic cavity. The uterus is absent. The urinary bladder shows no significant abnormality. No enlarged lymph nodes by measurement criteria. No bowel dilatation to suspect bowel obstruction. Small colonic diverticula. No evidence of acute diverticulitis. No ascites. No aggressive osseous lesions. Procedure Note Hernan Alcaraz MD - 12/31/2022 FULL RESULT: Examination: CT ABDOMEN PELVIS W CONTRAST on 12/31/2022 4:15 AM. Clinical History: 32-year-old female with history of ovarian cancer statuspost bilateral salpingo-oophorectomy, omentectomy, radical pelvicresection in 2020 and hysterectomy in 2021. Patient diagnosed withrecurrence in September 2022 with omental carcinomatosis. Patient presentswith worsening abdominal pain and hematochezia. Indication: Abdominal pain, worst in left lower quadrant, hematuria andhematochezia Comparison: None available.. Technique: CT ABDOMEN PELVIS W CONTRAST. Findings: Limited CT sections of the lower chest show a calcified small nodule inthe right lower lobe, possibly a calcified granuloma. Diffuse hepatic steatosis. No focal liver lesions. Numerous tinyhyperdense foci are seen adjacent to the liver, possibly related to theknown peritoneal carcinomatosis. The spleen, pancreas, adrenal glands and both kidneys appear grosslyunremarkable. Multiple calcified peritoneal nodules are seen scattered within theabdominal and pelvic cavity. The uterus is absent. The urinary bladdershows no significant abnormality. No enlarged lymph nodes by measurement criteria. No bowel dilatation tosuspect bowel obstruction. Small colonic diverticula. No evidence of acutediverticulitis. No ascites. No aggressive osseous lesions. IMPRESSION: 1. No CT abnormality to explain patient's hematochezia or hematuria. 2. Patient is status post hysterectomy and bilateralsalpingo-oophorectomy. 3. Multiple hyperdense peritoneal nodules are present suggestive ofperitoneal carcinomatosis. 4. Diffuse hepatic steatosis. 5. Other chronic/incidental findings, as above ACTIONABLE ITEMS/RECOMMENDATIONS: None. This is a preliminary resident report and has not been reviewed by anattending radiologist. I personally reviewed these image(s) along with the resident's/fellow'sinterpretations, certify that if a procedure was performed I wasphysically present, and agree with the final report. Kourtney Jerry MD IMG CT ORDERABLES * Tip Verification Central Vascular Access Device (12/31/2022 2:37 AM CRANE FOLLOWER) Narrative Kourtney Jerry MD - 12/31/2022 2:37 AM CRANE FOLLOWER Kourtney Jerry MD 12/31/2022 2:38 AM Central Vascular Access Device Tip Verification Performed by: Kourtney Jerry MD Authorized by: Kourtney Jerry MD [employer] Date device placed: 11/06/2022 Device placement location: Outside facility Catheter Type: Implanted venous port without CT rating visible Vein location: Internal jugular vein Laterality: Left Tip in good position and cleared for infusion Kourtney Jerry MD IV THERAPY ORDERABLE S * X-ray Chest 1 View (12/31/2022 2:04 AM CRANE FOLLOWER) Anatomical Region Laterality Modality Chest Digital Radiogra phy 12/31/2022 6:17 AM CRANE FOLLOWER Impressions 12/31/2022 12:57 PM CRANE FOLLOWER 1. No acute or metastatic disease. 2. Right IJ Port-A-Cath with its tip at SVC/right atrial junction. No complication. ACTIONABLE ITEMS/RECOMMENDATIONS: None. I personally reviewed these image(s) along with the resident's/fellow's interpretations, certify that if a procedure was performed I was physically present, and agree with the final report. Narrative 12/31/2022 12:57 PM CRANE FOLLOWER FULL RESULT: Examination: XR Chest, 1 View Portable, 12/31/2022 2:04 AM. Clinical History: Ovarian cancer. Indication: Check central line placement. Comparison: None. Technique: Portable chest, 12/31/2022. Findings: The lungs are clear. No pleural effusion is present. The cardiomediastinal silhouette is unremarkable. The bones are intact. A right IJ Port-A-Cath has its tip at the SVC - right atrial junction. Procedure Note Neville Kc MD - 12/31/2022 FULL RESULT: Examination: XR Chest, 1 View Portable, 12/31/2022 2:04 AM. Clinical History: Ovarian cancer. Indication: Check central line placement. Comparison: None. Technique: Portable chest, 12/31/2022. Findings: The lungs are clear. No pleural effusion is present. The cardiomediastinalsilhouette is unremarkable. The bones are intact. A right IJ [id number]-Tfsawwy its tip at the SVC - right atrial junction. IMPRESSION: 1. No acute or metastatic disease. 2. Right IJ Port-A-Cath with its tip at SVC/right atrial junction. Nocomplication. ACTIONABLE ITEMS/RECOMMENDATIONS: None. I personally reviewed these image(s) along with the resident's/fellow'sinterpretations, certify that if a procedure was performed I wasphysically present, and agree with the final report. Kourtney Jerry MD IMG DIAGNOSTIC IMAGI NG ORDERABLES * Lipase (12/31/2022 12:29 AM CRANE FOLLOWER) Lipase Level 23 13 - 60 U/L 12/31/2022 2:19 AM CRANE FOLLOWER [facility] Blood Peripheral blood specimen / Unknown Venipuncture / Unknown 12/31/2022 12:29 AM CRANE FOLLOWER 12/31/2022 12:42 AM CRANE FOLLOWER Narrative [facility] - 12/31/2022 2:19 AM CRANE FOLLOWER Reference range established based on adult population Kourtney Jerry MD LAB BLOOD ORDERABLES Performing Organization Address [facility] de Phone Number [facility] Unless otherwise noted, all lab tests performed by: Division of Pathology and Laboratory Medicine [address] [place] [id number] * (ABNORMAL) LDH (12/31/2022 12:29 AM CRANE FOLLOWER) LDH 224(H) 135 - 214 U/L 12/31/2022 2:13 AM CRANE FOLLOWER [facility] Blood Peripheral blood specimen / Unknown Venipuncture / Unknown 12/31/2022 12:29 AM CRANE FOLLOWER 12/31/2022 12:42 AM CRANE FOLLOWER Narrative [facility] - 12/31/2022 2:13 AM CRANE FOLLOWER Results greater than 1651 U/L may not be reliable due to matrix effect with extended dilution as it exceeds the flexo press operator's recommended limit. Caution should be exercised when interpreting such values and done in conjunction with clinical context. Kourtney Jerry MD LAB BLOOD ORDERABLES Performing Organization Address [facility] de Phone Number BANNER Unless otherwise noted, all lab tests performed by: Division of Pathology and Laboratory Medicine [address] [place] [id number] * Amylase (12/31/2022 12:29 AM CRANE FOLLOWER) Amylase Level 41 28 - 100 U/L 12/31/2022 2:19 AM CRANE FOLLOWER [facility] Blood Peripheral blood specimen / Unknown Venipuncture / Unknown 12/31/2022 12:29 AM CRANE FOLLOWER 12/31/2022 12:42 AM CRANE FOLLOWER Kourtney Jerry MD LAB BLOOD ORDERABLES Performing Organization Address [facility] de Phone Number [facility] [place] Unless otherwise noted, all lab tests performed by: Division of Pathology and Laboratory Medicine [address] [place] [id number] after 03/25/2022 Care Teams Aircraft Body Repairer Relationship Specialty Start Date End Date Mariel Farris, [facility] PCP - External Primary Care Provider 09/06/20 Kade Wilson MD [address] [place] [id number] PCP - General Gynecological Oncology 01/06/23 Macarena Reveles MD [address] [place] [id number] Consulting Physician Gastroenterology, Hepatology and Nutrition 01/30/23
[2023-03-25 09:10] LABS: Specific Gravity 1.024 (1.005-1.030); Urine Bacteria None Seen /HPF (<20); Urine Bilirubin NEGATIVE (Negative); Urine Blood Negative (Negative); Urine Clarity Clear (Clear); Urine Color Light-Yellow (Yellow); Urine Glucose NEGATIVE (Negative); Urine Mucus Slight /HPF (None Seen); Urine Protein TRACE (Negative); Urine RBC <5 /HPF (None Seen); Urine Urobilinogen Normal (Normal)
[2023-03-25 09:20] LABS: Hematocrit 40.6 % (36.0-45.0); Lymphocytes % 13.5 % (15.3-44.8); MCV 88.4 fL (80-100); MPV 7.6 fL (7.6-11.3); Platelets 373 thou/uL (152-406); RBC Red Blood Cell Count 4.59 M/uL (3.86-4.86)
[2023-03-25 09:23] LABS: Protime INR 1.12
--- NOTE | 2023-03-25 09:25 | RAD REPORT ---
EXAM DESCRIPTION: Haseeb Single View03/25/2023 9:08 am CLINICAL HISTORY: FEVER COMPARISON: No comparisons TECHNIQUE: Portable AP view of the chest. FINDINGS: The lungs are clear. No pneumothorax or effusion. The cardiomediastinal contours are unre markable. IMPRESSION: No acute cardiopulmonary process.
[2023-03-25 09:33] LABS: Albumin 3.8 g/dL (3.4-5.0); Bilirubin Total 0.3 mg/dL (0.2-1.0); Potassium 3.4 mEq/L (3.5-5.1); Protein, Total 8.6 g/dL (6.4-8.2)
[2023-03-25 09:51] LABS: SARS-CoV-2 Antigen Rapid Res Positive (Negative)
--- NOTE | 2023-03-25 11:41 | ER ---
Nurse's Notes [facility] Name: Thea Briceño Age: 32 yrs Sex: Female : 1990 Arrival Date: 03/25/2023 Time: 07:38 Bed 4 Private MD: Diagnosis: COVID-19 Presentation: 03/25 08:01 Chief complaint: Patient states: Pt reports fever, body aches, nausea. + covid exposure jl7 x3 days. Reports taking no medications for symptoms. Reports she started trial chemo for ovarian CA yesterday at [facility]. Coronavirus screen: Vaccine status: Patient reports receiving the 2nd dose of the covid vaccine. Client denies travel out of the [place] in the last 14 days. Ebola Screen: Patient negative for fever greater than or equal to 101.5 degrees Fahrenheit, and additional compatible Ebola Virus Disease symptoms Patient denies exposure to infectious person. Patient denies travel to an Ebola-affected area in the 21 days before illness onset. Initial Sepsis Screen: Does the patient meet any 2 criteria? Temp <36.0*C (96.8*F)) or > 38.3*C (100.9*F). HR > 90 bpm. Yes Does the patient have a suspected source of infection? No. Patient's initial sepsis screen is negative. Risk Assessment: Do you want to hurt yourself or someone else? Patient reports no desire to harm self or others. Onset of symptoms was March 25, 2023. 08:01 Method Of Arrival: Ambulatory [facility] 08:01 Acuity: YUMIKO 3 jl7 Triage Assessment: 08:04 General: Appears in no apparent distress. Behavior is calm, cooperative. Pain: jl7 Complains of pain in head Pain does not radiate. Pain currently is 7 out of 10 on a pain scale. 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 - Social history:: Smoking status: Patient denies any tobacco usage or history of. - Family history:: not pertinent. Screenin:47 [facility] ED Fall Risk Assessment (Adult) History of falling in the last 3 months, ko1 including since admission No falls in past 3 months (0 pts). Abuse screen: Denies threats or abuse. Denies injuries from another. Nutritional screening: No deficits noted. Tuberculosis screening: No symptoms or risk factors identified. Assessment: 08:15 Reassessment: Dr. Gardner at chairside assessing pt and discussing POC. jl7 Vital Signs: 08:01 BP 111 / 86; Pulse 124; Resp 20; Temp 102.3; Pulse Ox 100% ; Weight 96.16 kg; Height 4 jl7 ft. 11 in. ; 08:01 Pain 7/10; jl7 09:30 BP 111 / 84; Pulse 113; Resp 16; Pulse Ox 97% ; ko1 11:09 BP 109 / 69; Pulse 91; Resp 20; Pulse Ox 98% on R/A; ld1 11:47 BP 92 / 63; Pulse 91; Resp 17; Pulse Ox 98% ; ko1 08:01 Body Mass Index 42.82 (96.16 kg, 149.86 cm) jl7 08:01 Pain Scale: Adult jl7 ED Course: 07:41 Patient arrived in ED. im 08:04 Triage completed. jl7 08:04 Arm band placed on right wrist. jl7 08:07 Shawn Gardner MD is Attending Physician. rt 08:48 Liz Leyva, CHANDAN is Primary Nurse. ko1 08:57 Urinalysis w/ reflexes Sent. ko1 08:57 Lactate w/ 2H reflex if indic. Sent. ko1 08:57 Blood Culture Adult (2) Sent. ko1 08:57 SARS RAPID Sent. ko1 08:57 Strep Sent. ko1 08:57 Influenza Screen (a \T\ B) Sent. ko1 09:00 Inserted saline lock: 20 gauge in right antecubital area, using aseptic technique. ld1 Blood collected. 09:09 Chest Single View XRAY In Process Unspecified. EDMS 10:00 Patient has correct armband on for positive identification. Allergy band placed. Placed ko1 in gown. Bed in low position. Call light in reach. Side rails up X2. Provided Education on: na. Client placed on continuous cardiac and pulse oximetry monitoring. NIBP monitoring applied. swine nutritionist on. Door closed. Noise minimized. Lights dimmed. Warm blanket given. 11:48 No provider procedures requiring assistance completed. IV discontinued, intact, ko1 bleeding controlled, No redness/swelling at site. Pressure dressing applied. Administered Medications: 08:57 Drug: Acetaminophen PO 1000 mg PO once Route: PO; ko1 08:59 Drug: Cefepime IVPB 2 grams IVPB at 200 ml/hr once over 30 mins; (mix in NS 100 mL) ko1 Route: IVPB; Rate: 200 ml/hr; Infused Over: 30 mins; Site: right antecubital; 08:59 Drug: NS 0.9% IV 1000 ml IV at 1 bolus Per protocol; 1000 mL bolus Route: IV; Rate: 1 ko1 bolus; Site: right antecubital; Medication: 11:47 VIS not applicable for this client. ko1 Outcome: 11:40 Discharge ordered by . rt 11:51 Discharged to home ambulatory, ld1 11:51 Condition: stable 11:51 Discharge instructions given to patient, Instructed on discharge instructions, follow up and referral plans. medication usage, Demonstrated understanding of instructions, follow-up care, medications, Prescriptions given X 1, 11:51 Patient left the ED. ld1 Signatures: Dispatcher [employer] EDMS Maurice Albarran RN RN jl7 Mariel Rice RN RN ld1 Liz Leyva RN RN ko1 Shawn Gardner MD MD rt Brii Kirby Corrections: (The following items were deleted from the chart) 08:06 08:01 Chief complaint: Patient states: Pt reports fever, body aches, nausea. + covid jl7 exposure x3 days. Reports taking no medications for symptoms jl7
--- NOTE | 2023-03-25 11:41 | EDPHYS ---
Physician Documentation [facility] Name: Thea Briceño Age: 32 yrs Sex: Female : 1990 Arrival Date: 03/25/2023 Time: 07:38 Bed 4 Private MD: ED Physician Shawn Gardner HPI: 03/25 12:17 This 32 yrs old Female presents to ER via Ambulatory with complaints of Flu rt Symptoms. 12:17 Patient presents to the ED with fever, chills, shaking. The patient is currently rt getting experimental immunotherapy for ovarian cancer for which she received her first dose yesterday. She did have a positive COVID-19 contact. She denies difficulty breathing, the acute complaints, symptoms are moderate severity, no other aggravating or alleviating factors.. 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 - Social history:: Smoking status: Patient denies any tobacco usage or history of. - Family history:: not pertinent. ROS: 12:17 Cardiovascular: Negative for chest pain, palpitations, and edema, Respiratory: Negative rt for shortness of breath, cough, wheezing, and pleuritic chest pain, Abdomen/GI: Negative for abdominal pain, nausea, vomiting, diarrhea, and constipation, MS/Extremity: Negative for injury and deformity, Skin: Negative for injury, rash, and discoloration, Neuro: Negative for headache, weakness, numbness, tingling, and seizure, Psych: Negative for depression, anxiety, suicide ideation, homicidal ideation, and hallucinations, 12:17 Constitutional: Positive for body aches, chills, fatigue, fever, malaise, 12:17 ENT: Positive for sore throat, Negative for sinus congestion, Exam: 12:17 Constitutional: This is a well developed, well nourished patient who is awake, alert, rt and in no acute distress. ENT: Mild posterior pharyngeal erythema without exudates or tonsillar hypertrophy, uvula is midline Chest/axilla: Normal chest wall appearance and motion. Nontender with no deformity. No lesions are appreciated. Cardiovascular: Regular rate and rhythm with a normal S1 and S2. No gallops, murmurs, or rubs. Normal PMI, no JVD. No pulse deficits. Respiratory: Lungs have equal breath sounds bilaterally, clear to auscultation and percussion. No rales, rhonchi or wheezes noted. No increased work of breathing, no retractions or nasal flaring. Abdomen/GI: Soft, non-tender, with normal bowel sounds. No distension or tympany. No guarding or rebound. No evidence of tenderness throughout. Skin: Warm, dry with normal turgor. Normal color with no rashes, no lesions, and no evidence of cellulitis. MS/ Extremity: Pulses equal, no cyanosis. Neurovascular intact. Full, normal range of motion. Neuro: Awake and alert, GCS 15, oriented to person, place, time, and situation. Cranial nerves II-XII grossly intact. Motor strength 5/5 in all extremities. Sensory grossly intact. Cerebellar exam normal. Normal gait. Vital Signs: 08:01 BP 111 / 86; Pulse 124; Resp 20; Temp 102.3; Pulse Ox 100% ; Weight 96.16 kg; Height 4 7 ft. 11 in. ; 08:01 Pain 7/10; jl7 09:30 BP 111 / 84; Pulse 113; Resp 16; Pulse Ox 97% ; ko1 11:09 BP 109 / 69; Pulse 91; Resp 20; Pulse Ox 98% on R/A; ld1 11:47 BP 92 / 63; Pulse 91; Resp 17; Pulse Ox 98% ; ko1 08:01 Body Mass Index 42.82 (96.16 kg, 149.86 cm) jl7 08:01 Pain Scale: Adult jl7 MDM: 08:11 Patient medically screened. rt 12:17 Differential Diagnosis Flu, COVID, pneumonia. Data reviewed: vital signs, nurses notes, rt lab test result(s), radiologic studies. Consideration of Admission/Observation Escalation of care including admission/observation considered. Stable vital signs, tachycardia improving with treatment of fever. Labs are benign, no clear source of bacterial infection, patient is COVID-positive, likely attributing for her symptoms. At this time, no meet indications for mission to the hospital. Patient structured to follow-up as an outpatient, strict return precautions were discussed.. I considered the following discharge prescriptions or medication management in the emergency department Medications were administered in the Emergency Department. See MAR. Independent interpretation of the following test(s) in the Emergency Department X-Ray: My interpretation is No consolidation seen on my interpretation of x-ray images. Care significantly affected by the following chronic conditions: Ovarian cancer. Counseling: I had a detailed discussion with the patient and/or guardian regarding the historical points, exam findings, and any diagnostic results supporting the discharge/admit diagnosis, lab results, radiology results, the need for outpatient follow up, to return to the emergency department if symptoms worsen or persist or if there are any questions or concerns that arise at home. Response to treatment: the patient's symptoms have markedly improved after treatment. 03/25 08:21 Order name: Blood Culture Adult (2) rt 03/25 08:21 Order name: CBC with Diff; Complete Time: 09:27 rt 03/25 08:21 Order name: CMP; Complete Time: 10:19 rt 03/25 08:21 Order name: Lactate w/ 2H reflex if indic.; Complete Time: 09: rt 03/25 08:21 Order name: Protime (+inr); Complete Time: 09:27 rt 03/25 08:21 Order name: Ptt, Activated; Complete Time: 09:27 rt 03/25 08:21 Order name: Urinalysis w/ reflexes; Complete Time: 09:27 rt 03/25 08:21 Order name: Influenza Screen (a \T\ B); Complete Time: 10:19 rt 03/25 08:21 Order name: SARS RAPID; Complete Time: 10:19 rt 03/25 08:21 Order name: Strep rt 03/25 09:46 Order name: Throat Culture EDMS 03/25 08:21 Order name: Chest Single View XRAY; Complete Time: 09:27 rt 03/25 08:21 Order name: EKG; Complete Time: 08:22 rt 03/25 08:21 Order name: Accucheck; Complete Time: 08:57 rt 03/25 08:21 Order name: Cardiac monitoring; Complete Time: 08:48 rt 03/25 08:21 Order name: EKG - Nurse/Tech; Complete Time: 09:10 rt 03/25 08:21 Order name: IV Saline Lock - Large Bore; Complete Time: 08:57 rt 03/25 08:21 Order name: Labs collected and sent; Complete Time: 08:57 rt 03/25 08:21 Order name: O2 Per Protocol; Complete Time: 08:48 rt 03/25 08:21 Order name: O2 Sat Monitoring; Complete Time: 08:48 rt 03/25 08:21 Order name: Vital Signs; Complete Time: 08:48 rt Administered Medications: 08:57 Drug: Acetaminophen PO 1000 mg PO once Route: PO; ko1 08:59 Drug: Cefepime IVPB 2 grams IVPB at 200 ml/hr once over 30 mins; (mix in NS 100 mL) ko1 Route: IVPB; Rate: 200 ml/hr; Infused Over: 30 mins; Site: right antecubital; :59 Drug: NS 0.9% IV 1000 ml IV at 1 bolus Per protocol; 1000 mL bolus Route: IV; Rate: 1 ko1 bolus; Site: right antecubital; Disposition Summary: 03/25/23 11:40 Discharge Ordered Notes: Location: Home rt Problem: new rt Symptoms: have improved rt Condition: Stable rt Diagnosis - COVID-19 rt Followup: rt - With: Private Physician - When: 2 - 3 days - Reason: Followup: rt - With: Emergency Department - When: As needed - Reason: Worsening of condition Discharge Instructions: - Discharge Summary Sheet rt - COVID-19 rt Forms: - Medication Reconciliation Form rt - Thank You Letter rt - Antibiotic Education rt - Prescription Opioid Use rt - Patient Portal Instructions rt - Leadership Thank You Letter rt Prescriptions: - Paxlovid 300 mg (150 mg x 2)-100 mg Oral Tablet, Dose Pack - take 1 dose pack ORAL route per package directions; 1 packet; Refills: 0, rt Product Selection Permitted Signatures: Dispatcher [employer] Maurice Burton RN RN ana [id number] Liz Leyva RN RN ko1 Shawn Gardner MD MD rt
[2023-03-25 17:11] VITALS: TEMP 102.3
[2023-03-25 17:27] VITALS: BP 92/63; O2SAT 98
== END ==
LOC: ER 07:38
DX: U07.1 COVID-19 (principal); Z88.1 Allergy status to other antibiotic agents
CPT/HCPCS: 93005; 87040 ×2; 87070; 85025; 81001; 36415; 85610; 87081; 83605; 85730; 80053; 87804 ×2; 71045; 87811; J0692; J7030